=== PATIENT | male | born 1940 | race Caucasian/White ===

== ENCOUNTER 2023-08-04 16:35 | Inpatient (IN) | payer OTHER, SELFPAY ==
[2023-08-04] VITALS (7 sets, daily range): BP systolic 107–126; BP diastolic 63–73; BMI 21.4
--- NOTE | 2023-08-04 13:37 | ED.GENMED ---
History of Present Illness
<Ganesh Raymond Jr., PA-C - Last Filed: 08/04/23 15:39>
General
Chief Complaint: Breathing Problem
Source: patient and family
Exam Limitations: none
Time Seen by Provider: 08/04/23 12:51
Nursing documentation reviewed up to this point in time: agreed with
Travel History
Have you had any contact with someone who has COVID-19?: No
Do you have any symptoms of coronavirus? Fever > 100 degrees, chills, cough, shortness of breath, sore throat, loss of taste or smell, muscle aches, or headache?: No
History of Present Illness
History of Present Illness:
83-year-old male past medical history of CLL, diabetes, hypertension hyperlipidemia presenting to the emergency department with concerns of shortness of breath since last night. Recently admitted to the hospital discharged 5 days ago. He was here
for influenza with secondary bacterial pneumonia took cefuroxime until yesterday. Noticed worsening shortness of breath starting last night. Also has some chest tightness. Denies any leg swelling recent trauma no history of blood clots no
estrogen product usage. Denies any fevers. Has had ongoing cough.
Past History
<Ganesh Raymond Jr., PA-C - Last Filed: 08/04/23 15:39>
Past History
ED Past Medical History: Cancer (Leukemia CLL), HTN, Hypercholesterolemia, NIDDM and Other (Kidney stones)
ED Past Surgical History: Other (Hernia repair)
Social History
Tobacco: Non-smoker
Alcohol: None
Personal:
Living: with family
Review of Systems
<DAPHNEY Ruelas Jr. Last Filed: 08/04/23 15:39>
Review of Systems
Allergies reviewed?: Yes
All Other Systems: ROS reviewed and negative except as documented in HPI and ROS
Phy Exam
<Ganesh Raymond Jr., PA-C - Last Filed: 08/04/23 15:39>
Physical Exam
Physical Exam:
GENERAL: Alert , in no apparent distress
EYE: pupils equal and reactive
NECK: Supple, no significant adenopathy.
ENT: o/p clr, mmm.
CARDIAC: Regular rate and rhythm .
LUNGS: Clear breath sounds bilaterally, no acute respiratory distress, no wheezes/rales/rhonchi
ABDOMEN: Soft, without focal tenderness, no r/g, no cvat
NEUROLOGICAL: Alert and oriented, no focal neuro deficits
SKIN: Warm and dry, skin intact.
MUSCULOSKELETAL: No edema, well perfused.
PSYCH: Normal and appropriate interaction.
Scores
<Ganesh Raymond Jr., PA-C - Last Filed: 08/04/23 15:39>
Heart Failure Risk
Heart Failure Risk Score: Not Applicable
Course
<Ganesh Raymond Jr., PA-C - Last Filed: 08/04/23 15:39>
Orders/Labs/Results
Orders:
Orders
08/04/23 13:14
Electrocardiogram (*1) Stat
Reason for Study: Other
Other Reason for Exam: pneumonia
CT Chest Pe Study Urgent
Comment:
Reason For Exam: sob, recent hospitalization, tachypnea,
Cardiac Monitoring- Treatment ONCE
EKG- Treatment ONCE
08/04/23 13:43
Complete Blood Count/With Diff Urgent
Comprehensive Metabolic Panel Urgent
NT-proBNP Urgent
Troponin I Urgent
08/04/23 14:26
EKG [Electrocardiogram (*1)] Urgent
Reason for Study: Chest Pain
EKG- Treatment ONCE
08/04/23 14:44
Aspirin 325 mg PO NOW STA
08/04/23 Dinner
Cholesterol Lowering
At Your Request: Full Participation
Cholesterol Lowering: Sodium, 2 Gram
08/04/23 15:28
Heparin 3,700 units IV NOW STA
Nursing to Place Non Medication Order As Directed
Physician Order: PTT 6 hours after initial start of Heparin infusion
Above order entered?: Yes
08/04/23 15:30
Heparin 09667 Units/250 ml 25,000 units in 250 ml IV PER PROTOCOL
Weight to be used for heparin protocol in kilograms (kg):: 61.9
Protocol:: Cardiac Tx/Acute Coronary
PTT Goal Range to be used:: PTT 73 to 111 seconds
Order type:: Initial
INITIAL Infusion Dose (UNITS/KG/hr) & then follow protocol:: 12 units/kg/hr
Infusion Dose in UNITS/hr & then follow protocol (UNITS/hr):: 750
INFUSION RATE in mL/hr & then follow protocol (mL/hr):: 7.5
PTT less than or equal to 64 seconds:: Increase rate by 200 units/hr (+ 2 mL/hr)
PTT 64.1 to 72.9 seconds:: Increase rate by 100 units/hr (+ 1 mL/hr)
PTT 73 to 111 seconds:: Target Range. No change in rate.
PTT 111.1 to 130.9 seconds:: Decrease rate by 100 units/hr (- 1 mL/hr)
PTT 131 to 199.9 seconds:: HOLD for 1 hr. Then decrease rate by 200 units/hr (- 2 mL/hr)
PTT greater than or equal to 200 seconds:: HOLD for 2 hrs & Notify Provider. Then decrease by 200 units/hr (-
2 mL/hr)
Lab follow-up:: Each change, PTT q6h until 2 consecutive are therapeutic. Then PTT
daily.
08/04/23 16:06
PTT Urgent
Comment: Obtain baseline before beginning heparin infusion if not already collected
08/04/23 16:19
Furosemide [Lasix] 40 mg IV NOW STA
08/04/23 16:25
Admit/Transfer Patient As Directed
Co-Sign Provider:
Level of Care: Inpatient admission
Assign to:: IVU
Physician / Group: joe
Diagnosis: nstemi
Reason for Hospitalization: nstemi
Expected length of stay greater than two midnights?: Yes
ELOS- Estimated Length of Stay in days: 2
I certify the patient meets the requirements for IP care: Yes
08/04/23 16:26
Code Status As Directed
Resuscitation Status: Do not resuscitate
Reached after discussion with pt or family/Healthcare POA: Yes
DNR Bracelet Application ONCE
08/04/23 19:10
Dextrose 50%-Water [Dextrose 50% Syringe] 12.5 grams IV [id number] PRN
Glucagon [GlucaGen] 1 mg IM PRN PRN
Guaifenesin Solution [Robitussin] 200 mg PO HSPRN PRN
Insulin Aspart Corrective Low [Novolog Flexpen-Low Resistance] See Protocol SC AC
08/04/23 19:10
Heparin Protocol- PTT Orders As Directed
PTT per Heparin protocol: -Obtain CBC and baseline PTT - if not already collected.
-Obtain PTT 6 hours from start of infusion. Then, every 6 hours until 2 consecutive
PTT's are therapeutic. Then, PTT Daily.
-With each rate change, obtain PTT every 6 hours until 2 consecutive PTT's are
therapeutic. Then, PTT Daily.
Activity As Directed
Activity Level: As Tolerated
Bedside Glucose Monitoring As Directed
Frequency: AC&HS
Comment: Change to q6h if pt on TPN, tube feeding or not eating
I/O [Intake/ Output] As Directed
Frequency: q12h
Notify MD As Directed
Notify physician if: PTT is greater than or equal to 200.
Pneumatic Compression Sleeves As Directed
Type: Knee high
Vital Signs As Directed
Frequency: Per unit guidelines
Weight As Directed
Frequency: Daily
DX Deep Vein Thrombosis Video Routine
08/04/23 19:17
Benzonatate [Tessalon Perles] 200 mg PO TIDPRN PRN
08/04/23 20:00
Atorvastatin [Lipitor] 20 mg PO QPM
08/04/23 21:11
Troponin I Q6H
08/05/23 02:42
Complete Blood Count/With Diff IN AM
Comprehensive Metabolic Panel IN AM
Troponin I Q6H
08/05/23 Breakfast
NPO
Allow oral meds: Yes
Allow clear liquids: Sips of Clears
08/05/23 07:10
Troponin I Q6H
08/05/23 08:00
Ascorbic Acid [Vitamin C] 1,000 mg PO DAILY
Aspirin Low Dose EC [Aspir Low (Enteric Coated)] 81 mg PO DAILY
Cholecalciferol (Vitamin D3) [VITAMIN D3 (cholecalciferol)] 25 mcg PO DAILY
08/06/23 06:00
Complete Blood Count/No Diff Q2D
Comment: notify provider: Platelet count < 130,000 or decrease by 50% from baseline
08/08/23 06:00
Complete Blood Count/No Diff Q2D
Comment: notify provider: Platelet count < 130,000 or decrease by 50% from baseline
08/10/23 06:00
Complete Blood Count/No Diff Q2D
Comment: notify provider: Platelet count < 130,000 or decrease by 50% from baseline
08/12/23 06:00
Complete Blood Count/No Diff Q2D
Comment: notify provider: Platelet count < 130,000 or decrease by 50% from baseline
08/14/23 06:00
Complete Blood Count/No Diff Q2D
Comment: notify provider: Platelet count < 130,000 or decrease by 50% from baseline
08/16/23 06:00
Complete Blood Count/No Diff Q2D
Comment: notify provider: Platelet count < 130,000 or decrease by 50% from baseline
08/18/23 06:00
Complete Blood Count/No Diff Q2D
Comment: notify provider: Platelet count < 130,000 or decrease by 50% from baseline
08/20/23 06:00
Complete Blood Count/No Diff Q2D
Comment: notify provider: Platelet count < 130,000 or decrease by 50% from baseline
Abnormal Lab Results
08/04/23
13:43
WBC 50.3 H* 10^3/uL
(4.8-10.8)
RBC 2.68 L 10^6/uL
(4.70-6.10)
Hgb 8.7 L g/dL
(13.0-18.0)
Hct 25.0 L %
(39.0-52.0)
MCH 32.5 H pg
(27.0-31.0)
RDW 15.1 H %
(11.5-14.5)
MPV 10.9 H fL
(7.4-10.4)
Abs Immat Gran (auto) 0.2 H 10^3/uL
(0-0.05)
Absolute Lymphs (auto) 43.3 H 10^3/uL
(1.2-3.4)
Neutrophils % 12.4 L %
(42.2-75.2)
Lymphocytes % 86.0 H %
(20.5-51.1)
Monocytes % 1.0 L %
(1.7-9.3)
Sodium 130 L mmol/L
(135-145)
Carbon Dioxide 16 L mmol/L
(22-30)
BUN 27 H mg/dl
(9-20)
Glucose 203 H mg/dl
(70-99)
Troponin I 2.150 H* ng/ml
Total Protein 5.5 L g/dl
(6.3-8.2)
Albumin 3.4 L g/dl
(3.5-5.0)
08/04/23 13:43
08/04/23 13:43
Vital Signs
Initial and Last Documented VS:
Initial Vital Signs
Temp Pulse Resp BP Pulse Ox
97.6 F 94 18 125/63 99
08/04/23 12:43 08/04/23 12:43 08/04/23 12:43 08/04/23 12:43 08/04/23 12:43
Last Documented Vital Signs
Temp Pulse Resp BP Pulse Ox
98.2 F 73 20 108/60 94
08/05/23 08:11 08/05/23 09:00 08/05/23 08:11 08/05/23 08:13 08/05/23 09:22
<Donnie Warner MD - Last Filed: 08/05/23 10:08>
Orders/Labs/Results
Orders:
Orders
08/04/23 13:14
Electrocardiogram (*1) Stat
Reason for Study: Other
Other Reason for Exam: pneumonia
CT Chest Pe Study Urgent
Comment:
Reason For Exam: sob, recent hospitalization, tachypnea,
Cardiac Monitoring- Treatment ONCE
EKG- Treatment ONCE
08/04/23 13:43
Complete Blood Count/With Diff Urgent
Comprehensive Metabolic Panel Urgent
NT-proBNP Urgent
Troponin I Urgent
08/04/23 14:26
EKG [Electrocardiogram (*1)] Urgent
Reason for Study: Chest Pain
EKG- Treatment ONCE
08/04/23 14:44
Aspirin 325 mg PO NOW STA
08/04/23 Dinner
Cholesterol Lowering
At Your Request: Full Participation
Cholesterol Lowering: Sodium, 2 Gram
08/04/23 15:28
Heparin 3,700 units IV NOW STA
Nursing to Place Non Medication Order As Directed
Physician Order: PTT 6 hours after initial start of Heparin infusion
Above order entered?: Yes
08/04/23 15:30
Heparin 42175 Units/250 ml 25,000 units in 250 ml IV PER PROTOCOL
Weight to be used for heparin protocol in kilograms (kg):: 61.9
Protocol:: Cardiac Tx/Acute Coronary
PTT Goal Range to be used:: PTT 73 to 111 seconds
Order type:: Initial
INITIAL Infusion Dose (UNITS/KG/hr) & then follow protocol:: 12 units/kg/hr
Infusion Dose in UNITS/hr & then follow protocol (UNITS/hr):: 750
INFUSION RATE in mL/hr & then follow protocol (mL/hr):: 7.5
PTT less than or equal to 64 seconds:: Increase rate by 200 units/hr (+ 2 mL/hr)
PTT 64.1 to 72.9 seconds:: Increase rate by 100 units/hr (+ 1 mL/hr)
PTT 73 to 111 seconds:: Target Range. No change in rate.
PTT 111.1 to 130.9 seconds:: Decrease rate by 100 units/hr (- 1 mL/hr)
PTT 131 to 199.9 seconds:: HOLD for 1 hr. Then decrease rate by 200 units/hr (- 2 mL/hr)
PTT greater than or equal to 200 seconds:: HOLD for 2 hrs & Notify Provider. Then decrease by 200 units/hr (-
2 mL/hr)
Lab follow-up:: Each change, PTT q6h until 2 consecutive are therapeutic. Then PTT
daily.
08/04/23 16:06
PTT Urgent
Comment: Obtain baseline before beginning heparin infusion if not already collected
08/04/23 16:19
Furosemide [Lasix] 40 mg IV NOW STA
08/04/23 16:25
Admit/Transfer Patient As Directed
Co-Sign Provider:
Level of Care: Inpatient admission
Assign to:: IVU
Physician / Group: joe
Diagnosis: nstemi
Reason for Hospitalization: nstemi
Expected length of stay greater than two midnights?: Yes
ELOS- Estimated Length of Stay in days: 2
I certify the patient meets the requirements for IP care: Yes
08/04/23 16:26
Code Status As Directed
Resuscitation Status: Do not resuscitate
Reached after discussion with pt or family/Healthcare POA: Yes
DNR Bracelet Application ONCE
08/04/23 19:10
Dextrose 50%-Water [Dextrose 50% Syringe] 12.5 grams IV [id number] PRN
Glucagon [GlucaGen] 1 mg IM PRN PRN
Guaifenesin Solution [Robitussin] 200 mg PO HSPRN PRN
Insulin Aspart Corrective Low [Novolog Flexpen-Low Resistance] See Protocol SC AC
08/04/23 19:10
Heparin Protocol- PTT Orders As Directed
PTT per Heparin protocol: -Obtain CBC and baseline PTT - if not already collected.
-Obtain PTT 6 hours from start of infusion. Then, every 6 hours until 2 consecutive
PTT's are therapeutic. Then, PTT Daily.
-With each rate change, obtain PTT every 6 hours until 2 consecutive PTT's are
therapeutic. Then, PTT Daily.
Activity As Directed
Activity Level: As Tolerated
Bedside Glucose Monitoring As Directed
Frequency: AC&HS
Comment: Change to q6h if pt on TPN, tube feeding or not eating
I/O [Intake/ Output] As Directed
Frequency: q12h
Notify MD As Directed
Notify physician if: PTT is greater than or equal to 200.
Pneumatic Compression Sleeves As Directed
Type: Knee high
Vital Signs As Directed
Frequency: Per unit guidelines
Weight As Directed
Frequency: Daily
DX Deep Vein Thrombosis Video Routine
08/04/23 19:17
Benzonatate [Tessalon Perles] 200 mg PO TIDPRN PRN
08/04/23 20:00
Atorvastatin [Lipitor] 20 mg PO QPM
08/04/23 21:11
Troponin I Q6H
08/05/23 02:42
Complete Blood Count/With Diff IN AM
Comprehensive Metabolic Panel IN AM
Troponin I Q6H
08/05/23 Breakfast
NPO
Allow oral meds: Yes
Allow clear liquids: Sips of Clears
08/05/23 07:10
Troponin I Q6H
08/05/23 08:00
Ascorbic Acid [Vitamin C] 1,000 mg PO DAILY
Aspirin Low Dose EC [Aspir Low (Enteric Coated)] 81 mg PO DAILY
Cholecalciferol (Vitamin D3) [VITAMIN D3 (cholecalciferol)] 25 mcg PO DAILY
08/06/23 06:00
Complete Blood Count/No Diff Q2D
Comment: notify provider: Platelet count < 130,000 or decrease by 50% from baseline
08/08/23 06:00
Complete Blood Count/No Diff Q2D
Comment: notify provider: Platelet count < 130,000 or decrease by 50% from baseline
08/10/23 06:00
Complete Blood Count/No Diff Q2D
Comment: notify provider: Platelet count < 130,000 or decrease by 50% from baseline
08/12/23 06:00
Complete Blood Count/No Diff Q2D
Comment: notify provider: Platelet count < 130,000 or decrease by 50% from baseline
08/14/23 06:00
Complete Blood Count/No Diff Q2D
Comment: notify provider: Platelet count < 130,000 or decrease by 50% from baseline
08/16/23 06:00
Complete Blood Count/No Diff Q2D
Comment: notify provider: Platelet count < 130,000 or decrease by 50% from baseline
08/18/23 06:00
Complete Blood Count/No Diff Q2D
Comment: notify provider: Platelet count < 130,000 or decrease by 50% from baseline
08/20/23 06:00
Complete Blood Count/No Diff Q2D
Comment: notify provider: Platelet count < 130,000 or decrease by 50% from baseline
Abnormal Lab Results
08/04/23
13:43
WBC 50.3 H* 10^3/uL
(4.8-10.8)
RBC 2.68 L 10^6/uL
(4.70-6.10)
Hgb 8.7 L g/dL
(13.0-18.0)
Hct 25.0 L %
(39.0-52.0)
MCH 32.5 H pg
(27.0-31.0)
RDW 15.1 H %
(11.5-14.5)
MPV 10.9 H fL
(7.4-10.4)
Abs Immat Gran (auto) 0.2 H 10^3/uL
(0-0.05)
Absolute Lymphs (auto) 43.3 H 10^3/uL
(1.2-3.4)
Neutrophils % 12.4 L %
(42.2-75.2)
Lymphocytes % 86.0 H %
(20.5-51.1)
Monocytes % 1.0 L %
(1.7-9.3)
Sodium 130 L mmol/L
(135-145)
Carbon Dioxide 16 L mmol/L
(22-30)
BUN 27 H mg/dl
(9-20)
Glucose 203 H mg/dl
(70-99)
Troponin I 2.150 H* ng/ml
Total Protein 5.5 L g/dl
(6.3-8.2)
Albumin 3.4 L g/dl
(3.5-5.0)
08/04/23 13:43
08/04/23 13:43
Vital Signs
Initial and Last Documented VS:
Initial Vital Signs
Temp Pulse Resp BP Pulse Ox
97.6 F 94 18 125/63 99
08/04/23 12:43 08/04/23 12:43 08/04/23 12:43 08/04/23 12:43 08/04/23 12:43
Last Documented Vital Signs
Temp Pulse Resp BP Pulse Ox
98.2 F 73 20 108/60 94
08/05/23 08:11 08/05/23 09:00 08/05/23 08:11 08/05/23 08:13 08/05/23 09:22
<Ganesh Raymond Jr., PA-C - Last Filed: 08/04/23 15:39>
MDM/Problems Addressed
MDM/Problems Addressed:
83-year-old male presenting to the emergency department today with concerns of shortness of breath chest tightness since last night. Upon arrival heart rate in the high 90s and occasionally in the low 100s blood pressure normal pulse ox 99%
respiratory rate in the 20s. Afebrile lungs are clear heart sounds normal patient does appear to be somewhat tachypneic and appears short of breath. Concerning recent hospitalization there was some concern for PE. He was considered moderate risk
thus CT scan was ordered for further assessment.
Patient troponin returning at 2.150. Potentially consistent with PE or NSTEMI BNP elevated to 17,600. Case was discussed with cardiology pending CT PE. Otherwise patient did have significant elevated white count however has had significant
elevated levels in the past secondary to CLL. Patient was given dose of aspirin. CT PE without evidence of PE.
Patient with likely NSTEMI patient started on heparin will be admitted for further evaluation. Chest pain-free for ER stay.
<Ganesh Raymond Jr., PA-C - Last Filed: 08/04/23 15:39>
*Critical Care Note
Total Time (30-74mins, 75-104mins- exclusive of procedures): Not Applicable
ED Attending Note
<Ganesh Raymond Jr., PA-C - Last Filed: 08/04/23 15:39>
-
Portions of this chart may have been created with voice recognition software.� Occasional wrong word or��sound alike� substitutions may have occurred due to the inherent limitations of voice recognition software.
<Donnie Warner MD - Last Filed: 08/05/23 10:08>
ED Attending Note
I performed the substantive portion of visit, reviewed & personally made and approve the management plan that is documented in note by myself or AMY.: Yes
ED Attending Note:
History, exam, and blood work concerning for potential PE versus non-STEMI. In light of patient's ongoing treatment for leukemia as well as recent hospitalization, there is high risk for potential development for embolism. As such, stat CT PE
study will be ordered. Cardiology, Dr. Guadarrama, notified, for evaluation after PE study is completed.
Discharge Plan
Departure
Patient Disposition: Admit
Date of Disposition: 08/04/23
Time of Disposition: 15:38
Admit to: Telemetry
Admit to doctor: Florina
Presentation/result/management discussed w/ accepting MD/DO: Hospitalist
Patient with high blood pressure during this ER visit?: No
Condition: Good
Covid-19: Not Applicable
Discharge Problem:
Non-ST elevation FL (NSTEMI)
Interventions
Interventions:
*General Assessment Last Done: 08/04/23 19:55
*Neglect/Abuse Screening Last Done: 08/04/23 19:55
ED- Fall Risk Assessment Last Done: 08/04/23 14:26
*ED COVID-19 Vaccine History Last Done: 08/04/23 18:26
*Nursing Disposition Last Done: 08/04/23 19:55
ED- Cardiac Assessment Last Done: 08/04/23 14:26
ED- Pulmonary Assessment Last Done: 08/04/23 14:26
Discharge Date and Time
Discharge Date/Time: 08/04/23 19:10
[2023-08-04 13:56] LABS: % Basophils 0.1 % (0-2); % Eosinophils 0.1 % (0-6); % Immature Granulocytes 0.4 % (0-0.5); % Neutrophils 12.4 % (42.2-75.2); Absolute Immature Granulocytes 0.2 10^3/uL (0-0.05); Absolute Lymphocytes 43.3 10^3/uL (1.2-3.4); Absolute Monocytes 0.5 10^3/uL (0.1-0.6); Absolute Neutrophils 6.3 10^3/uL (1.4-6.5); Hemoglobin 8.7 g/dL (13.0-18.0); Mean Corp Hgb Conc. 34.8 g/dL (33.0-37.0); Mean Corpuscular Hgb 32.5 pg (27.0-31.0); Mean Corpuscular Volume 93.3 fL (80.0-94.0); Mean Platelet Volume 10.9 fL (7.4-10.4); Nucleated Red Blood Cells % 0.1 % (-); Platelet Count 249 10^3/uL (130-400); Red Blood Cell Count 2.68 10^6/uL (4.70-6.10); Red Cell Dist. Width 15.1 % (11.5-14.5)
[2023-08-04 14:05] LABS: White Blood Cell Count 50.3 10^3/uL (4.8-10.8)
[2023-08-04 14:11] LABS: ALT (SGPT) 44 U/L (0-50); AST (SGOT) 43 U/L (17-59); Albumin 3.4 g/dl (3.5-5.0); Alkaline Phosphatase 73 U/L (38-126); Blood Urea Nitrogen 27 mg/dl (9-20); Calcium 9.2 mg/dl (8.4-10.2); Carbon Dioxide 16 mmol/L (22-30); Chloride 102 mmol/L (98-107); Estimated Creatinine Clearance 56 ml/min; Glucose 203 mg/dl (70-99); Potassium 4.8 mmol/L (3.5-5.1); Sodium 130 mmol/L (135-145); Total Bilirubin 0.8 mg/dl (0.2-1.3); Total Protein 5.5 g/dl (6.3-8.2); eGFR > 60.00
[2023-08-04 14:45] LABS: NT-proBNP 17600 pg/ml
[2023-08-04] MEDS: ASPIRIN 325 MG PO (14:55)
[2023-08-04 16:22] LABS: APTT 26.7 Sec (23.4-35.0)
--- NOTE | 2023-08-04 16:29 | HPS.HSE ---
Family Physician
-
Family Physician: Stan Gomez
Chief Complaint
-
shortness of breath
History of Present Illness
83-year-old male past medical history of CLL, diabetes, hypertension, hyperlipidemia, kidney stones, presenting with shortness of breath since last night as well as chest tightness. Shortness of breath is worse with lying down flat or exertion and
he had to sleep in recliner. He Has cough which is persistent from recent influenza infection. He denies any leg swelling, recent trauma, history of blood clots. Denies any fever. Denies any weight gain but has been losing weight in the past
year due to CLL. He denies any dizziness or syncope.
He denies any history of cardiac problems or lung problems.
Patient was recently admitted for influenza type B treated with Tamiflu as well as TRENA which responded to IV fluids.
Medical History
Past Medical History
Past Medical History: Reports Other (CLL, diabetes, hypertension, hyperlipidemia, kidney stones)
Past Surgical History: Reports None
Social History
Tobacco: Non-smoker
Alcohol: None
Drug: None
Family History
Family History: Not pertinent
Allergies / Home Medications
Allergies reflects when Allergies were last updated in [facility].
Home Medications with original date entered in [facility]
Allergy/Medication List:
Allergies
Allergy/AdvReac Type Severity Reaction Status Date / Time
No Known Allergies Allergy Unverified 07/23/22 14:31
Home Medications
metformin 500 mg tablet,extended release 24 hr 500 mg PO BID Diabetes 10/14/20
simvastatin 40 mg tablet 40 mg PO QPM High Cholesterol 10/14/20
ascorbic acid (vitamin C) 1,000 mg tablet (Vitamin C) 1,000 mg PO DAILY Supplement 07/27/23
cholecalciferol (vitamin D3) 25 mcg (1,000 unit) tablet (Vitamin D3) 25 mcg PO DAILY Supplement 07/27/23
cod liver oil 3 cap PO DAILY Supplement 07/27/23
benzonatate 200 mg capsule 200 mg PO TID PRN cough 08/04/23
guaifenesin 100 mg/5 mL oral liquid 200 mg PO HSPRN PRN cough 08/04/23
Review of Systems
-
History Source: Patient
A 12 point ROS was completed and negative except as noted: Yes
Constitutional: Reports No Symptoms
EENT: Reports No Symptoms
Respiratory: Reports See HPI
Cardiac: Reports See HPI
Abdomen/GI: Reports No Symptoms
: Reports No Symptoms
Musculoskeletal: Reports No Symptoms
Skin: Reports No Symptoms
Neurological: Reports No Symptoms
Endocrine: Reports No Symptoms
Hematologic/Lymphatic: Reports No Symptoms
Psych: Reports No Symptoms
Physical Exam
Vital Signs
Vital Signs
Temp Pulse Resp BP Pulse Ox
97.6 F 95 24 112/63 99
08/04/23 12:43 08/04/23 14:30 08/04/23 14:30 08/04/23 13:18 08/04/23 12:43
Physical Exam
General: Well Developed, Well Nourished and No Apparent Distress
HEENT: NormoCephalic, Moist mucous membranes and Atraumatic
Respiratory: Clear
Cardiac: S1/S2 and Regular Rhythm; No Murmur or Rub
GI: Soft, Non Tender, Non Distended and Normal Bowel Sounds; No Organomegaly
Rectal: Deferred by Provider
Musculoskeletal: No Clubbing, No Cyanosis and No Edema
Skin: No Rash
Neuro: Nonfocal/grossly intact
Laboratory Results
-
08/04/23 13:43
08/04/23 13:43
Laboratory Results
APTT 26.7 Sec (23.4-35.0) 08/04/23 16:06
Total Bilirubin 0.8 mg/dl (0.2-1.3) 08/04/23 13:43
AST 43 U/L (17-59) 08/04/23 13:43
ALT 44 U/L (0-50) 08/04/23 13:43
Alkaline Phosphatase 73 U/L (38-126) 08/04/23 13:43
Troponin I 2.150 ng/ml H* 08/04/23 13:43
Data Reviewed
-
Lab Data: Labs Reviewed by me
Old Records: Reviewed
Impression/Plan
-
IMPRESSION:
PLAN:
# NSTEMI
-No chest pain currently
-EKG shows normal sinus rhythm, incomplete right bundle branch block, left anterior fascicular block, nonspecific ST-T wave changes
-Troponin of 2.1
-CT chest shows moderate bilateral pleural effusions and accompanying bilateral lower lobe opacification/consolidation likely atelectasis
-Trend troponins
-Aspirin started
-Heparin drip
-Check echo
-N.p.o. postmidnight
-Cardiology consulted
# Acute on chronic HFpEF exacerbation
-At least moderate bilateral pleural effusion on CT scan
-Cardiac BNP of 17
-Check I's and O/daily weights
-40 IV Lasix given
-IR consulted for thoracentesis
Chronic anemia
-Hemoglobin stable
Recent sepsis secondary to influenza type B
Essential hypertension
Hyperlipidemia
-Continue statin
Type 2 diabetes
-Hold metformin
-Insulin sliding scale
CLL/hypogammaglobulinemia
-receives outpatient IGG
First-degree AV block/bifascicular block
DNR/DNI
DVT prophylaxis�heparin drip
Cardiac diet, n.p.o. past midnight
--- NOTE | 2023-08-04 16:35 | CON.CAR ---
Addendum entered and electronically signed by Johnathan Guadarrama MD 08/04/23 17:06:
I saw and examined the patient.
The Golf Course Assistant's note was reviewed and I agree with the note.
Comment:
GEN: No distress, awake, Ox3
HEENT: supple, anicteric, mmm
LUNGS: scatt rhonchi
CV: Reg, S1/S2, 1/6 syst LSB, S3+
ABD: soft, BS+, NT/ND
EXT: No edema
NEURO: Gross non-focal
SKIN: No rash
Plan:
83-year-old male with past medical history of recent influenza and pneumonia discharged several days ago given IV fluids during the hospitalization presents with marked dyspnea, orthopnea, and shortness of breath. He was also having some occasional
chest discomfort. He presented back to the emergency was found to have a troponin of 2.15. CT scan revealed no pulm embolism but did reveal bilateral pleural effusions and proBNP is 17,000. ECG with sinus rhythm with nonspecific T wave
abnormalities. He also has a history of CLL getting treated with IVIG.
Check echocardiogram and trend troponins.
Start Lasix 40 mg IV twice daily. CHF education.
He likely will need an ischemic evaluation as I suspect he does have some level of coronary artery disease. Start aspirin, metoprolol, and start atorvastatin 40mg daily. Check Lipids
Consider DONNA if Bp tolerates.
We could consider cardiac cath this admission or as outpatient depending on his hospital course.
Original Note:
Consultation
Consultation Request
Date/Time Consultation Requested: 08/04/23
Date/Time Consultation Performed: 08/04/23
Requesting Provider: Dr. [facility]
Performing Provider: Dr. Guadarrama
Reason for Consultation: Acute HF
Medical History
-
History of Present Illness:
Patient came to [facility] with SOB and cardiology consulted. Patient was just admitted to 07/27/23 until 07/30/23 with influenza and secondary bacterial PNA. Patient was hypotensive and given 2.75 L IVFs that admission and PRN doses of midodrine.
Patient was discharged to home and says that he started with SOB at bedtime last night. He laid down in bed and after an hour he awoke gasping for breath consistent with PND and orthopnea. Patient slept in a chair the rest of the night and then [facility]. He is now on oxygen and feeling less SOB. CT chest was negative for PE, but he had moderate sized B/L pleural effusions. pro-BNP 50715. There is no h/o CHF and he does not take a diuretic. Initial Troponin was 2.15, but no chest pain
and no ischemic changes on ECG.
PMH:
CLL
Hyperlipidemia
DM 2
HTN
Past Medical History
Past Medical History: Other (in HPI)
Past Surgical History: Orthopedic
Social History
Tobacco: Non-Smoker
Alcohol: None
Drug: None
Living: With Family
Family History
Family History: Diabetes
Allergies / Home Medications
Allergy/AdvReac Type Severity Reaction Status Date / Time
No Known Allergies Allergy Unverified 07/23/22 14:31
Medication Instructions Recorded Confirmed Type
metformin 500 mg tablet,extended 500 mg PO BID Diabetes 10/14/20 08/04/23 History
release 24 hr
simvastatin 40 mg tablet 40 mg PO QPM High Cholesterol 10/14/20 08/04/23 History
ascorbic acid (vitamin C) 1,000 mg 1,000 mg PO DAILY Supplement 07/27/23 08/04/23 History
tablet (Vitamin C)
cholecalciferol (vitamin D3) 25 25 mcg PO DAILY Supplement 07/27/23 08/04/23 History
mcg (1,000 unit) tablet (Vitamin
D3)
cod liver oil 3 cap PO DAILY Supplement 07/27/23 08/04/23 History
benzonatate 200 mg capsule 200 mg PO TID PRN cough 08/04/23 08/04/23 History
guaifenesin 100 mg/5 mL oral liquid 200 mg PO HSPRN PRN cough 08/04/23 08/04/23 History
Review of Systems
-
History Source: Patient and Family (daughter bedside helping with HPI)
All other systems: Negative unless noted
Physical Exam
Vital Signs
Temp Pulse Resp BP Pulse Ox
97.6 F 95 24 112/63 99
08/04/23 12:43 08/04/23 14:30 08/04/23 14:30 08/04/23 13:18 08/04/23 12:43
GEN: NAD, AAOx3
HEENT: EOMI, MMM
LUNGS: Decreased BS at bases B/L without wheeze or rales
CV: Reg, S1/S2, 1/6 syst LSB
ABD: soft, BS+, NT, ND
EXT: No clubbing, cyanosis, lesions or edema B/L
NEURO: Gross non-focal
SKIN: Warm, dry and pink. No rash
Lab Results
08/04/23 13:43
08/04/23 13:43
Troponin I 2.150 ng/ml H* 08/04/23 13:43
Kji-A-Lxuxgonjvnb Pept 02424 pg/ml 08/04/23 13:43
Impression / Plan
-
PCP: Dr. Gomez
Cardiology: Dr. Cevallos, last seen 2010
Impression:
Acute HF unknown EF
Moderate sized pleural effusions
Elevated Troponin
Recent admission for influenza and secondary bacterial PNA 07/27/23 until 07/30/23
CLL
Hyperlipidemia
DM 2
HTN
Echo 08/04/23: Study pending
Plan:
-Patient came to [facility] with SOB and cardiology consulted. Patient was just admitted to 07/27/23 until 07/30/23 with influenza and secondary bacterial PNA. Patient was hypotensive and given 2.75 L IVFs that admission and PRN doses of midodrine.
Patient was discharged to home and says that he started with SOB at bedtime last night. He laid down in bed and after an hour he awoke gasping for breath consistent with PND and orthopnea. Patient slept in a chair the rest of the night and then came
to [facility] today. He is now on oxygen and feeling less SOB. CT chest was negative for PE, but he had moderate sized B/L pleural effusions. pro-BNP 13189. There is no h/o CHF and he does not take a diuretic. Initial Troponin was 2.15, but no chest pain
and no ischemic changes on ECG.
-Talked with patient and daughter at bedside at length about acute HF. Will give Lasix 40 mg IV x1 now and then daily. Dry weight last admission was as low as 125 lbs, he weighed 128 lbs on day of d/c 07/30/23 and today is up to 136 lbs.
-Check echo.
-Initial Troponin was 2.15, but no chest pain and no ischemic changes on ECG reviewed by me. Could be a nonischemic myocardial injury Troponin elevation due to acute HF or possibly NSTEMI. Will trend Troponin and check echo.
-Start aspirin 81 mg daily
-Check CVE. Patient was taking simvastatin 40 mg daily prior to admission and will change to atorvastatin 40 mg daily in the hospital
[2023-08-04] MEDS: HEPARIN 3700 UNITS IV (16:55)
[2023-08-04] MEDS: LASIX 40 MG IV (16:59)
[2023-08-04] MEDS: HEPARIN 25000 UNITS/250 ML IV (17:04)
[2023-08-04 19:35] LABS: Glucose - Point of Care 158 mg/dl (70-99)
[2023-08-04] MEDS: NOVOLOG FLEXPEN-LOW RESISTANCE 1 UNITS SC (19:41)
[2023-08-04] MEDS: LIPITOR 20 MG PO (19:41)
[2023-08-04 21:34] LABS: APTT 45.4 Sec (23.4-35.0)
[2023-08-04 22:46] LABS: Glucose - Point of Care 181 mg/dl (70-99)
--- NOTE | 2023-08-04 23:24 | PTCARENOTE ---
Received pt from ED. AOX4. Tele- SR w/ [facility]BC. VSS. Oriented pt to unit. Assessment noted as documented. Heparin gtt infusing at 750 units/hr. No c/o pain/discomfort/SOB. POC reviewed w/ pt. Aware of NPO status after midnight. DNR bracelet intact. Pt
currently resting in bed; call byrnes w/in reach.
[2023-08-05 02:31] VITALS: BP 107/62
[2023-08-05 02:50] VITALS: BMI 19.7
[2023-08-05 02:53] LABS: % Basophils 0.1 % (0-2); % Eosinophils 0.1 % (0-6); % Immature Granulocytes 0.3 % (0-0.5); % Lymphocytes 91.2 % (20.5-51.1); % Monocytes 0.7 % (1.7-9.3); % Neutrophils 7.6 % (42.2-75.2); Absolute Basophils 0.1 10^3/uL (0-0.2); Absolute Eosinophils 0.1 10^3/uL (0-0.7); Absolute Immature Granulocytes 0.2 10^3/uL (0-0.05); Absolute Lymphocytes 61.4 10^3/uL (1.2-3.4); Absolute Monocytes 0.4 10^3/uL (0.1-0.6); Absolute Neutrophils 5.2 10^3/uL (1.4-6.5); Hematocrit 24.6 % (39.0-52.0); Hemoglobin 8.3 g/dL (13.0-18.0); Mean Corp Hgb Conc. 33.7 g/dL (33.0-37.0); Mean Corpuscular Hgb 32.3 pg (27.0-31.0); Mean Corpuscular Volume 95.7 fL (80.0-94.0); Mean Platelet Volume 10.5 fL (7.4-10.4); Nucleated Red Blood Cells % 0 % (-); Platelet Count 262 10^3/uL (130-400); Red Blood Cell Count 2.57 10^6/uL (4.70-6.10); Red Cell Dist. Width 15.1 % (11.5-14.5)
[2023-08-05 02:55] LABS: White Blood Cell Count 67.4 10^3/uL (4.8-10.8)
[2023-08-05 03:16] LABS: ALT (SGPT) 40 U/L (0-50); AST (SGOT) 38 U/L (17-59); Albumin 3.1 g/dl (3.5-5.0); Alkaline Phosphatase 75 U/L (38-126); Blood Urea Nitrogen 25 mg/dl (9-20); Calcium 9.1 mg/dl (8.4-10.2); Carbon Dioxide 20 mmol/L (22-30); Chloride 102 mmol/L (98-107); Estimated Creatinine Clearance 47 ml/min; Glucose 147 mg/dl (70-99); HDL Cholesterol 38 mg/dl; LDL Cholesterol, Calculated 30 mg/dl; Potassium 3.9 mmol/L (3.5-5.1); Sodium 134 mmol/L (135-145); Total Bilirubin 0.8 mg/dl (0.2-1.3); Total Cholesterol 80 mg/dl (50-199); Total Protein 5.1 g/dl (6.3-8.2); Triglyceride 61 mg/dl (10-149); Very Low Density Lipoprotein 12 mg/dl (0-30); eGFR > 60.00
--- NOTE | 2023-08-05 03:17 | PTCARENOTE ---
WBC 67.4. Enedelia DIALLO notified and no further orders.
[2023-08-05 03:41] LABS: APTT 43.8 Sec (23.4-35.0)
[2023-08-05 08:13] VITALS: BP 108/60
[2023-08-05 08:16] LABS: Glucose - Point of Care 171 mg/dl (70-99)
[2023-08-05] MEDS: ASPIR LOW (ENTERIC COATED) 81 MG PO (09:10)
[2023-08-05] MEDS: VITAMIN D3 (cholecalciferol) 25 MCG PO (09:10)
[2023-08-05] MEDS: VITAMIN C 1000 MG PO (09:10)
[2023-08-05] MEDS: LIPITOR 40 MG PO (09:12)
[2023-08-05] MEDS: TOPROL XL 25 MG PO (09:12)
[2023-08-05] MEDS: NOVOLOG FLEXPEN-LOW RESISTANCE 1 UNITS SC (09:17)
[2023-08-05] MEDS: LASIX 40 MG IV ×2 (09:18→15:44)
--- NOTE | 2023-08-05 10:00 | CM ---
Reviewed chart. Mr. Lopez was transferred to IVU. Met with Mr. Lopez to review discharge plans. He states prior to admission he resides with is spouse in a one tory home with four steps to enter. He states prior to admission he was independent with
ambulation and adls. He states he has a rolling walker, Shower chair, Shower rails and raised toilet seat at home that his spouse used after her spinal surgery. He has [facility] after his last hospitalization. He states he has a
prescription plan and uses [facility]. Medical work-up in progress. The discharge plan is to return home with his spouse with resumption of [facility] if he is agreeable when medically stable.
[2023-08-05 10:54] LABS: APTT 29.8 Sec (23.4-35.0)
[2023-08-05 12:08] VITALS: BP 104/58
--- NOTE | 2023-08-05 12:12 | W.PN.CARDCBS ---
Addendum entered and electronically signed by Lucas Saunders MD 08/05/23 15:24:
I saw and examined the patient.
The Hot Car Charger's note was reviewed and I agree with the note.
Comment: Briefly, 83-year-old man presenting in decompensated heart failure found to have newly reduced ejection fraction of 30 to 35% and moderate to severe mitral regurgitation
Troponin was elevated and peaked 4.1 concerning for NSTEMI
Discussed invasive coronary angiography with the patient and family members, given his medical comorbidities including CLL they would prefer conservative management
Plan for aspirin, high intensity statin, beta-hardik and heparin drip x 48 hours
In regards to his decompensated HFrEF, plan for further IV diuresis to optimize his volume status
Cont BB
Will ask CM to jolly Entresto and SGLT2
Original Note:
Today's Communication / Plan
-
CXR in AM to re-eval B/L pleural effusions
Ongoing diuresis
Start Farxiga and ask CM to check cost
Start losartan and check cost of Entresto
Cont Toprol XL
Medical management of NSTEMI, consider adding Plavix, but baseline Hgb is 8.
Impression / Plan
-
PCP: Dr. Gomez
Cardiology: Dr. Cevallos, last seen 2010
Impression:
Acute HFrEF
Newly diagnosed CM EF 30-35% by echo 08/04/23
NSTEMI
Moderate sized pleural effusions
Recent admission for influenza and secondary bacterial PNA 07/27/23 until 07/30/23
CLL
Hyperlipidemia
DM 2
HTN
Moderate to severe MR by echo 08/04/23
Echo 08/04/23: EF 30-35%, mid to distal septum and inferior cedillo are akinetic which could be consistent with RCA territory infarct, mild LVH, stage II diastolic dysfunction, mod to sev MR, mild to mod aortic regurgitation, mod TR
Plan:
-Weight is down 2 lbs overnight with Lasix 40 mg IV BID. Dry weight last admission was as low as 125 lbs. Patient was not taking a diuretic prior to admission.
-Initial Troponin was 2.15 and then peaked at 4.12. No chest pain and no ischemic changes on ECG, but echo with reduced EF and possible RCA territory infarct age undetermined. Talked with patient and daughter in law about options of cath vs medical
management vs doing nothing. Reviewed cath procedure, the need for DAPT, concerns about CLL and anemia and risk of stroke, heart attack and with cath. Reviewed medical therapy. Made a plan to pursue medical therapy for now and recheck an echo
in 3 months.
-GDMT includes Toprol XL 25 mg daily started 08/04/23. Will start losartan 25 mg daily on 08/05/23 and ask CM to check on cost of Entresto. Will start Farxiga 10 mg daily and ask CM for help in checking jolly.
-Will manage as NSTEMI. Heparin gtt running since 08/04/23, will stop 08/06/23. Cont aspirin. Consider adding Plavix, but baseline Hgb is about 8.
-LDL 30. Outpatient dose of simvastatin 40 mg daily changed to atorvastatin 40 mg daily in the hospital
-Recheck CXR in AM to re-evaluate B/L pleural effusions
HPI: Patient came to [facility] with SOB and cardiology consulted. Patient was just admitted to 07/27/23 until 07/30/23 with influenza and secondary bacterial PNA. Patient was hypotensive and given 2.75 L IVFs that admission and PRN doses of midodrine.
Patient was discharged to home and says that he started with SOB at bedtime last night. He laid down in bed and after an hour he awoke gasping for breath consistent with PND and orthopnea. Patient slept in a chair the rest of the night and then came
to [facility] today. He is now on oxygen and feeling less SOB. CT chest was negative for PE, but he had moderate sized B/L pleural effusions. pro-BNP 64192. There is no h/o CHF and he does not take a diuretic. Initial Troponin was 2.15, but no chest pain
and no ischemic changes on ECG.
Progress Note - Administrative Resources Associate
Subjective
Date of Service: August 05, 2023
Less SOB
Objective
Labs:
08/05/23 02:42
08/05/23 02:42
Labs
Hgb 8.3 g/dL (13.0-18.0) L 08/05/23 02:42
Hct 24.6 % (39.0-52.0) L 08/05/23 02:42
Plt Count 262 10^3/uL (130-400) 08/05/23 02:42
APTT 29.8 Sec (23.4-35.0) 08/05/23 10:30
Sodium 134 mmol/L (135-145) L 08/05/23 02:42
Potassium 3.9 mmol/L (3.5-5.1) 08/05/23 02:42
BUN 25 mg/dl (9-20) H 08/05/23 02:42
Creatinine 1.0 mg/dL (0.7-1.3) 08/05/23 02:42
Glucose 147 mg/dl (70-99) H 08/05/23 02:42
Troponins
08/04/23 08/04/23 08/05/23
13:43 21:11 02:42
Troponin I 2.150 H* 3.550 H* D 4.120 H*
08/05/23
10:30
Troponin I 3.030 H* D
Vital Signs and I&O:
Vital Signs
Temp Pulse Resp BP Pulse Ox
98.2 F 73 20 108/60 94
08/05/23 08:11 08/05/23 09:00 08/05/23 08:11 08/05/23 08:13 08/05/23 09:22
Vital Signs
Temp Pulse Resp BP Pulse Ox
98.2 F 73 20 108/60 94
08/05/23 08:11 08/05/23 09:00 08/05/23 08:11 08/05/23 08:13 08/05/23 09:22
Intake & Output
08/03/23 08/04/23 08/05/23 08/06/23
06:59 06:59 06:59 06:59
Output Total 3100 / 3100 1450 / 1450
Balance -3100 / -3100 -1450 / -1450
Physical Exam
Physical Exam
GEN: NAD, AAOx3
HEENT: EOMI, MMM
LUNGS: Decreased BS at bases B/L without wheeze or rales
CV: Reg, S1/S2, 1/6 syst LSB
ABD: soft, BS+, NT, ND
EXT: No clubbing, cyanosis, lesions or edema B/L
NEURO: Gross non-focal
SKIN: Warm, dry and pink. No rash
[2023-08-05 12:22] LABS: Glucose - Point of Care 289 mg/dl (70-99)
[2023-08-05] MEDS: NOVOLOG FLEXPEN-LOW RESISTANCE 3 UNITS SC (13:05)
--- NOTE | 2023-08-05 13:48 | W.PN.HOSP.TC ---
Today's Communication/Plan
-
cont iv diuresis
cont hep ggt - anticipate [facility] this admission
ASA, Statin, BB
Assessment / Plan
Assessment / Plan
Physical Exam
General: Well Developed, Well Nourished and No Apparent Distress
HEENT: NormoCephalic, Moist mucous membranes and Atraumatic
Respiratory: Clear
Cardiac: S1/S2 and Regular Rhythm; No Murmur or Rub
GI: Soft, Non Tender, Non Distended and Normal Bowel Sounds; No Organomegaly
Rectal: Deferred by Provider
Musculoskeletal: No Clubbing, No Cyanosis and No Edema
Skin: No Rash
Neuro: Nonfocal/grossly intact
PLAN:
# NSTEMI
-No chest pain currently
-Echo with EF of 30 to 35% although has mid to distal septum and inferior wall akinesis
�Heparin drip
� Anticipate cardiac cath this admission
�Continue aspirin, statin, metoprolol
# Acute HFrEF
#Acute on chronic HFpEF exacerbation
EF 30-35%
-At least moderate bilateral pleural effusion on CT scan
-40 IV Lasix BID
-Start aspirin, metoprolol, and start atorvastatin 40mg daily
#Valvular abnormalities
#Moderate to severe mitral regurgitation
#Mild to moderate aortic regurg
#Moderate tricuspid regurg
� Monitor with diuresis
Chronic anemia
-Hemoglobin stable
Recent sepsis secondary to influenza type B
Essential hypertension
Hyperlipidemia
-Continue statin
-Start aspirin, metoprolol, and start atorvastatin 40mg daily
Type 2 diabetes
-Hold metformin
-Insulin sliding scale
CLL/hypogammaglobulinemia
-receives outpatient IGG
First-degree AV block/bifascicular block
DNR/DNI
DVT prophylaxis�heparin drip
Cardiac diet, n.p.o. past midnight
Total time spent on today's encounter was 55 minutes which included time spent in counseling the patient/family regarding diagnosis and treatment plan as listed above, goals of care, and symptom management. Case was discussed with nursing staff,
specialists, and care coordinators/case management. All labs and imaging personally reviewed by me. Remainder the time spent in detailed review of previous records, lab data, imaging, and other medical provider documentation.
Anticipated Discharge: > 48 hours
Subjective/Interval History
-
Date of Service: August 05, 2023
symptoms markedly improved since diuresis
Objective Data
-
Labs:
Laboratory Results
08/05/23 08/05/23 08/05/23
02:42 10:30 17:15
WBC 67.4 H*
Hgb 8.3 L
Hct 24.6 L
Plt Count 262
APTT 43.8 H 29.8 Pending
Sodium 134 L
Potassium 3.9
Chloride 102
Carbon Dioxide 20 L
BUN 25 H
Creatinine 1.0
Glucose 147 H
Calcium 9.1
Total Bilirubin 0.8
AST 38
ALT 40
Alkaline Phosphatase 75
Vital Signs:
Vital Signs
Temp Pulse Resp BP Pulse Ox
98.5 F 73 20 108/60 97
08/05/23 12:06 08/05/23 09:00 08/05/23 12:06 08/05/23 08:13 08/05/23 12:06
I&O
08/04/23 08/05/23 08/06/23
06:59 06:59 06:59
Output Total 3100 / 3100 1450 / 1450
Balance -3100 / -3100 -1450 / -1450
Review of Systems
-
History Source: Patient
All other systems: Not reviewed unless documented
Data Reviewed
-
Diagnostic Radiology: Image personally visualized and interpreted and Report Reviewed by me
CT Scan: Image personally visualized and interpreted and Report Reviewed by me
Medical Tests (Nuc Med, Echo etc): Report Reviewed by me
Labs: Labs Reviewed by me
[2023-08-05] MEDS: HEPARIN 25000 UNITS/250 ML IV (14:21)
[2023-08-05 14:29] VITALS: BMI 19.7
[2023-08-05 15:38] VITALS: BP 99/55
--- NOTE | 2023-08-05 15:41 | CM ---
Telepjhone call to [employer] to check on co-pays for Farxiga and Entresto. Farxiga the brand name is not on formulary. Generic is on formulary and his co-pay would be $100.00 a month. Entresto 24/26 mg bid is not on his formulary plan.
[2023-08-05] MEDS: COZAAR PO (15:43)
[2023-08-05] MEDS: FARXIGA 10 MG PO (15:44)
[2023-08-05 17:35] LABS: Glucose - Point of Care 123 mg/dl (70-99)
[2023-08-05] MEDS: NOVOLOG FLEXPEN-LOW RESISTANCE SC (18:26)
[2023-08-05 18:28] LABS: APTT 83.9 Sec (23.4-35.0)
[2023-08-05 18:58] VITALS: BP 110/64
--- NOTE | 2023-08-05 19:10 | PTCARENOTE ---
Pt denies any discomfort, up independently in his room. Pt diuresing well. Echo done. Telemetry shows sinus rhythm. Cozaar not given, SBP 99.
[2023-08-05 21:44] LABS: Glucose - Point of Care 201 mg/dl (70-99)
[2023-08-05 22:11] VITALS: BP 102/63
--- NOTE | 2023-08-05 22:58 | PTCARENOTE ---
Received pt at handoff. AOX4. Assessment noted as documented. VSS. Heparin gtt infusing at 1350 units/hr. No c/o pain/sob/discomfort. Pt educated on fluid restriction and daily weights. Verbalizes understanding. Currently resting in bed; call byrnes
w/in reach.
[2023-08-06 01:44] VITALS: BP 104/55
[2023-08-06 01:53] LABS: Hematocrit 23.6 % (39.0-52.0); Hemoglobin 8.2 g/dL (13.0-18.0); Mean Corp Hgb Conc. 34.7 g/dL (33.0-37.0); Mean Corpuscular Hgb 32.4 pg (27.0-31.0); Mean Corpuscular Volume 93.3 fL (80.0-94.0); Mean Platelet Volume 10.5 fL (7.4-10.4); Platelet Count 242 10^3/uL (130-400); Red Blood Cell Count 2.53 10^6/uL (4.70-6.10); Red Cell Dist. Width 15.2 % (11.5-14.5)
[2023-08-06 02:04] LABS: APTT 117.3 Sec (23.4-35.0)
[2023-08-06 02:08] LABS: White Blood Cell Count 64.3 10^3/uL (4.8-10.8)
[2023-08-06 02:27] LABS: ALT (SGPT) 38 U/L (0-50); AST (SGOT) 39 U/L (17-59); Albumin 3.2 g/dl (3.5-5.0); Alkaline Phosphatase 73 U/L (38-126); Blood Urea Nitrogen 31 mg/dl (9-20); Calcium 9.2 mg/dl (8.4-10.2); Carbon Dioxide 22 mmol/L (22-30); Chloride 98 mmol/L (98-107); Estimated Creatinine Clearance 43 ml/min; Glucose 143 mg/dl (70-99); Magnesium 2.2 mg/dl (1.6-2.3); Potassium 4.1 mmol/L (3.5-5.1); Sodium 131 mmol/L (135-145); Total Bilirubin 0.7 mg/dl (0.2-1.3); Total Protein 5.3 g/dl (6.3-8.2); eGFR > 60.00
[2023-08-06 05:35] VITALS: BMI 19.1
[2023-08-06 07:46] VITALS: BP 111/64
[2023-08-06 07:49] LABS: Glucose - Point of Care 181 mg/dl (70-99)
[2023-08-06] MEDS: NOVOLOG FLEXPEN-LOW RESISTANCE 1 UNITS SC (07:55)
[2023-08-06] MEDS: VITAMIN C 1000 MG PO (07:56)
[2023-08-06] MEDS: ASPIR LOW (ENTERIC COATED) 81 MG PO (07:56)
[2023-08-06] MEDS: VITAMIN D3 (cholecalciferol) 25 MCG PO (07:56)
[2023-08-06] MEDS: FARXIGA 10 MG PO (07:56)
[2023-08-06] MEDS: TOPROL XL 25 MG PO (07:57)
--- NOTE | 2023-08-06 08:37 | PN.CDI ---
CDI
- -
CDI:
Physician Documentation Request
Admit Date: 08/04/23 16:35
Dear Doctor Usha,
Please review the following and provide your response in the progress notes.
Clinical Indicators:
- 08/05 PN 'Acute HFrEF...Acute on chronic HFpEF exacerbation'
- 08/05 Cardiology 'Acute HFrEF...There is no h/o CHF and he does not take a diuretic'
Please provide further specificity regarding the most likely type and acuity of CHF you are evaluating, treating or monitoring.
Acute HFrEF
Acute on chronic HFrEF'
Other
Use of terms such as suspected, likely, concern for, or probable (associated with a specific diagnosis that is being evaluated, monitored, or treated as if it exists) are acceptable and can be coded in the inpatient setting, when documented at the
time of discharge.
Thank you,
Sidra Hope RN
CDI Specialist
Please use your independent medical judgment in providing your response.
--- NOTE | 2023-08-06 09:19 | CM ---
Addendum entered by Ama Rachel 08/06/23 13:30:
Reviewed chart. Met with Mr. Lopez to review discharge plans. Reviewed co-pay for Farxiga and Entresto of $47.00 each. He is agreeable to the co-pay. Also reviewed [facility] with him. He states his [id number] feels he could use a VNA so he
is know agreeable to VNA services. [facility] to [facility]. [facility]. Medial work-up in progress. The discharge plan is to return home spouse and
resumption of [facility] when medically stable.
Original Note:
Reviewed chart. Telephone call to his insurance to check on co-pys for Farxiga and Entresto. Farxiga brand is $47.00 a month and Entresto is $47.00. The generic Farxiga is $100.00 a month. Will check with him regarding co-pays. Can use the one
month free coupon for Farxiga and Entresto. Placed the free coupons in his red discharge folder.
[2023-08-06 09:30] LABS: APTT 124.4 Sec (23.4-35.0)
[2023-08-06] MEDS: LASIX IV (10:27)
[2023-08-06 10:28] VITALS: BP 115/62
[2023-08-06] MEDS: COZAAR 25 MG PO (10:28)
--- NOTE | 2023-08-06 10:37 | W.PN.CARDCBS ---
Today's Communication / Plan
-
Optimize goal-directed medical therapy for non-STEMI as well as new ischemic cardiomyopathy and heart failure
CHF education consult placed with instructions pending discharge
Stop IV heparin drip. Transition IV to oral Lasix
VNA being set up after discharge
Outpatient cardiac follow-up to be arranged
Discharge home possibly later today or tomorrow
Impression / Plan
-
PCP: Dr. Gomez
Cardiology: Dr. Cevallos, last seen 2010
Impression:
Acute HFrEF
Newly diagnosed CM EF 30-35% by echo 08/04/23
NSTEMI
Moderate sized pleural effusions
Recent admission for influenza and secondary bacterial PNA 07/27/23 until 07/30/23
CLL
Hyperlipidemia
DM 2
HTN
Moderate to severe MR by echo 08/04/23
Echo 08/04/23: EF 30-35%, mid to distal septum and inferior cedillo are akinetic which could be consistent with RCA territory infarct, mild LVH, stage II diastolic dysfunction, mod to sev MR, mild to mod aortic regurgitation, mod TR
Plan:
83-year-old male with past medical history of recent influenza and pneumonia discharged several days ago given IV fluids during the hospitalization presents with marked dyspnea, orthopnea, and shortness of breath.� He was also having some occasional
chest discomfort.� He presented back to the emergency was found to have a troponin of 2.15.� CT scan revealed no pulm embolism but did reveal bilateral pleural effusions and proBNP is 17,000.� ECG with sinus rhythm with nonspecific T wave
abnormalities.� He also has a history of CLL getting treated with IVIG with Dr. Young.
-NSTEMI with peak troponin 4.120 and repeat 2D echocardiogram with newly reduced LV systolic function consistent with ischemic cardiomyopathy and wall motion abnormalities suggesting RCA territory infarct.
-Dr. Galindo discussed invasive coronary angiography with the patient and family members, given his medical comorbidities including CLL they would prefer conservative management. Reviewed this plan with patient today.
-No further chest pain or pressure and improved shortness of breath now on room air.
-Completed over 48 hours on IV heparin; DC heparin drip today
-Continue high intensity statin for goal LDL less than 70 mg/dL, ideally closer to 50-60 mg/dL. Patient's outpatient simvastatin 40 mg changed to atorvastatin 40 mg daily. Lipid profile this admission 08/05/2023: LDL 30. Triglycerides 61, HDL 38,
total cholesterol 80
-Continue goal-directed medical therapy including Toprol-XL 25 mg daily started 08/04/2023. Losartan 25 mg 1 p.o. daily started 08/05/2023.
-Farxiga 10 mg daily started 08/05/2023
-Continue aspirin 81 mg daily. I have reached out to his oncologist, Dr. Young about 1 month of Plavix and I am awaiting feedback [hemoglobin baseline around 8 g/dL]
-ACS warning signs reviewed.
-New ischemic cardiomyopathy with acute systolic heart failure in the setting of non-STEMI; initial proBNP 17,600
-2D echocardiogram also noting moderate to severe MR, moderate TR and mild to moderate AI.
-Would plan to repeat 2D echocardiogram to reassess mitral regurgitation in approximately 3 months
-Volume status is improved with IV diuresis
-At least 6 pounds negative with weight 2/ 121 pounds.
-Transition to oral Lasix today. Lasix 40 mg once daily. Patient was not taking a diuretic prior to admission.
-Continue goal-directed medical therapy with beta-hardik, ARB, Farxiga
-Since patient is likely being discharged home later today will plan to transition him to Entresto at Hospital follow-up appointment
-Repeat basic metabolic profile and CBC.
-Case management assessment of cost for Entresto was $47 a month. Brand Farxiga also $47 a month.
-CHF education regarding symptom monitoring and diet provided to patient
-Recent sepsis secondary to influenza type B pneumonia with CTA this admission noting moderate pleural effusions
-Breathing has improved currently on room air
-Repeat outpatient chest imaging in 1 month recommended
-CLL/hypogammaglobulinemia/anemia
-Followed as an outpatient with Dr. Young and have recommended close follow-up after this hospitalization
-receives outpatient IGG
Type 2 diabetes mellitus-hemoglobin A1c 6.8% on July 28, 2023
-Close outpatient monitoring with new addition of Farxiga this admission
-Defer to primary about restarting patient's outpatient metformin
-Chronic hyponatremia�monitor
HPI: Patient came to [facility] with SOB and cardiology consulted. Patient was just admitted to 07/27/23 until 07/30/23 with influenza and secondary bacterial PNA. Patient was hypotensive and given 2.75 L IVFs that admission and PRN doses of midodrine.
Patient was discharged to home and says that he started with SOB at bedtime last night. He laid down in bed and after an hour he awoke gasping for breath consistent with PND and orthopnea. Patient slept in a chair the rest of the night and then came
to [facility] today. He is now on oxygen and feeling less SOB. CT chest was negative for PE, but he had moderate sized B/L pleural effusions. pro-BNP 82177. There is no h/o CHF and he does not take a diuretic. Initial Troponin was 2.15, but no chest pain
and no ischemic changes on ECG.
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
Subjective
Date of Service: August 06, 2023
Seen and examined. Patient out of bed to chair on room air and states he feels great. Anxious for discharge.
Objective
Labs:
08/06/23 01:43
08/06/23 01:43
Labs
Hgb 8.2 g/dL (13.0-18.0) L 08/06/23 01:43
Hct 23.6 % (39.0-52.0) L 08/06/23 01:43
Plt Count 242 10^3/uL (130-400) 08/06/23 01:43
APTT Cancelled 08/06/23 15:45
Sodium 131 mmol/L (135-145) L 08/06/23 01:43
Potassium 4.1 mmol/L (3.5-5.1) 08/06/23 01:43
BUN 31 mg/dl (9-20) H 08/06/23 01:43
Creatinine 1.1 mg/dL (0.7-1.3) 08/06/23 01:43
Glucose 143 mg/dl (70-99) H 08/06/23 01:43
Troponins
08/04/23 08/04/23 08/05/23
13:43 21:11 02:42
Troponin I 2.150 H* 3.550 H* D 4.120 H*
08/05/23
10:30
Troponin I 3.030 H* D
Vital Signs and I&O:
Vital Signs
Temp Pulse Resp BP Pulse Ox
98.5 F 82 20 115/62 94
08/06/23 07:44 08/06/23 07:46 08/06/23 07:44 08/06/23 10:28 08/06/23 08:12
Vital Signs
Temp Pulse Resp BP Pulse Ox
98.5 F 82 20 115/62 94
08/06/23 07:44 08/06/23 07:46 08/06/23 07:44 08/06/23 10:28 08/06/23 08:12
Intake & Output
08/04/23 08/05/23 08/06/23 08/07/23
06:59 06:59 06:59 06:59
Intake Total 1100 / 1100
Output Total 3100 / 3100 4300 / 4300 200 / 200
Balance -3100 / -3100 -3200 / -3200 -200 / -200
Physical Exam
Physical Exam
GEN: NAD, AAOx3
HEENT: EOMI, MMM
LUNGS: Decreased BS at bases B/L without wheeze or rales
CV: Reg, S1/S2, 2/6 SM
ABD: soft, BS+, NT, ND
EXT: No edema
NEURO: Gross non-focal
[2023-08-06 11:56] VITALS: BP 116/71
[2023-08-06 12:16] LABS: Glucose - Point of Care 132 mg/dl (70-99)
--- NOTE | 2023-08-06 12:56 | W.PN.HOSP.TC ---
Addendum entered and electronically signed by Sebastien Kerr MD 08/08/23 15:12:
[id number]
-edit - dced on losartan not entresto
Addendum entered and electronically signed by Sebastien Kerr MD 08/06/23 15:57:
Acute HFrEF*
Original Note:
Today's Communication/Plan
-
switch to 40 mg daily p.o. Lasix starting marcus
Start aspirin, metoprolol, and start atorvastatin 40mg daily
Entresto, Farxiga
BMP with cardiology in 1 week
Resume metformin - f/u with pcp on continuation with farxiga
F/u Cards as scheduled; F/u with PCP within 1 week
Assessment / Plan
Assessment / Plan
Physical Exam
General: Well Developed, Well Nourished and No Apparent Distress
HEENT: NormoCephalic, Moist mucous membranes and Atraumatic
Respiratory: Clear
Cardiac: S1/S2 and Regular Rhythm; No Murmur or Rub
GI: Soft, Non Tender, Non Distended and Normal Bowel Sounds; No Organomegaly
Rectal: Deferred by Provider
Musculoskeletal: No Clubbing, No Cyanosis and No Edema
Skin: No Rash
Neuro: Nonfocal/grossly intact
PLAN:
# NSTEMI
-No chest pain currently
-Echo with EF of 30 to 35% although has mid to distal septum and inferior wall akinesis
�Heparin drip�completed course
� After goals of care discussion, family opting for conservative management, holding on cath
�Continue aspirin, statin, metoprolol
# Acute HFrEF
#Acute on chronic HFpEF exacerbation
EF 30-35%
-At least moderate bilateral pleural effusion on CT scan
-40 IV Lasix BID -switch to 40 mg daily p.o. Lasix
-Start aspirin, metoprolol, and start atorvastatin 40mg daily
� Entresto, Farxiga
�BMP with cardiology in 1 week
#Valvular abnormalities
#Moderate to severe mitral regurgitation
#Mild to moderate aortic regurg
#Moderate tricuspid regurg
� Monitor with diuresis
�Follow cardiology outpatient
Chronic anemia
-Hemoglobin stable
Essential hypertension
Hyperlipidemia
-Continue statin
-Start aspirin, metoprolol, and start atorvastatin 40mg daily
Type 2 diabetes
-Can resume metformin, defer to primary care regarding continuation with Farxiga
-Insulin sliding scale
CLL/hypogammaglobulinemia
-receives outpatient IGG
� Follow-up oncology outpatient
#History of influenza type B
� On room air
� Follow-up outpatient
First-degree AV block/bifascicular block
DNR/DNI
More than 30 minutes spent in discharge including
Final examination of the patient
Summarizing hospital stay
Instructions for continuing care to all relevant caregivers
Preparation of discharge records, prescriptions, and referral forms
Total time spent (35 in minutes):
Anticipated Discharge: Today
Subjective/Interval History
-
Date of Service: August 06, 2023
No acute events
Objective Data
-
Labs:
Laboratory Results
08/06/23 08/06/23 08/06/23
01:43 09:04 15:45
WBC 64.3 H*
Hgb 8.2 L
Hct 23.6 L
Plt Count 242
APTT 117.3 H 124.4 H Cancelled
Sodium 131 L
Potassium 4.1
Chloride 98
Carbon Dioxide 22
BUN 31 H
Creatinine 1.1
Glucose 143 H
Calcium 9.2
Total Bilirubin 0.7
AST 39
ALT 38
Alkaline Phosphatase 73
Vital Signs:
Vital Signs
Temp Pulse Resp BP Pulse Ox
97.8 F 77 20 116/71 97
08/06/23 11:58 08/06/23 11:56 08/06/23 11:58 08/06/23 11:56 08/06/23 11:58
I&O
08/05/23 08/06/23 08/07/23
06:59 06:59 06:59
Intake Total 1100 / 1100
Output Total 3100 / 3100 4300 / 4300 200 / 200
Balance -3100 / -3100 -3200 / -3200 -200 / -200
Review of Systems
-
History Source: Patient
All other systems: Not reviewed unless documented
Data Reviewed
-
Diagnostic Radiology: Image personally visualized and interpreted and Report Reviewed by me
CT Scan: Image personally visualized and interpreted and Report Reviewed by me
Medical Tests (Nuc Med, Echo etc): Report Reviewed by me
Labs: Labs Reviewed by me
[2023-08-06] MEDS: NOVOLOG FLEXPEN-LOW RESISTANCE SC (12:58)
--- NOTE | 2023-08-06 13:02 | W.DS.TRANS ---
Addendum entered and electronically signed by Sebastien Kerr MD 08/06/23 15:58:
Will not go on Entresto
Will go on losartan 25 mg p.o. daily
Original Note:
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
-
Discharge Instructions:
Sleep Apnea Risk Intermediate
Discharge Diagnosis/Procedures
# NSTEMI
# Acute HFrEF
Diet 2 Gram Sodium,Restrict fluids to 48 oz,Low
Cholesterol,Low Fat
Activity As tolerated
Blood Work CBC, BMP in 1 week
Other Services Cardiac Rehab,VN
Specialty Instructions Weigh Daily
Instructions:
Stand-Alone Forms:
Changes to Home Medications: Yes
Discharge Medications:
DC Medications w/original date entered in [facility]
metformin 500 mg tablet,extended release 24 hr 500 mg PO BID Diabetes 10/14/20
ascorbic acid (vitamin C) 1,000 mg tablet (Vitamin C) 1,000 mg PO DAILY Supplement 07/27/23
cholecalciferol (vitamin D3) 25 mcg (1,000 unit) tablet (Vitamin D3) 25 mcg PO DAILY Supplement 07/27/23
cod liver oil 3 cap PO DAILY Supplement 07/27/23
benzonatate 200 mg capsule 200 mg PO TID PRN cough 08/04/23
guaifenesin 100 mg/5 mL oral liquid 200 mg PO HSPRN PRN cough 08/04/23
dapagliflozin propanediol 10 mg tablet (Farxiga) 10 mg PO DAILY Heart Failure #30 tabs 08/05/23
sacubitril 24 mg-valsartan 26 mg tablet (Entresto) 1 tab PO BID Heart Failure #60 tabs 08/05/23
aspirin 81 mg tablet,delayed release 81 mg PO DAILY 30 days #30 tabs 08/06/23
atorvastatin 40 mg tablet 40 mg PO QPM 30 days #30 tabs 08/06/23
furosemide 40 mg tablet 40 mg PO DAILY 30 days #30 tabs 08/06/23
losartan 25 mg tablet 25 mg PO DAILY 30 days #30 tabs 08/06/23
metoprolol succinate 25 mg tablet,extended release 24 hr 25 mg PO DAILY 30 days #30 tabs 08/06/23
Home Medication Changes
dapagliflozin propanediol 10 mg tablet (Farxiga) 10 mg PO DAILY Heart Failure #30 tabs 08/05/23
sacubitril 24 mg-valsartan 26 mg tablet (Entresto) 1 tab PO BID Heart Failure #60 tabs 08/05/23
aspirin 81 mg tablet,delayed release 81 mg PO DAILY 30 days #30 tabs 08/06/23
atorvastatin 40 mg tablet 40 mg PO QPM 30 days #30 tabs 08/06/23
furosemide 40 mg tablet 40 mg PO DAILY 30 days #30 tabs 08/06/23
losartan 25 mg tablet 25 mg PO DAILY 30 days #30 tabs 08/06/23
metoprolol succinate 25 mg tablet,extended release 24 hr 25 mg PO DAILY 30 days #30 tabs 08/06/23
Pending Results: No
[2023-08-06 13:15] LABS: NT-proBNP 13000 pg/ml
[2023-08-06 14:48] VITALS: BP 107/56
--- NOTE | 2023-08-06 17:12 | PTCARENOTE ---
Pt up walking around unit without problem. Pt seen by Paige Giron and Evgeny. Telemetry and IV devices removed. Discharge instructions reviewed with pt regarding CHF guidelines, activity, medications and their possible side effects, reporting
cares and concerns and follow up appt's. Very good understanding verbalized. Pt escorted out via wheelchair and pt discharged to home.
== END 2023-08-06 17:00 | disposition home health service (06) | DRG 280 ==
LOC: IVU 16:35
PROVIDERS: Physician Assistant; Physician Assistant Medical; ADMITTING PHYSICIAN Hospitalist; ATTENDING PHYSICIAN Internal Medicine; CONSULT PHYSICIAN Internal Medicine Cardiovascular Disease; EMERGENCY PHYSICIAN Emergency Medicine; FAMILY PHYSICIAN Internal Medicine
DX: I21.4 Non-ST elevation (NSTEMI) myocardial infarction (principal); I50.21 Acute systolic (congestive) heart failure; C91.10 Chronic lymphocytic leukemia of B-cell type not having achieved remission; I45.2 Bifascicular block; D80.1 Nonfamilial hypogammaglobulinemia; E11.9 Type 2 diabetes mellitus without complications; E78.00 Pure hypercholesterolemia, unspecified; Z87.442 Personal history of urinary calculi; I11.0 Hypertensive heart disease with heart failure; D64.9 Anemia, unspecified; Z66 Do not resuscitate; I44.0 Atrioventricular block, first degree
CPT/HCPCS: 36415; 71275; 80048; 80053; 80061; 82962; 83735; 83880; 84484; 85025; 85027; 85730; 93005; 93306; 96365; 96366; 99285; Q9967

== ENCOUNTER → 2023-08-11 09:05 | Outpatient (REF) | payer OTHER, SELFPAY ==
[2023-08-11 09:28] LABS: % Eosinophils 0.1 % (0-6); % Immature Granulocytes 0.2 % (0-0.5); % Lymphocytes 89.6 % (20.5-51.1); % Monocytes 0.9 % (1.7-9.3); % Neutrophils 9.2 % (42.2-75.2); Absolute Eosinophils 0.1 10^3/uL (0-0.7); Absolute Immature Granulocytes 0.1 10^3/uL (0-0.05); Absolute Lymphocytes 44.9 10^3/uL (1.2-3.4); Absolute Monocytes 0.4 10^3/uL (0.1-0.6); Absolute Neutrophils 4.6 10^3/uL (1.4-6.5); Hematocrit 27.1 % (39.0-52.0); Hemoglobin 9.2 g/dL (13.0-18.0); Mean Corp Hgb Conc. 33.9 g/dL (33.0-37.0); Mean Corpuscular Hgb 32.3 pg (27.0-31.0); Mean Corpuscular Volume 95.1 fL (80.0-94.0); Mean Platelet Volume 10.8 fL (7.4-10.4); Nucleated Red Blood Cells % 0 % (-); Platelet Count 222 10^3/uL (130-400); Red Blood Cell Count 2.85 10^6/uL (4.70-6.10); Red Cell Dist. Width 15.9 % (11.5-14.5); White Blood Cell Count 50.2 10^3/uL (4.8-10.8)
[2023-08-11 10:00] LABS: Blood Urea Nitrogen 32 mg/dl (9-20); Calcium 9.8 mg/dl (8.4-10.2); Carbon Dioxide 22 mmol/L (22-30); Chloride 108 mmol/L (98-107); Glucose 187 mg/dl (70-99); LDH 212 U/L (120-246); Potassium 3.9 mmol/L (3.5-5.1); Sodium 140 mmol/L (135-145); eGFR > 60.00
[2023-08-12 00:09] LABS: IgG 446 mg/dl (700-1600)
== END ==
LOC: REG 09:05
PROVIDERS: ATTENDING PHYSICIAN Internal Medicine Hematology & Oncology; FAMILY PHYSICIAN Internal Medicine; REFERRING PHYSICIAN Physician Assistant
DX: D72.820 Lymphocytosis (symptomatic) (principal); C91.10 Chronic lymphocytic leukemia of B-cell type not having achieved remission; D80.1 Nonfamilial hypogammaglobulinemia; I50.30 Unspecified diastolic (congestive) heart failure; E11.9 Type 2 diabetes mellitus without complications
CPT/HCPCS: 36415; 80048; 82784; 83615; 85025

== ENCOUNTER 2023-08-31 06:31 | Day surgery (SDC) | payer OTHER, SELFPAY ==
[2023-08-31] VITALS (7 sets, daily range): BP systolic 111–120; BP diastolic 56–76; BMI 19.4
[2023-08-31 07:29] LABS: Glucose - Point of Care 146 mg/dl (70-99)
[2023-08-31] MEDS: LOW STRENGTH ASPIRIN 81 MG PO (07:33)
[2023-08-31] MEDS: NSS 169 ML IV (07:34)
--- NOTE | 2023-08-31 11:02 | ITS.CL.CATH ---
Addendum entered and electronically signed by Russell Eid MD 08/31/23 15:53:
Attending addendum: Discussed with Dr. Young. Mortality associated with CLL is reasonably low with survival in years to decades.
Original Note:
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
Cardiac Catheterization
Procedure Report:
RIGHT AND LEFT HEART STUDY
Date of Procedure: August 31, 2023
Referring: Dr. Lucas Saunders
PROCEDURES:
1. Right heart catheterization
2. Left heart catheterization with coronary angiography
INDICATION: This is an 83-year-old gentleman with newly diagnosed LV dysfunction with an estimated ejection fraction of 30-35%. The mid to distal septum and inferior cedillo are akinetic. There is moderate to severe mitral regurgitation and aortic
valve sclerosis with mild to moderate aortic insufficiency as well as moderate tricuspid regurgitation and moderate pulmonary hypertension with estimated pulmonary artery systolic pressures of 50-55 mmHg. He follows with Dr. Serrano on for CLL
with chronic elevations in his WBC between 50K and 65K.
He was recently hospitalized at [facility] with influenza B and TRENA between 07/27/23-07/30/23. He was readmitted on 08/04/23 with chest tightness, shortness of breath, PND/orthopnea, and elevated ProBNP to 17,000 c/w decompensated heart
failure. His troponin was mildly elevated peaking at 4.12 ng/ml. He was started on appropriate guideline directed medical therapy for new LV dysfunction and the patient and family members felt conservative therapy would be most appropriate given
his CLL.
He was seen in followup by Dr. Saunders and the decision was made to proceed with coronary angiography with further management decisions to be made after the angiogram was completed.
ACCESS: Ultrasound guidance was utilized to gain access in the right radial artery and in a right brachial vein. A 6 Sudanese sheath was inserted into the right radial artery and a 5 Sudanese sheath was placed in the right brachial vein
HEMODYNAMICS : mmHg
RA (m) : 11
RV (s/d,m) : 39/6, 13
PA (s/d, m) : 38/18, 28
PCWP (m) : 25
AO (s/d, m) : 112/55, 78
LV (s/d) : 115/7
LVEDP : 30
Estimated [place] Cardiac Output: 4.5 L / min and Cardiac Index: 2.7 L/ min / m-2
Systemic Vascular Resistance: 14.9 Wood units = 1191 dynes*sec*cm-5
Pulmonary Vascular Resistance: 0.7 Wood units = 53 dynes*sec*cm-5
CORONARY FINDINGS :
Dominance: Right
LEFT MAIN: Calcified plaque on the superior aspect of the left main. There is no pressure dampening with engagement of 6 Sudanese diagnostic catheter.
LEFT ANTERIOR DESCENDING: The LAD is very heavily calcified over its course. There is an eccentric and heavily calcified 65% stenosis in the mid LAD before the origin of the only sizable diagonal branch. The LAD beyond the diagonal branch is very
heavily calcified with eccentric plaque and is occluded/subtotally occluded with very faint antegrade flow to the distal LAD
CIRCUMFLEX: The circumflex is a medium caliber nondominant vessel giving rise to a small OM1 that has a 60% ostial stenosis. The circumflex terminates in a moderate caliber OM 3 that has a long 80% proximal stenosis
RIGHT CORONARY ARTERY: The right coronary artery is a dominant vessel with a 60-70% stenosis in its midportion near the origin of the only sizable RV marginal branch. There are diffuse noncritical luminal irregularities through the remainder of the
right coronary artery. The PDA is a small to medium caliber vessel that is patent.
VENTRICULOGRAPHY: Not done due to baseline renal insufficiency
RADIATION SUMMARY: Fluoro Time (min): 4.9, Dose (mGy): 254, DAP (Gy.cm2) : 20
CONCLUSIONS
1. Severe multivessel coronary artery disease with a heavily calcified LAD over the course of the vessel and diffuse atherosclerosis in the proximal to mid vessel spanning the origin of the only sizable diagonal branch. There is a high-grade
stenosis proximally in a sizable OM 3 and in the mid right coronary artery.
2. Mildly elevated left ventricular filling pressures
RECOMMENDATIONS
1. Will increase metoprolol to 25 mg p.o. twice daily for further titration of guideline directed medical therapy of LV dysfunction
2. Will add Imdur 30 mg daily
3. Angiograms will be reviewed with Dr. Saunders. Surgical revascularization would be most appropriate if patient is felt to be a reasonable surgical candidate. Percutaneous treatment options would include OM 3 and the mid RCA.
4. Will discuss with Dr. Young re: CLL and hematologic issues.
Copy to: Dr. Lucas Saunders
== END 2023-08-31 12:19 | disposition home or self-care (01) ==
LOC: CATH 06:31
PROVIDERS: ATTENDING PHYSICIAN Internal Medicine Interventional Cardiology; FAMILY PHYSICIAN Internal Medicine
DX: I25.10 Atherosclerotic heart disease of native coronary artery without angina pectoris (principal); I08.3 Combined rheumatic disorders of mitral, aortic and tricuspid valves; I25.2 Old myocardial infarction; I45.2 Bifascicular block; I11.0 Hypertensive heart disease with heart failure; I50.20 Unspecified systolic (congestive) heart failure; E78.2 Mixed hyperlipidemia; E11.9 Type 2 diabetes mellitus without complications; C91.10 Chronic lymphocytic leukemia of B-cell type not having achieved remission; Z79.84 Long term (current) use of oral hypoglycemic drugs; Z79.82 Long term (current) use of aspirin
CPT/HCPCS: 82962; 93460; C1769; C1894; Q9967

== ENCOUNTER → 2023-09-02 07:57 | Outpatient (REF) | payer OTHER, SELFPAY ==
[2023-09-02 09:04] LABS: Blood Urea Nitrogen 25 mg/dl (9-20); Calcium 9.5 mg/dl (8.4-10.2); Carbon Dioxide 26 mmol/L (22-30); Chloride 110 mmol/L (98-107); Glucose 183 mg/dl (70-99); Potassium 5.4 mmol/L (3.5-5.1); Sodium 140 mmol/L (135-145); eGFR > 60.00
== END ==
LOC: REG 07:57
PROVIDERS: ATTENDING PHYSICIAN Internal Medicine Cardiovascular Disease; FAMILY PHYSICIAN Internal Medicine
DX: I50.20 Unspecified systolic (congestive) heart failure (principal)
CPT/HCPCS: 36415; 80048

== ENCOUNTER → 2023-09-16 08:28 | Outpatient (REF) | payer OTHER, SELFPAY ==
[2023-09-16 09:54] LABS: % Basophils 0.1 % (0-2); % Eosinophils 0.1 % (0-6); % Immature Granulocytes 0.2 % (0-0.5); % Lymphocytes 90.4 % (20.5-51.1); % Neutrophils 8.2 % (42.2-75.2); Absolute Immature Granulocytes 0.1 10^3/uL (0-0.05); Absolute Monocytes 0.5 10^3/uL (0.1-0.6); Absolute Neutrophils 3.7 10^3/uL (1.4-6.5); Hematocrit 31.5 % (39.0-52.0); Hemoglobin 10.1 g/dL (13.0-18.0); Mean Corp Hgb Conc. 32.1 g/dL (33.0-37.0); Mean Corpuscular Hgb 32.4 pg (27.0-31.0); Mean Platelet Volume 11.5 fL (7.4-10.4); Nucleated Red Blood Cells % 0 % (-); Platelet Count 123 10^3/uL (130-400); Red Blood Cell Count 3.12 10^6/uL (4.70-6.10); Red Cell Dist. Width 16.4 % (11.5-14.5); White Blood Cell Count 45.4 10^3/uL (4.8-10.8)
[2023-09-16 10:23] LABS: Blood Urea Nitrogen 27 mg/dl (9-20); Calcium 9.3 mg/dl (8.4-10.2); Carbon Dioxide 17 mmol/L (22-30); Chloride 111 mmol/L (98-107); Glucose 207 mg/dl (70-99); LDH 274 U/L (120-246); Potassium 4.3 mmol/L (3.5-5.1); Sodium 137 mmol/L (135-145); eGFR > 60.00
[2023-09-16 11:01] LABS: IgG 688 mg/dl (700-1600)
== END ==
LOC: REG 08:28
PROVIDERS: ATTENDING PHYSICIAN Internal Medicine Cardiovascular Disease; FAMILY PHYSICIAN Internal Medicine Hematology & Oncology
DX: D72.820 Lymphocytosis (symptomatic) (principal); C91.10 Chronic lymphocytic leukemia of B-cell type not having achieved remission; D80.1 Nonfamilial hypogammaglobulinemia; I10 Essential (primary) hypertension; I50.21 Acute systolic (congestive) heart failure
CPT/HCPCS: 36415; 80048; 82784; 83615; 85025

== ENCOUNTER → 2023-10-14 08:28 | Outpatient (REF) | payer OTHER, SELFPAY ==
[2023-10-14 09:54] LABS: % Basophils 0.1 % (0-2); % Eosinophils 0.2 % (0-6); % Immature Granulocytes 0.2 % (0-0.5); % Lymphocytes 89.1 % (20.5-51.1); % Monocytes 0.9 % (1.7-9.3); % Neutrophils 9.5 % (42.2-75.2); Absolute Eosinophils 0.1 10^3/uL (0-0.7); Absolute Immature Granulocytes 0.1 10^3/uL (0-0.05); Absolute Lymphocytes 42.7 10^3/uL (1.2-3.4); Absolute Monocytes 0.5 10^3/uL (0.1-0.6); Absolute Neutrophils 4.6 10^3/uL (1.4-6.5); Hematocrit 31.6 % (39.0-52.0); Hemoglobin 10.2 g/dL (13.0-18.0); Mean Corp Hgb Conc. 32.3 g/dL (33.0-37.0); Mean Corpuscular Hgb 31.8 pg (27.0-31.0); Mean Corpuscular Volume 98.4 fL (80.0-94.0); Mean Platelet Volume 11.6 fL (7.4-10.4); Nucleated Red Blood Cells % 0 % (-); Platelet Count 148 10^3/uL (130-400); Red Blood Cell Count 3.21 10^6/uL (4.70-6.10); Red Cell Dist. Width 15.3 % (11.5-14.5); White Blood Cell Count 47.9 10^3/uL (4.8-10.8)
[2023-10-14 10:37] LABS: LDH 194 U/L (120-246)
[2023-10-14 10:46] LABS: IgG 627 mg/dl (700-1600)
== END ==
LOC: REG 08:28
PROVIDERS: ATTENDING PHYSICIAN Internal Medicine Hematology & Oncology; FAMILY PHYSICIAN Internal Medicine
DX: D72.820 Lymphocytosis (symptomatic) (principal); C91.10 Chronic lymphocytic leukemia of B-cell type not having achieved remission; D80.1 Nonfamilial hypogammaglobulinemia; R09.89 Other specified symptoms and signs involving the circulatory and respiratory systems
CPT/HCPCS: 36415; 71046; 82784; 83615; 85025

== ENCOUNTER → 2023-11-10 09:53 | Outpatient (REF) | payer OTHER, SELFPAY ==
[2023-11-10 10:45] LABS: % Basophils 0.2 % (0-2); % Eosinophils 0.1 % (0-6); % Immature Granulocytes 0.2 % (0-0.5); % Lymphocytes 87.9 % (20.5-51.1); % Neutrophils 10.6 % (42.2-75.2); Absolute Basophils 0.1 10^3/uL (0-0.2); Absolute Eosinophils 0.1 10^3/uL (0-0.7); Absolute Immature Granulocytes 0.1 10^3/uL (0-0.05); Absolute Lymphocytes 38.7 10^3/uL (1.2-3.4); Absolute Monocytes 0.5 10^3/uL (0.1-0.6); Absolute Neutrophils 4.6 10^3/uL (1.4-6.5); Hematocrit 32.4 % (39.0-52.0); Hemoglobin 10.7 g/dL (13.0-18.0); Mean Corpuscular Hgb 31.4 pg (27.0-31.0); Mean Platelet Volume 11.3 fL (7.4-10.4); Nucleated Red Blood Cells % 0 % (-); Platelet Count 138 10^3/uL (130-400); Red Blood Cell Count 3.41 10^6/uL (4.70-6.10); Red Cell Dist. Width 15.8 % (11.5-14.5); White Blood Cell Count 44.1 10^3/uL (4.8-10.8)
[2023-11-10 11:21] LABS: LDH 207 U/L (120-246)
--- NOTE | 2023-11-10 11:39 | CARDSERVLU ---
Echocardiogram with Lumason completed after protocol screening completed. Allergies verified.
Patent IV site: _Left inner forearm 22 G PC____
IV site flushed with 0.9% NaCl pre and post administration.
Diluted bolus method utilized to enhance visualization of ventricular cedillo.
Total volume given: _3___ mL
Patient tolerated all procedures well without complications.
Heplock D/C ed at 1130, site clear, no redness, no edema. Pressure held, no bleeding, 2x2 applied and taped. Pt offers nom complaints.
[2023-11-11 05:47] LABS: IgG 593 mg/dl (700-1600)
== END ==
LOC: RCS 09:53
PROVIDERS: ATTENDING PHYSICIAN Internal Medicine Cardiovascular Disease; FAMILY PHYSICIAN Internal Medicine; REFERRING PHYSICIAN Internal Medicine Hematology & Oncology
DX: I50.20 Unspecified systolic (congestive) heart failure (principal); D72.820 Lymphocytosis (symptomatic); C91.10 Chronic lymphocytic leukemia of B-cell type not having achieved remission; D80.1 Nonfamilial hypogammaglobulinemia
CPT/HCPCS: 36415; 82784; 83615; 85025; 93306; Q9950

== ENCOUNTER 2023-11-25 09:35 | Inpatient (IN) | payer OTHER, SELFPAY ==
[2023-11-24] VITALS (8 sets, daily range): BP systolic 95–134; BP diastolic 49–71
[2023-11-24 14:08] LABS: % Basophils 0.1 % (0-2); % Immature Granulocytes 0.3 % (0-0.5); % Lymphocytes 83.6 % (20.5-51.1); % Monocytes 1.1 % (1.7-9.3); % Neutrophils 14.9 % (42.2-75.2); ALT (SGPT) 31 U/L (0-50); AST (SGOT) 40 U/L (17-59); Absolute Basophils 0.1 10^3/uL (0-0.2); Absolute Immature Granulocytes 0.1 10^3/uL (0-0.05); Absolute Lymphocytes 36.5 10^3/uL (1.2-3.4); Absolute Monocytes 0.5 10^3/uL (0.1-0.6); Absolute Neutrophils 6.5 10^3/uL (1.4-6.5); Albumin 4.4 g/dl (3.5-5.0); Alkaline Phosphatase 111 U/L (38-126); Blood Urea Nitrogen 30 mg/dl (9-20); Calcium 9.7 mg/dl (8.4-10.2); Carbon Dioxide 22 mmol/L (22-30); Chloride 107 mmol/L (98-107); Glucose 271 mg/dl (70-99); Hematocrit 34.2 % (39.0-52.0); Mean Corp Hgb Conc. 32.2 g/dL (33.0-37.0); Mean Corpuscular Hgb 31.2 pg (27.0-31.0); Mean Corpuscular Volume 96.9 fL (80.0-94.0); Mean Platelet Volume 11.6 fL (7.4-10.4); Nucleated Red Blood Cells % 0 % (-); Platelet Count 111 10^3/uL (130-400); Potassium 4.8 mmol/L (3.5-5.1); Red Blood Cell Count 3.53 10^6/uL (4.70-6.10); Red Cell Dist. Width 15.6 % (11.5-14.5); Sodium 139 mmol/L (135-145); Total Bilirubin 0.6 mg/dl (0.2-1.3); eGFR 55.19
[2023-11-24 14:30] LABS: White Blood Cell Count 43.7 10^3/uL (4.8-10.8)
[2023-11-24 14:40] LABS: Urine Albumin Negative (Neg - Trace); Urine Bilirubin Negative (Negative); Urine Character Clear (Clear); Urine Color Yellow; Urine Glucose 3+ (Negative); Urine Ketone Negative (Negative); Urine Leukocyte Negative (Negative); Urine Nitrite Negative (Negative); Urine Occult Blood Trace (Negative); Urine Specific Gravity 1.015 (<1.030); Urine Urobilinogen Negative (Neg - 1+)
[2023-11-24 15:25] LABS: Urine Mucus Few
[2023-11-24 15:26] LABS: Urine Red Blood Cell 0-2 /HPF (0-2); Urine White Cell 0-2 /HPF (0-5)
--- NOTE | 2023-11-24 15:29 | ED.GENMED ---
History of Present Illness
General
Chief Complaint: Flank Pain
Source: patient
Exam Limitations: none
Time Seen by Provider: 11/24/23 15:00
Travel History
Have you had any contact with someone who has COVID-19?: No
Do you have any symptoms of coronavirus? Fever > 100 degrees, chills, cough, shortness of breath, sore throat, loss of taste or smell, muscle aches, or headache?: No
History of Present Illness
History of Present Illness:
83-year-old male sudden onset of right back and flank pain. History of kidney stones. States feels the same. Some nausea and vomiting. No fever or chills. Has had some mild cough but no shortness of breath.
Past History
Past History
ED Past Medical History: Cancer (Leukemia CLL), HTN, Hypercholesterolemia, NIDDM and Other (Kidney stones)
ED Past Surgical History: Other (Hernia repair)
Social History
Tobacco: Non-smoker
Alcohol: None
Personal:
Living: with family
Review of Systems
Review of Systems
All Other Systems: Not applicable
Constitutional: Denies fever
Cardiac: Reports no symptoms
ABD/GI: Reports no symptoms
Phy Exam
Physical Exam
Physical Exam:
GENERAL: Alert and oriented in no apparent distress
EYE: Orbits normal.
NECK: Supple CARDIAC: Regular rate and rhythm without any obvious murmurs.
LUNGS: No respiratory distress but rhonchi and rales bilaterally
ABDOMEN: Soft, without focal tenderness or distention. No true CVA tenderness. However patient winces in pain with the active sitting up
NEUROLOGICAL: Alert and oriented , grossly non-focal
SKIN: Warm and dry, no rash or lesion, no discoloration, skin intact.
MUSCULOSKELETAL: No edema,no deformity.Good color
PSYCH: Normal and appropriate interaction.
Course
Orders/Labs/Results
Orders:
Orders
11/24/23 13:23
CT Abd/pelvis Wo Iv Cont Urgent
Comment:
Reason For Exam: right flank pain
11/24/23 13:37
Complete Blood Count/With Diff Urgent
Comprehensive Metabolic Panel Urgent
NT-proBNP Urgent
Comment: ADD ON
Urinalysis Reflex To Culture Urgent
Date Specimen was Collected: 11/24/23
Time Specimen was Collected: 13:19
Urine Microscopic Reflex Cult Urgent
11/24/23 15:17
Add On- LAB Urgent
Tests Added?: pro bnp
IV Insert/Care/Rem.- Treatment PRN
HYDROmorphone [Dilaudid] 0.25 mg IV NOW STA
Ketorolac [Toradol] 15 mg IV NOW STA
Ondansetron Injectable [Zofran] 4 mg IV NOW STA
11/24/23 15:18
Electrocardiogram (*1) Stat
Reason for Study: Other
Other Reason for Exam: r/o kidney stone
EKG- Treatment ONCE
CXR2 [CR Chest - 2 Views ] Urgent
Comment:
Reason For Exam: Short of breath rhonchi
11/24/23 17:13
Admit/Transfer Patient As Directed
Co-Sign Provider:
Level of Care: Observation services
Assign to:: Medical/Surgical
Physician / Group: joe
Diagnosis: Right uteropelvic junction calculus
11/24/23 17:14
Code Status As Directed
Resuscitation Status: Full Code
Abnormal Lab Results
11/24/23
13:37
WBC 43.7 H* 10^3/uL
(4.8-10.8)
RBC 3.53 L 10^6/uL
(4.70-6.10)
Hgb 11.0 L g/dL
(13.0-18.0)
Hct 34.2 L %
(39.0-52.0)
MCV 96.9 H fL
(80.0-94.0)
MCH 31.2 H pg
(27.0-31.0)
MCHC 32.2 L g/dL
(33.0-37.0)
RDW 15.6 H %
(11.5-14.5)
Plt Count 111 L 10^3/uL
(130-400)
MPV 11.6 H fL
(7.4-10.4)
Abs Immat Gran (auto) 0.1 H 10^3/uL
(0-0.05)
Absolute Lymphs (auto) 36.5 H 10^3/uL
(1.2-3.4)
Neutrophils % 14.9 L %
(42.2-75.2)
Lymphocytes % 83.6 H %
(20.5-51.1)
Monocytes % 1.1 L %
(1.7-9.3)
BUN 30 H mg/dl
(9-20)
Glucose 271 H mg/dl
(70-99)
Ur Occult Blood Reflex Trace A
(Negative)
Urine Glucose 3+ A
(Negative)
11/24/23 13:37
11/24/23 13:37
Vital Signs
Initial and Last Documented VS:
Initial Vital Signs
Temp Pulse Resp Pulse Ox
97.9 F 54 17 96
11/24/23 13:20 11/24/23 13:20 11/24/23 13:20 11/24/23 13:20
Last Documented Vital Signs
Temp Pulse Resp Pulse Ox
97.9 F 54 17 96
11/24/23 13:20 11/24/23 13:20 11/24/23 13:20 11/24/23 13:20
MDM/Problems Addressed
Differential Diagnosis Includes:
Patient presents with sudden onset of nontraumatic right mid back pain. Consistent with patient's kidney stone history. It feels like a kidney stone in the patient. Only atypical part is there appears to be a very positional component. Workup in
progress. In addition patient has some rhonchi's and rales at the base of the lungs. Chest x-ray proBNP and EKG ordered.
*Radiology
Radiology exam reviewed: preliminary read by ED provider (Negative chest x-ray), radiology read reviewed (Negative chest x-ray) and other (Obstructing 6 to 7 mm stone proximal right ureter. Inflammatory changes in both lung bases)
*Pulse Oximetry
Patient hypoxic: no
*EKG
Interpreted by ED Provider?: Yes
Comparison EKG: changes noted
Heart Rate: 60
Rate: normal
Rhythm: sinus
[place]: left axis deviation
Interval: normal interval
QRS Pattern: right bundle branch block
Ischemia: non-specific ST changes
*Critical Care Note
Total Time (30-74mins, 75-104mins- exclusive of procedures): Not Applicable
Data Reviewed
Review of Other/Old Records Reveals: Labs, Records and Testing
Update Note
Update Note:
Patient with 67 mm stone proximal right ureter with obstructing stone. Abnormal lung sounds with inflammatory changes in the bases. Ongoing pain management. No infectious issues.
ED Attending Note
-
Portions of this chart may have been created with voice recognition software.� Occasional wrong word or��sound alike� substitutions may have occurred due to the inherent limitations of voice recognition software.
Discharge Plan
Departure
Patient Disposition: Admit
Date of Disposition: 11/24/23
Time of Disposition: 16:25
Presentation/result/management discussed w/ accepting MD/DO: Urology
Discharge Problem:
7 mm obstructing stone proximal right ur, Inflammatory changes both lung bases, CLL, History of CHF
Prescriptions:
No Action
ascorbic acid (vitamin C) [Vitamin C] 1,000 mg Tablet
1,000 mg PO DAILY
cod liver oil Capsule
3 cap PO DAILY
cholecalciferol (vitamin D3) [Vitamin D3] 25 mcg (1,000 unit) Tablet
25 mcg PO DAILY
dapagliflozin propanediol [Farxiga] 10 mg tablet
10 mg PO DAILY Qty: 30 6RF
furosemide 40 mg tablet
20 mg PO DAILY
clopidogrel [Plavix] 75 mg Tablet
75 mg PO DAILY
metformin 500 mg Tablet Extended Release 24 Hr
500 mg PO QPM
atorvastatin 40 mg tablet
40 mg PO QPM
aspirin 81 mg tablet,delayed release (DR/EC)
81 mg PO DAILY
losartan 25 mg tablet
25 mg PO DAILY
metoprolol succinate 25 mg tablet extended release 24 hr
25 mg PO BID
Referrals:
Stan Gomez DO [Family Provider] -
Interventions
Interventions:
*Risk Screen - Suicide Last Done: 11/24/23 13:21
*General Assessment Last Done: 11/24/23 13:21
*Neglect/Abuse Screening Last Done: 11/24/23 13:21
*ED COVID-19 Vaccine History Last Done: 11/24/23 13:21
HY-Rujcnu-Tgwtipmtjy Assessment Last Done: 11/24/23 16:16
ED-Male Genitourinary Assessment Last Done: 11/24/23 16:16
Discharge Date and Time
Print Language: SRI LANKAN
[2023-11-24 16:02] LABS: NT-proBNP 5230 pg/ml
[2023-11-24] MEDS: ZOFRAN 4 MG IV (16:09)
[2023-11-24] MEDS: DILAUDID 0.25 MG IV (16:09)
[2023-11-24] MEDS: TORADOL 15 MG IV (16:09)
--- NOTE | 2023-11-24 17:19 | HPS.HSE ---
Addendum entered and electronically signed by Bhavik Cruz MD 11/24/23 19:05:
Changed diet NPO past midnight.
Original Note:
Family Physician
-
Family Physician: Stan Gomez
Chief Complaint
-
right flank pain
History of Present Illness
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
which started today. He had several episodes of vomiting throughout the day. He denies any fevers or chills. He denies any urinary symptoms or blood in the urine.'
He has had kidney stones before and has undergone lithotripsy previously.
Patient is not on any chemotherapy for CLL. He receives IVIG periodically for hypogammaglobinemia which she last received last week.
He has some slight cough which he attributes to postnasal drip. He denies any shortness of breath or chest pain.
Medical History
Past Medical History
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
Past Surgical History: Reports None
Social History
Tobacco: Non-smoker
Alcohol: None
Drug: None
Family History
Family History: Not pertinent
Allergies / Home Medications
Allergies reflects when Allergies were last updated in [employer].
Home Medications with original date entered in [employer]
Allergy/Medication List:
Allergies
Allergy/AdvReac Type Severity Reaction Status Date / Time
No Known Allergies Allergy Verified 11/24/23 13:20
Home Medications
ascorbic acid (vitamin C) 1,000 mg tablet (Vitamin C) 1,000 mg PO DAILY Supplement 07/27/23
cholecalciferol (vitamin D3) 25 mcg (1,000 unit) tablet (Vitamin D3) 25 mcg PO DAILY Supplement 07/27/23
cod liver oil 3 cap PO DAILY Supplement 07/27/23
dapagliflozin propanediol 10 mg tablet (Farxiga) 10 mg PO DAILY Heart Failure #30 tabs 08/05/23
aspirin 81 mg tablet,delayed release 81 mg PO DAILY Blood Clot Prevention/Tx 11/24/23
atorvastatin 40 mg tablet 40 mg PO QPM High Cholesterol 11/24/23
clopidogrel 75 mg tablet (Plavix) 75 mg PO DAILY Blood Clot Prevention/Tx 11/24/23
furosemide 40 mg tablet 20 mg PO DAILY Fluid Retention/Swelling 11/24/23
losartan 25 mg tablet 25 mg PO DAILY Heart Failure 11/24/23
metformin 500 mg tablet,extended release 24 hr 500 mg PO QPM Diabetes 11/24/23
metoprolol succinate 25 mg tablet,extended release 24 hr 25 mg PO BID Heart Failure 11/24/23
Review of Systems
-
History Source: Patient
A 12 point ROS was completed and negative except as noted: Yes
Constitutional: Reports No Symptoms
EENT: Reports No Symptoms
Respiratory: Reports No Symptoms
Cardiac: Reports No Symptoms
Abdomen/GI: Reports See HPI
: Reports No Symptoms
Musculoskeletal: Reports No Symptoms
Skin: Reports No Symptoms
Neurological: Reports No Symptoms
Endocrine: Reports No Symptoms
Hematologic/Lymphatic: Reports No Symptoms
Psych: Reports No Symptoms
Physical Exam
Vital Signs
Vital Signs
Temp Pulse Resp Pulse Ox
97.9 F 54 17 96
11/24/23 13:20 11/24/23 13:20 11/24/23 13:20 11/24/23 13:20
Physical Exam
General: Well Developed, Well Nourished and No Apparent Distress
HEENT: NormoCephalic, Moist mucous membranes and Atraumatic
Respiratory: Clear
Cardiac: S1/S2 and Regular Rhythm; No Murmur or Rub
GI: Soft, Non Tender, Non Distended and Normal Bowel Sounds; No Organomegaly
Rectal: Deferred by Provider
Musculoskeletal: No Clubbing, No Cyanosis and No Edema
Skin: No Rash
Neuro: Nonfocal/grossly intact
Laboratory Results
-
11/24/23 13:37
11/24/23 13:37
Laboratory Results
Total Bilirubin 0.6 mg/dl (0.2-1.3) 11/24/23 13:37
AST 40 U/L (17-59) 11/24/23 13:37
ALT 31 U/L (0-50) 11/24/23 13:37
Alkaline Phosphatase 111 U/L (38-126) 11/24/23 13:37
Data Reviewed
-
Lab Data: Labs Reviewed by me
Old Records: Reviewed
Impression/Plan
-
IMPRESSION:
PLAN:
# Right uteropelvic junction calculus with mild renal collecting system dilation
# History of nephrolithiasis
-N.p.o.
-IV fluids
-Dilaudid, Zofran
-Urology consult and plan for stent tomorrow afternoon unless stone passes spontaneously
# Likely interstitial lung disease likely secondary to CLL
-not on chemotherapy
-CT abdomen pelvis shows prominent reticulonodular interstitial markings noted throughout the lung bases bilaterally increased compared to prior
-No significant pulmonary symptoms, dyspnea or hypoxia
-Pulmonary consulted
Multivessel coronary artery disease, recent NSTEMI
-Continue aspirin
-Hold Plavix
-Continue statin
Chronic HFpEF
-Hold Lasix
History of first-degree block
CLL/hypogammaglobinemia
Chronic anemia
-Hemoglobin stable
Essential hypertension
-Continue losartan
-Continue metoprolol
Type 2 diabetes
-Hold dapagliflozin
-Hold metformin
-Insulin sliding scale
Hyperlipidemia
DNR/DNI
DVT prophylaxis-heparin
N.p.o.
--- NOTE | 2023-11-24 20:26 | W.PN.URO.CBU ---
Today's Communication / Plan
-
npo possible op room tomorrow call shahana if fevr chlds temp over 1015
Assessment / Plan
-
prox stone in pt with multplie cl=omorbidiites wilrener npo tonight t reasses in am possible stent in am or even discharge id f stable
Diagnosis
-
Date of Service: November 24, 2023
-
Patient Diagnosis:rt 8mm prox urteral stone
Post Op Day:
Subjective
-
feels btt no fevr chills
Objective
-
Vital Signs
Temp Pulse Resp BP Pulse Ox
97.9 F 62 20 134/55 97
11/24/23 13:20 11/24/23 20:00 11/24/23 20:00 11/24/23 20:00 11/24/23 19:45
Laboratory Results
11/24/23 13:37
11/24/23 13:37
Review of Systems
-
: Flank Pain
Physical Exam
-
General - well developed, well nourished, no acute distress
Chest - clear bilaterally
Abdomen - soft, non-tender, positive bowel sounds, no CVAT, no incisional pain or distention
Genitalia - normal
Rectal - normal
Skin - warm & dry with no rash
Neuro - AOx3, no motor deficits
Extremities - no clubbing, no cyanosis, no edema
Incision - clean, dry
Dressing - clean, dry, intact
Care Review
Data Reviewed
Discussed with: Hospitalist and Family
CT Scan: Image Pers Reviewed
--- NOTE | 2023-11-24 20:30 | W.PN.URO.CBU ---
Today's Communication / Plan
-
reval for stone surgery am 11/24
Assessment / Plan
-
prox stone in pt with multplie cl=omorbidiites wilrener npo tonight t reasses in am possible stent in am or even discharge id f stable
Diagnosis
-
Date of Service: November 24, 2023
-
Patient Diagnosis:
Post Op Day:
Patient Diagnosis:rt 8mm prox urteral stone
Post Op Day:
Subjective
-
rt colic
Objective
-
Vital Signs
Temp Pulse Resp BP Pulse Ox
97.9 F 62 20 134/55 97
11/24/23 13:20 11/24/23 20:00 11/24/23 20:00 11/24/23 20:00 11/24/23 19:45
Laboratory Results
11/24/23 13:37
11/24/23 13:37
Review of Systems
-
: Flank Pain
Physical Exam
-
General - well developed, well nourished, no acute distress
Chest - clear bilaterally
Abdomen - soft, non-tender, positive bowel sounds, no CVAT, no incisional pain or distention
Genitalia - normal
Rectal - normal
Skin - warm & dry with no rash
Neuro - AOx3, no motor deficits
Extremities - no clubbing, no cyanosis, no edema
Incision - clean, dry
Dressing - clean, dry, intact
Counseling
-
possible op room
Care Review
Data Reviewed
Discussed with: Nursing and Family
CT Scan: Image Pers Reviewed
[2023-11-24 21:27] LABS: Glucose - Point of Care 240 mg/dl (70-99)
[2023-11-24] MEDS: NSS 1000 IV (22:38)
[2023-11-24] MEDS: HEPARIN 5000 UNITS SC (22:43)
[2023-11-24] MEDS: TOPROL XL 25 MG PO (22:44)
[2023-11-24] MEDS: LIPITOR 40 MG PO (22:44)
--- NOTE | 2023-11-24 23:20 | PTCARENOTE ---
Pt received from ED via stretcher. Ambulated to bed without incident. AAOx3, pleasant, denies pain. Admission and assessment completed. Oriented to environment and plan of care discussed. Voided via urinal, strained - no particles observed.
Call ybrnes within reach. Plan of care ongoing.
[2023-11-25] VITALS (11 sets, daily range): BP systolic 90–132; BP diastolic 43–60; BMI 18.7
[2023-11-25 05:32] LABS: % Basophils 0.2 % (0-2); % Eosinophils 0.1 % (0-6); % Immature Granulocytes 0.2 % (0-0.5); % Lymphocytes 88.5 % (20.5-51.1); % Monocytes 2.6 % (1.7-9.3); % Neutrophils 8.4 % (42.2-75.2); Absolute Basophils 0.1 10^3/uL (0-0.2); Absolute Eosinophils 0.1 10^3/uL (0-0.7); Absolute Immature Granulocytes 0.1 10^3/uL (0-0.05); Absolute Lymphocytes 48.1 10^3/uL (1.2-3.4); Absolute Monocytes 1.4 10^3/uL (0.1-0.6); Absolute Neutrophils 4.5 10^3/uL (1.4-6.5); Hemoglobin 8.8 g/dL (13.0-18.0); Mean Corp Hgb Conc. 32.6 g/dL (33.0-37.0); Mean Corpuscular Hgb 31.5 pg (27.0-31.0); Mean Corpuscular Volume 96.8 fL (80.0-94.0); Nucleated Red Blood Cells % 0 % (-); Red Blood Cell Count 2.79 10^6/uL (4.70-6.10); Red Cell Dist. Width 15.7 % (11.5-14.5)
[2023-11-25 05:41] LABS: White Blood Cell Count 54.3 10^3/uL (4.8-10.8)
[2023-11-25 06:00] LABS: ALT (SGPT) 23 U/L (0-50); AST (SGOT) 33 U/L (17-59); Alkaline Phosphatase 75 U/L (38-126); Blood Urea Nitrogen 34 mg/dl (9-20); Calcium 8.6 mg/dl (8.4-10.2); Carbon Dioxide 21 mmol/L (22-30); Chloride 109 mmol/L (98-107); Estimated Creatinine Clearance 34 ml/min; Glucose 120 mg/dl (70-99); Potassium 3.6 mmol/L (3.5-5.1); Sodium 137 mmol/L (135-145); Total Bilirubin 0.6 mg/dl (0.2-1.3); Total Protein 5.2 g/dl (6.3-8.2); eGFR 55.19
[2023-11-25 07:18] LABS: Mean Platelet Volume 11.9 fL (7.4-10.4); Platelet Count 90 10^3/uL (130-400)
[2023-11-25 08:43] LABS: Glucose - Point of Care 140 mg/dl (70-99)
--- NOTE | 2023-11-25 09:03 | W.PN.HOSP.TC ---
Today's Communication/Plan
-
start empiric Cefepime once blood cultures obtained
OR with Urology later; hold thinners
cap IVF
Assessment / Plan
Assessment / Plan
Assessment:
Right uteropelvic junction calculus with mild renal collecting system dilation
History of nephrolithiasis
- obtain urine cultures (including OR urine culture), blood culture
- start empiric Cefepime with rising WBC - may not be able to mount true fever response to potential infection in setting of recent IVIG and CLL. My concern is for possibly developing sepsis with admitting tachypnea. HR low in setting of BB.
- continue pain control, anti-emetics
- cap IVF with hx of low EF 35%
- Urology following for operative intervention today
ILD type findings on CT
- seems asymptomatic
- consider dedicated CT chest
- Pulmonary consulted
Multivessel coronary artery disease
recent NSTEMI
- recent LHC in late Aug: Severe multivessel coronary artery disease with a heavily calcified LAD over the course of the vessel and diffuse atherosclerosis in the proximal to mid vessel spanning the origin of the only sizable diagonal branch. There
is a high-grade stenosis proximally in a sizable OM 3 and in the mid right coronary artery.
- being medically managed
- continue ASA/Statin/BB
- Plavix on hold
Chronic HFpEF
- hold Lasix
- monitor I/Os, weights
- Echo 11/09: Mild concentric LVH. EF 35%, moderate reduced LV function with regional WMA, enlarged RV, severe MR, mild TR, Estimated pulmonary artery pressure of 40-45 mmHg.
History of first-degree block
CLL/hypogammaglobinemia
- s/p IVIG last week
- follows with Dr. Young
Chronic anemia
Acute on chronic thrombocytopenia
- hemoglobin stable; no bleeding seen
Essential hypertension
- continue losartan
- continue metoprolol
Type 2 diabetes
- hold dapagliflozin
- hold metformin
- Insulin sliding scale
- A1c: pending
Hyperlipidemia
- statin
Code: DNR/DNI
DVT prophylaxis: SC heparin
Anticipated Discharge: > 48 hours
Subjective/Interval History
-
Date of Service: November 25, 2023
Flank pain improving slightly, now just an ache
no documented fevers but he finished IVIG 1 week ago
Objective Data
-
Labs:
Laboratory Results
11/25/23
05:05
WBC 54.3 H*
Hgb 8.8 L
Hct 27.0 L
Plt Count 90 L
Sodium 137
Potassium 3.6
Chloride 109 H
Carbon Dioxide 21 L
BUN 34 H
Creatinine 1.3
Glucose 120 H
Calcium 8.6
Total Bilirubin 0.6
AST 33
ALT 23
Alkaline Phosphatase 75
Vital Signs:
Vital Signs
Temp Pulse Resp BP Pulse Ox
97.8 F 52 20 117/58 94
11/25/23 08:48 11/25/23 08:48 11/24/23 23:59 11/25/23 08:48 11/25/23 08:48
I&O
11/24/23 11/25/23 11/26/23
06:59 06:59 06:59
Output Total 550 / 550
Balance -550 / -550
Physical Exam
-
General: No Apparent Distress
HEENT: Normocephalic and Atraumatic
Respiratory: Negative Wheezes
Cardiac: Regular Rhythm and S1/S2
GI: Soft
Genito-urinary: No Costovertebral Tender
Musculoskeletal: No Edema
Neuro: AO x 3
Psych: Calm
Data Reviewed
-
Total Time Spent with Patient (in minutes): 49
Labs: Labs Reviewed by me
--- NOTE | 2023-11-25 09:24 | W.PN.URO.CBU ---
Today's Communication / Plan
-
NPO TO OP ROOM IF VOIDS PLEAAE SEND URIN FOR UR CX
Assessment / Plan
-
prox stone in pt with multplie cl=omorbidiites including CLL PTHAD NO FEVER CHILLD BUT WBC WENT UP 44K TO 55K In light of this flt and pt agreed thathe may not mount a febril response and not show signs of sepsis Wiyh this in mnd will stent
and considr removl of stone if stBL
Diagnosis
-
Date of Service: November 25, 2023
-
Patient Diagnosis:
Post Op Day:
Patient Diagnosis:
Post Op Day:
Patient Diagnosis:
Post Op Day:
Patient Diagnosis:rt 8mm prox urteral stone
Post Op Day:
Subjective
-
feels well mon painno fever chills
Objective
-
Vital Signs
Temp Pulse Resp BP Pulse Ox
97.8 F 52 20 117/58 94
11/25/23 08:48 11/25/23 08:48 11/24/23 23:59 11/25/23 08:48 11/25/23 08:48
Intake and Output
11/24/23 11/25/23 11/26/23
06:59 06:59 06:59
Output Total 550 / 550
Balance -550 / -550
Output:
Urine, Voided 550 / 550
Laboratory Results
11/25/23 05:05
11/25/23 05:05
Review of Systems
-
: No Symptoms
Physical Exam
-
General - well developed, well nourished, no acute distress
Chest - clear bilaterally
Abdomen - soft, non-tender, positive bowel sounds, no CVAT, no incisional pain or distention
Genitalia - normal
Rectal - normal
Skin - warm & dry with no rash
Neuro - AOx3, no motor deficits
Extremities - no clubbing, no cyanosis, no edema
Incision - clean, dry
Dressing - clean, dry, intact
Care Review
Data Reviewed
Discussed with: Hospitalist and Nursing
CT Scan: Image Pers Reviewed
[2023-11-25] MEDS: ASPIR LOW (ENTERIC COATED) PO (09:25)
[2023-11-25] MEDS: COZAAR 25 MG PO (09:25)
[2023-11-25] MEDS: HEPARIN SC (09:25)
[2023-11-25] MEDS: TOPROL XL 25 MG PO ×2 (09:25→21:14)
[2023-11-25] MEDS: VITAMIN C 1000 MG PO (09:25)
[2023-11-25] MEDS: VITAMIN D3 (cholecalciferol) 25 MCG PO (09:25)
[2023-11-25] MEDS: NSS 1000 IV (09:26)
[2023-11-25 09:34] LABS: Glycohemoglobin (HgbA1c) 6.9 % (4.0-5.6)
--- NOTE | 2023-11-25 10:58 | CM ---
Reviewed the chart notes and spoke with the patient and his [id number] at the bedside. The patient anticipates going to the OR later today. The patient resides with his spouse in a one story home with four steps to enter. The patient reports
no needing any DME, but has in the home a rolling walker, shower chair, shower rails, raised toilet, and a bsc. The patient has not had VN nor been to a SNF in the past. The patient confirmed his pharmacy of choice is the [facility].
CM continues to be available to patient/family and is monitoring medical plan for needs at discharge.
Plan: Discharge to home when medically stable. No needs anticipated.
[2023-11-25] MEDS: STERILE WATER FOR INJECTION 10 ML IV ×2 (11:05→16:59)
[2023-11-25] MEDS: MAXIPIME 1000 MG IV ×2 (11:06→17:00)
--- NOTE | 2023-11-25 11:40 | CON.PUL ---
Consultation
Consultation Request
Date/Time Consultation Requested: 11/24/20232205
Date/Time Consultation Performed: 11/25/2023 - 957
Requesting Provider: Dr. Cruz
Performing Provider: Dr. Castanon
Reason for Consultation: Interstitial lung changes
Medical History
-
Chief Complaint: Right-sided flank pain
History of Present Illness:
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 It was associated with vomiting and
without fevers or chills. Patient is not currently on chemotherapy for CLL and receives IVIG for hypogammaglobinemia. Last treatment received last week. He does endorse postnasal drip with a chronic cough typically in the morning. Denies
shortness of breath. CT abdomen/pelvis showed a 7 mm calculus at the right ureteropelvic junction with mild right renal collecting system dilatation. There also was prominent reticulonodular interstitial markings in the lung bases bilaterally. Of
note he did have a prior CT abdomen/pelvis from 10/2020 which showed mild reticular opacities at that time. Patient was prepared for right-sided ureteroscopy with laser lithotripsy and stent placement which she obtained today (11/25/2023). Due to
his CT Abd/Pelvis scan findings on his lung bases, pulmonary now consulted for additional recommendations.
When I saw the patient he was in no acute distress, daughter at bedside. Patient endorses a chronic cough mainly in the morning. She denies shortness of breath. He is currently on 1 L/min nasal cannula � he does not use home oxygen. He denies
any rashes, difficulty swallowing, denies chest pain, denies any joint swelling or redness or stiffness. He does have enlarged joints in his DIP + PIP regions, but he denies any redness or swelling in those areas. He denies ever having been told
he has a history of interstitial lung disease. Denies fevers or chills.
PMHx: DM type II, hyperlipidemia, hypertension, CAD, history of right rotator cuff tear, history of CLL, mitral regurgitation, low immunoglobulin level on IVIG, history of renal stones, bifascicular block, history of influenza B (07/2022), history of
sinusitis, chronic rhinitis
PShx: Hernia repair, right-sided kidney stone with lithotripsy and stent placement (October 2020)
Past Medical History
Past Medical History: Other (Above as per HPI)
Past Surgical History: Other (Above as per HPI)
Social History
Tobacco: Non-smoker
Alcohol: None
Drug: None
Family History
Family History: Diabetes (Mother)
Allergies / Home Medications
Allergies
Allergy/AdvReac Type Severity Reaction Status Date / Time
No Known Allergies Allergy Verified 11/24/23 13:20
Home Medications
�Medication �Instructions �Recorded �Confirmed �Last Taken �Type
ascorbic acid (vitamin C) 1,000 mg 1,000 mg PO DAILY Supplement 07/27/23 11/24/23 11/24/23 History
tablet (Vitamin C)
cholecalciferol (vitamin D3) 25 25 mcg PO DAILY Supplement 07/27/23 11/24/23 11/24/23 History
mcg (1,000 unit) tablet (Vitamin
D3)
cod liver oil 3 cap PO DAILY Supplement 07/27/23 11/24/23 11/24/23 History
dapagliflozin propanediol 10 mg 10 mg PO DAILY Heart Failure #30 08/05/23 11/24/23 11/24/23 Rx
tablet (Farxiga) tabs
aspirin 81 mg tablet,delayed 81 mg PO DAILY Blood Clot 11/24/23 11/24/23 11/24/23 History
release Prevention/Tx
atorvastatin 40 mg tablet 40 mg PO QPM High Cholesterol 11/24/23 11/24/23 11/24/23 History
clopidogrel 75 mg tablet (Plavix) 75 mg PO DAILY Blood Clot 11/24/23 11/24/23 11/24/23 History
Prevention/Tx
furosemide 40 mg tablet 20 mg PO DAILY Fluid 11/24/23 11/24/23 11/24/23 History
Retention/Swelling
losartan 25 mg tablet 25 mg PO DAILY Heart Failure 11/24/23 11/24/23 11/24/23 History
metformin 500 mg tablet,extended 500 mg PO QPM Diabetes 11/24/23 11/24/23 Unknown History
release 24 hr
metoprolol succinate 25 mg 25 mg PO BID Heart Failure 11/24/23 11/24/23 11/24/23 History
tablet,extended release 24 hr
Review of Systems
-
History Source: Patient
All other systems: Negative unless noted (12 point ROS performed and is negative unless mentioned above.)
Vitals / Labs / Diagnostic Testing
Vital Signs
Temp Pulse Resp BP Pulse Ox
98.0 F 65 18 125/57 94
11/25/23 17:00 11/25/23 17:00 11/25/23 17:00 11/25/23 17:00 11/25/23 17:00
Lab Data
11/25/23 05:05
11/25/23 05:05
Diagnostic Testing:
Physical Exam
-
HEENT: Normocephalic and Anicteric
Cardiovascular: S1/S2 and Peripheral Edema (Negative)
Respiratory: Wheeze (Negative), Rales (Inspiratory rales heard in the bases to midlung calderon bilaterally), Rhonchi (Negative) and Non-Labored Respirations
GI: Soft, Non Distended, Non Tender and Normal Bowel Sounds
Neurology: AO x 3
Skin: Warm, Dry and Other (No clubbing seen; PIP + DIP enlargement seen on bilateral hands without erythema or edema)
General: Comfortable and Chills (Negative)
Assessment
-
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 It was associated with
vomiting and without fevers or chills. Patient is not currently on chemotherapy for CLL and receives IVIG for hypogammaglobinemia. Last treatment received last week. He does endorse postnasal drip with a chronic cough typically in the morning.
Denies shortness of breath. CT abdomen/pelvis showed a 7 mm calculus at the right ureteropelvic junction with mild right renal collecting system dilatation. There also was prominent reticulonodular interstitial markings in the lung bases
bilaterally. Of note he did have a prior CT abdomen/pelvis from 10/2020 which showed mild reticular opacities at that time. Patient was prepared for right-sided ureteroscopy with laser lithotripsy and stent placement which she obtained today
(11/25/2023). Due to his CT Abd/Pelvis scan findings on his lung bases, pulmonary now consulted for additional recommendations.
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
(07/2022), history of sinusitis, chronic rhinitis
Impression:
#Abnormal CT Abd/pelvis with reticulo-nodular opacities seen on lung bases - unclear what this is, but it is not typical for ILD (not UIP pattern, no GGO or mosaic attenuation, and these nodules do not spare the subpleural region; also no obvious
ILD seen on his CXR). It appears to be a pneumonia with more of a tree-in-bud appearance with mild bibasilar atelectasis (plus he is immunocompromised with low Ig levels)
#Chronic cough - likely due to upper airway cough syndrome from chronic rhinitis
#Chronic rhinitis with post-nasal drip and rhinorrhea
#7 mm calculus at the right UPJ with obstructive uropathy
#Leukocytosis - due to CLL
#Chronic anemia (Hb ranges between 8.5-10.5)
#Thrombocytopenia (chronic with waxing and waning plt counts)
#DM type II (A1C: 6.9)
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
Plan:
- Check dedicated CT Chest to evaluate entire lung parenchyma
- Check procal for trending purposes
- Check sputum Cx as well as legionella/Strep PNA urine antigens
- Follow up blood Cx
- He is already on Abx with cefepime - would consider treating for pneumonia with 7-10 day course, which he likely will be receiving anyway for his renal stone
- Maintain SpO2 >90-94% with supplemental O2 as needed
- Incentive spirometer encouraged
- Replete electrolytes with K>4, Mg>2
- Maintain euglycemia with goal BG >100 and <180
- prn nebulized bronchodilators
- DVT ppx
Pulmonary service will continue to briefly follow along. I will arrange for outpatient follow-up with me in the office for full PFTs.
Total time spent today was 55 minutes for this encounter. Time includes reviewing laboratory test/imaging results, reviewing pertinent medical records, obtaining and reviewing medical history, performing an appropriate exam, ordering medications,
tests and procedures. Time also includes documentation of this encounter, coordinating patient care and communicating with other healthcare professionals. Total time does not include separately billed tests performed on this date of service.
Data:
CT Abd/Pelvis without contrast 11-24-2023:
Approximate 0.6-0.7 cm calculus at the right ureteropelvic junction with mild right renal collecting system dilatation. Right extrarenal pelvis again noted.
Nonobstructing right renal calculus.
Small simple appearing left renal cyst and subcentimeter slightly high attenuation left renal lesion either representing a complex/hyperdense cyst or solid mass, cannot be further characterized on this study without intravenous contrast, unchanged.
Small hiatal hernia.
Enlarged prostate.
Prominent reticulonodular interstitial markings noted throughout the included lung bases bilaterally, significantly progressed in comparison to prior study, difficult to compare to prior CTA Chest 08/04/2023 in light of moderate bilateral pleural
effusions.. Is there a history of interstitial lung disease?
[2023-11-25 11:47] LABS: Glucose - Point of Care 130 mg/dl (70-99)
[2023-11-25 14:06] LABS: Glucose - Point of Care 114 mg/dl (70-99)
--- NOTE | 2023-11-25 15:05 | W.IMMPOSTOP ---
Surgical Immed Post Op Note
-
Primary Surgeon: Peffer
Assisting Surgeon: none
Pre-op Diagnosis: R ureteral stone, R renal stone
Post-op Diagnosis: same
Procedure Performed: R ureteroscopy, laser lithotripsy, stent placement
Anesthesia Type: gen
Specimen / Cultures: none
Estimated Blood Loss: 2cc
Complications: none
Operative Findings:
No infected appearing urine
access sheath unable to advance so stone was fragmented into dust
smaller renal stone was not visible - likely intraparenchymal
stent in place with short string
[2023-11-25 15:15] LABS: Glucose - Point of Care 135 mg/dl (70-99)
--- NOTE | 2023-11-25 16:00 | PTCARENOTE ---
Pt returned to [facility] from PACU s/p right ureteroscopy/cystoscopy and stent placement. Pt on 2L NC satting 96%. Pt states no pain at this time. Bed locked and in lowest position, call byrnes within reach.
[2023-11-25 16:50] LABS: Glucose - Point of Care 165 mg/dl (70-99)
[2023-11-25] MEDS: NOVOLOG FLEXPEN-LOW RESISTANCE 1 UNITS SC (16:58)
[2023-11-25] MEDS: LIPITOR 40 MG PO (16:59)
[2023-11-25] MEDS: ZOFRAN 4 MG IV (17:45)
[2023-11-25] MEDS: DILAUDID 0.5 MG IV (17:46)
[2023-11-25] MEDS: HEPARIN 5000 UNITS SC (21:14)
[2023-11-25 23:20] LABS: Glucose - Point of Care 263 mg/dl (70-99)
[2023-11-26] VITALS (7 sets, daily range): BP systolic 109–152; BP diastolic 52–60; PULSE 61–62; O2SAT 99; BMI 18.9
[2023-11-26] MEDS: MAXIPIME 1000 MG IV ×3 (02:59→17:10)
[2023-11-26] MEDS: STERILE WATER FOR INJECTION 10 ML IV ×3 (02:59→17:10)
[2023-11-26 05:20] LABS: % Basophils 0.1 % (0-2); % Immature Granulocytes 0.4 % (0-0.5); % Lymphocytes 81.5 % (20.5-51.1); % Monocytes 1.3 % (1.7-9.3); % Neutrophils 16.7 % (42.2-75.2); Absolute Basophils 0.1 10^3/uL (0-0.2); Absolute Immature Granulocytes 0.2 10^3/uL (0-0.05); Absolute Lymphocytes 34.5 10^3/uL (1.2-3.4); Absolute Monocytes 0.5 10^3/uL (0.1-0.6); Absolute Neutrophils 7.1 10^3/uL (1.4-6.5); Hematocrit 27.7 % (39.0-52.0); Mean Corp Hgb Conc. 32.5 g/dL (33.0-37.0); Mean Corpuscular Hgb 31.5 pg (27.0-31.0); Mean Corpuscular Volume 96.9 fL (80.0-94.0); Mean Platelet Volume 11.9 fL (7.4-10.4); Nucleated Red Blood Cells % 0 % (-); Platelet Count 80 10^3/uL (130-400); Red Blood Cell Count 2.86 10^6/uL (4.70-6.10); Red Cell Dist. Width 15.3 % (11.5-14.5)
[2023-11-26 05:47] LABS: White Blood Cell Count 42.3 10^3/uL (4.8-10.8)
[2023-11-26 06:08] LABS: Procalcitonin 0.09 ng/ml (0.0-0.25)
[2023-11-26 06:30] LABS: Blood Urea Nitrogen 43 mg/dl (9-20); Calcium 8.9 mg/dl (8.4-10.2); Carbon Dioxide 21 mmol/L (22-30); Chloride 105 mmol/L (98-107); Estimated Creatinine Clearance 35 ml/min; Glucose 166 mg/dl (70-99); Potassium 5.3 mmol/L (3.5-5.1); Sodium 133 mmol/L (135-145); eGFR 55.19
[2023-11-26 07:49] LABS: Glucose - Point of Care 163 mg/dl (70-99)
[2023-11-26] MEDS: VITAMIN C 1000 MG PO (08:06)
[2023-11-26] MEDS: ASPIR LOW (ENTERIC COATED) 81 MG PO (08:06)
[2023-11-26] MEDS: TOPROL XL 25 MG PO ×2 (08:06→20:13)
[2023-11-26] MEDS: HEPARIN 5000 UNITS SC ×2 (08:06→20:13)
[2023-11-26] MEDS: VITAMIN D3 (cholecalciferol) 25 MCG PO (08:06)
[2023-11-26] MEDS: NOVOLOG FLEXPEN-LOW RESISTANCE 1 UNITS SC (08:07)
[2023-11-26] MEDS: COZAAR PO (08:13)
[2023-11-26] MEDS: LOKELMA 10 GRAM PO (08:19)
[2023-11-26] MEDS: VIBRAMYCIN 100 MG PO ×2 (09:28→20:13)
[2023-11-26] MEDS: TYLENOL 650 MG PO (09:30)
[2023-11-26 11:23] LABS: Glucose - Point of Care 231 mg/dl (70-99)
[2023-11-26] MEDS: NOVOLOG FLEXPEN-LOW RESISTANCE 2 UNITS SC ×2 (11:39→17:10)
--- NOTE | 2023-11-26 13:03 | W.PN.PUL3 ---
Today's Communication / Plan
-
Discussed CT chest findings, would be reasonable to complete course of Doxy PO and eval as OP for next steps
Further urologic management per team
Consider diuresis for ECHO/proBNP findings
Outpatient pulmonary FU recommended/discussed with patient
Assessment
-
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 It was associated with vomiting and
without fevers or chills. Patient is not currently on chemotherapy for CLL and receives IVIG for hypogammaglobinemia. Last treatment received last week. He does endorse postnasal drip with a chronic cough typically in the morning. Denies
shortness of breath. CT abdomen/pelvis showed a 7 mm calculus at the right ureteropelvic junction with mild right renal collecting system dilatation. There also was prominent reticulonodular interstitial markings in the lung bases bilaterally. Of
note he did have a prior CT abdomen/pelvis from 10/2020 which showed mild reticular opacities at that time. Patient was prepared for right-sided ureteroscopy with laser lithotripsy and stent placement which she obtained today (11/25/2023). Due to
his CT Abd/Pelvis scan findings on his lung bases, pulmonary now consulted for additional recommendations.
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
(07/2022), history of sinusitis, chronic rhinitis
Impression:
#Abnormal CT Abd/pelvis with reticulo-nodular opacities seen on lung bases - unclear what this is, but it is not typical for ILD (not UIP pattern, no GGO or mosaic attenuation, and these nodules do not spare the subpleural region; also no obvious
ILD seen on his CXR). It appears to be a pneumonia with more of a tree-in-bud appearance with mild bibasilar atelectasis (plus he is immunocompromised with low Ig levels)
#Chronic cough - likely due to upper airway cough syndrome from chronic rhinitis
#Chronic rhinitis with post-nasal drip and rhinorrhea
#7 mm calculus at the right UPJ with obstructive uropathy s/p Cystoscopy/Right ureteroscopy/Laser lithotripsy/Right ureteral stent placement 11/25/23
#Leukocytosis - due to CLL
#Chronic anemia (Hb ranges between 8.5-10.5)
#Thrombocytopenia (chronic with waxing and waning plt counts)
#DM type II (A1C: 6.9)
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
Severe MR
Plan:
Chronic nonproductive cough, still unable to produce sputum culture
Stable otherwise on RA
- Incentive spirometer encouraged
- Check dedicated CT Chest to evaluate entire lung parenchyma--demonstrating bilateral basilar bronchiectasis and TIB appearance
We reviewed the indications of these findings and potential NTM
Would be reasonable to continue abx for full course and if no better, arrange outpatient bronch for sputum assessment
procal negative
He is already on Abx with cefepime - would consider treating for pneumonia with 7-10 day course, which he likely will be receiving anyway for his renal stone
Underwent cysto with litho/stent
Further management for renal stones per urology
ECHO reviewed with severe MR
proBNP >5000
Consider diuresis as tolerated
- Replete electrolytes with K>4, Mg>2
- Maintain euglycemia with goal BG >100 and <180
- prn nebulized bronchodilators
- DVT ppx
Outpatient follow-up with Dr Castanon for full PFTs, discussed today
Discharge planning per team if stable from urologic issues
Data:
CT Chest 11/26/23- IMPRESSION:
1. Very small bilateral pleural effusions with adjacent atelectasis, decreased as compared with prior.
2. Bilateral lower lung mild cylindrical bronchiectatic changes with extensive micronodular opacities showing tree-in-bud distribution consistent with bronchiolitis. Chronic infectious bronchiolitis is the most likely differential consideration.
3. Coronary and aortic atherosclerosis.
CT Abd/Pelvis without contrast 11-24-2023: Approximate 0.6-0.7 cm calculus at the right ureteropelvic junction with mild right renal collecting system dilatation. Right extrarenal pelvis again noted. Nonobstructing right renal calculus. Small simple
appearing left renal cyst and subcentimeter slightly high attenuation left renal lesion either representing a complex/hyperdense cyst or solid mass, cannot be further characterized on this study without intravenous contrast, unchanged. Small hiatal
hernia.
Enlarged prostate. Prominent reticulonodular interstitial markings noted throughout the included lung bases bilaterally, significantly progressed in comparison to prior study, difficult to compare to prior CTA Chest 08/04/2023 in light of moderate
bilateral pleural effusions.
ECHO 11/10/23- Normal left ventricular chamber size. Mild concentric left ventricular hypertrophy. Moderate reduced left ventricular systolic function with regional wall motion abnormalities. Enlarged right ventricular size. Severe mitral
regurgitation.
Mild tricuspid regurgitation. Estimated pulmonary artery pressure of 40-45 mmHg. Mild pulmonic regurgitation. Normal pericardium without effusion. The IVC is of normal size and demonstrates normal respiratory variation. Compared to prior echo EF%
remains reduced and mitral regurgitation is now severe.
Total time spent today was 50 minutes for this encounter. Time includes reviewing laboratory test/imaging results, reviewing pertinent medical records, obtaining and reviewing medical history, performing an appropriate exam, ordering medications,
tests and procedures. Time also includes documentation of this encounter, coordinating patient care and communicating with other healthcare professionals. Total time does not include separately billed tests performed on this date of service.
Subjective Data
-
Date of Service:
Date of Service: November 26, 2023
Chief Complaint: Pulmonary Follow Up
Subjective:
no acute events ON, remains stable on RA
coughing but nonproductive
no new complaints
Objective Data
Data Reviewed
Vital Signs / I&O / Oxygen:
Vital Signs
Temp Pulse Resp BP Pulse Ox
98.1 F 53 20 120/54 98
11/26/23 11:09 11/26/23 11:09 11/26/23 11:09 11/26/23 11:09 11/26/23 11:09
Intake and Output
11/25/23 11/26/23 11/27/23
06:59 06:59 06:59
Intake Total 500 / 500
Output Total 550 / 550 500 / 500 400 / 400
Balance -550 / -550 0 / 0 -400 / -400
SaO2 98
Nasal Cannula flow liters per 1
minute
Physical Exam
General: Comfortable and Other (NAD)
HEENT: Normocephalic, Anicteric and Moist Mucous Membranes
Cardiovascular: S1-S2 and Regular Rhythm
Respiratory: Crackles and Non-Labored Respirations
GI: Soft, Non Distended and Non Tender
Neurology: Awake, Alert, Oriented, AO x 3 and No Motor Deficits
Skin: Warm, Dry and Good Color
Labs/Micro/Reports
Lab Data
11/26/23 05:06
11/26/23 05:06
Microbiology
11/24/23 13:37 Urine Urine Culture - Final
11/25/23 09:35 Blood/Venous Blood Culture - Preliminary
No Growth in 24 hours- Final report to follow
11/25/23 09:04 Blood/Venous Blood Culture - Preliminary
No Growth in 24 hours- Final report to follow
11/25/23 09:56 Urine Legionella Urinary Antigen - Final
Negative for Legionella pneumophila Serogroup 1 antigen.
A negative result does not rule out the possiblity of
Legionella infection due to other serogroups or species of
Legionella. Clinical correlation is recommended.
11/25/23 09:56 Urine Streptococcus pneumoniae Antigen (M - Final
Negative for Streptococcus pneumoniae antigen.
A negative result does not exclude infection with
Streptococcus pneumoniae. Clinical correlation is
recommended.
--- NOTE | 2023-11-26 13:37 | W.PN.HOSP.TC ---
Addendum entered and electronically signed by Ponce Wolf MD 11/26/23 13:43:
Hyperkalemia
- hold ARB and give Lokelma
Original Note:
Today's Communication/Plan
-
continue Cefepime/Doxy
DC planning with likely DC in 24 hours
Assessment / Plan
Assessment / Plan
Assessment:
Right uteropelvic junction calculus with mild renal collecting system dilation
History of nephrolithiasis
- s/p R ureteroscopy, laser lithotripsy, stent placement 11/26
- continue Cefepime, follow cultures
- continue pain control, anti-emetics
- follow Urology recs
ILD type findings on CT
- CT chest: Bilateral lower lung mild cylindrical bronchiectatic changes with extensive micronodular opacities showing tree-in-bud distribution consistent with bronchiolitis. Chronic infectious bronchiolitis is the most likely differential
consideration.
- continue Cefepime + Doxy to cover for CAP
- follow Pulm recs
Multivessel coronary artery disease
recent NSTEMI
- recent LHC in late Aug: Severe multivessel coronary artery disease with a heavily calcified LAD over the course of the vessel and diffuse atherosclerosis in the proximal to mid vessel spanning the origin of the only sizable diagonal branch. There
is a high-grade stenosis proximally in a sizable OM 3 and in the mid right coronary artery.
- being medically managed
- continue ASA/Statin/BB
- Plavix on hold
Chronic HFpEF
- hold Lasix
- monitor I/Os, weights
- Echo 11/09: Mild concentric LVH. EF 35%, moderate reduced LV function with regional WMA, enlarged RV, severe MR, mild TR, Estimated pulmonary artery pressure of 40-45 mmHg.
History of first-degree block
CLL/hypogammaglobinemia
- s/p IVIG last week
- follows with Dr. Young
Chronic anemia
Acute on chronic thrombocytopenia
- hemoglobin stable; no bleeding seen
Essential hypertension
- continue losartan
- continue metoprolol
Type 2 diabetes
- hold dapagliflozin
- hold metformin
- Insulin sliding scale
- A1c: 6.9%
Hyperlipidemia
- statin
Code: DNR/DNI
DVT prophylaxis: SC heparin
Anticipated Discharge: Within 24 hours
Subjective/Interval History
-
Date of Service: November 26, 2023
no new complaints
some residual urinary pain short lasting and mild
Objective Data
-
Labs:
Laboratory Results
11/26/23
05:06
WBC 42.3 H*
Hgb 9.0 L
Hct 27.7 L
Plt Count 80 L
Sodium 133 L
Potassium 5.3 H D
Chloride 105
Carbon Dioxide 21 L
BUN 43 H
Creatinine 1.3
Glucose 166 H
Calcium 8.9
Vital Signs:
Vital Signs
Temp Pulse Resp BP Pulse Ox
98.1 F 53 20 120/54 98
11/26/23 11:09 11/26/23 11:09 11/26/23 11:09 11/26/23 11:09 11/26/23 11:09
I&O
11/25/23 11/26/23 11/27/23
06:59 06:59 06:59
Intake Total 500 / 500
Output Total 550 / 550 500 / 500 400 / 400
Balance -550 / -550 0 / 0 -400 / -400
Physical Exam
-
General: No Apparent Distress
HEENT: Normocephalic and Atraumatic
Respiratory: Negative Wheezes
Cardiac: Regular Rhythm and S1/S2
GI: Soft
Genito-urinary: No Costovertebral Tender
Neuro: AO x 3
Psych: Calm
Data Reviewed
-
Total Time Spent with Patient (in minutes): 41
Labs: Labs Reviewed by me
[2023-11-26] MEDS: Pyridium 200 MG PO (13:55)
--- NOTE | 2023-11-26 14:57 | PN.CDI ---
CDI
- -
CDI:
Physician Documentation Request
Admit Date: 11/25/23 09:35
Dear Doctor Maryann,
Please review the following and provide your response in the progress notes.
Clinical Indicators:
Pt admitted with calculous of kidney/ureter s/p ureteral stent
Pt is immunocompromised with CLL
BMI 18
Documented per nutrition consult 11/24,' Consult weight loss.. BMI 18.4 underwt/ht....CBW (11/23) 117lb 6oz BMI 18.4 underwt/ht.Wt hx- (08/06) 121lb, (07/27) 130lb. Significant 11% wt loss over 5 months.... Pt meets criteria for severe protein calorie
malnutrition of chronic illness with >10% wt loss x 6months...'
Based on the information, which of the following most accurately represents the patient's nutritional status?
Severe protein Calorie Malnutrition
Moderate protein calorie malnutrition
Other (please specify)
[place] Criteria (ACP Hospitalist 2017)
2 or more criteria must be present for either
non severe or severe malnutrition
Note that the criteria differs related to the
presence of an acute or chronic illness
Acute Illness Chronic Illness
Energy Intake Non Severe: <75% for >7 days Non Severe: <75% for >1 month
Severe: <50% for >5 days Severe: <75% for >1 month
Weight Loss Non Severe: 1-2% over 1 week Non Severe: 5% over 1 month
5% over 1 month 7.5% over 3 months
7.5% over 3 months 10% over 6 months
1 year N/A 20% over 1 year
Severe: >2% over 1 week Severe: >5% over 1 month
>5% over 1 month >7.5% over 3 months
>7.5% over 3 months >10% over 6 months
1 year N/A >20% over 1 year
Body Fat Non Severe: Mild Decrease Non Severe: Mild Loss
Severe: Moderate Decrease Severe: Severe Loss
Muscle Mass Non Severe: Mild Decrease Non Severe: Mild Loss
Severe: Moderate Decrease Severe: Severe Loss
Fluid Accumulation Non Severe: Mild Accumulation Non Severe: Mild Accumulation
Severe: Moderate to severe Severe: Moderate to severe
accumulation accumulation
Reduced Clam Shucker Strength Non Severe: N/A Non Severe: N/A
Severe: Measurably reduced Severe: Measurably reduced
Use of terms such as suspected, likely, concern for, or probable (associated with a specific diagnosis that is being evaluated, monitored, or treated as if it exists) are acceptable and can be coded in the inpatient setting, when documented at the
time of discharge.
Thank you,
Savannah Pierre RN
CDI Specialist
Mobile Text
Please use your independent medical judgment in providing your response.
--- NOTE | 2023-11-26 16:09 | CM ---
Reviewed the chart notes and spoke with the patient at the bedside. IMM signed and placed on the chart. CM continues to be available to patient/family and is monitoring medical plan for needs at discharge.
Plan: Discharge to home when medically stable. No anticipated needs.
[2023-11-26 16:34] LABS: Glucose - Point of Care 215 mg/dl (70-99)
[2023-11-26] MEDS: LIPITOR 40 MG PO (17:09)
[2023-11-26 21:07] LABS: Glucose - Point of Care 178 mg/dl (70-99)
[2023-11-27] MEDS: MAXIPIME 1000 MG IV ×2 (02:51→08:24)
[2023-11-27] MEDS: STERILE WATER FOR INJECTION 10 ML IV ×2 (02:51→08:25)
[2023-11-27 03:06] VITALS: BMI 18.7
[2023-11-27 05:22] LABS: % Basophils 0.1 % (0-2); % Eosinophils 0.1 % (0-6); % Immature Granulocytes 0.2 % (0-0.5); % Lymphocytes 92.2 % (20.5-51.1); % Monocytes 0.7 % (1.7-9.3); % Neutrophils 6.7 % (42.2-75.2); Absolute Basophils 0.1 10^3/uL (0-0.2); Absolute Eosinophils 0.1 10^3/uL (0-0.7); Absolute Immature Granulocytes 0.1 10^3/uL (0-0.05); Absolute Lymphocytes 55.4 10^3/uL (1.2-3.4); Absolute Monocytes 0.4 10^3/uL (0.1-0.6); Hemoglobin 8.8 g/dL (13.0-18.0); Mean Corp Hgb Conc. 32.6 g/dL (33.0-37.0); Mean Corpuscular Hgb 31.4 pg (27.0-31.0); Mean Corpuscular Volume 96.4 fL (80.0-94.0); Mean Platelet Volume 11.6 fL (7.4-10.4); Nucleated Red Blood Cells % 0 % (-); Red Cell Dist. Width 15.6 % (11.5-14.5)
[2023-11-27 05:37] LABS: Platelet Count 95 10^3/uL (130-400); White Blood Cell Count 60.1 10^3/uL (4.8-10.8)
[2023-11-27 05:45] LABS: Blood Urea Nitrogen 35 mg/dl (9-20); Carbon Dioxide 19 mmol/L (22-30); Chloride 108 mmol/L (98-107); Estimated Creatinine Clearance 44 ml/min; Glucose 138 mg/dl (70-99); Potassium 4.3 mmol/L (3.5-5.1); Sodium 135 mmol/L (135-145); eGFR > 60.00
[2023-11-27 07:35] VITALS: BP 120/59
[2023-11-27 08:07] LABS: Glucose - Point of Care 151 mg/dl (70-99)
--- NOTE | 2023-11-27 08:12 | W.PN.HOSP.TC ---
Today's Communication/Plan
-
dc to home
Assessment / Plan
Assessment / Plan
Assessment:
Right uteropelvic junction calculus with mild renal collecting system dilation
History of nephrolithiasis
- s/p R ureteroscopy, laser lithotripsy, stent placement 11/26
- for stent removal in 2-3 weeks
- continue pain control, anti-emetics
- continue 10 day of Abx
ILD type findings on CT
- CT chest: Bilateral lower lung mild cylindrical bronchiectatic changes with extensive micronodular opacities showing tree-in-bud distribution consistent with bronchiolitis. Chronic infectious bronchiolitis is the most likely differential
consideration.
- continue Cefepime + Doxy to cover for CAP; at dc cefdinir/doxy x 8 further days to complete 10 days
- follow Pulm recs
Multivessel coronary artery disease
recent NSTEMI
- recent LHC in late Aug: Severe multivessel coronary artery disease with a heavily calcified LAD over the course of the vessel and diffuse atherosclerosis in the proximal to mid vessel spanning the origin of the only sizable diagonal branch. There
is a high-grade stenosis proximally in a sizable OM 3 and in the mid right coronary artery.
- being medically managed
- continue ASA/Statin/BB
- Plavix on hold
Chronic HFpEF
- hold Lasix
- monitor I/Os, weights
- Echo 11/09: Mild concentric LVH. EF 35%, moderate reduced LV function with regional WMA, enlarged RV, severe MR, mild TR, Estimated pulmonary artery pressure of 40-45 mmHg.
History of first-degree block
CLL/hypogammaglobinemia
- s/p IVIG last week
- follows with Dr. Young
Chronic anemia
Acute on chronic thrombocytopenia
- hemoglobin stable; no bleeding seen
Essential hypertension
- continue losartan
- continue metoprolol
Type 2 diabetes
- hold dapagliflozin
- hold metformin
- Insulin sliding scale
- A1c: 6.9%
Hyperlipidemia
- statin
severe protein calorie malnutrition of chronic illness
Code: DNR/DNI
DVT prophylaxis: SC heparin
More than 30 minutes spent in discharge including
Final examination of the patient
Summarizing hospital stay
Instructions for continuing care to all relevant caregivers
Preparation of discharge records, prescriptions, and referral forms
Total time spent (in minutes):41
Anticipated Discharge: Today
Subjective/Interval History
-
Date of Service: November 27, 2023
no complaints
Objective Data
-
Labs:
Laboratory Results
11/27/23
04:57
WBC 60.1 H*
Hgb 8.8 L
Hct 27.0 L
Plt Count 95 L
Sodium 135
Potassium 4.3
Chloride 108 H
Carbon Dioxide 19 L
BUN 35 H
Creatinine 1.0
Glucose 138 H
Calcium 9.0
Vital Signs:
Vital Signs
Temp Pulse Resp BP Pulse Ox
97.7 F 58 18 120/59 94
11/27/23 07:35 11/27/23 07:35 11/27/23 07:35 11/27/23 07:35 11/27/23 07:35
I&O
11/26/23 11/27/23 11/28/23
06:59 06:59 06:59
Intake Total 500 / 500 1440 / 1440
Output Total 500 / 500 2915 / 2915
Balance 0 / 0 -1475 / -1475
Physical Exam
-
General: No Apparent Distress
HEENT: Normocephalic and Atraumatic
Respiratory: Negative Wheezes
Cardiac: Regular Rhythm and S1/S2
GI: Soft
Genito-urinary: No Costovertebral Tender
Neuro: AO x 3
Hematologic / Lymphatic: No Lymphadenopathy
Psych: Calm
Data Reviewed
-
Total Time Spent with Patient (in minutes): 41
Labs: Labs Reviewed by me
[2023-11-27] MEDS: VITAMIN C 1000 MG PO (08:15)
[2023-11-27] MEDS: ASPIR LOW (ENTERIC COATED) 81 MG PO (08:15)
[2023-11-27] MEDS: VIBRAMYCIN 100 MG PO (08:15)
[2023-11-27] MEDS: HEPARIN 5000 UNITS SC (08:15)
[2023-11-27] MEDS: PLAVIX 75 MG PO (08:15)
[2023-11-27] MEDS: TOPROL XL 25 MG PO (08:16)
[2023-11-27] MEDS: NOVOLOG FLEXPEN-LOW RESISTANCE 1 UNITS SC ×2 (08:17→12:10)
[2023-11-27] MEDS: VITAMIN D3 (cholecalciferol) 25 MCG PO (08:18)
--- NOTE | 2023-11-27 09:29 | W.PN.PUL3 ---
Today's Communication / Plan
-
Discussed CT chest findings, would be reasonable to complete course of Abx and eval as OP for next steps
Further urologic management per team
Consider diuresis for ECHO/proBNP findings
Outpatient pulmonary FU recommended/discussed with patient
Pt being dc'd home today. I will see him in the office. We will now sign off. Please call back with any questions.
Assessment
-
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 It was associated with vomiting and
without fevers or chills. Patient is not currently on chemotherapy for CLL and receives IVIG for hypogammaglobinemia. Last treatment received last week. He does endorse postnasal drip with a chronic cough typically in the morning. Denies
shortness of breath. CT abdomen/pelvis showed a 7 mm calculus at the right ureteropelvic junction with mild right renal collecting system dilatation. There also was prominent reticulonodular interstitial markings in the lung bases bilaterally. Of
note he did have a prior CT abdomen/pelvis from 10/2020 which showed mild reticular opacities at that time. Patient was prepared for right-sided ureteroscopy with laser lithotripsy and stent placement which she obtained today (11/25/2023). Due to
his CT Abd/Pelvis scan findings on his lung bases, pulmonary now consulted for additional recommendations.
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
(07/2022), history of sinusitis, chronic rhinitis
Impression:
#Abnormal CT Abd/pelvis with reticulo-nodular opacities seen on lung bases - unclear what this is, but it is not typical for ILD (not UIP pattern, no GGO or mosaic attenuation, and these nodules do not spare the subpleural region; also no obvious
ILD seen on his CXR). It appears to be a pneumonia with more of a tree-in-bud appearance with mild bibasilar atelectasis (plus he is immunocompromised with low Ig levels)
#Chronic cough - likely due to upper airway cough syndrome from chronic rhinitis
#Chronic rhinitis with post-nasal drip and rhinorrhea
#7 mm calculus at the right UPJ with obstructive uropathy s/p Cystoscopy/Right ureteroscopy/Laser lithotripsy/Right ureteral stent placement 11/25/23
#Leukocytosis - due to CLL
#Chronic anemia (Hb ranges between 8.5-10.5)
#Thrombocytopenia (chronic with waxing and waning plt counts)
#DM type II (A1C: 6.9)
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
Severe MR
Plan:
Chronic nonproductive cough, still unable to produce sputum culture
Stable otherwise on RA
- Incentive spirometer encouraged
- Check dedicated CT Chest to evaluate entire lung parenchyma--demonstrating bilateral basilar bronchiectasis
We reviewed the implications of these findings and potential NTM
Would be reasonable to continue abx for full course and if no better, arrange outpatient bronch for sputum assessment
procal negative
He is already on Abx with cefepime - would consider treating for pneumonia with 7-10 day course, which he likely will be receiving anyway for his renal stone
Underwent cysto with litho/stent
Further management for renal stones per urology
ECHO reviewed with severe MR
proBNP >5000
Consider diuresis as tolerated
- Replete electrolytes with K>4, Mg>2
- Maintain euglycemia with goal BG >100 and <180
- prn nebulized bronchodilators
- DVT ppx
Outpatient follow-up with Dr Castanon for full PFTs, discussed today
Discharge planning per team if stable from urologic issues
Pt being dc'd home today. I will see him in the office. We will now sign off. Please call back with any questions.
Data:
CT Chest 11/26/23- IMPRESSION:
1. Very small bilateral pleural effusions with adjacent atelectasis, decreased as compared with prior.
2. Bilateral lower lung mild cylindrical bronchiectatic changes with extensive micronodular opacities showing tree-in-bud distribution consistent with bronchiolitis. Chronic infectious bronchiolitis is the most likely differential consideration.
3. Coronary and aortic atherosclerosis.
CT Abd/Pelvis without contrast 11-24-2023: Approximate 0.6-0.7 cm calculus at the right ureteropelvic junction with mild right renal collecting system dilatation. Right extrarenal pelvis again noted. Nonobstructing right renal calculus. Small simple
appearing left renal cyst and subcentimeter slightly high attenuation left renal lesion either representing a complex/hyperdense cyst or solid mass, cannot be further characterized on this study without intravenous contrast, unchanged. Small hiatal
hernia.
Enlarged prostate. Prominent reticulonodular interstitial markings noted throughout the included lung bases bilaterally, significantly progressed in comparison to prior study, difficult to compare to prior CTA Chest 08/04/2023 in light of moderate
bilateral pleural effusions.
ECHO 11/10/23- Normal left ventricular chamber size. Mild concentric left ventricular hypertrophy. Moderate reduced left ventricular systolic function with regional wall motion abnormalities. Enlarged right ventricular size. Severe mitral
regurgitation.
Mild tricuspid regurgitation. Estimated pulmonary artery pressure of 40-45 mmHg. Mild pulmonic regurgitation. Normal pericardium without effusion. The IVC is of normal size and demonstrates normal respiratory variation. Compared to prior echo EF%
remains reduced and mitral regurgitation is now severe.
Total time spent today was 35 minutes for this encounter. Time includes reviewing laboratory test/imaging results, reviewing pertinent medical records, obtaining and reviewing medical history, performing an appropriate exam, ordering medications,
tests and procedures. Time also includes documentation of this encounter, coordinating patient care and communicating with other healthcare professionals. Total time does not include separately billed tests performed on this date of service.
Subjective Data
-
Date of Service:
Date of Service: November 27, 2023
Chief Complaint: Pulmonary Follow Up
Subjective:
Going home today. He feels well. No SOB or CP. No f/c.
Review of Systems
General: Other (neg unless mentioned above)
Objective Data
Data Reviewed
Vital Signs / I&O / Oxygen:
Vital Signs
Temp Pulse Resp BP Pulse Ox
97.7 F 58 18 120/59 94
11/27/23 07:35 11/27/23 08:16 11/27/23 07:35 11/27/23 08:16 11/27/23 07:35
Intake and Output
11/26/23 11/27/23 11/28/23
06:59 06:59 06:59
Intake Total 500 / 500 1440 / 1440
Output Total 500 / 500 2915 / 2915
Balance 0 / 0 -1475 / -1475
SaO2 94
Nasal Cannula flow liters per 1
minute
Physical Exam
General: Comfortable and Other (NAD)
HEENT: Normocephalic, Anicteric and Moist Mucous Membranes
Cardiovascular: S1-S2 and Peripheral Edema (n)
Respiratory: Wheeze (n), Crackles (base to middle lung calderon), Rhonchi (n) and Non-Labored Respirations
GI: Soft, Non Distended and Non Tender
Neurology: Awake, Alert, Oriented, AO x 3 and No Motor Deficits
Skin: Warm, Dry and Good Color
Labs/Micro/Reports
Lab Data
11/27/23 04:57
11/27/23 04:57
Microbiology
11/25/23 09:56 Urine Urine Culture - Final
No Significant Growth
11/24/23 13:37 Urine Urine Culture - Final
11/25/23 09:35 Blood/Venous Blood Culture - Preliminary
No Growth in 24 hours- Final report to follow
11/25/23 09:04 Blood/Venous Blood Culture - Preliminary
No Growth in 24 hours- Final report to follow
11/25/23 09:56 Urine Legionella Urinary Antigen - Final
Negative for Legionella pneumophila Serogroup 1 antigen.
A negative result does not rule out the possiblity of
Legionella infection due to other serogroups or species of
Legionella. Clinical correlation is recommended.
11/25/23 09:56 Urine Streptococcus pneumoniae Antigen (M - Final
Negative for Streptococcus pneumoniae antigen.
A negative result does not exclude infection with
Streptococcus pneumoniae. Clinical correlation is
recommended.
--- NOTE | 2023-11-27 09:50 | W.PN.UPDATE ---
Addendum entered and electronically signed by Pavel Bhatti MD 11/27/23 10:03:
Prior note entered incorrectly
Patient is 2 days s/p ureteroscopic laser lithotripsy with stone extraction
Cultures are all unrevealing
Leukocytosis is likely driven by known CLL
---
Dysuria easing
Persistent gross hematuria as expected
Cleared for discharge from standpoint
Patient instructed to phone the office to schedule his cystoscopy with stent removal
Original Note:
Update Note
Progress Note Update
Stable 1 day s/p TURP for tissue diagnosis/biopsy
Michel out
Modest dysuria
Hematuria as expected
---
Home today
--- NOTE | 2023-11-27 09:52 | W.DS.TRANS ---
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
-
Discharge Instructions:
Sleep Apnea Risk Intermediate
Instructions:
Stand-Alone Forms:
Changes to Home Medications: No
Discharge Medications:
DC Medications w/original date entered in [employer]
ascorbic acid (vitamin C) 1,000 mg tablet (Vitamin C) 1,000 mg PO DAILY Supplement 07/27/23
cholecalciferol (vitamin D3) 25 mcg (1,000 unit) tablet (Vitamin D3) 25 mcg PO DAILY Supplement 07/27/23
cod liver oil 3 cap PO DAILY Supplement 07/27/23
dapagliflozin propanediol 10 mg tablet (Farxiga) 10 mg PO DAILY Heart Failure #30 tabs 08/05/23
aspirin 81 mg tablet,delayed release 81 mg PO DAILY Blood Clot Prevention/Tx 11/24/23
atorvastatin 40 mg tablet 40 mg PO QPM High Cholesterol 11/24/23
clopidogrel 75 mg tablet (Plavix) 75 mg PO DAILY Blood Clot Prevention/Tx 11/24/23
furosemide 40 mg tablet 20 mg PO DAILY Fluid Retention/Swelling 11/24/23
losartan 25 mg tablet 25 mg PO DAILY Heart Failure 11/24/23
metformin 500 mg tablet,extended release 24 hr 500 mg PO QPM Diabetes 11/24/23
metoprolol succinate 25 mg tablet,extended release 24 hr 25 mg PO BID Heart Failure 11/24/23
Home Medication Changes
Pending Results: No
[2023-11-27 11:54] LABS: Glucose - Point of Care 178 mg/dl (70-99)
--- NOTE | 2023-11-27 13:16 | W.DS.TRANS ---
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
-
Discharge Instructions:
Sleep Apnea Risk Intermediate
Discharge Diagnosis/Procedures Right uteropelvic junction calculus s/p R
ureteroscopy, laser lithotripsy, stent placement
11/26. Pneumonia.
Diet Diabetic, Carb Controlled
Activity As tolerated
Bathing Restrictions None
Instructions:
Stand-Alone Forms:
Changes to Home Medications: No
Discharge Medications:
DC Medications w/original date entered in [employer]
ascorbic acid (vitamin C) 1,000 mg tablet (Vitamin C) 1,000 mg PO DAILY Supplement 07/27/23
cholecalciferol (vitamin D3) 25 mcg (1,000 unit) tablet (Vitamin D3) 25 mcg PO DAILY Supplement 07/27/23
cod liver oil 3 cap PO DAILY Supplement 07/27/23
dapagliflozin propanediol 10 mg tablet (Farxiga) 10 mg PO DAILY Heart Failure #30 tabs 08/05/23
aspirin 81 mg tablet,delayed release 81 mg PO DAILY Blood Clot Prevention/Tx 11/24/23
atorvastatin 40 mg tablet 40 mg PO QPM High Cholesterol 11/24/23
clopidogrel 75 mg tablet (Plavix) 75 mg PO DAILY Blood Clot Prevention/Tx 11/24/23
furosemide 40 mg tablet 20 mg PO DAILY Fluid Retention/Swelling 11/24/23
losartan 25 mg tablet 25 mg PO DAILY Heart Failure 11/24/23
metformin 500 mg tablet,extended release 24 hr 500 mg PO QPM Diabetes 11/24/23
metoprolol succinate 25 mg tablet,extended release 24 hr 25 mg PO BID Heart Failure 11/24/23
cefdinir 300 mg capsule 300 mg PO BID #16 caps 11/27/23
doxycycline hyclate 100 mg capsule 100 mg PO Q12 #16 caps 11/27/23
phenazopyridine 200 mg tablet 200 mg PO TIDPRN PRN urinary pain #20 tabs 11/27/23
Home Medication Changes
Pending Results: No
Total time spent discharging patient (in min): 41
[2023-11-27 14:07] VITALS: BP 143/65
--- NOTE | 2023-11-27 14:19 | CM ---
met with patient.for stent removal in 2 - 3 weeks.patient singed imm letter.stable for discharge home with no needs.
== END 2023-11-27 14:34 | disposition home or self-care (01) | DRG 659 ==
LOC: 2 SOUTH 09:35
PROVIDERS: Emergency Medicine; Urology; ADMITTING PHYSICIAN Hospitalist; ATTENDING PHYSICIAN Internal Medicine; CONSULT PHYSICIAN Specialist; EMERGENCY PHYSICIAN Emergency Medicine; FAMILY PHYSICIAN Internal Medicine; OTHER PHYSICIAN Internal Medicine Critical Care Medicine
PROC: 0TC68ZZ Extirpation of Matter from Right Ureter, Via Natural or Artificial Opening Endoscopic (ICD-10-PCS; 2023-11-25)
PROC: 0TC08ZZ Extirpation of Matter from Right Kidney, Via Natural or Artificial Opening Endoscopic (ICD-10-PCS; 2023-11-25)
PROC: 0T768DZ Dilation of Right Ureter with Intraluminal Device, Via Natural or Artificial Opening Endoscopic (ICD-10-PCS; 2023-11-25)
DX: N20.2 Calculus of kidney with calculus of ureter (principal); E43 Unspecified severe protein-calorie malnutrition; J18.9 Pneumonia, unspecified organism; C91.10 Chronic lymphocytic leukemia of B-cell type not having achieved remission; I50.32 Chronic diastolic (congestive) heart failure; Z68.1 Body mass index [BMI] 19.9 or less, adult; J31.0 Chronic rhinitis; N13.9 Obstructive and reflux uropathy, unspecified; E87.5 Hyperkalemia; I11.0 Hypertensive heart disease with heart failure; E11.9 Type 2 diabetes mellitus without complications; E78.00 Pure hypercholesterolemia, unspecified; Z66 Do not resuscitate; D69.6 Thrombocytopenia, unspecified; D64.9 Anemia, unspecified
CPT/HCPCS: 71046; 71250; 74018; 74176; 76000; 80048; 80053; 81003; 81015; 82962; 83036; 83880; 84145; 85025; 87040; 87086; 87449; 87899; 93005; 96374; 96375; 97162; 97165; 99285; A4300; C1894; C2617

== ENCOUNTER → 2024-02-02 08:38 | Outpatient (REF) | payer OTHER, SELFPAY ==
[2024-02-02 09:31] LABS: Hematocrit 31.9 % (39.0-52.0); Hemoglobin 10.6 g/dL (13.0-18.0); Mean Corp Hgb Conc. 33.2 g/dL (33.0-37.0); Mean Corpuscular Hgb 31.9 pg (27.0-31.0); Mean Corpuscular Volume 96.1 fL (80.0-94.0); Mean Platelet Volume 11.4 fL (7.4-10.4); Platelet Count 125 10^3/uL (130-400); Red Blood Cell Count 3.32 10^6/uL (4.70-6.10); Red Cell Dist. Width 15.9 % (11.5-14.5); White Blood Cell Count 37.5 10^3/uL (4.8-10.8)
[2024-02-02 10:20] LABS: % Basophils 0.2 % (0-2); % Eosinophils 0.3 % (0-6); % Immature Granulocytes 0.2 % (0-0.5); % Lymphocytes 89.7 % (20.5-51.1); % Neutrophils 8.6 % (42.2-75.2); Absolute Basophils 0.1 10^3/uL (0-0.2); Absolute Eosinophils 0.1 10^3/uL (0-0.7); Absolute Immature Granulocytes 0.1 10^3/uL (0-0.05); Absolute Lymphocytes 33.6 10^3/uL (1.2-3.4); Absolute Monocytes 0.4 10^3/uL (0.1-0.6); Absolute Neutrophils 3.2 10^3/uL (1.4-6.5); Nucleated Red Blood Cells % 0 % (-)
[2024-02-02 10:32] LABS: ALT (SGPT) 27 U/L (0-50); AST (SGOT) 38 U/L (17-59); Albumin 4.2 g/dl (3.5-5.0); Alkaline Phosphatase 89 U/L (38-126); Blood Urea Nitrogen 30 mg/dl (9-20); Calcium 9.9 mg/dl (8.4-10.2); Carbon Dioxide 22 mmol/L (22-30); Chloride 105 mmol/L (98-107); Glucose 212 mg/dl (70-99); Potassium 4.6 mmol/L (3.5-5.1); Sodium 136 mmol/L (135-145); Total Bilirubin 0.6 mg/dl (0.2-1.3); Total Protein 6.2 g/dl (6.3-8.2); eGFR > 60.00
[2024-02-02 23:42] LABS: IgA 65 mg/dl (70-400); IgG 600 mg/dl (700-1600)
[2024-02-02 23:52] LABS: IgM < 25 mg/dl (40-230)
== END ==
LOC: REG 08:38
PROVIDERS: ATTENDING PHYSICIAN Internal Medicine Hematology & Oncology; FAMILY PHYSICIAN Internal Medicine
DX: D72.820 Lymphocytosis (symptomatic) (principal); C91.10 Chronic lymphocytic leukemia of B-cell type not having achieved remission; D80.1 Nonfamilial hypogammaglobulinemia
CPT/HCPCS: 36415; 80053; 82784; 85025

== ENCOUNTER → 2024-02-14 09:37 | Outpatient (REF) | payer OTHER, SELFPAY | LOC: HWRAD 09:37 | PROVIDERS: ATTENDING PHYSICIAN Nurse Practitioner Adult Health; FAMILY PHYSICIAN Internal Medicine | DX: R93.89 Abnormal findings on diagnostic imaging of other specified body structures (principal) | CPT/HCPCS: 71250 ==

== ENCOUNTER → 2024-03-08 09:00 | Outpatient (REF) | payer OTHER, SELFPAY ==
[2024-03-08 12:22] LABS: Iron 89 ug/dl (49-181)
[2024-03-08 12:32] LABS: Percent Saturation 24 % (20-50); Total Iron Binding Capacity 368 ug/dl (261-462)
[2024-03-08 13:45] LABS: Ferritin 25.6 ng/ml (17.9-464.0)
[2024-03-08 16:31] LABS: Folate 14.4 ng/ml (2.76-20); Vitamin B12 > 1000 pg/ml (239-931)
[2024-03-09 02:50] LABS: IgA 73 mg/dl (70-400); IgG 604 mg/dl (700-1600)
[2024-03-10 21:17] LABS: IgM 24 mg/dL (35-263)
== END ==
LOC: REG 09:00
PROVIDERS: ATTENDING PHYSICIAN Nurse Practitioner Adult Health; FAMILY PHYSICIAN Internal Medicine
DX: D72.820 Lymphocytosis (symptomatic) (principal); C91.10 Chronic lymphocytic leukemia of B-cell type not having achieved remission; D80.1 Nonfamilial hypogammaglobulinemia
CPT/HCPCS: 36415; 82607; 82728; 82746; 82784; 83540; 83550

== ENCOUNTER → 2024-03-13 15:10 | Outpatient (REF) | payer OTHER, SELFPAY ==
[2024-03-13 12:40] LABS: Hematocrit 33.5 % (39.0-52.0); Hemoglobin 11.3 g/dL (13.0-18.0); Mean Corp Hgb Conc. 33.7 g/dL (33.0-37.0); Mean Corpuscular Hgb 32.6 pg (27.0-31.0); Mean Corpuscular Volume 96.5 fL (80.0-94.0); Mean Platelet Volume 11.3 fL (7.4-10.4); Platelet Count 123 10^3/uL (130-400); Red Blood Cell Count 3.47 10^6/uL (4.70-6.10); Red Cell Dist. Width 14.9 % (11.5-14.5); White Blood Cell Count 34.4 10^3/uL (4.8-10.8)
[2024-03-13 15:20] LABS: % Basophils 0.2 % (0-2); % Eosinophils 0.4 % (0-6); % Immature Granulocytes 0.5 % (0-0.5); % Lymphocytes 83.8 % (20.5-51.1); % Monocytes 1.7 % (1.7-9.3); % Neutrophils 13.4 % (42.2-75.2); Absolute Basophils 0.1 10^3/uL (0-0.2); Absolute Eosinophils 0.1 10^3/uL (0-0.7); Absolute Immature Granulocytes 0.2 10^3/uL (0-0.05); Absolute Lymphocytes 28.8 10^3/uL (1.2-3.4); Absolute Monocytes 0.6 10^3/uL (0.1-0.6); Absolute Neutrophils 4.6 10^3/uL (1.4-6.5); Nucleated Red Blood Cells % 0 % (-)
== END ==
LOC: OIDL 15:10
PROVIDERS: ATTENDING PHYSICIAN Nurse Practitioner Adult Health
DX: D72.820 Lymphocytosis (symptomatic) (principal)
CPT/HCPCS: 85025

== ENCOUNTER → 2024-03-14 12:53 | Outpatient (REF) | payer OTHER, SELFPAY | LOC: RAD 12:53 | PROVIDERS: ATTENDING PHYSICIAN Surgery; FAMILY PHYSICIAN Internal Medicine | DX: N20.2 Calculus of kidney with calculus of ureter (principal) | CPT/HCPCS: 76770 ==

== ENCOUNTER → 2024-05-17 10:58 | Outpatient (REF) | payer OTHER, SELFPAY | LOC: REG 10:58 | PROVIDERS: ATTENDING PHYSICIAN Internal Medicine Critical Care Medicine; FAMILY PHYSICIAN Internal Medicine | DX: J44.9 Chronic obstructive pulmonary disease, unspecified (principal); J47.9 Bronchiectasis, uncomplicated | CPT/HCPCS: 87070; 87077; 87186; 87205 ==

== ENCOUNTER → 2024-05-26 10:56 | Outpatient (REF) | payer OTHER, SELFPAY | LOC: HWRAD 10:56 | PROVIDERS: ATTENDING PHYSICIAN Internal Medicine Critical Care Medicine; FAMILY PHYSICIAN Internal Medicine | DX: J44.9 Chronic obstructive pulmonary disease, unspecified (principal); J47.9 Bronchiectasis, uncomplicated | CPT/HCPCS: 71250 ==

== ENCOUNTER 2024-06-01 14:18 | Inpatient (IN) | payer OTHER, SELFPAY ==
[2024-06-01] VITALS (8 sets, daily range): BP systolic 98–120; BP diastolic 50–63; BMI 18.4; BMI 19.0
--- NOTE | 2024-06-01 12:30 | ED.GENMED ---
History of Present Illness
General
Chief Complaint: Breathing Problem
Source: patient and family
Exam Limitations: none
Time Seen by Provider: 06/01/24 11:54
History of Present Illness
History of Present Illness:
84-year-old male complaining of increased shortness of breath the last few days. Also increased weakness. Patient has a history of bronchiectasis and chronic bronchitis. He apparently has a bacterial infection in his sputum. No current treatment
for this. Was very weak last night and went to the floor. Ambulance was called at that time however he refused medical care then.
Past History
Past History
ED Past Medical History: Cancer (Leukemia CLL), CHF, HTN, Hypercholesterolemia, NIDDM, Other (Kidney stones) and Other (Bronchiectasis)
ED Past Surgical History: Other (Hernia repair)
Social History
Tobacco: Non-smoker
Alcohol: None
Personal:
Living: with family
Review of Systems
Review of Systems
All Other Systems: Not applicable
Constitutional: Reports fatigue; Denies fever or chills
Respiratory: Reports cough and trouble breathing
Cardiac: Reports no symptoms
ABD/GI: Reports no symptoms
Phy Exam
Physical Exam
Physical Exam:
GENERAL: Alert and oriented. Generally very weak appearing. Needed assistance with sitting up to listen to his lungs.
EYE: Orbits normal.
NECK: Supple, no significant adenopathy.
ENT: Pharynx without erythema
CARDIAC: Regular rate and rhythm without any obvious murmurs.
LUNGS: Mild tachypnea. Coarse rhonchi and dry rales bilaterally in the bases. No wheezing
ABDOMEN: Soft, without focal tenderness or distention
NEUROLOGICAL: Alert and oriented , grossly non-focal
SKIN: Warm and dry, no rash or lesion, no discoloration, skin intact.
MUSCULOSKELETAL: No edema,no deformity.Good color
PSYCH: Normal and appropriate interaction.
Scores
Heart Failure Risk
Heart Failure Risk Score: Not Applicable
Course
Orders/Labs/Results
Orders:
Orders
06/01/24 12:15
Electrocardiogram (*1) Stat
Reason for Study: Other
Other Reason for Exam: chest pain
Cardiac Monitoring- Treatment ONCE
EKG- Treatment ONCE
IV Insert/Care/Rem.- Treatment PRN
CR Chest - 2 Views Urgent
Comment:
Reason For Exam: cough sob
Pulse Ox/cont/shift [RESP] Stat
Quantity: 1
06/01/24 12:24
Basic Metabolic Panel Urgent
COVID-19 Antigen Urgent
Source: Nasal Swab
Complete Blood Count/With Diff Urgent
NT-proBNP Urgent
Influenza A+B Rapid Molecular Urgent
JOSE ENRIQUE Source: Nasal Swab
Specimen Description:
06/01/24 13:14
Cefepime HCl [Maxipime] 2,000 mg IV NOW STA
06/01/24 13:15
Blood Culture Q30M
JOSE ENRIQUE Source: Blood/Venous
Specimen Description:
06/01/24 13:45
Blood Culture Q30M
JOSE ENRIQUE Source: Blood/Venous
Specimen Description:
Abnormal Lab Results
06/01/24
12:24
Sodium 134 L mmol/L
(135-145)
Carbon Dioxide 20 L mmol/L
(22-30)
BUN 30 H mg/dl
(9-20)
Glucose 276 H mg/dl
(70-99)
06/01/24 12:24
Vital Signs
Initial and Last Documented VS:
Initial Vital Signs
Temp Pulse Resp BP Pulse Ox
97.8 F 64 16 120/63 95
06/01/24 11:33 06/01/24 11:33 06/01/24 11:33 06/01/24 11:33 06/01/24 11:33
Last Documented Vital Signs
Temp Pulse Resp BP Pulse Ox
97.8 F 100 32 109/57 95
06/01/24 11:33 06/01/24 12:30 06/01/24 12:30 06/01/24 12:30 06/01/24 12:38
MDM/Problems Addressed
Differential Diagnosis Includes:
Patient with severe weakness and increased shortness of breath. Was actually on the floor last evening. Clearly warrants admission based on his appearance. Workup in progress. Patient grew Serratia out of his sputum a few weeks ago. CT scan
done 1 week ago showed diffuse inflammatory bronchitis appearance.
*Radiology
Radiology exam reviewed: preliminary read by ED provider (Questionable right middle lobe infiltrate) and radiology read reviewed (Right middle lobe infiltrate)
*Pulse Oximetry
Patient hypoxic: no
*EKG
Interpreted by ED Provider?: Yes
Interpretation: abnormal
Comparison EKG: changes noted
Heart Rate: 104
Rate: tachycardiac
Rhythm: sinus and PAC's
[place]: left axis deviation
QRS Pattern: right bundle branch block
Ischemia: non-specific ST changes
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
Rate: tachycardiac
Interpretation: abnormal
Heart Rate: 102
Rhythm: sinus
*Critical Care Note
Total Time (30-74mins, 75-104mins- exclusive of procedures): Not Applicable
Data Reviewed
Review of Other/Old Records Reveals: Labs, Records, Radiology Studies and Testing
Update Note
Update Note:
Patient with increasing shortness of breath general weakness. Was on the floor last evening. Patchy infiltrate by x-ray. Underlying lung disease. Admission for further care
ED Attending Note
-
Portions of this chart may have been created with voice recognition software.� Occasional wrong word or��sound alike� substitutions may have occurred due to the inherent limitations of voice recognition software.
Discharge Plan
Departure
Patient Disposition: Admit
Date of Disposition: 06/01/24
Time of Disposition: 13:16
Presentation/result/management discussed w/ accepting /DO: Hospitalist
Discharge Problem:
Dyspnea/weakness, Right middle lobe infiltrate, Underlying bronchiectasis
Prescriptions:
No Action
ascorbic acid (vitamin C) [Vitamin C] 1,000 mg Tablet
1,000 mg PO DAILY
cod liver oil Capsule
3 cap PO DAILY
cholecalciferol (vitamin D3) [Vitamin D3] 25 mcg (1,000 unit) Tablet
25 mcg PO DAILY
dapagliflozin propanediol [Farxiga] 10 mg tablet
10 mg PO DAILY Qty: 30 6RF
furosemide 40 mg tablet
20 mg PO DAILY
clopidogrel [Plavix] 75 mg Tablet
75 mg PO DAILY
metformin 500 mg Tablet Extended Release 24 Hr
500 mg PO QPM
atorvastatin 40 mg tablet
40 mg PO QPM
aspirin 81 mg tablet,delayed release (DR/EC)
81 mg PO DAILY
losartan 25 mg tablet
25 mg PO DAILY
metoprolol succinate 25 mg tablet extended release 24 hr
25 mg PO BID
doxycycline hyclate 100 mg Capsule
100 mg PO Q12 Qty: 16 0RF
phenazopyridine 200 mg Tablet
200 mg PO TIDPRN PRN (Reason: urinary pain) Qty: 20 0RF
cefdinir 300 mg capsule
300 mg PO BID Qty: 16 0RF
Referrals:
Stan Gomez DO [Family Provider] -
Interventions
Interventions:
*Risk Screen - Suicide Last Done: 06/01/24 11:33
*General Assessment Last Done: 06/01/24 12:38
*Neglect/Abuse Screening Last Done: 06/01/24 11:33
ED- Fall Risk Assessment Last Done: 06/01/24 12:38
ED- Cardiac Assessment Last Done: 06/01/24 12:38
ED- Pulmonary Assessment Last Done: 06/01/24 12:38
Discharge Date and Time
Print Language: MALAY
[2024-06-01 12:56] LABS: Blood Urea Nitrogen 30 mg/dl (9-20); Calcium 9.5 mg/dl (8.4-10.2); Carbon Dioxide 20 mmol/L (22-30); Chloride 101 mmol/L (98-107); Estimated Creatinine Clearance 39 ml/min; Glucose 276 mg/dl (70-99); Potassium 4.8 mmol/L (3.5-5.1); Sodium 134 mmol/L (135-145); eGFR > 60.00
[2024-06-01 13:04] LABS: NT-proBNP 9130 pg/ml
[2024-06-01 13:16] LABS: COVID-19 Antigen Negative (Negative)
[2024-06-01 13:22] LABS: Hematocrit 30.4 % (39.0-52.0); Hemoglobin 10.1 g/dL (13.0-18.0); Mean Corp Hgb Conc. 33.2 g/dL (33.0-37.0); Mean Corpuscular Hgb 30.8 pg (27.0-31.0); Mean Corpuscular Volume 92.7 fL (80.0-94.0); Mean Platelet Volume 11.8 fL (7.4-10.4); Platelet Count 140 10^3/uL (130-400); Red Blood Cell Count 3.28 10^6/uL (4.70-6.10); Red Cell Dist. Width 16.6 % (11.5-14.5); White Blood Cell Count 27.9 10^3/uL (4.8-10.8)
[2024-06-01] MEDS: MAXIPIME 2000 MG IV (13:25)
--- NOTE | 2024-06-01 13:42 | HPS.HSE ---
Addendum entered and electronically signed by Bhavik Cruz MD 06/01/24 17:49:
Temazepam decreased from 30 mg to 20 mg because it was recently increased from 15 to 30 mg which made him confused.
Original Note:
Family Physician
-
Family Physician: Stan Gomez
Chief Complaint
-
shortness of breath
History of Present Illness
84-year-old male past medical history of bronchiectasis, multivessel CAD, HFpEF, nephrolithiasis, CLL, hypogammaglobulinemia status post IVIG last week, anemia, hypertension, type 2 diabetes, first-degree AV block, hyperlipidemia, kidney stones,
presenting with shortness of breath for the past few days associate with productive cough. Also has increased weakness. He was very weak last night. No lower extremity swelling. He has lost weight recently. Denies fevers but has chills.
He has been having the symptoms for the past few weeks and treated with 2 courses of doxycycline and 2 courses of prednisone. He had sputum culture last week which did show bacteria that was resistant to doxycycline however decision was made to not
treat this bacteria.
There was some concern for aspiration although no coughing with meals.
He does not smoke or drink alcohol.
Medical History
Past Medical History
Past Medical History: Reports Other (bronchiectasis/ILD, multivessel CAD, HFpEF, nephrolithiasis, CLL, hypogammaglobulinemia status post IVIG last week, anemia, hypertension, type 2 diabetes, first-degree AV block, hyperlipidemia, kidney stones)
Past Surgical History: Reports None
Social History
Tobacco: Non-smoker
Alcohol: None
Drug: None
Family History
Family History: Not pertinent
Allergies / Home Medications
Allergies reflects when Allergies were last updated in [facility].
Home Medications with original date entered in [facility]
Allergy/Medication List:
Allergies
Allergy/AdvReac Type Severity Reaction Status Date / Time
No Known Allergies Allergy Verified 06/01/24 11:35
Home Medications
ascorbic acid (vitamin C) 1,000 mg tablet (Vitamin C) 1,000 mg PO DAILY Supplement 07/27/23
cholecalciferol (vitamin D3) 25 mcg (1,000 unit) tablet (Vitamin D3) 25 mcg PO DAILY Supplement 07/27/23
cod liver oil 3 cap PO DAILY Supplement 07/27/23
dapagliflozin propanediol 10 mg tablet (Farxiga) 10 mg PO DAILY Heart Failure #30 tabs 08/05/23
aspirin 81 mg tablet,delayed release 81 mg PO DAILY Blood Clot Prevention/Tx 11/24/23
atorvastatin 40 mg tablet 40 mg PO QPM High Cholesterol 11/24/23
clopidogrel 75 mg tablet (Plavix) 75 mg PO DAILY Blood Clot Prevention/Tx 11/24/23
furosemide 40 mg tablet 20 mg PO DAILY Fluid Retention/Swelling 11/24/23
losartan 25 mg tablet 25 mg PO DAILY Heart Failure 11/24/23
metformin 500 mg tablet,extended release 24 hr 500 mg PO QPM Diabetes 11/24/23
metoprolol succinate 25 mg tablet,extended release 24 hr 25 mg PO BID Heart Failure 11/24/23
cefdinir 300 mg capsule 300 mg PO BID #16 caps 11/27/23
doxycycline hyclate 100 mg capsule 100 mg PO Q12 #16 caps 11/27/23
phenazopyridine 200 mg tablet 200 mg PO TIDPRN PRN urinary pain #20 tabs 11/27/23
Review of Systems
-
History Source: Patient
A 12 point ROS was completed and negative except as noted: Yes
Constitutional: Reports No Symptoms
EENT: Reports No Symptoms
Respiratory: Reports See HPI
Cardiac: Reports See HPI
Abdomen/GI: Reports No Symptoms
: Reports No Symptoms
Musculoskeletal: Reports No Symptoms
Skin: Reports No Symptoms
Neurological: Reports No Symptoms
Endocrine: Reports No Symptoms
Hematologic/Lymphatic: Reports No Symptoms
Psych: Reports No Symptoms
Physical Exam
Vital Signs
Vital Signs
Temp Pulse Resp BP Pulse Ox
97.8 F 102 24 109/57 93
06/01/24 11:33 06/01/24 12:45 06/01/24 12:45 06/01/24 12:30 06/01/24 12:45
Physical Exam
General: Well Developed, Well Nourished and No Apparent Distress
HEENT: NormoCephalic, Moist mucous membranes and Atraumatic
Respiratory: Rales
Cardiac: S1/S2 and Regular Rhythm; No Murmur or Rub
GI: Soft, Non Tender, Non Distended and Normal Bowel Sounds; No Organomegaly
Rectal: Deferred by Provider
Musculoskeletal: No Clubbing, No Cyanosis and No Edema
Skin: No Rash
Neuro: Nonfocal/grossly intact
Laboratory Results
-
06/01/24 12:24
06/01/24 12:24
Data Reviewed
-
Lab Data: Labs Reviewed by me
Old Records: Reviewed
Impression/Plan
-
IMPRESSION:
PLAN:
# Sepsis (leukocytosis, tachycardia ) secondary to persistent right middle lobe pneumonia
# History of bronchiectasis/ILD
-Bilateral crackles worse in right lower lung, without wheezing
-Chest x-ray shows patchy right middle lobe opacity suspicion for pneumonia
-CT chest from 05/26 showed diffuse waxing/waning infectious/inflammatory process/bronchiolitis
-COVID-negative, influenza negative
-Cardiac BNP of 9000, not overtly in heart failure
-Check sputum culture
-Check strep antigen, Legionella antigen, MRSA
-Blood cultures pending
-Vancomycin/Zosyn
-Hold off on further steroids
-Keep diuretics the same
-Pulmonary consulted for consideration of bronchoscopy
Multivessel CAD
-Continue aspirin, Plavix, statin
-Continue metoprolol
First-degree AV block
Chronic HFpEF
-Continue dapagliflozin
CLL
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
Chronic anemia
-Stable
Essential hypertension
-Continue losartan
Type 2 diabetes
-Hold metformin
-Continue dapagliflozin
-Insulin sliding scale
Hyperlipidemia
History of kidney stones
DNR/DNI
DVT prophylaxis�heparin
Regular diet
[2024-06-01 14:20] LABS: % Basophils 0.2 % (0-2); % Eosinophils 0.1 % (0-6); % Immature Granulocytes 0.3 % (0-0.5); % Lymphocytes 70.6 % (20.5-51.1); % Monocytes 0.4 % (1.7-9.3); % Neutrophils 28.4 % (42.2-75.2); Absolute Basophils 0.1 10^3/uL (0-0.2); Absolute Immature Granulocytes 0.1 10^3/uL (0-0.05); Absolute Lymphocytes 19.7 10^3/uL (1.2-3.4); Absolute Monocytes 0.1 10^3/uL (0.1-0.6); Absolute Neutrophils 7.9 10^3/uL (1.4-6.5); Nucleated Red Blood Cells % 0 % (-)
--- NOTE | 2024-06-01 14:49 | PHA.VAN.IN ---
Assessment
- Assessment
Renal Function: Appears similar to baseline
Concomitant Antimicrobials: piperacillin/tazobactam
Plan
- Plan
Initial / Loading Dose: 1500mg - administration pending
Maintenance Regimen: dosing by level
Monitoring: random 06/02 0600
MRSA Screen: Ordered per protocol
Pharmacokinetics Vancomycin I
- -
Patient Age: 84
Patient Sex: Male
Vancomycin Day #: 1
Indication: Pulmonary/Respiratory
Requesting Provider: Dr. Cruz
Pertinent Antimicrobial Allergies:
NKDA
Height / Weight:
Height 5 ft 7 in
Actual Weight 53.2 kg
IBW in k
Pertinent Past Medical History: BMI ~18, CLL, DM 2
- Vital Signs / Lab Results
Temp Pulse Resp BP Pulse Ox
97.8 F 107 17 109/56 93
06/01/24 11:33 06/01/24 14:00 06/01/24 14:00 06/01/24 13:30 06/01/24 14:00
Lab Results - Hematology
06/01/24
12:24
WBC 27.9 H
Lab Results - Chemistry
06/01/24
12:24
BUN 30 H
Creatinine 1.1
Estimated Creat Clear 39
Microbiology Results
06/01/24 12:24 Influenza Types A & B (NIDA) - Final
Nasal Swab Negative for Influenza A & B, NAAT
Negative results must be combined with clinical observations
and patient history.
Nucleic Acid Amplification test (NAAT)performed on the
[employer] platform.
[2024-06-01] MEDS: VANCOCIN 530 MG IV (15:11)
[2024-06-01 15:25] LABS: Glucose - Point of Care 307 mg/dl (70-99)
--- NOTE | 2024-06-01 16:00 | PTCARENOTE ---
Pt admitted to 408-1. AAOx3. Daughter in law at bedside. Pulsox 91% on RA, pt appears SOB. 2L O2 placed on patient and pulsox 98%. Tele showing NSR PAC's. Pt oriented to room and has call byrnes within reach.
[2024-06-01] MEDS: NOVOLOG FLEXPEN-LOW RESISTANCE 4 UNITS SC (16:17)
[2024-06-01] MEDS: LIPITOR 40 MG PO (17:30)
[2024-06-01] MEDS: COLACE 100 MG PO (17:30)
[2024-06-01] MEDS: ZOSYN 50 IV ×2 (17:30→23:01)
[2024-06-01] MEDS: TOPROL XL 25 MG PO (20:15)
[2024-06-01] MEDS: HEPARIN 5000 UNITS SC (20:15)
[2024-06-01 21:39] LABS: Glucose - Point of Care 255 mg/dl (70-99)
[2024-06-01] MEDS: RESTORIL 15 MG PO (23:01)
[2024-06-02] VITALS (7 sets, daily range): BP systolic 88–107; BP diastolic 48–62; PULSE 95; O2SAT 97; BMI 18.3
[2024-06-02] MEDS: ZOSYN 50 IV ×4 (05:19→23:02)
--- NOTE | 2024-06-02 07:08 | W.PN.HOSP.TC ---
Today's Communication/Plan
-
cont abx
oxygen supplementation as necessary sat 92%
glycemic control
follow cultures
cough medications
Assessment / Plan
Assessment / Plan
Physical Exam
General: no acute distress, appears comfortable, cachectic appearance
HEENT: NormoCephalic, Moist mucous membranes and Atraumatic
Respiratory: Some faint crackles noted on auscultation otherwise relatively clear
Cardiac: S1/S2 and Regular Rhythm; No Murmur or Rub
GI: Soft, Non Tender, Non Distended and Normal Bowel Sounds; No Organomegaly
Musculoskeletal: No Clubbing, No Cyanosis and No Edema
Skin: No Rash
Neuro: Awake alert conversant coherent
Psych: Calm
84M past medical history of bronchiectasis, multivessel CAD, HFpEF, nephrolithiasis, CLL, hypogammaglobulinemia receives IVIG every few months, anemia, hypertension, type 2 diabetes, first-degree AV block, hyperlipidemia, kidney stones, presenting
with shortness of breath for the past few days associate with productive cough. Also has increased weakness. No lower extremity swelling. He has lost weight recently. Denies fevers but has chills. Has been having symptoms for the past few weeks
and treated with 2 courses of doxycycline and 2 courses of prednisone. He had recent sputum culture pos for serratia resistant to doxycycline.
# Possible Sepsis (leukocytosis, tachycardia) secondary to persistent right middle lobe pneumonia
-though less likely sepsis as white count is actually improved from pt's baseline elevation d/t CLL
# History of bronchiectasis/ILD
-Chest x-ray shows patchy right middle lobe opacity suspicion for pneumonia
-CT chest from 05/26 showed diffuse waxing/waning infectious/inflammatory process/bronchiolitis
-COVID-negative, influenza negative
-Cardiac BNP of 9000, doesn't appear to be in acute HF, Cardio eval requested.
-follow repeat sputum culture
-strep antigen, Legionella antigen, MRSA neg
-Blood cultures pending
-empiric vanc discontinued, cont Zosyn, Doxycycline added
-cont home prednisone 10 mg daily for now
-Keep diuretics the same
-Pulmonary consult appreciated
-ID eval requested
-ECHO appreciated no significant change from prior
Multivessel CAD
-Continue aspirin, Plavix, statin
-Continue metoprolol
First-degree AV block
Chronic HFpEF
-Continue dapagliflozin Lasix Losartan Metoprolol with holding parameters
CLL
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
Chronic anemia
-Stable
Essential hypertension
-Continue losartan
Type 2 diabetes
-Uncontrolled Hyperglycemia possibly due to combination reg diet, steroids, and infection
-Hold metformin
-Continue dapagliflozin
-Insulin sliding scale
-carb controlled diet
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
-A1c 8.6
Hyperlipidemia
History of kidney stones
PT/OT eval
DNR/DNI
DVT prophylaxis�heparin
Regular diet
Discussed with pt and pt's son
I spent a total of 50 minutes with the patient or on the floor. More than 50% of this time involved counseling and coordination of care.
Anticipated Discharge: 24 - 48 hours
Subjective/Interval History
-
Date of Service: June 02, 2024
Seen and examined at bedside in no acute distress resting comfortably in bed. Son present during evaluation. Stable respiratory status on 2L nasal cannula. Overall reports improvement in symptoms since admission, though patient is not on oxygen
at home.
Objective Data
-
Labs:
Laboratory Results
06/02/24
06:00
WBC Pending
Hgb Pending
Hct Pending
Plt Count Pending
Sodium Pending
Potassium Pending
Chloride Pending
Carbon Dioxide Pending
BUN Pending
Creatinine Pending
Glucose Pending
Calcium Pending
Total Bilirubin Pending
AST Pending
ALT Pending
Alkaline Phosphatase Pending
Vital Signs:
Vital Signs
Temp Pulse Resp BP Pulse Ox
97.2 F 68 22 99/51 93
06/02/24 04:17 06/02/24 04:17 06/02/24 04:17 06/02/24 04:17 06/02/24 04:17
I&O
06/01/24 06/02/24 06/03/24
06:59 06:59 06:59
Intake Total 480 / 480
Output Total 1600 / 1600
Balance -1120 / -1120
[2024-06-02 07:11] LABS: Glucose - Point of Care 173 mg/dl (70-99)
[2024-06-02] MEDS: NOVOLOG FLEXPEN-MODERATE RESISTANCE SC ×2 (07:30→11:45)
[2024-06-02] MEDS: FARXIGA 10 MG PO (09:15)
[2024-06-02] MEDS: DELTASONE 10 MG PO (09:15)
[2024-06-02] MEDS: VITAMIN C 1000 MG PO (09:15)
[2024-06-02] MEDS: ASPIR LOW (ENTERIC COATED) 81 MG PO (09:15)
[2024-06-02] MEDS: LASIX 20 MG PO (09:15)
[2024-06-02] MEDS: PLAVIX 75 MG PO (09:15)
[2024-06-02] MEDS: VITAMIN D3 (cholecalciferol) 25 MCG PO (09:16)
[2024-06-02] MEDS: HEPARIN 5000 UNITS SC ×2 (09:16→21:13)
[2024-06-02] MEDS: NOVOLOG FLEXPEN-LOW RESISTANCE 1 UNITS SC (09:24)
[2024-06-02 11:09] LABS: Hematocrit 32.4 % (39.0-52.0); Hemoglobin 10.8 g/dL (13.0-18.0); Mean Corp Hgb Conc. 33.3 g/dL (33.0-37.0); Mean Corpuscular Hgb 30.9 pg (27.0-31.0); Mean Corpuscular Volume 92.6 fL (80.0-94.0); Platelet Count 121 10^3/uL (130-400); Red Cell Dist. Width 16.9 % (11.5-14.5); White Blood Cell Count 39.7 10^3/uL (4.8-10.8)
[2024-06-02] MEDS: TOPROL XL 25 MG PO (11:09)
[2024-06-02 11:22] LABS: ALT (SGPT) 90 U/L (0-50); AST (SGOT) 139 U/L (17-59); Alkaline Phosphatase 92 U/L (38-126); Blood Urea Nitrogen 32 mg/dl (9-20); Calcium 9.4 mg/dl (8.4-10.2); Carbon Dioxide 21 mmol/L (22-30); Chloride 100 mmol/L (98-107); Estimated Creatinine Clearance 43 ml/min; Glucose 236 mg/dl (70-99); Potassium 4.3 mmol/L (3.5-5.1); Sodium 133 mmol/L (135-145); Total Protein 5.5 g/dl (6.3-8.2); Vancomycin Random 9.3 ug/ml; eGFR > 60.00
[2024-06-02 11:30] LABS: Glucose - Point of Care 293 mg/dl (70-99)
[2024-06-02] MEDS: NOVOLOG FLEXPEN-LOW RESISTANCE 3 UNITS SC (11:45)
--- NOTE | 2024-06-02 12:19 | CON.PUL ---
Consultation
Consultation Request
Date/Time Consultation Requested: 06/02/2024
Date/Time Consultation Performed: 06/02/2024
Requesting Provider: Dr. Cruz
Performing Provider: Dr. Fabio Rojas
Reason for Consultation: Pneumonia/bronchiectasis
Medical History
-
Chief Complaint: Right-sided flank pain
History of Present Illness:
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
Patient follows up with Dr. Sun last time seen in the office 05/30/2024. At that time he had completed a course of doxycycline.
Most recent culture available 05/17/2024 showed Serratia marcescens.
It is noted that he has been ordered to get a video barium swallow to rule out chronic aspiration. He presented this time to the emergency room
Complaining of shortness of breath and productive cough with associated fatigue and weakness.
He has recently completed 2 courses of doxycycline and 2 courses of prednisone for symptoms.
Denies any fevers or chills
CT chest demonstrated patchy bilateral groundglass opacities.
PMHx: DM type II, hyperlipidemia, hypertension, CAD, history of right rotator cuff tear, history of CLL, mitral regurgitation, low immunoglobulin level on IVIG, history of renal stones, bifascicular block, history of influenza B (07/2022), history of
sinusitis, chronic rhinitis
PShx: Hernia repair, right-sided kidney stone with lithotripsy and stent placement (October 2020)
Past Medical History
Past Medical History: Other (Above as per HPI)
Past Surgical History: Other (Above as per HPI)
Social History
Tobacco: Non-smoker
Alcohol: None
Drug: None
Family History
Family History: Diabetes (Mother)
Allergies / Home Medications
Allergies
Allergy/AdvReac Type Severity Reaction Status Date / Time
No Known Allergies Allergy Verified 06/01/24 11:35
Home Medications
�Medication �Instructions �Recorded �Confirmed �Last Taken �Type
ascorbic acid (vitamin C) 1,000 mg 1,000 mg PO DAILY Supplement 07/27/23 06/01/24 06/01/24 History
tablet (Vitamin C)
cholecalciferol (vitamin D3) 25 25 mcg PO DAILY Supplement 07/27/23 06/01/24 06/01/24 History
mcg (1,000 unit) tablet (Vitamin
D3)
dapagliflozin propanediol 10 mg 10 mg PO DAILY Heart Failure #30 08/05/23 06/01/24 06/01/24 Rx
tablet (Farxiga) tabs
aspirin 81 mg tablet,delayed 81 mg PO DAILY Blood Clot 11/24/23 06/01/24 06/01/24 History
release Prevention/Tx
atorvastatin 40 mg tablet 40 mg PO QPM High Cholesterol 11/24/23 06/01/24 05/31/24 History
clopidogrel 75 mg tablet (Plavix) 75 mg PO DAILY Blood Clot 11/24/23 06/01/24 06/01/24 History
Prevention/Tx
furosemide 40 mg tablet 20 mg PO DAILY Fluid 11/24/23 06/01/24 06/01/24 History
Retention/Swelling
losartan 25 mg tablet 25 mg PO DAILY Heart Failure 11/24/23 06/01/24 06/01/24 History
metformin 500 mg tablet,extended 500 mg PO QPM Diabetes 11/24/23 06/01/24 05/31/24 History
release 24 hr
metoprolol succinate 25 mg 25 mg PO BID Heart Failure 11/24/23 06/01/24 06/01/24 History
tablet,extended release 24 hr
cod liver oil 1 cap PO DAILY Supplement 06/01/24 06/01/24 06/01/24 History
docusate sodium 100 mg capsule 100 mg PO QPM Constipation 06/01/24 06/01/24 05/31/24 History
(Colace)
prednisone 10 mg tablet 10 mg PO DAILY Anti-Inflammatory 11/06/01/24 06/01/24 History
temazepam 30 mg capsule 30 mg PO HS Sleep 06/01/24 06/01/24 05/31/24 History
Review of Systems
-
History Source: Patient
All other systems: Negative unless noted
Vitals / Labs / Diagnostic Testing
Vital Signs
Temp Pulse Resp BP Pulse Ox
99.3 F 96 20 110/90 94
06/02/24 11:08 06/02/24 11:09 06/02/24 11:08 06/02/24 11:09 06/02/24 11:08
Lab Data
06/02/24 10:37
06/02/24 10:37
Microbiology
06/01/24 15:53 Nose Nasal Screen MRSA (PCR) - Final
MRSA not detected - performed by PCR methodology.
06/01/24 17:28 Sputum Gram Stain - Preliminary
06/01/24 15:53 Urine Legionella Urinary Antigen - Final
Negative for Legionella pneumophila Serogroup 1 antigen.
A negative result does not rule out the possiblity of
Legionella infection due to other serogroups or species of
Legionella. Clinical correlation is recommended.
06/01/24 15:53 Urine Streptococcus pneumoniae Antigen (M - Final
Negative for Streptococcus pneumoniae antigen.
A negative result does not exclude infection with
Streptococcus pneumoniae. Clinical correlation is
recommended.
06/01/24 12:24 Nasal Swab Influenza Types A & B (NIDA) - Final
Negative for Influenza A & B, NAAT
Negative results must be combined with clinical observations
and patient history.
Nucleic Acid Amplification test (NAAT)performed on the
[employer] platform.
Diagnostic Testing:
Physical Exam
-
HEENT: Normocephalic
Cardiovascular: S1/S2
Respiratory: Rales and Non-Labored Respirations
GI: Soft and Non Distended
Neurology: Awake, Alert, AO x 3 and No Motor Deficits
General: Comfortable
Assessment
-
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 Abnormal chest x-ray suggestive of
pneumonia. We were consulted on 06/02/2024 for evaluation.
Impression:
# Abnormal CT chest: Bronchiolitis/bilateral groundglass opacity/chronic bronchiectasis.
Differential diagnosis includes: Infectious bacterial/viral, atypical pulmonary edema given increased proBNP, opportunistic infection.
#Shortness of breath
#Leukocytosis - due to CLL
#Transaminitis
Conditions present prior admission
#7 mm calculus at the right UPJ with obstructive uropathy s/p Cystoscopy/Right ureteroscopy/Laser lithotripsy/Right ureteral stent placement 11/25/23
#Chronic anemia (Hb ranges between 8.5-10.5)
#Thrombocytopenia (chronic with waxing and waning plt counts)
#DM type II (A1C: 6.9)
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
#Severe MR
# History of multivessel coronary artery disease
# History of first-degree AV block
History of severe chronic bronchiectasis: Follows with Dr. Sun
On low-dose prednisone/nebulizers/secretion clearance interventions
Assessment and plan:
Clinical picture consistent with bronchiectasis exacerbation.
Other considerations given increased proBNP include heart failure given patient's history of severe MR and RV dysfunction on latest echo 11/2023.
In the outpatient setting patient was being worked up for recurrent microaspiration-a video barium swallow was ordered but was pending.
There were also discussions about possible bronchoscopy to rule out VERONIQUE/opportunistic infections.
-
Aggressive secretion clearance interventions:
Lung exam without bronchospasm-has bibasilar crackles.
Continue oxygen supplementation to maintain pulse ox above 90%. Currently on low rate supplemental oxygen.
Report chronic discolored sputum-yellow. No hemoptysis.
Will add Acapella device
DuoNebs 3 times a day
Mucinex
If unable to clear secretions may need to add vest therapy.
Patient remains on 10 mg of prednisone chronically for anti-inflammatory properties-no need for higher doses of systemic corticosteroids.
-
Low-grade fever noted 99 �F. Chronic leukocytosis. Follow-up.
Last sputum culture available 05/17/2024: Serratia marcescens S. Patient only received doxycycline with improvement. Possibly is partially treated.
Agree with Zosyn/vancomycin for now.
Sputum culture
Will obtain AFB times to rule out VERONIQUE.
Ultimately, if all cultures negative bronchoscopy for BAL, cultures will be necessary, discussed with daughter who was at the bedside, likely if necessary will happen next week.
-
After infection clears and VERONIQUE is rule out consider low-dose macrolide therapy for anti-inflammatory properties.
-
Speech evaluation: In the outpatient plan was to obtain a video barium swallow to rule out chronic recurrent aspiration.
-
Patient chronically on IVIG infusions
Follows up with hematology due to CLL
-
Differential diagnosis also includes volume overload, has severe MR.
Patient has been losing weight due to decreased p.o. intake, chronic coughing And muscle mass loss
proBNP is rising
Groundglass opacity may be explained by this.
Patient also has mild transaminitis
Currently on oral Lasix
Consider cardiology evaluation while in the hospital
Given increased proBNP To 9130, repeat echocardiogram.
-
Weight loss/deconditioning: Physical therapy/Occupational Therapy consultation.
-
DVT prophylaxis-heparin subcu.

Imaging reviewed:
Chest x-ray: 06/01/2024There is patchy right middle lobe opacity.. The cardiomediastinal silhouettes are within the limits of normal. Calcific atherosclerotic changes of the thoracic aortic arch are noted. There is no pneumothorax, pleural effusion
or mediastinal shift.
-
CT chest 05/26/2024:Diffuse scattered areas of tree-in-bud nodules and groundglass densities, significantly progressed in the bilateral upper lobes and right middle lobe and slightly improved in the bilateral lower lobes.
No pleural effusions, pericardial effusions or pathologically enlarged noncalcified lymph nodes in the thorax. No pneumothorax.
No thoracic aortic aneurysm. Severe coronary artery calcifications.
Visualized portion of the upper abdomen is unremarkable.
Echocardiogram 11/10/2023: Reviewed
CONCLUSIONS
Normal left ventricular chamber size.
Mild concentric left ventricular hypertrophy.
Moderate reduced left ventricular systolic function with regional wall motion
abnormalites.
Enlarged right ventricular size.
Severe mitral regurgitation.
Mild tricuspid regurgitation.
Estimated pulmonary artery pressure of 40-45 mmHg.
Mild pulmonic regurgitation.
Normal pericardium without effusion.
The IVC is of normal size and demonstrates normal respiratory variation.
Compared to prior echo EF% remains reduced and mitral regurgitation is now
severe
[2024-06-02] MEDS: MUCINEX 600 MG PO (12:49)
[2024-06-02 13:08] LABS: Glycohemoglobin (HgbA1c) 8.6 % (4.0-5.6)
[2024-06-02 13:42] LABS: % Basophils 0.1 % (0-2); % Eosinophils 0.3 % (0-6); % Immature Granulocytes 0.3 % (0-0.5); % Lymphocytes 79.5 % (20.5-51.1); % Monocytes 0.3 % (1.7-9.3); % Neutrophils 19.5 % (42.2-75.2); Absolute Eosinophils 0.1 10^3/uL (0-0.7); Absolute Immature Granulocytes 0.1 10^3/uL (0-0.05); Absolute Lymphocytes 31.6 10^3/uL (1.2-3.4); Absolute Monocytes 0.1 10^3/uL (0.1-0.6); Absolute Neutrophils 7.7 10^3/uL (1.4-6.5); Nucleated Red Blood Cells % 0 % (-)
[2024-06-02] MEDS: DUONEB 3 ML INH ×2 (13:45→19:58)
--- NOTE | 2024-06-02 15:08 | PTOTSP ---
Speech Language Pathology
Pt seen for clinical bedside swallow evaluation. Per pulm, pt was ordered VSE as outpatient (has not yet been scheduled). P.O. trials of puree, regular solids, and thin liquids provided. Adequate mastication, bolus formation, and A-P transit
noted with no oral residue. Cough following consecutive sips of thin liquids. No cough with single sips.
Recommend:
(1) Regular solids/thin liquids
(2) Aspiration precautions: single sips only, slow rate, sit upright, don't eat when SOB
(3) Meds as tolerated
(4) VSE Tuesday 06/05
(5) RIGHT OF WAY MAN to continue to follow
--- NOTE | 2024-06-02 15:17 | PN.DE.MGMTRT ---
Insulin Management
- -
06/02/2024: Diabetes management Consult
84 year old male with PMH: Bronchiectasis, MVCAD, HFpEF, nephrolithiasis, CLL, hypogammaglobulinemia status post IVIG last week, anemia, HTN, T2DM, 1st degree AV block, HLD, kidney stones, presenting with shortness of breath for the past few days
associate with productive cough likely due to PNA.
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 A1C 8.6%, Cr 1.0, eGFR >60
Current diabetes regimen includes: Lantus 10 units @HS that has been started by Dr. Braun and low corrective insulin with meals
06/01 glucose range 173 to 307, HS blood sugar was 255, FBG 236 this AM. Will cont Lantus 10 units as ordered by the hospitalist.
Will start Januvia 100mg daily. Resume his op regimen at increased dose of Metformin 1000mg BID and Farxiga 10mg daily.
Avoid aggressive insulin dosing to avoid hypoglycemia in this patient of advanced age.
Diabetes History
- -
Type of Diabetes: 2 requiring insulin
Pre-Admission Diabetes Regimen
06/02/24
10:37
Creatinine 1.0
Lab Results
Hemoglobin A1c 8.6 % (4.0-5.6) H 06/02/24 10:37
Insulin Pump Settings
IP Diabetes Regimen
06/01/24 06/01/24 06/02/24
15:24 21:38 07:10
Glucose
POC Glucose 307 H 255 H 173 H
06/02/24 06/02/24
10:37 11:29
Glucose 236 H
POC Glucose 293 H
Meal type: Lunch
Meal type: Breakfast
Meal type: Dinner
Amount consumed: 100%
Amount consumed: 100%
Amount consumed: 100%
Patient Education
[2024-06-02] MEDS: JANUVIA 100 MG PO (16:13)
[2024-06-02] MEDS: VIBRAMYCIN 100 MG PO (16:13)
--- NOTE | 2024-06-02 16:29 | CON.CAR ---
Addendum entered and electronically signed by Russell Cevallos MD 06/02/24 19:21:
84-year-old man with severe three-vessel disease and LV dysfunction with MR, being managed conservatively, has history of CLL and gradually more short of breath over months, recently has had 2 courses of prednisone and doxycycline for respiratory
infection without improvement. Related to insomnia, was prescribed Restoril and on Wednesday night he was found by family members on the floor next to his bed, did not look like a traumatic fall, EMS was called, he refused transport, went to bed,
and the following morning consented to go to the emergency department. He was admitted and now on ceftriaxone and doxycycline. Chest x-ray suggests pneumonia. proBNP is 9130 and cardiology is asked to review. Patient feels that he voids well with
20 mg of oral furosemide.
PMH: Bronchiectasis, three-vessel CAD with ischemic cardiomyopathy, HFrEF with EF 35-40%, history of severe MR, now mild to moderate by echo 24, CLL, receives IVIG, hyperlipidemia, diabetes, hypertension
Outpatient meds: Aspirin 81 mg a day, atorvastatin 40 mg a day, clopidogrel 75 mg a day, dapagliflozin 10 mg a day, Colace, furosemide 20 mg daily, losartan 25 mg daily, metformin, metoprolol succinate 25 twice daily, prednisone 10 mg
Current meds: Subcu heparin, Zosyn, aspirin 81 mg a day, atorvastatin 40 mg a day, vitamin D, clopidogrel 75 mg daily, dapagliflozin 10 mg a day, Colace, furosemide 20 mg daily, losartan 25 mg a day, metoprolol ER 25 mg twice a day, prednisone 10 mg
daily, Restoril, Mucinex, DuoNebs, Lantus 10 units daily, metformin 1000 mg twice daily, Januvia, doxycycline,
88/50, pulse 100, respiratory 20, afebrile, sats 96%, intake and output -0.4 weight is 53.0 kg, was 54.9 kg and 54.2 kg in November, slender, appears frail, head neck exam unremarkable, he has rhonchi bilaterally, neck veins not markedly elevated, still
with loud MR murmur, some extrasystoles, abdomen scaphoid not much edema
White count 39.7, hemoglobin 10.8, platelets 121, lymphocytosis, sodium 133, BUN/creatinine 32 and 1, potassium 4.3, proBNP is 9130, was 5230 in November as high as 17,600
Chest x-ray subtle interstitial infiltrate, minimal blunting of costophrenic angles
EKG sinus rhythm with PACs, prior inferior SC with left axis deviation and right branch block, anterolateral SC
Echocardiogram EF 35-40%, apex, inferoseptum, inferior and inferolateral hypokinesis, basal septal hypertrophy, mild to moderate MR, mild aortic stenosis, peak/mean gradients 1911, aortic valve area 1.4 cm, PASP 35-40. MR was severe in November 2023
Assessment:
Bronchiolitis/pneumonia/History of severe chronic bronchiectasis
MV CAD of LAD, OM, RCA 09/2023
Ischemic cardiomyopathy, EF 35-40% by echo 11/2023
Chronic HFrEF, possibly with mild acute exacerbation
Mod to severe MR
CLL
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
Chronic leukocytosis
Anemia/thrombocytopenia
Hyperlipidemia
DM 2
HTN
Plan:
He presents with presumed pneumonia in the setting of known bronchiectasis, now on prednisone, ceftriaxone and doxycycline.
proBNP is elevated but not at an all-time high. His echocardiogram is stable. By echo his MR is reported to be improved, but I am skeptical of this based on his physical exam - his murmur is still loud.
He may be mildly volume loaded but not dramatically so. There is no edema, neck veins are not dramatically elevated, and his pulmonary exam is difficult given his trends of pulmonary chest x-ray he may be minimally congested on top of infiltrate,
with minimal blunting of the costophrenic angles.
We discussed whether or not to switch to IV Lasix to intensify diuresis. This might be reasonable to consider but will reassess in the morning before prescribing given that he is relatively hypotensive.
Continue medical management for severe three-vessel disease, MR and LV dysfunction. He is on dapagliflozin, losartan, and long-acting metoprolol. Entresto, spironolactone may be difficult to prescribe given hypotension.
Original Note:
Consultation
Consultation Request
Date/Time Consultation Performed: 06/02/24
Requesting Provider: Dr. Braun
Performing Provider: Nona Wells PA-C for Dr. RAMÍREZ Cevallos
Reason for Consultation: ? CHF
Medical History
-
Chief Complaint: SOB
History of Present Illness:
Patient is an 84-year-old male with past medical history of CLL, followed by Dr. Young who receives IVIG every 3 to 4 months, chronic leukocytosis, ischemic cardiomyopathy by echo 07/2023 with multivessel CAD of LAD, OM, RCA as of 09/2023, chronic
heart failure with reduced EF, moderate to severe MR, mild to moderate AI and moderate pulmonary hypertension who presented to [facility] due to shortness of breath. He reports with any exertion he gets very winded. He reports productive
cough. He denies lower extremity edema or abdominal bloating. He denies weight gain, reporting continued weight loss (~7-9 pounds per year since his CLL diagnosis). He reports compliance with p.o. Lasix 20 mg daily with excellent response in
terms of urinary output. He denies recent chest discomfort. He reports his blood pressure typically runs on the low side. He is being treated for bronchiolitis. Given his cardiac history as noted above, cardiology consulted due to concern for
component of acute CHF contributing to shortness of breath. proBNP 9100, up slightly from last level in November 2023, however not highest it has ever been; was higher 07/2023 in setting of acute CHF. Chest x-ray this admission read as right middle lobe
pneumonia without evidence of effusions. He was to get a barium swallow as OP to rule out chronic aspiration. He recently completed 2 courses of doxycycline and prednisone as OP.
PMH:
History of severe chronic bronchiectasis
MV CAD of LAD, OM, RCA 09/2023
Ischemic cardiomyopathy, EF 35-40%
Chronic HFrEF
Severe MR
CLL
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
Chronic leukocytosis
Anemia/thrombocytopenia
Hyperlipidemia
DM 2
HTN
Past Medical History
Past Medical History: Other (in HPI)
Past Surgical History: Orthopedic
Social History
Tobacco: Non-Smoker
Alcohol: None
Drug: None
Employment: Retired
Family History
Family History: Diabetes
Allergies / Home Medications
Allergy/AdvReac Type Severity Reaction Status Date / Time
No Known Allergies Allergy Verified 06/01/24 11:35
�Medication �Instructions �Recorded �Confirmed �Type
ascorbic acid (vitamin C) 1,000 mg 1,000 mg PO DAILY Supplement 07/27/23 06/01/24 History
tablet (Vitamin C)
cholecalciferol (vitamin D3) 25 25 mcg PO DAILY Supplement 07/27/23 06/01/24 History
mcg (1,000 unit) tablet (Vitamin
D3)
dapagliflozin propanediol 10 mg 10 mg PO DAILY Heart Failure #30 08/05/23 06/01/24 Rx
tablet (Farxiga) tabs
aspirin 81 mg tablet,delayed 81 mg PO DAILY Blood Clot 11/24/23 06/01/24 History
release Prevention/Tx
atorvastatin 40 mg tablet 40 mg PO QPM High Cholesterol 11/24/23 06/01/24 History
clopidogrel 75 mg tablet (Plavix) 75 mg PO DAILY Blood Clot 11/24/23 06/01/24 History
Prevention/Tx
furosemide 40 mg tablet 20 mg PO DAILY Fluid 11/24/23 06/01/24 History
Retention/Swelling
losartan 25 mg tablet 25 mg PO DAILY Heart Failure 11/24/23 06/01/24 History
metformin 500 mg tablet,extended 500 mg PO QPM Diabetes 11/24/23 06/01/24 History
release 24 hr
metoprolol succinate 25 mg 25 mg PO BID Heart Failure 11/24/23 06/01/24 History
tablet,extended release 24 hr
cod liver oil 1 cap PO DAILY Supplement 06/01/24 06/01/24 History
docusate sodium 100 mg capsule 100 mg PO QPM Constipation 06/01/24 06/01/24 History
(Colace)
prednisone 10 mg tablet 10 mg PO DAILY Anti-Inflammatory 06/01/24 06/01/24 History
temazepam 30 mg capsule 30 mg PO HS Sleep 06/01/24 06/01/24 History
Review of Systems
-
History Source: Patient
All other systems: Negative unless noted
Physical Exam
Vital Signs
Temp Pulse Resp BP Pulse Ox
97.8 F 100 20 88/52 96
06/02/24 15:02 06/02/24 15:02 06/02/24 15:02 06/02/24 15:02 06/02/24 15:02
Lab Results
06/02/24 10:37
06/02/24 10:37
Ogo-E-Qksksmkwtkw Pept 9130 pg/ml 06/01/24 12:24
Physical Exam
General: No Apparent Distress, Comfortable and Other (on supp O2)
HEENT: Normocephalic, Anicteric and Moist Mucous Membranes
Respiratory: Crackles (B/L bases) and Non Labored Respirations
Cardiac: S1/S2, Regular Rhythm and Murmur
GI: Soft, Non Tender, Non Distended and Normal Bowel Sounds
Musculoskeletal: No Clubbing, No Cyanosis and No Edema
Skin: Warm and Dry
Neuro: AO x 3
Impression / Plan
-
Primary Sql Report Analyst: Dr. Saunders
Assessment:
Presentation with SOB
Bronchiolitis
Abnormal LFTs
History of severe chronic bronchiectasis
MV CAD of LAD, OM, RCA 09/2023
Ischemic cardiomyopathy, EF 35-40% by echo 11/2023
Chronic HFrEF
Mod to severe MR
CLL
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
Chronic leukocytosis
Anemia/thrombocytopenia
Hyperlipidemia
DM 2
HTN
ECHO 11/10/23: EF 35 to 40%, stage II diastolic dysfunction, moderately reduced LV systolic function with regional wall motion abnormalities including akinetic apex, apical septum, apical lateral wall, enlarged RV size, severe MR, mild TR, PAP 40 to
45 mmHg, mild [place]
Plan:
-Patient presented to [facility] for evaluation of shortness of breath and cough. CXR read as RML PNA, no evidence of pleural effusions by my review. He is being treated for acute bronchiolitis exacerbation and has history of severe
chronic bronchiectasis followed by pulmonary.
-He reports some improvement in his breathing from admission
-Remains on supplemental oxygen, wean as able. IS ordered
-Cardiology consulted due to concern for component of acute CHF contributing to his symptoms with proBNP of 9100. Was 5000 in November 2023, however was as high as 17,600 in July of this year in the setting of acute heart failure exacerbation
-He has no evidence of volume overload on examination and reports good response to 20 mg p.o. Lasix daily at home. He reports continued weight loss.
-Does not appear to be in acute heart failure exacerbation. Would favor continuing 20 mg p.o. Lasix daily. Blood pressure is also marginal which patient reports is baseline and limits additional diuresis
-Would attempt to continue Toprol. Will place hold parameters on outpatient Cozaar
-Repeat echo, last from 11/2023 with results as above
-He was being considered for MitraClip candidacy as an outpatient.
-Denies chest pain. EKG from admission sinus tachycardia with PACs and incomplete right bundle berlin block.
-LFTs elevated, hold statin and follow
-Consider dietary consult. Total protein and albumin are low. Hemoglobin A1c 8.6%
-Discussed with nursing
Data Reviewed
-
EKG: Tracing Personally Visualized and interpreted
Radiology: Report Reviewed by me
Medical Tests (Nuc Med, Echo etc): Report Reviewed by me
Labs: Labs Reviewed by me
Old Records: Reviewed
[2024-06-02] MEDS: NOVOLOG FLEXPEN-LOW RESISTANCE SC (16:30)
[2024-06-02 16:40] LABS: Glucose - Point of Care 447 mg/dl (70-99)
[2024-06-02 17:16] LABS: Glucose 403 mg/dl (70-99)
[2024-06-02] MEDS: NOVOLOG FLEXPEN-MODERATE RESISTANCE 11 UNITS SC (18:09)
[2024-06-02] MEDS: GLUCOPHAGE 1000 MG PO (18:09)
[2024-06-02] MEDS: COLACE 100 MG PO (18:11)
--- NOTE | 2024-06-02 19:03 | GLUCOSE ---
Accu check at 2310 - 759. Stat GlucoeSITUATION:
BACKGROUND:
ASSESSMENT:
RECOMMENDATION:
--- NOTE | 2024-06-02 19:08 | GLUCOSE ---
1640 Accu Check 447. Stat Glucose sent. Venous glucose result- 403. Pt medicated with 11 units of insulin as per sliding scale. Dr. Braun made aware. Cont to assess patient status.
[2024-06-02 21:04] LABS: Glucose - Point of Care 312 mg/dl (70-99)
[2024-06-02] MEDS: MUCINEX 1200 MG PO (21:13)
[2024-06-02] MEDS: TOPROL XL PO (21:13)
[2024-06-02] MEDS: LANTUS 0.1 UNITS SC (21:13)
[2024-06-02] MEDS: RESTORIL 15 MG PO (21:14)
[2024-06-03] VITALS (7 sets, daily range): BP systolic 94–113; BP diastolic 52–60; PULSE 97–121; O2SAT 97; BMI 18.3
[2024-06-03] MEDS: ZOSYN 50 IV ×2 (05:12→12:23)
[2024-06-03 07:21] LABS: Hemoglobin 8.9 g/dL (13.0-18.0); Mean Corp Hgb Conc. 30.7 g/dL (33.0-37.0); Mean Corpuscular Hgb 30.1 pg (27.0-31.0); Mean Platelet Volume 11.7 fL (7.4-10.4); Platelet Count 134 10^3/uL (130-400); Red Blood Cell Count 2.96 10^6/uL (4.70-6.10); Red Cell Dist. Width 16.8 % (11.5-14.5); White Blood Cell Count 26.2 10^3/uL (4.8-10.8)
[2024-06-03 07:27] LABS: Glucose - Point of Care 123 mg/dl (70-99)
[2024-06-03 07:28] LABS: ALT (SGPT) 74 U/L (0-50); AST (SGOT) 65 U/L (17-59); Albumin 2.6 g/dl (3.5-5.0); Alkaline Phosphatase 76 U/L (38-126); Blood Urea Nitrogen 35 mg/dl (9-20); Calcium 8.9 mg/dl (8.4-10.2); Carbon Dioxide 25 mmol/L (22-30); Chloride 100 mmol/L (98-107); Estimated Creatinine Clearance 33 ml/min; Glucose 132 mg/dl (70-99); Magnesium 2.1 mg/dl (1.6-2.3); Potassium 3.9 mmol/L (3.5-5.1); Sodium 134 mmol/L (135-145); Total Bilirubin 0.7 mg/dl (0.2-1.3); Total Protein 4.8 g/dl (6.3-8.2); eGFR 54.85
[2024-06-03] MEDS: DUONEB 3 ML INH ×3 (07:33→15:39)
[2024-06-03] MEDS: TOPROL XL PO ×2 (08:42→21:32)
[2024-06-03] MEDS: LASIX PO (08:42)
[2024-06-03] MEDS: NOVOLOG FLEXPEN-MODERATE RESISTANCE SC (08:42)
[2024-06-03] MEDS: NOVOLOG FLEXPEN 3 UNITS SC ×3 (08:55→17:41)
[2024-06-03] MEDS: FARXIGA 10 MG PO (08:56)
[2024-06-03] MEDS: DELTASONE 10 MG PO (08:56)
[2024-06-03] MEDS: MUCINEX 1200 MG PO ×2 (08:56→21:31)
[2024-06-03] MEDS: HEPARIN 5000 UNITS SC ×2 (08:56→21:31)
[2024-06-03] MEDS: ASPIR LOW (ENTERIC COATED) 81 MG PO (08:56)
[2024-06-03] MEDS: PLAVIX 75 MG PO (08:57)
[2024-06-03] MEDS: VIBRAMYCIN 100 MG PO (08:57)
[2024-06-03] MEDS: VITAMIN D3 (cholecalciferol) 25 MCG PO (08:57)
[2024-06-03] MEDS: JANUVIA 100 MG PO (08:57)
[2024-06-03] MEDS: VITAMIN C 1000 MG PO (08:57)
--- NOTE | 2024-06-03 09:03 | W.PN.HOSP.TC ---
Today's Communication/Plan
-
abx as per ID
diuretics as per Cardio
glycemic control
PT/OT
wean O2 as tolerated
Assessment / Plan
Assessment / Plan
Physical Exam
General: no acute distress, appears comfortable, cachectic appearance
HEENT: NormoCephalic, Moist mucous membranes and Atraumatic
Respiratory: Some faint crackles noted on auscultation otherwise relatively clear
Cardiac: S1/S2 and Regular Rhythm; No Murmur or Rub
GI: Soft, Non Tender, Non Distended and Normal Bowel Sounds; No Organomegaly
Musculoskeletal: No Clubbing, No Cyanosis and No Edema
Skin: No Rash
Neuro: Awake alert conversant coherent
Psych: Calm
84M past medical history of bronchiectasis, multivessel CAD, HFpEF, nephrolithiasis, CLL, hypogammaglobulinemia receives IVIG every few months, anemia, hypertension, type 2 diabetes, first-degree AV block, hyperlipidemia, kidney stones, presenting
with shortness of breath for the past few days associate with productive cough. Also has increased weakness. No lower extremity swelling. He has lost weight recently. Denies fevers but has chills. Has been having symptoms for the past few weeks
and treated with 2 courses of doxycycline and 2 courses of prednisone. He had recent sputum culture pos for serratia resistant to doxycycline.
# Possible Sepsis (leukocytosis, tachycardia) secondary to persistent right middle lobe pneumonia
-though less likely sepsis as white count is actually improved from pt's baseline elevation d/t CLL
# History of bronchiectasis/ILD
-Chest x-ray shows patchy right middle lobe opacity suspicion for pneumonia
-CT chest from 05/26 showed diffuse waxing/waning infectious/inflammatory process/bronchiolitis
-COVID-negative, influenza negative
-Cardiac BNP of 9000, doesn't appear to be in acute HF, Cardio eval requested.
-follow repeat sputum culture
-strep antigen, Legionella antigen, MRSA neg
-Blood cultures NGTD
-cont home prednisone 10 mg daily for now
-Diuretics as per Cardio
-Pulmonary consult appreciated
-ID eval appreciated
-cont abx as per ID
-ECHO appreciated no significant change from prior
Multivessel CAD
-Continue aspirin, Plavix, statin
-Continue metoprolol
First-degree AV block
Chronic HFpEF
-Continue dapagliflozin Lasix Losartan Metoprolol with holding parameters
CLL
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
Chronic anemia
-Stable
Essential hypertension
-Continue losartan
Type 2 diabetes
-Uncontrolled Hyperglycemia possibly due to combination reg diet, steroids, and infection
-Hold metformin
-Continue dapagliflozin
-Insulin sliding scale
-carb controlled diet
-DM INSPECTOR SHELLS consult appreciated
-A1c 8.6
Hyperlipidemia
History of kidney stones
PT/OT eval
DNR/DNI
DVT prophylaxis�heparin
Regular diet
Discussed with pt and pt's son
I spent a total of 50 minutes with the patient or on the floor. More than 50% of this time involved counseling and coordination of care.
Anticipated Discharge: > 48 hours
Subjective/Interval History
-
Date of Service: June 03, 2024
no acute distress, appears comfortable at this time.
Objective Data
-
Labs:
Laboratory Results
06/03/24
06:38
WBC 26.2 H
Hgb 8.9 L
Hct 29.0 L
Plt Count 134
Sodium 134 L
Potassium 3.9
Chloride 100
Carbon Dioxide 25
BUN 35 H
Creatinine 1.3
Glucose 132 H
Calcium 8.9
Total Bilirubin 0.7
AST 65 H
ALT 74 H
Alkaline Phosphatase 76
Vital Signs:
Vital Signs
Temp Pulse Resp BP Pulse Ox
97.5 F 50 16 95/55 96
06/03/24 07:08 06/03/24 07:36 06/03/24 07:36 06/03/24 07:08 06/03/24 07:36
I&O
06/02/24 06/03/24 06/04/24
06:59 06:59 06:59
Intake Total 480 / 480 1810 / 1810
Output Total 1600 / 1600 1800 / 1800
Balance -1120 / -1120
[2024-06-03] MEDS: GLUCOPHAGE 1000 MG PO ×2 (09:58→17:42)
--- NOTE | 2024-06-03 11:59 | W.PN.CARDCBS ---
Today's Communication / Plan
-
Transition Lasix from oral to IV
Optimize goal-directed medical therapy for known CAD/ICM
Impression / Plan
-
Primary Salt Cutter: Dr. Saunders
Assessment:
-Acute Hypoxic respiratory failure due to bronchiectasis exacerbation
-Concern for component of HFrEF, proBNP 9100
-Abnormal cardiac troponin secondary to Nonischemic myocardial injury
-History of severe bronchiolitis/bronchiectasis, recurrent pneumonia
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
-CLL
-Severe multivessel CAD Status post cardiac catheterization in September 2023 with severely calcified LAD subtotally occluded, 80% OM, 70% RCAPrior discussions regarding medical management versus PCI versus CABG with plan for conservative treatment. CT
surgery felt patient was too high risk for CABG/MVR
-Hx NSTEMI in the setting of influenza infection July 2023
-Ischemic cardiomyopathy, EF 35-40% by echo 11/2023
-Moderate to severe mitral regurgitation
-Anemia/thrombocytopenia
-Hyperlipidemia
-DM 2
-HTN
ECHO 11/10/23: EF 35 to 40%, stage II diastolic dysfunction, moderately reduced LV systolic function with regional wall motion abnormalities including akinetic apex, apical septum, apical lateral wall, enlarged RV size, severe MR, mild TR, PAP 40 to
45 mmHg, mild [place]
Plan:
Acute on chronic worsening shortness of breath/cough with abnormal CT of the chest secondary to acute exacerbation of known severe bronchiectasis likely complicated by mild volume overloaded/heart failure decompensation
-proBNP worse than prior admissions now 9100
-Will continue Lasix But briefly transition to IV Lasix for the next couple of days to improve volume status
-Pulmonary consulted
-IV antibiotics
-O2 supplementation
Chronic HFrEF with mild decompensation; ischemic cardiomyopathy
-Briefly transition to IV Lasix but will likely resume Lasix 20 mg daily at time of discharge
-Continue efforts towards goal-directed medical therapy: Aspirin 81 mg daily, Plavix 75 mg daily, Farxiga 10 mg daily, losartan 25 mg daily, metoprolol succinate 25 mg twice daily and atorvastatin 40 mg daily. Per patient's outpatient notes has not
tolerated Aldactone due to hyperkalemia. Blood pressure will likely limit use of Entresto but can consider as an outpatient. Could also consider addition of Verquvo as outpatient
-He was being considered for MitraClip candidacy as an outpatient.
Mildly elevated cardiac troponin without chest pain and known severe three-vessel CAD
-Represents nonischemic myocardial injury in the setting of hypoxemia/pneumonia
-Repeat lipid profile
Sinus tachycardia/PACs
-Continue beta-hardik if okay with pulmonary.
-Monitor telemetry
CLL with Chronic anemia with intermittent thrombocytopenia�monitor
Progress Note - Salt Cutter
Subjective
Date of Service: June 03, 2024
Patient seen and examined overall feeling better with stable/improved shortness of breath. Denies chest pain or pressure.
Objective
Labs:
06/03/24 06:38
06/03/24 06:38
Labs
Hgb 8.9 g/dL (13.0-18.0) L 06/03/24 06:38
Hct 29.0 % (39.0-52.0) L 06/03/24 06:38
Plt Count 134 10^3/uL (130-400) 06/03/24 06:38
Sodium 134 mmol/L (135-145) L 06/03/24 06:38
Potassium 3.9 mmol/L (3.5-5.1) 06/03/24 06:38
BUN 35 mg/dl (9-20) H 06/03/24 06:38
Creatinine 1.3 mg/dL (0.7-1.3) 06/03/24 06:38
Glucose 132 mg/dl (70-99) H 06/03/24 06:38
Troponins
06/03/24
06:38
Troponin I 1.320 H*
Vital Signs and I&O:
Vital Signs
Temp Pulse Resp BP Pulse Ox
98.5 F 91 20 104/57 98
06/03/24 11:29 06/03/24 11:29 06/03/24 11:29 06/03/24 11:29 06/03/24 11:29
Vital Signs
Temp Pulse Resp BP Pulse Ox
98.5 F 91 20 104/57 98
06/03/24 11:29 06/03/24 11:29 06/03/24 11:29 06/03/24 11:29 06/03/24 11:29
Intake & Output
06/01/24 06/02/24 06/03/24 06/04/24
06:59 06:59 06:59 06:59
Intake Total 480 / 480 1810 / 1810
Output Total 1600 / 1600 1800 / 1800
Balance -1120 / -1120
Physical Exam
Physical Exam
GEN: NAD, AAOx3
HEENT: EOMI, MMM
LUNGS: Decreased BS at bases B/L without wheeze or rales
CV: Reg, S1/S2, 2/6 SM
ABD: soft, BS+, NT, ND
EXT: No edema
[2024-06-03] MEDS: LASIX 20 MG PO (12:12)
[2024-06-03 12:22] LABS: Glucose - Point of Care 174 mg/dl (70-99)
[2024-06-03] MEDS: NOVOLOG FLEXPEN-MODERATE RESISTANCE 1 UNITS SC (12:22)
--- NOTE | 2024-06-03 12:51 | W.PN.PUL3 ---
Today's Communication / Plan
-
Slightly better since admission, remains on IV abx and mucus clearance therapies
proBNP >9000, would consider changing to IV diuresis as volume component likely still contributing
SOB is multifactorial
Encouraged OOB, PT as able
Eventual home O2 eval
Assessment
-
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 Abnormal chest x-ray suggestive of
pneumonia. We were consulted on 06/02/2024 for evaluation.
Impression:
# Abnormal CT chest: Bronchiolitis/bilateral groundglass opacity/chronic bronchiectasis.
Differential diagnosis includes: Infectious bacterial/viral, atypical pulmonary edema given increased proBNP, opportunistic infection.
#Shortness of breath
#Leukocytosis - due to CLL
#Transaminitis
Volume overload, component, proBNP >9000
Conditions present prior admission
#7 mm calculus at the right UPJ with obstructive uropathy s/p Cystoscopy/Right ureteroscopy/Laser lithotripsy/Right ureteral stent placement 11/25/23
#Chronic anemia (Hb ranges between 8.5-10.5)
#Thrombocytopenia (chronic with waxing and waning plt counts)
#DM type II (A1C: 6.9)
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
#Severe MR
# History of multivessel coronary artery disease
# History of first-degree AV block
History of severe chronic bronchiectasis: Follows with Dr. Sun
On low-dose prednisone/nebulizers/secretion clearance interventions
Assessment and plan:
Clinical picture consistent with bronchiectasis exacerbation.
Other considerations given increased proBNP include heart failure given patient's history of severe MR and RV dysfunction on latest echo 11/2023.
In the outpatient setting patient was being worked up for recurrent microaspiration-a video barium swallow was ordered but was pending.
There were also discussions about possible bronchoscopy to rule out VERONIQUE/opportunistic infections.
-
Aggressive secretion clearance interventions:
Lung exam without bronchospasm-has bibasilar crackles.
Continue oxygen supplementation to maintain pulse ox above 90%. Currently on low rate supplemental oxygen.
Report chronic discolored sputum-yellow. No hemoptysis.
Continue Acapella device
DuoNebs 3 times a day
Mucinex
If unable to clear secretions may need to add vest therapy.
Patient remains on 10 mg of prednisone chronically for anti-inflammatory properties-no need for higher doses of systemic corticosteroids.
-
Low-grade fever noted 99 �F. Chronic leukocytosis. Follow-up.
Last sputum culture available 05/17/2024: Serratia marcescens S. Patient only received doxycycline with improvement. Possibly is partially treated.
Agree with Zosyn/vancomycin for now.
Sputum culture
Will obtain AFB times to rule out VERONIQUE.
Ultimately, if all cultures negative bronchoscopy for BAL, cultures will be necessary, discussed with daughter who was at the bedside, likely if necessary will happen next week.
After infection clears and VERONIQUE is rule out consider low-dose macrolide therapy for anti-inflammatory properties.
Speech evaluation: In the outpatient plan was to obtain a video barium swallow to rule out chronic recurrent aspiration.
Patient chronically on IVIG infusions
Follows up with hematology due to CLL
Differential diagnosis also includes volume overload, has severe MR.
Patient has been losing weight due to decreased p.o. intake, chronic coughing And muscle mass loss
proBNP is rising
Groundglass opacity may be explained by this.
Patient also has mild transaminitis
Currently on oral Lasix--consider IV lasix while inpatient
Consider cardiology evaluation while in the hospital
Given increased proBNP To 9130, repeat echocardiogram.
-
Weight loss/deconditioning: Physical therapy/Occupational Therapy consultation.
-
DVT prophylaxis-heparin subcu.
Imaging reviewed:
Chest x-ray: 06/01/2024There is patchy right middle lobe opacity.. The cardiomediastinal silhouettes are within the limits of normal. Calcific atherosclerotic changes of the thoracic aortic arch are noted. There is no pneumothorax, pleural effusion
or mediastinal shift.
-
CT chest 05/26/2024:Diffuse scattered areas of tree-in-bud nodules and groundglass densities, significantly progressed in the bilateral upper lobes and right middle lobe and slightly improved in the bilateral lower lobes.
No pleural effusions, pericardial effusions or pathologically enlarged noncalcified lymph nodes in the thorax. No pneumothorax.
No thoracic aortic aneurysm. Severe coronary artery calcifications.
Visualized portion of the upper abdomen is unremarkable.
Echocardiogram 11/10/2023: Reviewed CONCLUSIONS- Normal left ventricular chamber size. Mild concentric left ventricular hypertrophy. Moderate reduced left ventricular systolic function with regional wall motion abnormalities. Enlarged right
ventricular size. Severe mitral regurgitation. Mild tricuspid regurgitation. Estimated pulmonary artery pressure of 40-45 mmHg. Mild pulmonic regurgitation. Normal pericardium without effusion. The IVC is of normal size and demonstrates normal
respiratory variation. Compared to prior echo EF% remains reduced and mitral regurgitation is now severe.
Total time spent on this encounter __51__ minutes which includes review of history, physical exam, medications, laboratory data, personal review of imaging, extensive review of outpatient records, discussion with care team and respiratory therapy.
Subjective Data
-
Date of Service:
Date of Service: June 03, 2024
Chief Complaint: Pulmonary Follow Up
Subjective:
Feels better since admission, but still has VARGAS
Cough ongoing, but better
Objective Data
Data Reviewed
Vital Signs / I&O / Oxygen:
Vital Signs
Temp Pulse Resp BP Pulse Ox
98.5 F 65 16 104/57 98
06/03/24 11:29 06/03/24 12:10 06/03/24 12:10 06/03/24 11:29 06/03/24 11:29
Intake and Output
06/02/24 06/03/24 06/04/24
06:59 06:59 06:59
Intake Total 480 / 480 1810 / 1810
Output Total 1600 / 1600 1800 / 1800
Balance -1120 / -1120
SaO2 98
Nasal Cannula flow liters per 3
minute
Physical Exam
General: Comfortable and Other (NAD)
HEENT: Normocephalic, Anicteric and Moist Mucous Membranes
Cardiovascular: S1-S2
Respiratory: Wheeze (L), Crackles and Non-Labored Respirations
GI: Soft, Non Distended and Non Tender
Neurology: Awake, Alert, Oriented and No Motor Deficits
Skin: Warm, Dry and Good Color
Labs/Micro/Reports
Lab Data
06/03/24 06:38
06/03/24 06:38
Microbiology
06/01/24 17:28 Sputum Respiratory Culture - Preliminary
Usual Respiratory Sheri
06/01/24 17:28 Sputum Gram Stain - Preliminary
06/01/24 13:40 Blood/Venous Blood Culture - Preliminary
No Growth in 24 hours- Final report to follow
06/01/24 13:27 Blood/Venous Blood Culture - Preliminary
No Growth in 24 hours- Final report to follow
06/01/24 15:53 Nose Nasal Screen MRSA (PCR) - Final
MRSA not detected - performed by PCR methodology.
06/01/24 15:53 Urine Legionella Urinary Antigen - Final
Negative for Legionella pneumophila Serogroup 1 antigen.
A negative result does not rule out the possiblity of
Legionella infection due to other serogroups or species of
Legionella. Clinical correlation is recommended.
06/01/24 15:53 Urine Streptococcus pneumoniae Antigen (M - Final
Negative for Streptococcus pneumoniae antigen.
A negative result does not exclude infection with
Streptococcus pneumoniae. Clinical correlation is
recommended.
06/01/24 12:24 Nasal Swab Influenza Types A & B (NIDA) - Final
Negative for Influenza A & B, NAAT
Negative results must be combined with clinical observations
and patient history.
Nucleic Acid Amplification test (NAAT)performed on the
[employer] platform.
--- NOTE | 2024-06-03 14:41 | CON.ID ---
Consultation
-
Date/Time Consultation Requested: 06/02/24 15:04
Date/Time Consultation Performed: 06/03/24 14:41
Requesting Provider: Dr Braun
Performing Provider: Dr Núñez
Reason for Consultation: pneumonia immunocompromised
Chief Complaint / Past History
Chief Complaint
shortness of breath
History of Present Illness
Mr Lopez is an 84 year old male with history of bronchiectasis, hypogammaglobulinemia on IVIG (last dose 1 week ago), CLL, CAD, CHF who presented here 06/01 for shortness of breath for several days, cough, weakness. + chills no fevers. No lower
extremity swelling and he has lost weight recently. Reports two previous courses of doxycycline and prednisone. Of note reportedly recently with a respiratory isolate resistant to doxycycline and it was decided not to treat this isolate. Culture
was not available in [facility] my review. Reports no coughing with meals. There has previously been concern for aspiration.
Since arrival here patient has been afebrile, bp initially stable (mildly hypotensive overnight) and currently stable, on arrivlal wbc 27, peaked at 39 and now 26, hgb 8.9, plt 134, L shift is noted, cr initially 1.1 and today 1.3 (baseline 1.0),
a1c 8.6, t bili 0.7, ast 65, alt 74, bnp 9000, covid ag negative, 06/01 CXR: Patchy right middle lobe opacity suspicious for pneumonia, 05/26 CT chest w/o contrast: bronchiolitis, resp culture usual resp sherri 06/01, legionella/s pneumo/flu ags
negative, blood cultures x2 no growth at 48 hrs, 05/17 sputum cutlure serratia resistant to doxycycline and augmentin. ID is consulted for assistance with management.
Past History
Additional Past Medical History:
DM type II, hyperlipidemia, hypertension, CAD, history of right rotator cuff tear, history of CLL, mitral regurgitation, low immunoglobulin level on IVIG, history of renal stones, bifascicular block, history of influenza B (07/2022), history of
sinusitis, chronic rhinitis
Additional Past Surgical History:
Hernia repair, right-sided kidney stone with lithotripsy and stent placement (October 2020)
Allergy History:
No Known Allergies Allergy (Verified 06/01/24 11:35)
Medications Reviewed: Yes
Social History
Tobacco: Non-Smoker
Alcohol: None
Drug: None
Family History
Family History: Not Pertinent
Review of Systems
Review of Systems
General: Negative Fever or Chills
All systems: All other systems were reviewed and were negative
Vital Signs
Temp Pulse Resp BP Pulse Ox
98.5 F 65 16 104/57 98
06/03/24 11:29 06/03/24 12:10 06/03/24 12:10 06/03/24 11:29 06/03/24 11:29
Physical Exam
Physical Exam
Constitutional: No Acute Distress and Cachetic
Cardiovascular: Regular Rate and S1/S2; Negative Murmur or Rub
Pulmonary: Symmetric, Coarse and Non Labored; Negative Wheezes, Rales or Rhonchi
Gastrointestinal: Soft, Non Tender, Non Distended and Normal Bowel Sounds
Skin: Warm and Dry; Negative Rash or Jaundice
Lab / Diagnostic Study Results
06/03/24 06:38
06/03/24 06:38
Abs Immat Gran (auto) 0.1 10^3/uL (0-0.05) H 06/02/24 10:37
Absolute Neuts (auto) 7.7 10^3/uL (1.4-6.5) H 06/02/24 10:37
Absolute Lymphs (auto) 31.6 10^3/uL (1.2-3.4) H 06/02/24 10:37
Absolute Monos (auto) 0.1 10^3/uL (0.1-0.6) 06/02/24 10:37
Absolute Basos (auto) 0.0 10^3/uL (0-0.2) 06/02/24 10:37
Immature Gran % 0.3 % (0-0.5) 06/02/24 10:37
Neutrophils % 19.5 % (42.2-75.2) L 06/02/24 10:37
Lymphocytes % 79.5 % (20.5-51.1) H 06/02/24 10:37
Monocytes % 0.3 % (1.7-9.3) L 06/02/24 10:37
Eosinophils % 0.3 % (0-6) 06/02/24 10:37
Basophils % 0.1 % (0-2) 06/02/24 10:37
Microbiology Results
Micro:
06/01/24 13:40 Blood Culture - Preliminary
Blood/Venous No Growth in 48 hours- Final report to follow
06/01/24 13:27 Blood Culture - Preliminary
Blood/Venous No Growth in 48 hours- Final report to follow
06/01/24 17:28 Respiratory Culture - Preliminary
Sputum Usual Respiratory Sherri
Gram Stain - Preliminary
06/01/24 15:53 Nasal Screen MRSA (PCR) - Final
Nose MRSA not detected - performed by PCR methodology.
06/01/24 15:53 Legionella Urinary Antigen - Final
Urine Negative for Legionella pneumophila Serogroup 1 antigen.
A negative result does not rule out the possiblity of
Legionella infection due to other serogroups or species of
Legionella. Clinical correlation is recommended.
Streptococcus pneumoniae Antigen (M - Final
Negative for Streptococcus pneumoniae antigen.
A negative result does not exclude infection with
Streptococcus pneumoniae. Clinical correlation is
recommended.
06/01/24 12:24 Influenza Types A & B (NIDA) - Final
Nasal Swab Negative for Influenza A & B, NAAT
Negative results must be combined with clinical observations
and patient history.
Nucleic Acid Amplification test (NAAT)performed on the
[employer] platform.
Assessment / Plan
Possible Pneumonia
Shortness of breath
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
CLL - unknown baseline WBC count
Leukocytosis - CLL and on steroids
Bronchiectasis
DM2
CKD
Cachexia
- sputum culture 06/01: ususal resp sherri; 05/17 Serratia - resistant to tetracycline and augmentin
- blood cultures x2 in progress
- legionella/s pneumo/flu/covid ags negative
- CT chest - bronchiolitis
- agree with checking sputum for NTM - AFB x3, no need for isolation, do not suspect MTB
- bronchoscopy may be pursued pending course
- agree that symptoms are multifactorial
- viral, pulmonary edema, NTM, opportunistic infection all possibilities
- start ciprofloxacin to complete 5 days of rx (less effect on qtc and s pneumo not seen in culture); stop vancomycin/zosyn
- currently on prednisone 10 mg
follow clinically
--- NOTE | 2024-06-03 15:04 | CM ---
CM met with Atul who lives alone in a 1SH, 4STE; laundry is in the basement. [employer] he has been independent ambulation and ADLs. Pt reports owning a RW, commode,and shower chair at home.
PT and OT have evaluated for needs and recommend homecare services at discharge.
CM to follow up tomorrow after he considers home care services and discusses with his daughter.
[2024-06-03 16:55] LABS: Glucose - Point of Care 325 mg/dl (70-99)
[2024-06-03] MEDS: NOVOLOG FLEXPEN-MODERATE RESISTANCE 7 UNITS SC (17:41)
[2024-06-03] MEDS: COLACE 100 MG PO (17:42)
[2024-06-03 21:05] LABS: Glucose - Point of Care 226 mg/dl (70-99)
[2024-06-03] MEDS: CIPRO 500 MG PO (21:31)
[2024-06-03] MEDS: RESTORIL 15 MG PO (21:32)
[2024-06-03] MEDS: LANTUS 0.1 UNITS SC (21:32)
[2024-06-04 03:18] VITALS: BP 99/55
[2024-06-04 06:00] VITALS: BMI 17.8
[2024-06-04 06:55] LABS: Hematocrit 27.1 % (39.0-52.0); Hemoglobin 8.9 g/dL (13.0-18.0); Mean Corp Hgb Conc. 32.8 g/dL (33.0-37.0); Mean Corpuscular Hgb 31.1 pg (27.0-31.0); Mean Corpuscular Volume 94.8 fL (80.0-94.0); Mean Platelet Volume 12.3 fL (7.4-10.4); Platelet Count 134 10^3/uL (130-400); Red Blood Cell Count 2.86 10^6/uL (4.70-6.10); Red Cell Dist. Width 16.7 % (11.5-14.5); White Blood Cell Count 23.4 10^3/uL (4.8-10.8)
[2024-06-04 07:09] LABS: Blood Urea Nitrogen 31 mg/dl (9-20); Calcium 8.9 mg/dl (8.4-10.2); Carbon Dioxide 24 mmol/L (22-30); Chloride 100 mmol/L (98-107); Estimated Creatinine Clearance 41 ml/min; Glucose 71 mg/dl (70-99); HDL Cholesterol 30 mg/dl; LDL Cholesterol, Calculated 40 mg/dl; Phosphorus 3.2 mg/dl (2.5-4.5); Potassium 3.6 mmol/L (3.5-5.1); Sodium 134 mmol/L (135-145); Total Cholesterol 80 mg/dl (50-199); Triglyceride 50 mg/dl (10-149); Very Low Density Lipoprotein 10 mg/dl (0-30); eGFR > 60.00
[2024-06-04 07:23] LABS: Glucose - Point of Care 82 mg/dl (70-99)
--- NOTE | 2024-06-04 07:44 | W.PN.HOSP.TC ---
Today's Communication/Plan
-
cont abx as per ID
diuresis as per Cardio
VSE Wednesday
wean O2 supplementation as tolerated
Glycemic control
Assessment / Plan
Assessment / Plan
Physical Exam
General: no acute distress, appears comfortable, cachectic appearance
HEENT: NormoCephalic, Moist mucous membranes and Atraumatic
Respiratory: Some faint crackles noted on auscultation otherwise relatively clear
Cardiac: S1/S2 and Regular Rhythm; No Murmur or Rub
GI: Soft, Non Tender, Non Distended and Normal Bowel Sounds; No Organomegaly
Musculoskeletal: No Clubbing, No Cyanosis and No Edema
Skin: No Rash
Neuro: Awake alert conversant coherent
Psych: Calm
84M past medical history of bronchiectasis, multivessel CAD, HFpEF, nephrolithiasis, CLL, hypogammaglobulinemia receives IVIG every few months, anemia, hypertension, type 2 diabetes, first-degree AV block, hyperlipidemia, kidney stones, presenting
with shortness of breath for the past few days associate with productive cough. Also has increased weakness. No lower extremity swelling. He has lost weight recently. Denies fevers but has chills. Has been having symptoms for the past few weeks
and treated with 2 courses of doxycycline and 2 courses of prednisone. He had recent sputum culture pos for serratia resistant to doxycycline.
# Possible Sepsis (leukocytosis, tachycardia) secondary to persistent right middle lobe pneumonia
-though less likely sepsis as white count is actually improved from pt's baseline elevation d/t CLL
# History of bronchiectasis/ILD
-Chest x-ray shows patchy right middle lobe opacity suspicion for pneumonia
-CT chest from 05/26 showed diffuse waxing/waning infectious/inflammatory process/bronchiolitis
-COVID-negative, influenza negative
-Neg sputum culture
-strep antigen, Legionella antigen, MRSA neg
-Blood cultures NGTD
-cont home prednisone 10 mg daily for now
-Diuretics as per Cardio
-Pulmonary consult appreciated
-ID eval appreciated empiric vanc zosyn switched to Cipro for 5 days
-cont abx as per ID
-ECHO appreciated no significant change from prior
-VSE Mon evaluation for possible aspiration contributing to symptoms
Multivessel CAD
-Continue aspirin, Plavix, statin
-Continue metoprolol
First-degree AV block
Chronic HFpEF
-Continue dapagliflozin Lasix Losartan Metoprolol with holding parameters
-Cardiac BNP of 9000, doesn't appear to be in acute HF
-Cardio eval Appreciated Lasix switched to IV for now, cont
CLL
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
Chronic anemia
-Stable
Essential hypertension
-Continue losartan
Type 2 diabetes
-Uncontrolled Hyperglycemia possibly due to combination reg diet, steroids, and infection
-Hold metformin
-Continue dapagliflozin
-Insulin sliding scale
-carb controlled diet
-DM [facility] consult appreciated
-A1c 8.6
Hyperlipidemia
History of kidney stones
PT/OT eval appreciated HH
DNR/DNI
DVT prophylaxis�heparin
Regular diet
Discussed with pt and pt's daughter Adri
I spent a total of 50 minutes with the patient or on the floor. More than 50% of this time involved counseling and coordination of care.
Anticipated Discharge: 24 - 48 hours
Subjective/Interval History
-
Date of Service: June 04, 2024
No acute distress resting comfortably in bed on 3L NC. Overall reports feeling well. Denies new acute issues at this time.
Objective Data
-
Labs:
Laboratory Results
06/04/24
04:46
WBC 23.4 H
Hgb 8.9 L
Hct 27.1 L
Plt Count 134
Sodium 134 L
Potassium 3.6
Chloride 100
Carbon Dioxide 24
BUN 31 H
Creatinine 1.0
Glucose 71
Calcium 8.9
Vital Signs:
Vital Signs
Temp Pulse Resp BP Pulse Ox
98.7 F 83 20 99/55 99
06/04/24 03:18 06/04/24 03:18 06/04/24 03:18 06/04/24 03:18 06/04/24 03:18
I&O
06/03/24 06/04/24 06/05/24
06:59 06:59 06:59
Intake Total 1810 / 1810 660 / 660
Output Total 1800 / 1800 300 / 300
Balance 360 / 360
[2024-06-04 07:48] VITALS: BP 120/66
[2024-06-04] MEDS: DUONEB 3 ML INH ×3 (08:19→15:52)
[2024-06-04] MEDS: NOVOLOG FLEXPEN-MODERATE RESISTANCE SC ×2 (09:50→12:41)
[2024-06-04] MEDS: NOVOLOG FLEXPEN 3 UNITS SC ×3 (09:51→17:07)
[2024-06-04] MEDS: CIPRO 500 MG PO ×2 (09:57→20:08)
[2024-06-04] MEDS: ASPIR LOW (ENTERIC COATED) 81 MG PO (09:57)
[2024-06-04] MEDS: LASIX 20 MG IV (09:58)
[2024-06-04] MEDS: DELTASONE 10 MG PO (09:58)
[2024-06-04] MEDS: JANUVIA 100 MG PO (09:58)
[2024-06-04] MEDS: FARXIGA 10 MG PO (09:58)
[2024-06-04] MEDS: HEPARIN 5000 UNITS SC ×2 (09:58→20:09)
[2024-06-04] MEDS: MUCINEX 1200 MG PO ×2 (09:58→20:08)
[2024-06-04] MEDS: GLUCOPHAGE 1000 MG PO ×2 (09:58→17:06)
[2024-06-04] MEDS: VITAMIN D3 (cholecalciferol) 25 MCG PO (09:59)
[2024-06-04] MEDS: VITAMIN C 1000 MG PO (09:59)
[2024-06-04] MEDS: PLAVIX 75 MG PO (09:59)
[2024-06-04] MEDS: TOPROL XL 25 MG PO ×2 (09:59→20:09)
[2024-06-04 11:29] VITALS: BP 139/71
[2024-06-04 11:52] LABS: Glucose - Point of Care 143 mg/dl (70-99)
--- NOTE | 2024-06-04 12:22 | W.PN.PUL3 ---
Today's Communication / Plan
-
Receiving IV lasix with increased UO
Continue abx for now, sputum repeat already negative, no indication for more invasive testing
PT/OT, OOB, rehab would be beneficial
Continue care
Assessment
-
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 Abnormal chest x-ray suggestive of
pneumonia. We were consulted on 06/02/2024 for evaluation.
Impression:
# Abnormal CT chest: Bronchiolitis/bilateral groundglass opacity/chronic bronchiectasis.
Differential diagnosis includes: Infectious bacterial/viral, atypical pulmonary edema given increased proBNP, opportunistic infection.
#Shortness of breath
#Leukocytosis - due to CLL
#Transaminitis
Volume overload, component, proBNP >9000
Conditions present prior admission
#7 mm calculus at the right UPJ with obstructive uropathy s/p Cystoscopy/Right ureteroscopy/Laser lithotripsy/Right ureteral stent placement 11/25/23
#Chronic anemia (Hb ranges between 8.5-10.5)
#Thrombocytopenia (chronic with waxing and waning plt counts)
#DM type II (A1C: 6.9)
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
#Severe MR
# History of multivessel coronary artery disease
# History of first-degree AV block
History of severe chronic bronchiectasis: Follows with Dr. Sun
On low-dose prednisone/nebulizers/secretion clearance interventions
Assessment and plan:
Clinical picture consistent with bronchiectasis exacerbation.
Other considerations given increased proBNP include heart failure given patient's history of severe MR and RV dysfunction on latest echo 11/2023.
In the outpatient setting patient was being worked up for recurrent microaspiration-a video barium swallow was ordered but was pending.
There were also discussions about possible bronchoscopy to rule out VERONIQUE/opportunistic infections.
-
Aggressive secretion clearance interventions:
Lung exam without bronchospasm-has bibasilar crackles.
Continue oxygen supplementation to maintain pulse ox above 90%. Currently on low rate supplemental oxygen.
Report chronic discolored sputum-yellow. No hemoptysis.
Continue Acapella device
DuoNebs 3 times a day
Mucinex
If unable to clear secretions may need to add vest therapy.
Patient remains on 10 mg of prednisone chronically for anti-inflammatory properties-no need for higher doses of systemic corticosteroids.
-
Low-grade fever noted 99 �F. Chronic leukocytosis. Follow-up.
Last sputum culture available 05/17/2024: Serratia marcescens S. Patient only received doxycycline with improvement. Possibly is partially treated.
Agree with Zosyn/vancomycin for now.
Sputum culture 05/17 + serratia
Repeat sputum culture 05/22 negative
Speech evaluation: In the outpatient plan was to obtain a video barium swallow to rule out chronic recurrent aspiration.
Patient chronically on IVIG infusions
Follows up with hematology due to CLL
Differential diagnosis also includes volume overload, has severe MR.
Patient has been losing weight due to decreased p.o. intake, chronic coughing And muscle mass loss
proBNP is rising
Groundglass opacity may be explained by this.
Patient also has mild transaminitis
Currently on oral Lasix--consider IV lasix while inpatient
Consider cardiology evaluation while in the hospital
Given increased proBNP To 9130, repeat echocardiogram.
-
Weight loss/deconditioning: Physical therapy/Occupational Therapy consultation.
-
DVT prophylaxis-heparin subcu.
Imaging reviewed:
Chest x-ray: 06/01/2024There is patchy right middle lobe opacity.. The cardiomediastinal silhouettes are within the limits of normal. Calcific atherosclerotic changes of the thoracic aortic arch are noted. There is no pneumothorax, pleural effusion
or mediastinal shift.
-
CT chest 05/26/2024:Diffuse scattered areas of tree-in-bud nodules and groundglass densities, significantly progressed in the bilateral upper lobes and right middle lobe and slightly improved in the bilateral lower lobes.
No pleural effusions, pericardial effusions or pathologically enlarged noncalcified lymph nodes in the thorax. No pneumothorax.
No thoracic aortic aneurysm. Severe coronary artery calcifications.
Visualized portion of the upper abdomen is unremarkable.
Echocardiogram 11/10/2023: Reviewed CONCLUSIONS- Normal left ventricular chamber size. Mild concentric left ventricular hypertrophy. Moderate reduced left ventricular systolic function with regional wall motion abnormalities. Enlarged right
ventricular size. Severe mitral regurgitation. Mild tricuspid regurgitation. Estimated pulmonary artery pressure of 40-45 mmHg. Mild pulmonic regurgitation. Normal pericardium without effusion. The IVC is of normal size and demonstrates normal
respiratory variation. Compared to prior echo EF% remains reduced and mitral regurgitation is now severe.
Total time spent on this encounter __51__ minutes which includes review of history, physical exam, medications, laboratory data, personal review of imaging, extensive review of outpatient records, discussion with care team and respiratory therapy.
Subjective Data
-
Date of Service:
Date of Service: June 04, 2024
Chief Complaint: Pulmonary Follow Up
Subjective:
No new events ON, feels SOB still present
Objective Data
Data Reviewed
Vital Signs / I&O / Oxygen:
Vital Signs
Temp Pulse Resp BP Pulse Ox
98.1 F 90 22 139/71 93
06/04/24 11:29 06/04/24 11:45 06/04/24 11:45 06/04/24 11:29 06/04/24 11:29
Intake and Output
06/03/24 06/04/24 06/05/24
06:59 06:59 06:59
Intake Total 1810 / 1810 660 / 660
Output Total 1800 / 1800 300 / 300
Balance 10 10 360 / 360
SaO2 93
Nasal Cannula flow liters per 3
minute
Physical Exam
General: Comfortable and Other (NAD)
HEENT: Normocephalic, Anicteric and Moist Mucous Membranes
Cardiovascular: S1-S2
Respiratory: Clear and Non-Labored Respirations
GI: Soft, Non Distended and Non Tender
Neurology: Awake, Alert, Oriented and No Motor Deficits
Skin: Warm, Dry and Good Color
Labs/Micro/Reports
Lab Data
06/04/24 04:46
06/04/24 04:46
Microbiology
06/01/24 17:28 Sputum Respiratory Culture - Final
Usual Respiratory Sheri
06/01/24 17:28 Sputum Gram Stain - Final
06/01/24 13:40 Blood/Venous Blood Culture - Preliminary
No Growth in 48 hours- Final report to follow
06/01/24 13:27 Blood/Venous Blood Culture - Preliminary
No Growth in 48 hours- Final report to follow
06/01/24 15:53 Nose Nasal Screen MRSA (PCR) - Final
MRSA not detected - performed by PCR methodology.
06/01/24 15:53 Urine Legionella Urinary Antigen - Final
Negative for Legionella pneumophila Serogroup 1 antigen.
A negative result does not rule out the possiblity of
Legionella infection due to other serogroups or species of
Legionella. Clinical correlation is recommended.
06/01/24 15:53 Urine Streptococcus pneumoniae Antigen (M - Final
Negative for Streptococcus pneumoniae antigen.
A negative result does not exclude infection with
Streptococcus pneumoniae. Clinical correlation is
recommended.
06/01/24 12:24 Nasal Swab Influenza Types A & B (NIDA) - Final
Negative for Influenza A & B, NAAT
Negative results must be combined with clinical observations
and patient history.
Nucleic Acid Amplification test (NAAT)performed on the
[employer] platform.
[2024-06-04 14:49] VITALS: BP 121/66
--- NOTE | 2024-06-04 16:30 | CM ---
CM continues to follow for O2 needs; plan for home O2 eval prior to discharge.
[2024-06-04 16:58] LABS: Glucose - Point of Care 176 mg/dl (70-99)
--- NOTE | 2024-06-04 17:02 | W.PN.CARDCBS ---
Today's Communication / Plan
-
IV diuresis
Impression / Plan
-
Primary Sheep Sorter: Dr. Saunders
Assessment:
-Acute Hypoxic respiratory failure due to bronchiectasis exacerbation
-Concern for component of HFrEF, proBNP 9100
-Abnormal cardiac troponin secondary to Nonischemic myocardial injury
-History of severe bronchiolitis/bronchiectasis, recurrent pneumonia
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
-CLL
-Severe multivessel CAD Status post cardiac catheterization in September 2023 with severely calcified LAD subtotally occluded, 80% OM, 70% RCAPrior discussions regarding medical management versus PCI versus CABG with plan for conservative treatment. CT
surgery felt patient was too high risk for CABG/MVR
-Hx NSTEMI in the setting of influenza infection July 2023
-Ischemic cardiomyopathy, EF 35-40% by echo 11/2023
-Moderate to severe mitral regurgitation
-Anemia/thrombocytopenia
-Hyperlipidemia
-DM 2
-HTN
ECHO 11/10/23: EF 35 to 40%, stage II diastolic dysfunction, moderately reduced LV systolic function with regional wall motion abnormalities including akinetic apex, apical septum, apical lateral wall, enlarged RV size, severe MR, mild TR, PAP 40 to
45 mmHg, mild TN
Plan:
Acute on chronic worsening shortness of breath/cough with abnormal CT of the chest secondary to acute exacerbation of known severe bronchiectasis likely complicated by mild volume overloaded/heart failure decompensation
-proBNP worse than prior admissions now 9130
-Transitioned to IV Lasix for the next couple of days to improve volume status [Takes Lasix 20 mg daily at home]
-Pulmonary And ID consulted
-COVID, flu, Legionella assays negative
-IV antibiotics
-O2 supplementation
Chronic HFrEF with mild decompensation; ischemic cardiomyopathy
-Briefly transition to IV Lasix but will likely resume Lasix 20 mg daily at time of discharge
-Continue efforts towards goal-directed medical therapy: Aspirin 81 mg daily, Plavix 75 mg daily, Farxiga 10 mg daily, losartan 25 mg daily, metoprolol succinate 25 mg twice daily and atorvastatin 40 mg daily. Per patient's outpatient notes has not
tolerated Aldactone due to hyperkalemia. Blood pressure will likely limit use of Entresto but can consider as an outpatient. Could also consider addition of Verquvo as outpatient
-He was being considered for MitraClip candidacy as an outpatient.
Mildly elevated cardiac troponin without chest pain and known severe three-vessel CAD
-Represents nonischemic myocardial injury in the setting of hypoxemia/pneumonia
-Repeat lipid [id number]/1/2024 excellent. LDL 40, triglycerides 50. Total cholesterol 80.
Sinus tachycardia/PACs
-Continue beta-hardik if okay with pulmonary.
-Monitor telemetry
CLL with Chronic anemia with intermittent thrombocytopenia�monitor
Progress Note - Sheep Sorter
Subjective
Date of Service: June 04, 2024
Patient seen and examined with no new events overnight. Still short of breath with minimal activity. Denies chest pain or pressure.
Objective
Labs:
06/04/24 04:46
06/04/24 04:46
Labs
Hgb 8.9 g/dL (13.0-18.0) L 06/04/24 04:46
Hct 27.1 % (39.0-52.0) L 06/04/24 04:46
Plt Count 134 10^3/uL (130-400) 06/04/24 04:46
Sodium 134 mmol/L (135-145) L 06/04/24 04:46
Potassium 3.6 mmol/L (3.5-5.1) 06/04/24 04:46
BUN 31 mg/dl (9-20) H 06/04/24 04:46
Creatinine 1.0 mg/dL (0.7-1.3) 06/04/24 04:46
Glucose 71 mg/dl (70-99) 06/04/24 04:46
Troponins
06/03/24 06/03/24
06:38 12:14
Troponin I 1.320 H* 0.910 H* D
Vital Signs and I&O:
Vital Signs
Temp Pulse Resp BP Pulse Ox
98.5 F 90 16 121 98
06/04/24 14:49 06/04/24 15:53 06/04/24 15:53 06/04/24 14:49 06/04/24 14:49
Vital Signs
Temp Pulse Resp BP Pulse Ox
98.5 F 90 16 98
06/04/24 14:49 06/04/24 15:53 06/04/24 15:53 06/04/24 14:49 06/04/24 14:49
Intake & Output
06/02/24 06/03/24 06/04/24 06/05/24
06:59 06:59 06:59 06:59
Intake Total 480 / 480 1810 / 1810 660 / 660
Output Total 1600 / 1600 1800 / 1800 300 / 300
Balance -1120 / -1120 10 360 / 360
Physical Exam
Physical Exam
GEN: NAD, AAOx3
HEENT: EOMI, MMM
LUNGS: Decreased BS at bases B/L without wheeze or rales
CV: Reg, S1/S2, 2/6 SM
ABD: soft, BS+, NT, ND
EXT: No edema
[2024-06-04] MEDS: COLACE PO (17:03)
[2024-06-04] MEDS: NOVOLOG FLEXPEN-MODERATE RESISTANCE 1 UNITS SC (17:06)
[2024-06-04 19:35] VITALS: BP 110/58
[2024-06-04 21:28] LABS: Glucose - Point of Care 190 mg/dl (70-99)
[2024-06-04] MEDS: LANTUS 0.1 UNITS SC (22:04)
[2024-06-04] MEDS: RESTORIL 15 MG PO (22:04)
[2024-06-04 23:17] VITALS: BP 97/59
[2024-06-05 01:18] LABS: Blood Urea Nitrogen 31 mg/dl (9-20); Calcium 9.2 mg/dl (8.4-10.2); Carbon Dioxide 26 mmol/L (22-30); Chloride 99 mmol/L (98-107); Estimated Creatinine Clearance 41 ml/min; Glucose 85 mg/dl (70-99); Magnesium 1.9 mg/dl (1.6-2.3); Potassium 3.9 mmol/L (3.5-5.1); Sodium 132 mmol/L (135-145); eGFR > 60.00
[2024-06-05 03:18] VITALS: BP 95/46
--- NOTE | 2024-06-05 05:36 | PTCARENOTE ---
Pt aaox3 able to make his needs known,on bed alarm for safety.Pt had 20 beats of VTach at night, pt asymptomatic. Denies of any chest pain or any discomfort.ONLINE COMMUNICATIONS SPECIALIST constitutional law professor made aware of it. Stat Labs were sent on pt BMP,Mg.BENEFITS ANALYST was made aware of pt lab
results.No new orders at this time.Plan of care continued.
[2024-06-05 06:00] VITALS: BMI 17.5
[2024-06-05 07:25] VITALS: BP 101/55
[2024-06-05] MEDS: DUONEB 3 ML INH ×3 (07:26→19:49)
[2024-06-05 07:36] LABS: Glucose - Point of Care 68 mg/dl (70-99)
[2024-06-05 07:52] LABS: Glucose - Point of Care 64 mg/dl (70-99)
[2024-06-05] MEDS: NOVOLOG FLEXPEN SC (07:59)
--- NOTE | 2024-06-05 08:10 | PN.DE.MGMTRT ---
Insulin Management
- -
06/05/2024: Diabetes management F/U:
84 year old male with PMH: Bronchiectasis, MVCAD, HFpEF, nephrolithiasis, CLL, hypogammaglobulinemia status post IVIG last week, anemia, HTN, T2DM, 1st degree AV block, HLD, kidney stones, presenting with shortness of breath for the past few days
associate with productive cough likely due to PNA.
Was taking Metformin 500mg Q PM and Farxiga 10mg daily GLASS WASHER. A1C 8.6%, Cr 1.0, eGFR >60
Pt was off the floor for video swallow exam at time of my visit, unable to interview.
Noted for an episode of Hypoglycemia of 64 this AM that improved after treatment.
06/04 premeal glucose range 82 to 176, Current diabetes regimen includes: Lantus 10 units @HS, Metformin 1000mg BID, Farxiga 10mg daily and low corrective insulin with meals.
Will STOP Lantus 10 units all together. Cont Januvia 100mg daily, Metformin 1000mg BID and Farxiga 10mg daily.
Will avoid aggressive insulin dosing to reduce risk of hypoglycemia in this patient of advanced age.
Plan of care discussed with Pt's Nurse
Diabetes History
- -
Type of Diabetes: 2
Pre-Admission Diabetes Regimen
06/05/24
00:57
Creatinine 1.0
Lab Results
Hemoglobin A1c 8.6 % (4.0-5.6) H 06/02/24 10:37
Insulin Pump Settings
IP Diabetes Regimen
06/04/24 06/04/24 06/04/24
11:50 16:56 21:27
Glucose
POC Glucose 143 H 176 H 190 H
06/05/24 06/05/24 06/05/24
00:57 07:25 07:49
Glucose 85
POC Glucose 68 L 64 L
Patient Education
[2024-06-05 08:27] LABS: Glucose - Point of Care 119 mg/dl (70-99)
[2024-06-05] MEDS: NOVOLOG FLEXPEN-MODERATE RESISTANCE SC ×2 (08:32→12:56)
[2024-06-05] MEDS: LASIX 20 MG IV (08:35)
[2024-06-05] MEDS: HEPARIN 5000 UNITS SC ×2 (08:38→20:54)
[2024-06-05] MEDS: PLAVIX 75 MG PO (08:39)
[2024-06-05] MEDS: VITAMIN D3 (cholecalciferol) 25 MCG PO (08:39)
[2024-06-05] MEDS: TOPROL XL 25 MG PO ×2 (08:39→20:54)
[2024-06-05] MEDS: CIPRO 500 MG PO ×2 (08:39→20:49)
[2024-06-05] MEDS: DELTASONE 10 MG PO (08:40)
[2024-06-05] MEDS: MUCINEX 1200 MG PO ×2 (08:40→20:49)
[2024-06-05] MEDS: ASPIR LOW (ENTERIC COATED) 81 MG PO (08:41)
[2024-06-05] MEDS: VITAMIN C 1000 MG PO (08:41)
[2024-06-05] MEDS: FARXIGA 10 MG PO (08:47)
[2024-06-05] MEDS: JANUVIA 100 MG PO (08:51)
[2024-06-05] MEDS: GLUCOPHAGE 1000 MG PO ×2 (08:51→18:01)
--- NOTE | 2024-06-05 08:51 | PTCARENOTE ---
BS this am 64, and 68 after juice. Up to 119 after second cup of juice. BOOSTER OPERATOR Lanny Hernandez notified. Ordered to give farxiga, metformin and januvia this am as ordered. HS lantus stopped.
--- NOTE | 2024-06-05 08:51 | W.PN.HOSP.TC ---
Today's Communication/Plan
-
IV Lasix, B-hardik, oral abx. VSE today
Assessment / Plan
Assessment / Plan
Physical Exam
General: no acute distress, appears comfortable, cachectic appearance
HEENT: NormoCephalic, Moist mucous membranes and Atraumatic
Respiratory: Some faint crackles noted on auscultation otherwise relatively clear
Cardiac: S1/S2 and Regular Rhythm; No Murmur or Rub
GI: Soft, Non Tender, Non Distended and Normal Bowel Sounds; No Organomegaly
Musculoskeletal: No Clubbing, No Cyanosis and No Edema
Skin: No Rash
Neuro: Awake alert conversant coherent
Psych: Calm
A/P:
84M past medical history of bronchiectasis, multivessel CAD, HFpEF, nephrolithiasis, CLL, hypogammaglobulinemia receives IVIG every few months, anemia, hypertension, type 2 diabetes, first-degree AV block, hyperlipidemia, kidney stones, presenting
with shortness of breath for the past few days associate with productive cough. Also has increased weakness. No lower extremity swelling. He has lost weight recently. Denies fevers but has chills. Has been having symptoms for the past few weeks
and treated with 2 courses of doxycycline and 2 courses of prednisone. He had recent sputum culture pos for serratia resistant to doxycycline.
# Possible Sepsis (leukocytosis, tachycardia) secondary to persistent right middle lobe pneumonia
-though less likely sepsis as white count is actually improved from pt's baseline elevation d/t CLL
# History of bronchiectasis/ILD
-Sputum culture serratia marcescens on 05/17
-Chest x-ray shows patchy right middle lobe opacity suspicion for pneumonia
-CT chest from 05/26 showed diffuse waxing/waning infectious/inflammatory process/bronchiolitis
-COVID-negative, influenza negative
-Neg sputum culture
-strep antigen, Legionella antigen, MRSA neg
-Blood cultures NGTD
-cont home prednisone 10 mg daily for now
-Diuretics as per Cardio
-Pulmonary consult appreciated
-ID eval appreciated empiric vanc zosyn switched to Cipro for 5 days
-cont abx as per ID
-ECHO appreciated no significant change from prior
-VSE Mon evaluation for possible aspiration contributing to symptoms
Multivessel CAD
-Continue aspirin, Plavix, statin
-Continue metoprolol
NSVT
Cont B-blockers
First-degree AV block
Chronic HFpEF
-Continue dapagliflozin Lasix Losartan Metoprolol with holding parameters
-Cardiac BNP of 9000, doesn't appear to be in acute HF
-Cardio eval Appreciated Lasix switched to IV for now, cont
CLL
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
Chronic anemia
-Stable
Essential hypertension
-Continue losartan
Type 2 diabetes
-Uncontrolled Hyperglycemia possibly due to combination reg diet, steroids, and infection
-Hold metformin
-Continue dapagliflozin
-Insulin sliding scale
-carb controlled diet
-DM ENTERTAINMENT & MEDIA CORRESPONDENT consult appreciated
-A1c 8.6
Hyperlipidemia
History of kidney stones
PT/OT eval appreciated HH
DNR/DNI
DVT prophylaxis�heparin
Anticipated Discharge: 24 - 48 hours
Subjective/Interval History
-
Date of Service: June 05, 2024
Patient feels better overall. Still coughs, afebrile, no cp, some NSVT.
Objective Data
-
Labs:
Laboratory Results
06/05/24 06/05/24
00:57 06:00
WBC Pending
Hgb Pending
Hct Pending
Plt Count Pending
Sodium 132 L Pending
Potassium 3.9 Pending
Chloride 99 Pending
Carbon Dioxide 26 Pending
BUN 31 H Pending
Creatinine 1.0 Pending
Glucose 85 Pending
Calcium 9.2 Pending
Vital Signs:
Vital Signs
Temp Pulse Resp BP Pulse Ox
98.1 F 87 16 95/46 96
06/05/24 03:18 06/05/24 07:28 06/05/24 07:28 06/05/24 03:18 06/05/24 07:28
I&O
06/04/24 06/05/24 06/06/24
06:59 06:59 06:59
Intake Total 660 / 660 1020 / 1020
Output Total 300 / 300 700 / 700
Balance 360 / 360 320 / 320
--- NOTE | 2024-06-05 09:35 | PTOTSP ---
Speech Language Pathology
VIDEOFLUOROSCOPIC SWALLOWING EXAMINATION (VSE) completed. Oropharyngeal WFL. Transient supraglottic penetration (PAS 2) with thin liquids via cup. No persistent penetration or any aspiration noted.
Recommend:
(1) Regular solids/thin liquids
(2) General aspiration precautions
(3) Meds as tolerated
(4) MANAGER SOCIAL SERVICES to sign off. Please reconsult as indicated
--- NOTE | 2024-06-05 09:59 | W.PN.PUL.V3 ---
Today's Communication / Plan
-
Antibiotics.
Mucus clearing devices.
Prednisone, no change
Video swallow noted
Updated [id number]
Considering bronchoscopy 8 AM on Wednesday if availability-otherwise June 12
Assessment
-
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 Abnormal chest x-ray suggestive of
pneumonia. We were consulted on 06/02/2024 for evaluation.
Impression:
# Abnormal CT chest: Bronchiolitis/bilateral groundglass opacity/chronic bronchiectasis.
Differential diagnosis includes: Infectious bacterial/viral, atypical pulmonary edema given increased proBNP, opportunistic infection.
#Shortness of breath
#Leukocytosis - due to CLL
#Transaminitis
Volume overload, component, proBNP >9000
Conditions present prior admission:
#7 mm calculus at the right UPJ with obstructive uropathy s/p Cystoscopy/Right ureteroscopy/Laser lithotripsy/Right ureteral stent placement 11/25/23
#Chronic anemia (Hb ranges between 8.5-10.5)
#Thrombocytopenia (chronic with waxing and waning plt counts)
#DM type II (A1C: 6.9)
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
#Severe MR
# History of multivessel coronary artery disease
# History of first-degree AV block
History of severe chronic bronchiectasis: Follows with Dr. Sun
On low-dose prednisone/nebulizers/secretion clearance interventions
Plan
Respiratory status still somewhat tenuous.
Supplemental oxygen as needed.
Mucus clearing devices.
Mucolytic.
Nebulizers.
Vest therapy if needed.
Prednisone 10 mg daily.
Aspiration precautions.
Video swallow 06/05/24-no fluoroscopic evidence for airway aspiration.
Check cultures.
Sputum cultures-usual respiratory sherri.
Legionella and streptococcal pneumonia antigens negative.
Influenza negative.
Sputum culture 05/17/24-Serratia
Empiric antibiotic-finite course of ciprofloxacin
Infectious disease following-correspondence reviewed
There were also discussions about possible bronchoscopy in the outpatient setting to rule out VERONIQUE/opportunistic infections...
Considering bronchoscopy. Wednesday [address] Sun if availability, otherwise outpatient bronchoscopy June 12
Patient chronically on IVIG infusions
Follows up with hematology due to CLL
Diuresis as tolerated.
Monitor intake/output, weight, renal function and lower extremity edema.
DVT prophylaxis-On subcutaneous heparin.
Nutrition
Early mobilization..
Updated [id number] including potential for bronchoscopy while in inpatient
Outpatient pulmonary [id number] saw Liz Chandler 05/30/24 and has appointment to see Dr. 07/04/24
Imaging reviewed:
Chest x-ray: 06/01/2024There is patchy right middle lobe opacity.. The cardiomediastinal silhouettes are within the limits of normal. Calcific atherosclerotic changes of the thoracic aortic arch are noted. There is no pneumothorax, pleural effusion
or mediastinal shift.
-
CT chest 05/26/2024:Diffuse scattered areas of tree-in-bud nodules and groundglass densities, significantly progressed in the bilateral upper lobes and right middle lobe and slightly improved in the bilateral lower lobes.
No pleural effusions, pericardial effusions or pathologically enlarged noncalcified lymph nodes in the thorax. No pneumothorax.
No thoracic aortic aneurysm. Severe coronary artery calcifications.
Visualized portion of the upper abdomen is unremarkable.
Echocardiogram 11/10/2023: Reviewed CONCLUSIONS- Normal left ventricular chamber size. Mild concentric left ventricular hypertrophy. Moderate reduced left ventricular systolic function with regional wall motion abnormalities. Enlarged right
ventricular size. Severe mitral regurgitation. Mild tricuspid regurgitation. Estimated pulmonary artery pressure of 40-45 mmHg. Mild pulmonic regurgitation. Normal pericardium without effusion. The IVC is of normal size and demonstrates normal
respiratory variation. Compared to prior echo EF% remains reduced and mitral regurgitation is now severe.
Subjective Data
-
Date of Service:
Date of Service: June 05, 2024
Chief Complaint: Pulmonary Follow Up and Dyspnea Follow Up
Subjective:
Feels like has chills, no increased respiratory distress, chronic cough
Review of Systems
General: Other ( per HPI)
Objective Data
Data Reviewed
Vital Signs / I&O:
Vital Signs
Temp Pulse Resp BP Pulse Ox
98.7 F 87 16 101/55 96
06/05/24 07:25 06/05/24 07:28 06/05/24 07:28 06/05/24 08:35 06/05/24 07:28
Intake and Output
06/04/24 06/05/24 06/06/24
06:59 06:59 06:59
Intake Total 660 / 660 1020 / 1020
Output Total 300 / 300 700 / 700
Balance 360 / 360 320 / 320
SaO2: 96
Nasal Cannula flow liters per minute: 3
Physical Exam
General: Comfortable and Other (NAD)
HEENT: Normocephalic, Anicteric and Moist Mucous Membranes
Cardiovascular: S1-S2
Respiratory: Crackles, Rhonchi and Non-Labored Respirations
GI: Soft, Non Distended and Non Tender
Neurology: Awake, Alert, Oriented and No Motor Deficits
Skin: Warm, Dry, Good Color, Cyanosis (n) and Jaundice (n)
Labs/Micro/Reports
Microbiology
06/01/24 13:40 Blood/Venous Blood Culture - Preliminary
No Growth in 72 hours- Final report to follow
06/01/24 13:27 Blood/Venous Blood Culture - Preliminary
No Growth in 72 hours- Final report to follow
06/01/24 17:28 Sputum Respiratory Culture - Final
Usual Respiratory Sherri
06/01/24 17:28 Sputum Gram Stain - Final
06/01/24 15:53 Nose Nasal Screen MRSA (PCR) - Final
MRSA not detected - performed by PCR methodology.
06/01/24 15:53 Urine Legionella Urinary Antigen - Final
Negative for Legionella pneumophila Serogroup 1 antigen.
A negative result does not rule out the possiblity of
Legionella infection due to other serogroups or species of
Legionella. Clinical correlation is recommended.
06/01/24 15:53 Urine Streptococcus pneumoniae Antigen (M - Final
Negative for Streptococcus pneumoniae antigen.
A negative result does not exclude infection with
Streptococcus pneumoniae. Clinical correlation is
recommended.
[2024-06-05 10:01] LABS: Hematocrit 31.8 % (39.0-52.0); Hemoglobin 10.4 g/dL (13.0-18.0); Mean Corp Hgb Conc. 32.7 g/dL (33.0-37.0); Mean Corpuscular Hgb 30.7 pg (27.0-31.0); Mean Corpuscular Volume 93.8 fL (80.0-94.0); Mean Platelet Volume 12.4 fL (7.4-10.4); Platelet Count 152 10^3/uL (130-400); Red Blood Cell Count 3.39 10^6/uL (4.70-6.10); Red Cell Dist. Width 16.9 % (11.5-14.5); White Blood Cell Count 28.9 10^3/uL (4.8-10.8)
--- NOTE | 2024-06-05 10:13 | W.PN.ID1 ---
Date of Service
Date of Service: June 05, 2024
Today's Communication
- follow fever curve through today - questionable chills
- c/w ciprofloxacin to complete 5 days of rx (less effect on qtc and s pneumo not seen in culture) 06/03-06/08
- currently on prednisone 10 mg
Assessment / Plan
Possible Pneumonia
Bronchiectasis
Shortness of breath
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
CLL - unknown baseline WBC count
Leukocytosis - CLL and on low dose steroids
DM2
CKD
Cachexia
- would follow fever curve through today
- sputum culture 06/01: usual resp sherri; 05/17 Serratia - resistant to tetracycline and Augmentin
- blood cultures x2 in progress
- agree with checking sputum for NTM - AFB x3, no need for isolation, do not suspect MTB
- agree that symptoms are multifactorial
- viral, pulmonary edema, NTM, opportunistic infection all possibilities
- c/w ciprofloxacin to complete 5 days of rx (less effect on qtc and s pneumo not seen in culture) 06/03-06/08
- currently on prednisone 10 mg
follow up with pulmonary; if found to have NTM infection, please notify my office to schedule follow up
Chief Complaint
-: Pneumonia and Other (Immunosuppression)
Subjective / Review of Systems
afebrile
bp stable
remains on 3L NC
hypoglycemia this am
20 beats of VT overnight
states he's feeling cold today - questionable tremor vs rigors; doubt rigors. RN reports she hasnt witnessed any.
Vital Signs / Physical Exam
Vital Signs
Vital Signs
Temp Pulse Resp BP Pulse Ox
98.7 F 87 16 101/55 96
06/05/24 07:25 06/05/24 07:28 06/05/24 07:28 06/05/24 08:35 06/05/24 09:59
Physical Exam
Constitutional: No Acute Distress and Chronically Ill
Cardiovascular: Regular Rate and S1/S2; Negative Murmur or Rub
Pulmonary: Clear and Symmetric; Negative Wheezes or Rales
Gastrointestinal: Soft, Non Tender, Non Distended and Normal Bowel Sounds
Skin: Warm and Dry; Negative Rash or Jaundice
Neurological: Awake and Other (mild tremor)
Objective Data
Lab Data
Lab Results
06/05/24 08:56
Estimated Creat Clear 41 ml/min 06/05/24 00:57
Total Bilirubin 0.7 mg/dl (0.2-1.3) 06/03/24 06:38
AST 65 U/L (17-59) H 06/03/24 06:38
ALT 74 U/L (0-50) H 06/03/24 06:38
Alkaline Phosphatase 76 U/L (38-126) 06/03/24 06:38
Most recent labs reviewed.
Micro Results:
06/01/24 13:40 Blood Culture - Preliminary
Blood/Venous No Growth in 72 hours- Final report to follow
06/01/24 13:27 Blood Culture - Preliminary
Blood/Venous No Growth in 72 hours- Final report to follow
06/01/24 17:28 Respiratory Culture - Final
Sputum Usual Respiratory Sherri
Gram Stain - Final
06/01/24 15:53 Nasal Screen MRSA (PCR) - Final
Nose MRSA not detected - performed by PCR methodology.
06/01/24 15:53 Legionella Urinary Antigen - Final
Urine Negative for Legionella pneumophila Serogroup 1 antigen.
A negative result does not rule out the possiblity of
Legionella infection due to other serogroups or species of
Legionella. Clinical correlation is recommended.
Streptococcus pneumoniae Antigen (M - Final
Negative for Streptococcus pneumoniae antigen.
A negative result does not exclude infection with
Streptococcus pneumoniae. Clinical correlation is
recommended.
06/01/24 12:24 Influenza Types A & B (NIDA) - Final
Nasal Swab Negative for Influenza A & B, NAAT
Negative results must be combined with clinical observations
and patient history.
Nucleic Acid Amplification test (NAAT)performed on the
[employer] platform.
--- NOTE | 2024-06-05 10:30 | W.PN.CARDCBS ---
Today's Communication / Plan
-
Likely transition to oral lasix next 24 hrs
Wt is down from admit. Initial pBNP ws 9130
He takes lasix 20 mg daily at home
Swallowing eval Dec 2 to eval for aspiration.
Short NSVT last PM Dec 1, cont beta hardik and monitor lytes
Cont pulm toilet
Pulm/ID following.
-COVID, flu, Legionella assays negative
-IV antibiotics
For known CM, cont GDMT: Aspirin 81 mg daily, Plavix 75 mg daily, Farxiga 10 mg daily, losartan 25 mg daily, metoprolol succinate 25 mg twice daily and atorvastatin 40 mg daily. Per patient's outpatient notes has not tolerated Aldactone due to
hyperkalemia. Blood pressure will likely limit use of Entresto but can consider as an outpatient.
-He was being considered for MitraClip candidacy as an outpatient.
-LDL at goal at 40.
Cont med therapy of nonMI trop
Impression / Plan
-
.
Primary Supervisor Advertising Dispatch Clerks: Dr. Saunders
Impression:
-Acute Hypoxic respiratory failure due to bronchiectasis exacerbation
-Concern for component of HFrEF, proBNP 9100
-Abnormal cardiac troponin secondary to Nonischemic myocardial injury
-History of severe bronchiolitis/bronchiectasis, recurrent pneumonia
-NSVT PM Dec 1
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
-CLL
-Severe multivessel CAD Status post cardiac catheterization in September 2023 with severely calcified LAD subtotally occluded, 80% OM, 70% RCAPrior discussions regarding medical management versus PCI versus CABG with plan for conservative treatment. CT
surgery felt patient was too high risk for CABG/MVR
-Hx NSTEMI in the setting of influenza infection July 2023
-Ischemic cardiomyopathy, EF 35-40% by echo 11/2023
-Moderate to severe mitral regurgitation
-Anemia/thrombocytopenia
-Hyperlipidemia
-DM 2
-HTN
ECHO 11/10/23: EF 35 to 40%, stage II diastolic dysfunction, moderately reduced LV systolic function with regional wall motion abnormalities including akinetic apex, apical septum, apical lateral wall, enlarged RV size, severe MR, mild TR, PAP 40 to
45 mmHg, mild [place]
Plan:
Acute on chronic worsening shortness of breath/cough with abnormal CT of the chest secondary to acute exacerbation of known severe bronchiectasis likely complicated by mild volume overloaded/heart failure decompensation
Likely transition to oral lasix next 24 hrs
Wt is down from admit. Initial pBNP ws 9130
He takes lasix 20 mg daily at home
Swallowing eval Dec 2 to eval for aspiration.
Short NSVT last PM Jun 04, cont beta hardik and monitor lytes
Cont pulm toilet
Pulm/ID following.
-COVID, flu, Legionella assays negative
-IV antibiotics
For known CM, cont GDMT: Aspirin 81 mg daily, Plavix 75 mg daily, Farxiga 10 mg daily, losartan 25 mg daily, metoprolol succinate 25 mg twice daily and atorvastatin 40 mg daily. Per patient's outpatient notes has not tolerated Aldactone due to
hyperkalemia. Blood pressure will likely limit use of Entresto but can consider as an outpatient.
-He was being considered for MitraClip candidacy as an outpatient.
-LDL at goal at 40.
Cont med therapy of nonMI trop
Progress Note - Supervisor Advertising Dispatch Clerks
Subjective
Date of Service: June 05, 2024
Pt seen and examined. No chest pain. Still with some shortness of breath.
Objective
Labs:
06/05/24 08:56
Labs
Hgb 10.4 g/dL (13.0-18.0) L 06/05/24 08:56
Hct 31.8 % (39.0-52.0) L 06/05/24 08:56
Plt Count 152 10^3/uL (130-400) 06/05/24 08:56
Sodium 132 mmol/L (135-145) L 12/02/24 00:57
Potassium 3.9 mmol/L (3.5-5.1) 06/05/24 00:57
BUN 31 mg/dl (9-20) H 06/05/24 00:57
Creatinine 1.0 mg/dL (0.7-1.3) 06/05/24 00:57
Glucose 85 mg/dl (70-99) 06/05/24 00:57
Troponins
06/03/24 06/03/24
06:38 12:14
Troponin I 1.320 H* 0.910 H* D
Vital Signs and I&O:
Vital Signs
Temp Pulse Resp BP Pulse Ox
98.7 F 87 16 101/55 96
06/05/24 07:25 06/05/24 07:28 06/05/24 07:28 06/05/24 08:35 06/05/24 09:59
Vital Signs
Temp Pulse Resp BP Pulse Ox
98.7 F 87 16 101/55 96
06/05/24 07:25 06/05/24 07:28 06/05/24 07:28 06/05/24 08:35 06/05/24 09:59
Intake & Output
06/03/24 06/04/24 06/05/24 06/06/24
06:59 06:59 06:59 06:59
Intake Total 1810 / 1810 660 / 660 1020 / 1020
Output Total 1800 / 1800 300 / 300 700 / 700
Balance 360 / 360 320 / 320
Physical Exam
Physical Exam
General: No acute distress, AAOX3
Neck: Negative JVD
Heart: Regular, Negative S3 positive S1/S2, Negative S4, No murmur
Lungs: b/l rhonchi
Abd: Positive BS, NT/ND, neg rebound/rigidity/guarding
Ext: Negative cyanosis/clubbing/edema
Neuro: nonfocal
[2024-06-05 10:42] LABS: Glucose - Point of Care 99 mg/dl (70-99)
[2024-06-05 11:28] VITALS: BP 106/51
[2024-06-05 11:34] LABS: Blood Urea Nitrogen 28 mg/dl (9-20); Calcium 9.5 mg/dl (8.4-10.2); Carbon Dioxide 19 mmol/L (22-30); Chloride 99 mmol/L (98-107); Estimated Creatinine Clearance 41 ml/min; Glucose 167 mg/dl (70-99); Magnesium 2.1 mg/dl (1.6-2.3); Phosphorus 3.1 mg/dl (2.5-4.5); Potassium 4.5 mmol/L (3.5-5.1); Sodium 132 mmol/L (135-145); eGFR > 60.00
--- NOTE | 2024-06-05 11:47 | PTCARENOTE ---
Patient with two noted episodes of V-vib on tele. Patient was asymptomatic. Dr. Martínez with cardiology notified. Plan of care ongoing.
[2024-06-05 12:43] LABS: Glucose - Point of Care 102 mg/dl (70-99)
[2024-06-05] MEDS: NOVOLOG FLEXPEN 3 UNITS SC ×2 (12:58→18:02)
--- NOTE | 2024-06-05 15:15 | W.PN.UPDATE ---
Update Note
Progress Note Update
Trying to set up bronchoscopy 7:30 am , Wednesday-would need to be NPO after midnight Wednesday.
This is tentatively scheduled-
I will let the team know if plans change
[2024-06-05 15:30] VITALS: BP 108/54
[2024-06-05 16:47] LABS: Glucose - Point of Care 248 mg/dl (70-99)
[2024-06-05] MEDS: COLACE 100 MG PO (18:02)
[2024-06-05] MEDS: NOVOLOG FLEXPEN-MODERATE RESISTANCE 3 UNITS SC (18:02)
[2024-06-05 19:55] VITALS: BP 101/51
[2024-06-05 21:17] LABS: Glucose - Point of Care 265 mg/dl (70-99)
[2024-06-05] MEDS: RESTORIL 15 MG PO (22:06)
[2024-06-05 23:10] VITALS: BP 113/57
[2024-06-06 03:32] VITALS: BP 105/57
[2024-06-06 06:00] VITALS: BMI 17.3
[2024-06-06 07:21] LABS: Hemoglobin 9.7 g/dL (13.0-18.0); Mean Corp Hgb Conc. 32.3 g/dL (33.0-37.0); Mean Corpuscular Hgb 30.7 pg (27.0-31.0); Mean Corpuscular Volume 94.9 fL (80.0-94.0); Mean Platelet Volume 11.6 fL (7.4-10.4); Platelet Count 162 10^3/uL (130-400); Red Blood Cell Count 3.16 10^6/uL (4.70-6.10); Red Cell Dist. Width 16.6 % (11.5-14.5); White Blood Cell Count 27.1 10^3/uL (4.8-10.8)
[2024-06-06 07:24] LABS: Glucose - Point of Care 144 mg/dl (70-99)
[2024-06-06 07:30] VITALS: BP 109/56
[2024-06-06] MEDS: DUONEB 3 ML INH ×3 (07:33→19:26)
--- NOTE | 2024-06-06 07:48 | W.PN.HOSP.TC ---
Today's Communication/Plan
-
Plan for bronchoscopy in a.m. Oral antibiotic and bronchodilators.
Assessment / Plan
Assessment / Plan
Physical Exam
General: no acute distress, appears comfortable, cachectic appearance
HEENT: NormoCephalic, Moist mucous membranes and Atraumatic
Respiratory: Some faint crackles noted on auscultation otherwise relatively clear
Cardiac: S1/S2 and Regular Rhythm; No Murmur or Rub
GI: Soft, Non Tender, Non Distended and Normal Bowel Sounds; No Organomegaly
Musculoskeletal: No Clubbing, No Cyanosis and No Edema
Skin: No Rash
Neuro: Awake alert conversant coherent
Psych: Calm
A/P:
Sepsis/Probable pneumonia/Bronchiectasis with flare:
On oral Cipro by ID through 06/08
Plan for bronchoscopy by pulmonary tomorrow on 06/07 to rule out opportunistic infections (if not then outpatient on 06/12)
Remains on prednisone 10 mg p.o. daily
Blood cultures no growth
Sputum culture no growth (prior sputum culture on 05/17 Serratia marcescens)
Influenza, COVID-19, Legionella, and strep antigen negative
VSE review results from 06/05 and no problems
DuoNebs 3 times daily
Tried reach daughter
Acute hypoxic respiratory failure due to above and heart failure:
Supplemental oxygen
Monitor respiratory status closely
Acute on chronic systolic congestive heart failure:
IV Lasix switched to oral today, Lasix 20 mg p.o. daily
Continue GDMT: Beta-blockers, ARB, and SGLT-i
Known EF 35 to 40% from last echo back in November this year
Cardiology consult appreciated
Moderate to severe mitral regurgitation:
Consideration of MitraClip as outpatient
Elevated troponin:
Elevated troponin due to nonischemic myocardial injury
CAD:
Continue medical management
Has been considered high risk for interventions or surgery
Continue anti-ischemic regimen, DAPT, beta-blockers, statins
Chest pain-free
NSVT:
Beta-blockers
Cardiac monitoring
CLL with immunoglobulin deficiency:
Continue outpatient IVIG
Hypertension:
Continue losartan and metoprolol and furosemide
Monitor blood pressure adjust medications accordingly
Hyperlipidemia:
Continue home statins, atorvastatin 40 mg nightly
Diabetes mellitus type 2:
Continue insulin sliding scale
NovoLog 3 units before meal
Continue Farxiga 10 mg p.o. daily
Continue metformin at 1000 mg twice a day
Hemoglobin A1c at 8.6 on 06/02
Anxiety:
Continue temazepam 15 mg p.o. nightly
DVT prophylaxis:
Heparin SQ
CODE STATUS:
DNR
Anticipated Discharge: 24 - 48 hours
Subjective/Interval History
-
Date of Service: June 06, 2024
Patient with some dry cough, no worsening shortness of breath. No chest pain. Afebrile
Objective Data
-
Labs:
Laboratory Results
06/06/24
06:58
WBC 27.1 H
Hgb 9.7 L
Hct 30.0 L
Plt Count 162
Sodium Pending
Potassium Pending
Chloride Pending
Carbon Dioxide Pending
BUN Pending
Creatinine Pending
Glucose Pending
Calcium Pending
Vital Signs:
Vital Signs
Temp Pulse Resp BP Pulse Ox
97.9 F 80 18 105/57 97
06/06/24 03:32 06/06/24 03:32 06/06/24 03:32 06/06/24 03:32 06/06/24 03:32
I&O
06/05/24 06/06/24 06/07/24
06:59 06:59 06:59
Intake Total 1020 / 1020 600 / 600
Output Total 700 / 700 900 / 900
Balance 320 / 320 -300 / -300
[2024-06-06 08:19] LABS: Blood Urea Nitrogen 27 mg/dl (9-20); Calcium 9.9 mg/dl (8.4-10.2); Carbon Dioxide 26 mmol/L (22-30); Chloride 99 mmol/L (98-107); Estimated Creatinine Clearance 34 ml/min; Glucose 137 mg/dl (70-99); Magnesium 2.1 mg/dl (1.6-2.3); Phosphorus 3.7 mg/dl (2.5-4.5); Sodium 134 mmol/L (135-145); eGFR > 60.00
[2024-06-06] MEDS: NOVOLOG FLEXPEN 3 UNITS SC ×3 (08:42→17:56)
[2024-06-06] MEDS: GLUCOPHAGE 1000 MG PO ×2 (08:42→17:22)
[2024-06-06] MEDS: NOVOLOG FLEXPEN-MODERATE RESISTANCE SC (08:42)
[2024-06-06] MEDS: TOPROL XL 25 MG PO ×2 (08:43→20:58)
[2024-06-06] MEDS: MUCINEX 1200 MG PO ×2 (08:43→20:48)
[2024-06-06] MEDS: VITAMIN C 1000 MG PO (08:43)
[2024-06-06] MEDS: PLAVIX 75 MG PO (08:43)
[2024-06-06] MEDS: DELTASONE 10 MG PO (08:43)
[2024-06-06] MEDS: CIPRO 500 MG PO ×2 (08:44→20:48)
[2024-06-06] MEDS: JANUVIA 100 MG PO (08:44)
[2024-06-06] MEDS: ASPIR LOW (ENTERIC COATED) 81 MG PO (08:44)
[2024-06-06] MEDS: LASIX 20 MG IV (08:44)
[2024-06-06] MEDS: HEPARIN 5000 UNITS SC ×2 (08:44→20:48)
[2024-06-06] MEDS: VITAMIN D3 (cholecalciferol) 25 MCG PO (08:44)
--- NOTE | 2024-06-06 09:52 | PN.DE.MGMTRT ---
Insulin Management
- -
06/06/2024: Diabetes management F/U:
84 year old male with PMH: Bronchiectasis, MVCAD, HFpEF, nephrolithiasis, CLL, hypogammaglobulinemia status post IVIG last week, anemia, HTN, T2DM, 1st degree AV block, HLD, kidney stones, presenting with shortness of breath for the past few days
associate with productive cough likely due to PNA.
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 A1C 8.6%, Cr 1.0, eGFR >60
Pt awake, alert, sitting up in bed, offers no complaints, able to discuss diabetes mgt.
06/05 Lantus was stopped. FBG 137(V) and 144 POC.
06/05 Premeal glucose range 99 to 248. Will make no changes to current diabetes regimen: Januvia 100mg daily, Metformin 1000mg BID, Farxiga 10mg daily and low corrective insulin with meals.
Will avoid aggressive insulin dosing to reduce risk of hypoglycemia in this patient of advanced age.
Plan of care discussed with Pt and Nurse
Diabetes History
- -
Type of Diabetes: 2
Pre-Admission Diabetes Regimen
06/05/24 06/06/24
08:57 06:58
Creatinine 1.0 1.2
Lab Results
Hemoglobin A1c 8.6 % (4.0-5.6) H 06/02/24 10:37
Insulin Pump Settings
IP Diabetes Regimen
06/05/24 06/05/24 06/05/24
08:57 10:40 12:41
Glucose 167 H
POC Glucose 99 102 H
06/05/24 06/05/24 06/06/24
16:44 21:16 06:58
Glucose 137 H
POC Glucose 248 H 265 H
06/06/24
07:19
Glucose
POC Glucose 144 H
Meal type: Lunch
Amount consumed: 100%
Patient Education
--- NOTE | 2024-06-06 10:15 | W.PN.PUL.V3 ---
Today's Communication / Plan
-
Antibiotics per infectious disease
Add vest therapy
Bronchoscopy 06/07/24
Updated [id number] Adri
Assessment
-
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 Abnormal chest x-ray suggestive of
pneumonia. We were consulted on 06/02/2024 for evaluation.
Impression:
# Abnormal CT chest: Bronchiolitis/bilateral groundglass opacity/chronic bronchiectasis.
Differential diagnosis includes: Infectious bacterial/viral, atypical pulmonary edema given increased proBNP, opportunistic infection.
#Shortness of breath
#Leukocytosis - due to CLL
#Transaminitis
Volume overload, component, proBNP >9000
Conditions present prior admission:
#7 mm calculus at the right UPJ with obstructive uropathy s/p Cystoscopy/Right ureteroscopy/Laser lithotripsy/Right ureteral stent placement 11/25/23
#Chronic anemia (Hb ranges between 8.5-10.5)
#Thrombocytopenia (chronic with waxing and waning plt counts)
#DM type II (A1C: 6.9)
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
#Severe MR
# History of multivessel coronary artery disease
# History of first-degree AV block
History of severe chronic bronchiectasis: Follows with Dr. Sun
On low-dose prednisone/nebulizers/secretion clearance interventions
Plan
Respiratory status improving
Supplemental oxygen as needed.
Assess discharge supplemental oxygen needs
Mucus clearing devices.
Mucolytic.
Nebulizers.
Vest therapy-will try while in the hospital-if significantly beneficial will arrange in the outpatient setting
Prednisone 10 mg daily.
Aspiration precautions.
Video swallow 06/05/24-no fluoroscopic evidence for airway aspiration.
Check cultures.
Sputum cultures-usual respiratory sherri.
Legionella and streptococcal pneumonia antigens negative.
Influenza negative.
Sputum culture 05/17/24-Serratia
Empiric antibiotic-finite course of ciprofloxacin
Infectious disease following-correspondence reviewed
In the outpatient setting there were ongoing discussions about possible bronchoscopy in the outpatient setting to rule out VERONIQUE/opportunistic infections...
Bronchoscopy scheduled for Wednesday morning [address] Sun
Patient chronically on IVIG infusions
Follows up with hematology due to CLL
Continue diuresis s as tolerated.
Monitor intake/output, weight, renal function and lower extremity edema.
DVT prophylaxis-On subcutaneous heparin.
Nutrition
Early mobilization..
Dr. Rios updated [id number] Adri-on 06/05/2024 as well as on 06/06/2024--[phone] including potential for bronchoscopy while in inpatient
Outpatient pulmonary [id number] saw Liz Chandler 05/30/24 and has appointment to see Dr. 07/04/24
Imaging reviewed:
Chest x-ray: 06/01/2024There is patchy right middle lobe opacity.. The cardiomediastinal silhouettes are within the limits of normal. Calcific atherosclerotic changes of the thoracic aortic arch are noted. There is no pneumothorax, pleural effusion
or mediastinal shift.
-
CT chest 05/26/2024:Diffuse scattered areas of tree-in-bud nodules and groundglass densities, significantly progressed in the bilateral upper lobes and right middle lobe and slightly improved in the bilateral lower lobes.
No pleural effusions, pericardial effusions or pathologically enlarged noncalcified lymph nodes in the thorax. No pneumothorax.
No thoracic aortic aneurysm. Severe coronary artery calcifications.
Visualized portion of the upper abdomen is unremarkable.
Echocardiogram 11/10/2023: Reviewed CONCLUSIONS- Normal left ventricular chamber size. Mild concentric left ventricular hypertrophy. Moderate reduced left ventricular systolic function with regional wall motion abnormalities. Enlarged right
ventricular size. Severe mitral regurgitation. Mild tricuspid regurgitation. Estimated pulmonary artery pressure of 40-45 mmHg. Mild pulmonic regurgitation. Normal pericardium without effusion. The IVC is of normal size and demonstrates normal
respiratory variation. Compared to prior echo EF% remains reduced and mitral regurgitation is now severe.
Subjective Data
-
Date of Service:
Date of Service: June 06, 2024
Chief Complaint: Pulmonary Follow Up and Dyspnea Follow Up
Subjective:
Overall feels better, less short of breath, minimal productive cough, no chest pain, abdominal pain
Review of Systems
General: Other (Per HPI)
Objective Data
Data Reviewed
Vital Signs / I&O:
Vital Signs
Temp Pulse Resp BP Pulse Ox
97.6 F 106 18 109/63 95
06/06/24 07:30 06/06/24 07:30 06/06/24 07:30 06/06/24 08:43 06/06/24 07:30
Intake and Output
06/05/24 06/06/24 06/07/24
06:59 06:59 06:59
Intake Total 1020 / 1020 600 / 600
Output Total 700 / 700 900 / 900
Balance 320 / 320 -300 / -300
SaO2: 95
Nasal Cannula flow liters per minute: 3
Physical Exam
General: Respiratory Distress (n), Comfortable and Other (NAD)
HEENT: Normocephalic, Anicteric and Moist Mucous Membranes
Cardiovascular: Regular Rhythm
Respiratory: Crackles, Rhonchi and Non-Labored Respirations
GI: Soft, Non Distended and Non Tender
Neurology: Awake, Alert and No Motor Deficits
Skin: Warm, Dry, Good Color, Cyanosis (n), Jaundice (n) and Rash (n)
Labs/Micro/Reports
Lab Data
06/06/24 06:58
06/06/24 06:58
Microbiology
06/01/24 13:27 Blood/Venous Blood Culture - Preliminary
No Growth in 4 days- Final report to follow
06/01/24 13:40 Blood/Venous Blood Culture - Preliminary
No Growth in 4 days- Final report to follow
06/01/24 17:28 Sputum Respiratory Culture - Final
Usual Respiratory Sherri
06/01/24 17:28 Sputum Gram Stain - Final
--- NOTE | 2024-06-06 10:52 | W.PN.CARDCBS ---
Today's Communication / Plan
-
He appears euvolemic. Transition to oral lasix 20 mg daily which is dose he was taking at home.
Wt continues to come day.
No recurrent NSVT , cont beta hardik and monitor lytes
Stable cv status
Will confirm outpt follow up
Discussed with nursing.
Please recall if needed.
Impression / Plan
-
.
Primary Inclusion Paraeducator: Dr. Saunders
Impression:
-Acute Hypoxic respiratory failure due to bronchiectasis exacerbation
-Concern for component of HFrEF, proBNP 9100
-Abnormal cardiac troponin secondary to Nonischemic myocardial injury
-History of severe bronchiolitis/bronchiectasis, recurrent pneumonia
-NSVT PM Dec
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
-CLL
-Severe multivessel CAD Status post cardiac catheterization in September 2023 with severely calcified LAD subtotally occluded, 80% OM, 70% RCAPrior discussions regarding medical management versus PCI versus CABG with plan for conservative treatment. CT
surgery felt patient was too high risk for CABG/MVR
-Hx NSTEMI in the setting of influenza infection July 2023
-Ischemic cardiomyopathy, EF 35-40% by echo 11/2023
-Moderate to severe mitral regurgitation
-Anemia/thrombocytopenia
-Hyperlipidemia
-DM 2
-HTN
ECHO 11/10/23: EF 35 to 40%, stage II diastolic dysfunction, moderately reduced LV systolic function with regional wall motion abnormalities including akinetic apex, apical septum, apical lateral wall, enlarged RV size, severe MR, mild TR, PAP 40 to
45 mmHg, mild [place]
Plan:
Acute on chronic worsening shortness of breath/cough with abnormal CT of the chest secondary to acute exacerbation of known severe bronchiectasis likely complicated by mild volume overloaded/heart failure decompensation
He appears euvolemic. Transition to oral lasix 20 mg daily which is dose he was taking at home.
Wt continues to come day.
Swallowing study was ok and speech signed off.
No recurrent NSVT , cont beta hardik and monitor lytes
Cont pulm toilet
Pulm/ID following.
-COVID, flu, Legionella assays negative
-IV antibiotics
-For Bronchoscopy
For known CM, cont GDMT: Aspirin 81 mg daily, Plavix 75 mg daily, Farxiga 10 mg daily, losartan 25 mg daily, metoprolol succinate 25 mg twice daily and atorvastatin 40 mg daily. Per patient's outpatient notes has not tolerated Aldactone due to
hyperkalemia. Blood pressure will likely limit use of Entresto but can consider as an outpatient.
-He was being considered for MitraClip candidacy as an outpatient.
-LDL at goal at 40.
Cont med therapy of nonMI trop
Stable cv status
Will confirm outpt follow up
Discussed with nursing.
Please recall if needed.
Progress Note - Inclusion Paraeducator
Subjective
Date of Service: June 06, 2024
Pt seen and examined. Breathing better.
Objective
Labs:
06/06/24 06:58
06/06/24 06:58
Labs
Hgb 9.7 g/dL (13.0-18.0) L 06/06/24 06:58
Hct 30.0 % (39.0-52.0) L 06/06/24 06:58
Plt Count 162 10^3/uL (130-400) 06/06/24 06:58
Sodium 134 mmol/L (135-145) L 06/06/24 06:58
Potassium 4.0 mmol/L (3.5-5.1) 06/06/24 06:58
BUN 27 mg/dl (9-20) H 06/06/24 06:58
Creatinine 1.2 mg/dL (0.7-1.3) 06/06/24 06:58
Glucose 137 mg/dl (70-99) H 06/06/24 06:58
Troponins
06/03/24
12:14
Troponin I 0.910 H* D
Vital Signs and I&O:
Vital Signs
Temp Pulse Resp BP Pulse Ox
97.6 F 106 18 109/63 95
06/06/24 07:30 06/06/24 07:30 06/06/24 07:30 06/06/24 08:43 06/06/24 10:15
Vital Signs
Temp Pulse Resp BP Pulse Ox
97.6 F 106 18 109/63 95
06/06/24 07:30 06/06/24 07:30 06/06/24 07:30 06/06/24 08:43 06/06/24 10:15
Intake & Output
06/04/24 06/05/24 06/06/24 06/07/24
06:59 06:59 06:59 06:59
Intake Total 660 / 660 1020 / 1020 600 / 600
Output Total 300 / 300 700 / 700 900 / 900
Balance 360 / 360 320 / 320 -300 / -300
Physical Exam
Physical Exam
General: No acute distress, AAOX3
Neck: Negative JVD
Heart: Regular, Negative S3 positive S1/S2, Negative S4, No murmur
Lungs: CTA b/l, negative wheezes/rales/rhonchi
Abd: Positive BS, NT/ND, neg rebound/rigidity/guarding
Ext: Negative cyanosis/clubbing/edema
Neuro: nonfocal
[2024-06-06 11:09] VITALS: BP 157/78
[2024-06-06] MEDS: FARXIGA 10 MG PO (11:30)
[2024-06-06 11:35] LABS: Glucose - Point of Care 180 mg/dl (70-99)
--- NOTE | 2024-06-06 12:22 | W.PN.ID1 ---
Date of Service
Date of Service: June 06, 2024
Today's Communication
- agree with checking sputum for NTM with bronchoscopy with cultures for fungus and afb: no need for isolation, do not suspect MTB
- c/w ciprofloxacin to complete 5 days of rx (less effect on qtc and s pneumo not seen in culture) 06/03-06/08
Assessment / Plan
Possible Pneumonia
Bronchiectasis
Shortness of breath
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
CLL - unknown baseline WBC count
Leukocytosis - CLL and on low dose steroids
DM2
CKD
Cachexia
- sputum culture 06/01: usual resp sherri; 05/17 Serratia - resistant to tetracycline and Augmentin
- blood cultures x2 in progress
- agree with checking sputum for NTM with bronchoscopy with cultures for fungus and afb: no need for isolation, do not suspect MTB
- c/w ciprofloxacin to complete 5 days of rx (less effect on qtc and s pneumo not seen in culture) 06/03-06/08
- currently on prednisone 10 mg
follow up with pulmonary; if found to have NTM infection, please notify my office to schedule follow up
Chief Complaint
-: Pneumonia and Other (Immunosuppression)
Subjective / Review of Systems
afebrile - denies further chills
bp stable
cough ongoing - nonproductive
no new complaints
Vital Signs / Physical Exam
Vital Signs
Vital Signs
Temp Pulse Resp BP Pulse Ox
98.5 F 96 16 157/78 99
06/06/24 11:06/06/24 11:06/06/24 11:06/06/24 11:06/06/24 11:09
Physical Exam
Constitutional: No Acute Distress
Cardiovascular: Regular Rate and S1/S2; Negative Murmur or Rub
Pulmonary: Clear and Symmetric; Negative Wheezes or Rales
Gastrointestinal: Soft, Non Tender, Non Distended and Normal Bowel Sounds
Skin: Warm and Dry; Negative Rash or Jaundice
Objective Data
Lab Data
Lab Results
06/06/24 06:58
06/06/24 06:58
Estimated Creat Clear 34 ml/min 06/06/24 06:58
Total Bilirubin 0.7 mg/dl (0.2-1.3) 06/03/24 06:38
AST 65 U/L (17-59) H 06/03/24 06:38
ALT 74 U/L (0-50) H 06/03/24 06:38
Alkaline Phosphatase 76 U/L (38-126) 06/03/24 06:38
Most recent labs reviewed.
Micro Results:
06/01/24 13:27 Blood Culture - Preliminary
Blood/Venous No Growth in 4 days- Final report to follow
06/01/24 13:40 Blood Culture - Preliminary
Blood/Venous No Growth in 4 days- Final report to follow
06/01/24 17:28 Respiratory Culture - Final
Sputum Usual Respiratory Sherri
Gram Stain - Final
06/01/24 15:53 Nasal Screen MRSA (PCR) - Final
Nose MRSA not detected - performed by PCR methodology.
06/01/24 15:53 Legionella Urinary Antigen - Final
Urine Negative for Legionella pneumophila Serogroup 1 antigen.
A negative result does not rule out the possiblity of
Legionella infection due to other serogroups or species of
Legionella. Clinical correlation is recommended.
Streptococcus pneumoniae Antigen (M - Final
Negative for Streptococcus pneumoniae antigen.
A negative result does not exclude infection with
Streptococcus pneumoniae. Clinical correlation is
recommended.
06/01/24 12:24 Influenza Types A & B (NIDA) - Final
Nasal Swab Negative for Influenza A & B, NAAT
Negative results must be combined with clinical observations
and patient history.
Nucleic Acid Amplification test (NAAT)performed on the
[employer] platform.
[2024-06-06 14:34] LABS: Glucose - Point of Care 221 mg/dl (70-99)
--- NOTE | 2024-06-06 14:36 | CM ---
Atul remains on O2 at this time.
He lives alone, 1 story home with laundry in basement, 4 steps to enter. Children are supportive.
Atul has not participated in therapy for about 5 days due to eating and/or fatigue.
Plan: Possible home with VN vs. SNF
NAYA continues to follow for O2 and any other needs for discharge.
[2024-06-06] MEDS: NOVOLOG FLEXPEN-MODERATE RESISTANCE 3 UNITS SC (14:50)
[2024-06-06 15:04] VITALS: BP 128/64
[2024-06-06 15:44] VITALS: BP 128/64; PULSE 94; O2SAT 96
[2024-06-06 17:26] LABS: Glucose - Point of Care 198 mg/dl (70-99)
[2024-06-06] MEDS: COLACE PO (17:29)
[2024-06-06] MEDS: NOVOLOG FLEXPEN-MODERATE RESISTANCE 1 UNITS SC (17:57)
[2024-06-06 21:09] LABS: Glucose - Point of Care 202 mg/dl (70-99)
[2024-06-06] MEDS: RESTORIL 15 MG PO (22:00)
[2024-06-06 23:35] VITALS: BP 113/56
[2024-06-07] VITALS (10 sets, daily range): BP systolic 99–141; BP diastolic 55–67; O2SAT 86–99; BMI 17.0
[2024-06-07 06:12] LABS: Glucose - Point of Care 141 mg/dl (70-99)
[2024-06-07] MEDS: DUONEB INH ×2 (07:45→19:13)
--- NOTE | 2024-06-07 07:55 | PN.DE.MGMTRT ---
Insulin Management
- -
06/07/2024: Diabetes management F/U:
84 year old male with PMH: Bronchiectasis, MVCAD, HFpEF, nephrolithiasis, CLL, hypogammaglobulinemia status post IVIG last week, anemia, HTN, T2DM, 1st degree AV block, HLD, kidney stones, presenting with shortness of breath for the past few days
associate with productive cough likely due to PNA.
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 A1C 8.6%, Cr 1.0, eGFR >60
Pt awake, alert, sitting up in bed, offers no complaints, able to discuss diabetes mgt.
06/05 Lantus was stopped. 06/06 FBG 137(V) and 144 POC. 06/07 FBG 141 this AM.
06/06 Premeal glucose range 144 to 221. Pt states that insulin administration is too complex for him and will not manage giving the shots 3x/day. He is requesting for alternative oral meds. Informed pt that Januvia was started this hospitalization
and Metformin dose was increased to 1000mg and that both will be continued at discharge.
Will stop AC NovoLog 3 units and cont: Januvia 100mg daily, Metformin 1000mg BID, Farxiga 10mg daily.
Will avoid insulin dosing to reduce risk of hypoglycemia in this patient of advanced age.
Plan of care discussed with Pt and Nurse
Diabetes History
- -
Type of Diabetes: 2
Pre-Admission Diabetes Regimen
06/06/24
06:58
Creatinine 1.2
Lab Results
Hemoglobin A1c 8.6 % (4.0-5.6) H 06/02/24 10:37
Insulin Pump Settings
IP Diabetes Regimen
06/06/24 06/06/24 06/06/24
06:58 11:27 14:32
Glucose 137 H
POC Glucose 180 H 221 H
06/06/24 06/06/24 06/07/24
17:24 21:08 06:07
Glucose
POC Glucose 198 H 202 H 141 H
Meal type: Lunch
Amount consumed: 100%
Patient Education
--- NOTE | 2024-06-07 08:10 | W.PN.UPDATE ---
Update Note
Progress Note Update
Bronchoscopy Note
Indications: Persistent cough, recurrent pneumonia, interstitial disease
Informed consent: Obtained from the patient
Findings: See bronchoscopy report for complete details. Anesthesia was present, LMA placed. Lidocaine administered to vocal cords and tracheobronchial tree to achieve topical anesthesia. Airway was clear, no endobronchial lesions. There were
moderate mucous plugs bilaterally. Airway was cleared. Right middle lobe and right lower lobe BAL completed. Sequential lavage of the right middle lobe ruled out progressively worsening bloody return. Return was serosanguineous overall.
Sample sent for cell count with differential, AFB, fungal, bacterial culture, cytology
Patient tolerated procedure well
Contacted daughter Adri and left message regarding findings
Resume diet after 2 hours or after gag returns
[2024-06-07 08:30] LABS: Glucose - Point of Care 157 mg/dl (70-99)
--- NOTE | 2024-06-07 08:42 | W.PN.HOSP.TC ---
Addendum entered and electronically signed by Lucas Jones MD 06/07/24 15:21:
Patient is in need of oxygen at 2 liters/minute via nasal cannula continuously due to pulse oximetry of 85% when ambulatory on room air. Pulse ox improved to 90% with supplemental oxygen. Oxygen will help to improve hypoxemia. Patient is mobile
within the home. DuoNeb therapy has been tried and is ineffective in treating hypoxemia related symptoms. Oxygen is needed to improve symptoms.
Original Note:
Today's Communication/Plan
-
Discharge planning today
Assessment / Plan
Assessment / Plan
Physical Exam
General: no acute distress, appears comfortable, cachectic appearance
HEENT: NormoCephalic, Moist mucous membranes and Atraumatic
Respiratory: Some faint crackles noted on auscultation otherwise relatively clear
Cardiac: S1/S2 and Regular Rhythm; No Murmur or Rub
GI: Soft, Non Tender, Non Distended and Normal Bowel Sounds; No Organomegaly
Musculoskeletal: No Clubbing, No Cyanosis and No Edema
Skin: No Rash
Neuro: Awake alert conversant coherent
Psych: Calm
A/P:
Sepsis/Probable pneumonia/Bronchiectasis with flare:
On oral Cipro by ID through 06/08
Status post bronchoscopy today 06/07--> follow-up results as outpatient
Remains on prednisone 10 mg p.o. daily
Blood cultures no growth
Sputum culture no growth (prior sputum culture on 05/17 Serratia marcescens)
Influenza, COVID-19, Legionella, and strep antigen negative
VSE review results from 06/05 and no problems
DuoNebs 3 times daily
Discussed with pulmonary today on 06/07 and he is cleared for discharge today.
Acute hypoxic respiratory failure due to above and heart failure:
Supplemental oxygen--> check for home oxygen needs
Monitor respiratory status closely
Acute on chronic systolic congestive heart failure:
IV Lasix switched to oral, Lasix 20 mg p.o. daily
Continue GDMT: Beta-blockers, ARB, and SGLT-i
Known EF 35 to 40% from last echo back in November this year
Cardiology consult appreciated
Moderate to severe mitral regurgitation:
Consideration of MitraClip as outpatient
Elevated troponin:
Elevated troponin due to nonischemic myocardial injury
CAD:
Continue medical management
Has been considered high risk for interventions or surgery
Continue anti-ischemic regimen, DAPT, beta-blockers, statins
Chest pain-free
NSVT:
Beta-blockers
Cardiac monitoring
CLL with immunoglobulin deficiency:
Continue outpatient IVIG
Hypertension:
Continue losartan and metoprolol and furosemide
Monitor blood pressure adjust medications accordingly
Hyperlipidemia:
Continue home statins, atorvastatin 40 mg nightly
Diabetes mellitus type 2:
Continue insulin sliding scale
NovoLog 3 units before meal
Continue Farxiga 10 mg p.o. daily
Continue metformin at 1000 mg twice a day
Hemoglobin A1c at 8.6 on 06/02
Anxiety:
Continue temazepam 15 mg p.o. nightly
DVT prophylaxis:
Heparin SQ
CODE STATUS:
DNR
Anticipated Discharge: Today
Subjective/Interval History
-
Date of Service: June 07, 2024
Patient feels well today. Afebrile
Objective Data
-
Labs:
Laboratory Results
06/07/24
06:00
WBC Pending
Hgb Pending
Hct Pending
Plt Count Pending
Sodium Pending
Potassium Pending
Chloride Pending
Carbon Dioxide Pending
BUN Pending
Creatinine Pending
Glucose Pending
Calcium Pending
Vital Signs:
Vital Signs
Temp Pulse Resp BP Pulse Ox
97.9 F 73 18 102/59 94
06/07/24 08:15 06/07/24 08:30 06/07/24 08:30 06/07/24 08:30 06/07/24 08:30
I&O
06/06/24 06/07/24 06/08/24
06:59 06:59 06:59
Intake Total 600 / 600 600 / 600
Output Total 900 / 900 1175 / 1175
Balance -300 / -300 -575 / -575
[2024-06-07] MEDS: NOVOLOG FLEXPEN-MODERATE RESISTANCE SC ×2 (09:20→11:55)
[2024-06-07] MEDS: LASIX 20 MG PO (09:25)
[2024-06-07] MEDS: PLAVIX 75 MG PO (09:25)
[2024-06-07] MEDS: FARXIGA 10 MG PO (09:25)
[2024-06-07] MEDS: MUCINEX 1200 MG PO (09:25)
[2024-06-07] MEDS: CIPRO 500 MG PO (09:25)
[2024-06-07] MEDS: DELTASONE 10 MG PO (09:26)
[2024-06-07] MEDS: GLUCOPHAGE 1000 MG PO ×2 (09:26→17:07)
[2024-06-07] MEDS: JANUVIA 100 MG PO (09:26)
[2024-06-07] MEDS: VITAMIN D3 (cholecalciferol) 25 MCG PO (09:26)
[2024-06-07] MEDS: ASPIR LOW (ENTERIC COATED) 81 MG PO (09:27)
[2024-06-07] MEDS: TOPROL XL 25 MG PO (09:27)
[2024-06-07] MEDS: FLUSH (NSS) 1 FLUSH IV (09:28)
[2024-06-07] MEDS: VITAMIN C 1000 MG PO (09:28)
[2024-06-07] MEDS: HEPARIN 5000 UNITS SC (09:28)
[2024-06-07] MEDS: NOVOLOG FLEXPEN SC (09:41)
--- NOTE | 2024-06-07 09:45 | PTCARENOTE ---
Pt returned from PACU s/p bronch via stretcher, accompanied by volunteer. Pt AAO x3, ZIMMERMAN well, ambulatory to bed with assistance; denies weakness/dizziness. VSS. On nc 2 lpm- pulse ox 93%, pt with (+) slight VARGAS, denies SOB; has occ
non-productive cough. Abd soft, non-tender, to start reg diet; took PO meds without difficulty; denies dysphagia. Voided in urinal upo nreturn to room. Afebrile; skin W/D/I. resting in bed at present. Will continue to monitor.
--- NOTE | 2024-06-07 10:31 | W.PN.PUL.V3 ---
Today's Communication / Plan
-
Bronchoscopy.
Await cultures.
Antibiotics per infectious disease.
Outpatient pulmonary follow-up
Assessment
-
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 Abnormal chest x-ray suggestive of
pneumonia. We were consulted on 06/02/2024 for evaluation.
Impression:
# Abnormal CT chest: Bronchiolitis/bilateral groundglass opacity/chronic bronchiectasis.
Differential diagnosis includes: Infectious bacterial/viral, atypical pulmonary edema given increased proBNP, opportunistic infection.
Bronchoscopy 06/07/24-pending
#Shortness of breath
#Leukocytosis - due to CLL
#Transaminitis
Volume overload, component, proBNP >9000
Conditions present prior admission:
#7 mm calculus at the right UPJ with obstructive uropathy s/p Cystoscopy/Right ureteroscopy/Laser lithotripsy/Right ureteral stent placement 11/25/23
#Chronic anemia (Hb ranges between 8.5-10.5)
#Thrombocytopenia (chronic with waxing and waning plt counts)
#DM type II (A1C: 6.9)
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
#Severe MR
# History of multivessel coronary artery disease
# History of first-degree AV block
History of severe chronic bronchiectasis: Follows with Dr. Sun
On low-dose prednisone/nebulizers/secretion clearance interventions
Plan
Respiratory status continues to improve
Supplemental oxygen as needed -attempt to wean to room air
Assess discharge supplemental oxygen needs
Mucus clearing devices.
Mucolytic.
Nebulizers.
Vest therapy-will try while in the hospital-if significantly beneficial will arrange in the outpatient setting
Prednisone 10 mg daily.
Aspiration precautions.
Video swallow 06/05/24-no fluoroscopic evidence for airway aspiration.
.
Cultures reviewed
Sputum cultures-usual respiratory sherri.
Legionella and streptococcal pneumonia antigens negative.
Influenza negative.
Sputum culture 05/17/24-Serratia.
Bronchoscopy 06/07/24-pending
Empiric antibiotic-finite course of ciprofloxacin
Infectious disease following-correspondence reviewed
Patient chronically on IVIG infusions
Follows up with hematology due to CLL
Continue diuresis s as tolerated.
Monitor intake/output, weight, renal function and lower extremity edema.
DVT prophylaxis-On subcutaneous heparin.
Nutrition
Early mobilization..
Dr. Rios updated [id number] Adri-on 06/05/2024 as well as on 06/06/2024--[phone] including potential for bronchoscopy while in inpatient
Outpatient pulmonary [id number] saw Liz Chandler 05/30/24 and has appointment to see Dr. 07/04/24
Imaging reviewed:
Chest x-ray: 06/01/2024There is patchy right middle lobe opacity.. The cardiomediastinal silhouettes are within the limits of normal. Calcific atherosclerotic changes of the thoracic aortic arch are noted. There is no pneumothorax, pleural effusion
or mediastinal shift.
-
CT chest 05/26/2024:Diffuse scattered areas of tree-in-bud nodules and groundglass densities, significantly progressed in the bilateral upper lobes and right middle lobe and slightly improved in the bilateral lower lobes.
No pleural effusions, pericardial effusions or pathologically enlarged noncalcified lymph nodes in the thorax. No pneumothorax.
No thoracic aortic aneurysm. Severe coronary artery calcifications.
Visualized portion of the upper abdomen is unremarkable.
Echocardiogram 11/10/2023: Reviewed CONCLUSIONS- Normal left ventricular chamber size. Mild concentric left ventricular hypertrophy. Moderate reduced left ventricular systolic function with regional wall motion abnormalities. Enlarged right
ventricular size. Severe mitral regurgitation. Mild tricuspid regurgitation. Estimated pulmonary artery pressure of 40-45 mmHg. Mild pulmonic regurgitation. Normal pericardium without effusion. The IVC is of normal size and demonstrates normal
respiratory variation. Compared to prior echo EF% remains reduced and mitral regurgitation is now severe.
Subjective Data
-
Date of Service:
Date of Service: June 07, 2024
Chief Complaint: Pulmonary Follow Up and Dyspnea Follow Up
Subjective:
Had bronchoscopy this morning, no complaints shortness of breath, chest pain, cough, or abdominal pain
Review of Systems
General: Other (. HPI)
Objective Data
Data Reviewed
Vital Signs / I&O:
Vital Signs
Temp Pulse Resp BP Pulse Ox
97.9 F 79 20 107/60 93
06/07/24 09:16 06/07/24 09:27 06/07/24 09:16 06/07/24 09:27 06/07/24 09:19
Intake and Output
06/06/24 06/07/24 06/08/24
06:59 06:59 06:59
Intake Total 600 / 600 600 / 600
Output Total 900 / 900 1175 / 1175
Balance -300 / -300 -575 / -575
SaO2: 93
Nasal Cannula flow liters per minute: 2
Physical Exam
General: Respiratory Distress (n), Comfortable and Other (NAD)
HEENT: Normocephalic, Anicteric and Moist Mucous Membranes
Cardiovascular: Regular Rhythm
Respiratory: Crackles, Rhonchi and Non-Labored Respirations
GI: Soft, Non Distended and Non Tender
Neurology: Awake, Alert and No Motor Deficits
Skin: Warm, Dry, Good Color, Cyanosis (n), Jaundice (n) and Rash (n)
Labs/Micro/Reports
Microbiology
06/07/24 08:29 Bronch Right Lower Lobe Fungal Culture - Preliminary
Culture in progress.
Positive cultures are reported as soon as detected.
Final report to follow in four to five weeks.
06/01/24 13:27 Blood/Venous Blood Culture - Final
No Growth - Final Report
06/01/24 13:40 Blood/Venous Blood Culture - Final
No Growth - Final Report
06/01/24 17:28 Sputum Respiratory Culture - Final
Usual Respiratory Sherri
06/01/24 17:28 Sputum Gram Stain - Final
[2024-06-07 10:46] LABS: Glucose - Point of Care 123 mg/dl (70-99)
--- NOTE | 2024-06-07 12:00 | W.PN.ID1 ---
Date of Service
Date of Service: June 07, 2024
Today's Communication
tomorrow is final day of ciprofloxacin
- will follow up cultures periodically, follow up with pulmonary, follow up with me PRN
Assessment / Plan
Possible Pneumonia
Bronchiectasis
Shortness of breath
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
CLL - unknown baseline WBC count
Leukocytosis - CLL and on low dose steroids
DM2
CKD
Cachexia
- sputum culture 06/01: usual resp sherri; 05/17 Serratia - resistant to tetracycline and Augmentin
- blood cultures x2 in progress
- s/p bronchoscopy today; follow up cell count, routine culture, fungal and afb cultures
- c/w ciprofloxacin to complete 5 days of rx (less effect on qtc and s pneumo not seen in culture) 06/03-06/08
- currently on prednisone 10 mg
- will follow up cultures periodically, follow up with pulmonary, follow up with me PRN
Chief Complaint
-: Pneumonia and Other (Immunosuppression)
Subjective / Review of Systems
afebrile
bp stable
on 2L NC
had bronchoscopy this AM: mucous plugs seen, some bloody return that subsequently cleared, no lesions
in good spinitis asking about discharge
Vital Signs / Physical Exam
Vital Signs
Vital Signs
Temp Pulse Resp BP Pulse Ox
98.1 F 78 20 141/55 92
06/07/24 11:15 06/07/24 11:15 06/07/24 11:15 06/07/24 11:15 06/07/24 11:15
Physical Exam
Constitutional: No Acute Distress, Chronically Ill and Cachetic
Cardiovascular: Regular Rate and S1/S2; Negative Murmur or Rub
Pulmonary: Clear and Symmetric; Negative Wheezes or Rales
Gastrointestinal: Soft, Non Tender, Non Distended and Normal Bowel Sounds
Skin: Warm and Dry; Negative Rash or Jaundice
Objective Data
Lab Data
Estimated Creat Clear 34 ml/min 06/06/24 06:58
Total Bilirubin 0.7 mg/dl (0.2-1.3) 06/03/24 06:38
AST 65 U/L (17-59) H 06/03/24 06:38
ALT 74 U/L (0-50) H 06/03/24 06:38
Alkaline Phosphatase 76 U/L (38-126) 06/03/24 06:38
Most recent labs reviewed.
Micro Results:
06/07/24 08:29 Fungal Culture - Preliminary
Bronch Right Lower Lobe Culture in progress.
Positive cultures are reported as soon as detected.
Final report to follow in four to five weeks.
06/07/24 08:29 Acid Fast Bacilli Smear - Pending
Bronch Right Lower Lobe Acid Fast Bacilli Culture - Pending
06/07/24 08:29 Respiratory Culture - Pending
Bronch Right Lower Lobe Gram Stain - Pending
06/01/24 13:27 Blood Culture - Final
Blood/Venous No Growth - Final Report
06/01/24 13:40 Blood Culture - Final
Blood/Venous No Growth - Final Report
06/01/24 17:28 Respiratory Culture - Final
Sputum Usual Respiratory Sherri
Gram Stain - Final
06/01/24 15:53 Nasal Screen MRSA (PCR) - Final
Nose MRSA not detected - performed by PCR methodology.
06/01/24 15:53 Legionella Urinary Antigen - Final
Urine Negative for Legionella pneumophila Serogroup 1 antigen.
A negative result does not rule out the possiblity of
Legionella infection due to other serogroups or species of
Legionella. Clinical correlation is recommended.
Streptococcus pneumoniae Antigen (M - Final
Negative for Streptococcus pneumoniae antigen.
A negative result does not exclude infection with
Streptococcus pneumoniae. Clinical correlation is
recommended.
06/01/24 12:24 Influenza Types A & B (NIDA) - Final
Nasal Swab Negative for Influenza A & B, NAAT
Negative results must be combined with clinical observations
and patient history.
Nucleic Acid Amplification test (NAAT)performed on the
[employer] platform.
[2024-06-07] MEDS: DUONEB 3 ML INH (12:23)
[2024-06-07 12:42] LABS: Hematocrit 30.7 % (39.0-52.0); Hemoglobin 9.7 g/dL (13.0-18.0); Mean Corp Hgb Conc. 31.6 g/dL (33.0-37.0); Mean Corpuscular Hgb 30.1 pg (27.0-31.0); Mean Corpuscular Volume 95.3 fL (80.0-94.0); Mean Platelet Volume 11.3 fL (7.4-10.4); Platelet Count 175 10^3/uL (130-400); Red Blood Cell Count 3.22 10^6/uL (4.70-6.10); Red Cell Dist. Width 16.7 % (11.5-14.5); White Blood Cell Count 25.2 10^3/uL (4.8-10.8)
[2024-06-07 12:56] LABS: Blood Urea Nitrogen 33 mg/dl (9-20); Carbon Dioxide 19 mmol/L (22-30); Chloride 105 mmol/L (98-107); Estimated Creatinine Clearance 33 ml/min; Glucose 218 mg/dl (70-99); Potassium 4.7 mmol/L (3.5-5.1); Sodium 137 mmol/L (135-145); eGFR > 60.00
--- NOTE | 2024-06-07 13:07 | W.DCSUMMARY ---
Discharge Summary
Discharge Data
Date of Admission: 06/01/24
Date of Discharge: 06/07/24
-
Pending Results: No
Hospital Course
Patient 84 years old male with history of bronchiectasis, CLL with hypogammaglobulinemia on IVIG, CHF, CAD, presented to the hospital cough shortness of breath and fever. Pulmonary and ID were consulted. Patient was treated with antibiotics and
bronchodilators. Cardiology was consulted. He was also treated with IV diuresis. Cardiology recommended to go back to his oral diuretics. In light of his immunocompromise status and multiple comorbidities patient underwent bronchoscopy on 06/07.
Bronchoscopy results will be follow-up as outpatient. He did qualify for home oxygen and case resource manager arranged. Otherwise, patient is hemodynamically stable and afebrile. He has been cleared by ID and pulmonary and cardiology. Patient will be
discharged in stable condition today.
Discharge duration: 35 minutes
Discharge Plan
-
Patient Disposition: Home with Home Care
Discharge Diagnosis/Procedures: Sepsis. Pneumonia. Bronchiectasis with flare. Acute hypoxic respiratory failure. Acute on chronic systolic congestive heart failure. Elevated troponin due to nonischemic myocardial injury. Nonsustained
ventricular tachycardia. History of coronary artery disease. History of chronic lymphocytic leukemia. Diabetes mellitus.
Diet: Low Cholesterol
Activity: As tolerated
Blood Work: Please PCP to order CBC, BMP within 1 week
Specialty Instructions: Weigh Daily- Call MD for wt gain/loss 3 lbs overnight/5 lbs in 1 week
Instructions: *[facility] Heart Failure Instructions
Referrals:
Lea Beasley PA-C [Specified Professional Personl] - 06/23/24 3:40 pm (You have a cardiology follow-up appointment at the [place] office with Dr. Saunders's physician assistant director of security, Lea. Please call with questions)
Evens Rios MD [Active] - in one to two weeks
Stan Gomez DO [Family Provider] - in less than 1 week
Prescriptions:
New
ciprofloxacin HCl 500 mg Tablet
500 mg PO BID 2 Days Qty: 4 0RF
Continued
ascorbic acid (vitamin C) [Vitamin C] 1,000 mg Tablet
1,000 mg PO DAILY
cholecalciferol (vitamin D3) [Vitamin D3] 25 mcg (1,000 unit) Tablet
25 mcg PO DAILY
dapagliflozin propanediol [Farxiga] 10 mg tablet
10 mg PO DAILY Qty: 30 6RF
furosemide 40 mg tablet
20 mg PO DAILY
clopidogrel [Plavix] 75 mg Tablet
75 mg PO DAILY
metformin 500 mg Tablet Extended Release 24 Hr
500 mg PO QPM
atorvastatin 40 mg tablet
40 mg PO QPM
aspirin 81 mg tablet,delayed release (DR/EC)
81 mg PO DAILY
losartan 25 mg tablet
25 mg PO DAILY
metoprolol succinate 25 mg tablet extended release 24 hr
25 mg PO BID
prednisone 10 mg Tablet
10 mg PO DAILY
cod liver oil Capsule
1 cap PO DAILY
temazepam 30 mg Capsule
30 mg PO HS
docusate sodium [Colace] 100 mg Capsule
100 mg PO QPM
Discharge Orders:
Discharge Patient (As Directed); Ordered 06/07/24
Ordered By: Lucas Jones
Discharge Date and Time
Discharge Date/Time: 06/07/24 19:36
Print Language: PERUVIAN
[2024-06-07 13:29] LABS: Brochalveolar Lavage Character Turbid (Clear); Brochalveolar Lavage Color Red
[2024-06-07 13:30] LABS: Brochalveolar Lavage WBC 1700000 cells/ml
[2024-06-07 13:31] LABS: Brochalveolar Lavage Volume 8 ml
--- NOTE | 2024-06-07 13:44 | CM ---
Addendum entered by Mariana Allen 06/07/24 15:37:
Patient will require home O2, faxed to [facility], will deliver bedside before 6:00 p.m.
Original Note:
CM reviewed chart, patient for discharge. Patient seen bedside, discussed PT recommendation of VN, patient agreeable to referral to [facility], TT to [facility] liaison. Patient confirms he is not on O2, awaiting respiratory test, patient aware he may require
home oxygen upon discharge. Patient reports he will have transport from family. IMM reviewed, signed, placed in chart. CM will continue to follow for all discharge planning needs.
Plan; home with [facility], awaiting need for home O2.
[2024-06-07 14:13] LABS: BAL Lymphocytes 17 %; BAL Macrophages 5 %; BAL Neutrophils 78 %
--- NOTE | 2024-06-07 14:21 | VNURNOTE ---
Home Health Liaison met with patient and son at bedside to discuss [facility] nurse/therapy, visits, schedule and homebound status. Patient is agreeable and understands that visits at home will be 2-3 x per week to assess and teach medical management.
[facility] brochure provided with contact information. Patient is aware that [facility] will contact them for start of care in 1-2 days after discharge from . Home 02 assessment pending.
[facility] referral completed in Care Port.
--- NOTE | 2024-06-07 16:38 | PTCARENOTE ---
Pt AAO x3, ZIMMERMAN well, OOB in [place] with PT/walker, tonny well. No c/o weakness/dizziness. VSS. On nc 2 lpm- pulse ox 98%, pt with (+) slight VARGAS; denies SOB. Abd soft, tonny PO well. Voids clear yellow urine in urinal. resting in bed at present; for
DC home after delivery of home O2. Will continue to monitor.
[2024-06-07 17:06] LABS: Glucose - Point of Care 252 mg/dl (70-99)
[2024-06-07] MEDS: NOVOLOG FLEXPEN-MODERATE RESISTANCE 5 UNITS SC (17:28)
[2024-06-07] MEDS: COLACE PO (17:32)
== END 2024-06-07 19:36 | disposition home health service (06) | DRG 871 ==
LOC: 4 EAST ACU 14:18
PROVIDERS: Internal Medicine; Internal Medicine Cardiovascular Disease; Internal Medicine Critical Care Medicine; Nurse Practitioner Family; Physician Assistant; ADMITTING PHYSICIAN Hospitalist; ATTENDING PHYSICIAN Hospitalist; CONSULT PHYSICIAN Internal Medicine Cardiovascular Disease; CONSULT PHYSICIAN Student in an Organized Health Care Education/Training Program; EMERGENCY PHYSICIAN Emergency Medicine; FAMILY PHYSICIAN Internal Medicine; OTHER PHYSICIAN Internal Medicine Critical Care Medicine
PROC: 0BJ08ZZ Inspection of Tracheobronchial Tree, Via Natural or Artificial Opening Endoscopic (ICD-10-PCS; 2024-06-07)
PROC: 0B9D8ZX Drainage of Right Middle Lung Lobe, Via Natural or Artificial Opening Endoscopic, Diagnostic (ICD-10-PCS; 2024-06-07)
DX: A41.89 Other specified sepsis (principal); I50.43 Acute on chronic combined systolic (congestive) and diastolic (congestive) heart failure; J18.9 Pneumonia, unspecified organism; J96.01 Acute respiratory failure with hypoxia; J47.1 Bronchiectasis with (acute) exacerbation; J47.0 Bronchiectasis with acute lower respiratory infection; I5A Non-ischemic myocardial injury (non-traumatic); I47.20 Ventricular tachycardia, unspecified; J98.11 Atelectasis; J84.9 Interstitial pulmonary disease, unspecified; Z11.52 Encounter for screening for COVID-19; I25.10 Atherosclerotic heart disease of native coronary artery without angina pectoris; I11.0 Hypertensive heart disease with heart failure; E11.9 Type 2 diabetes mellitus without complications; Z66 Do not resuscitate; D69.6 Thrombocytopenia, unspecified
CPT/HCPCS: 88305; 71046; 74230; 80048; 80053; 80061; 80202; 82947; 82962; 83036; 83735; 83880; 84100; 84484; 85025; 85027; 87015; 87040; 87070; 87102; 87116; 87205; 87449; 87502; 87641; 87811; 87899; 88112; 89051; 92610; 92611; 93005; 93306; 94640; 94669; 96374; 97162; 97166; 97530; 97535; 99285

== ENCOUNTER 2024-06-24 15:38 | Emergency (ER) | payer OTHER, MEDICARE, SELFPAY ==
[2024-06-24 15:41] VITALS: BP 121/61
--- NOTE | 2024-06-24 17:58 | ED.GENMED ---
History of Present Illness
General
Chief Complaint: Head Injury
Source: patient
Exam Limitations: none
Time Seen by Provider: 06/24/24 17:56
Nursing documentation reviewed up to this point in time: agreed with
History of Present Illness
History of Present Illness:
84-year-old male with a past medical history of CHF, hypertension, hyperlipidemia, diabetes presents emergency department today with concerns of head injury. Patient reports that he was standing up on a stepstool around 2 feet off the ground when
he fell straight back and fell and the back of his head. He did not lose consciousness, he does not have any headaches or neck pain. Patient states that when he got up and started walking, he felt blood run down the back of his head and was
concerned. He does take Xarelto. He denies any dizziness or lightheadedness. He denies any weakness in one-sided body versus other, any speech difficulties, any confusion.
Past History
Past History
ED Past Medical History: Cancer (Leukemia CLL), CHF, HTN, Hypercholesterolemia, NIDDM, Other (Kidney stones) and Other (Bronchiectasis)
ED Past Surgical History: Other (Hernia repair)
Social History
Tobacco: Non-smoker
Alcohol: None
Personal:
Living: with family
Review of Systems
Review of Systems
All Other Systems: ROS reviewed and negative except as documented in HPI and ROS
Phy Exam
Physical Exam
Physical Exam:
General: Patient is well appearing and in no acute distress; non-toxic
Skin: Warm and dry, small abrasion noted to posterior scalp
Head: Normocephalic, no palpable hematoma of the scalp, small abrasion noted to the posterior
Eyes: Sclera non-icteric. EOMs intact. PERRLA.
Cardiac: Regular rate
Peripheral Vascular: No lower extremity swelling or edema
Pulm: Normal respiratory effort
Musculoskeletal: No midline tenderness palpation of the cervical spine, no paraspinal
Neuro: CN II-XII intact, no focal neurologic deficits.
Psychiatric: Appropriate mood and affect.
Course
Orders/Labs/Results
Orders:
Orders
06/24/24 15:[address] [CT Head W/o Iv Contrast] Urgent
Comment:
Reason For Exam: fall on garage floor + thinners
Vital Signs
Initial and Last Documented VS:
Initial Vital Signs
Temp Pulse Resp BP Pulse Ox
98.3 F 105 18 121/61 98
06/24/24 15:41 06/24/24 15:41 06/24/24 15:41 06/24/24 15:41 06/24/24 15:41
Last Documented Vital Signs
Temp Pulse Resp BP Pulse Ox
98.3 F 105 18 121/61 98
06/24/24 15:41 06/24/24 15:41 06/24/24 15:41 06/24/24 15:41 06/24/24 15:41
MDM/Problems Addressed
Differential Diagnosis Includes:
See below
MDM/Problems Addressed:
NUMBER AND COMPLEXITY OF PROBLEMS ADDRESSED AT THE ENCOUNTER
� Chronic conditions affecting care:
� Acute Exacerbation and/or Progression of Chronic Illness:
� Differential Diagnosis includes:
AMOUNT AND/OR COMPLEXITY OF DATA TO BE REVIEWED AND ANALYZED
� I performed an independent evaluation of and my interpretation is:
CT: No acute intracranial abnormality
Other:
� Review of other/old records: Reviewed discharge summary from 06/07/2024, patient seen for shortness of breath, was admitted for shortness of breath and fever
� Clinical information was obtained by an independent historian: Daughter present with patient who provided
� Prescriptions/Medications Considered but not given: N/A
� Further testing considered but not performed: Not applicable
RISK OF COMPLICATIONS AND/OR MORBIDITY OR MORTALITY OF PATIENT MANAGEMENT
� Social determinants of health affecting care: None
� Discussion with other providers: ER attending
� Escalation of care including admission/observation vs risk of discharge considered:
84-year-old with a past medical history of CHF, hypertension, acidemia, coronary artery disease on Xarelto presents emergency department today with concerns of head injury. Patient states that he fell off a stepstool hitting the back of his head.
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 Patient has no midline spinal
tenderness of the cervical spine on exam, patient stable for discharge.
*Critical Care Note
Total Time (30-74mins, 75-104mins- exclusive of procedures): Not Applicable
ED Attending Note
-
Portions of this chart may have been created with voice recognition software.� Occasional wrong word or��sound alike� substitutions may have occurred due to the inherent limitations of voice recognition software.
Discharge Plan
Departure
Patient Disposition: Home (Routine Discharge)
Date of Disposition: 06/24/24
Time of Disposition: 18:07
Patient with high blood pressure during this ER visit?: Yes
Condition: Good
Discharge Problem:
Head injury, Abrasion
Instructions: Head Injury in Adults (DC), Fall Prevention for Older Adults
Prescriptions:
No Action
ascorbic acid (vitamin C) [Vitamin C] 1,000 mg Tablet
1,000 mg PO DAILY
cholecalciferol (vitamin D3) [Vitamin D3] 25 mcg (1,000 unit) Tablet
25 mcg PO DAILY
dapagliflozin propanediol [Farxiga] 10 mg tablet
10 mg PO DAILY Qty: 30 6RF
furosemide 40 mg tablet
20 mg PO DAILY
clopidogrel [Plavix] 75 mg Tablet
75 mg PO DAILY
metformin 500 mg Tablet Extended Release 24 Hr
500 mg PO QPM
atorvastatin 40 mg tablet
40 mg PO QPM
aspirin 81 mg tablet,delayed release (DR/EC)
81 mg PO DAILY
losartan 25 mg tablet
25 mg PO DAILY
metoprolol succinate 25 mg tablet extended release 24 hr
25 mg PO BID
prednisone 10 mg Tablet
10 mg PO DAILY
cod liver oil Capsule
1 cap PO DAILY
temazepam 30 mg Capsule
30 mg PO HS
docusate sodium [Colace] 100 mg Capsule
100 mg PO QPM
ciprofloxacin HCl 500 mg Tablet
500 mg PO BID 2 Days Qty: 4 0RF
Referrals:
Stan Gomez DO [Family Provider] -
Activity Restrictions/Additional Instructions:
Your CT scan today did not show any evidence of bleeding in the brain.
Your CT scan did show evidence of a chronic infection in the mastoid near the ear, please call your primary care provider to schedule follow-up appointment to address this finding.
PLEASE RETURN EMERGENCY DEPARTMENT SHOULD YOU EXPERIENCE CHEST PAIN, HEADACHES, NAUSEA OR VOMITING, VISUAL CHANGES, LIGHTHEADEDNESS, DIZZINESS, OR ANY OTHER SIGNS OR SYMPTOMS CONCERNING TO YOU.
Interventions
Interventions:
*Risk Screen - Suicide Last Done: 06/24/24 15:41
*General Assessment Last Done: 06/24/24 15:41
*Neglect/Abuse Screening Last Done: 06/24/24 15:41
ED- Fall Risk Assessment Last Done: 06/24/24 18:28
*ED COVID-19 Vaccine History Last Done: 06/24/24 15:41
*Nursing Disposition Last Done: 06/24/24 18:28
ED- Neurological Assessment Last Done: 06/24/24 17:51
ED-Skin Assessment Last Done: 06/24/24 17:52
Discharge Date and Time
Discharge Date/Time: 06/24/24 18:29
Print Language: CZECH
== END 2024-06-24 18:29 | disposition home or self-care (01) ==
LOC: EMR 15:38
PROVIDERS: EMERGENCY PHYSICIAN Emergency Medicine; FAMILY PHYSICIAN Internal Medicine
DX: S09.90XA Unspecified injury of head, initial encounter (principal); S00.91XA Abrasion of unspecified part of head, initial encounter; W08.XXXA Fall from other furniture, initial encounter; I11.0 Hypertensive heart disease with heart failure; I50.9 Heart failure, unspecified; I25.10 Atherosclerotic heart disease of native coronary artery without angina pectoris; E11.9 Type 2 diabetes mellitus without complications
CPT/HCPCS: 99284; 70450

== ENCOUNTER → 2024-06-27 06:40 | Outpatient (REF) | payer OTHER, SELFPAY ==
[2024-06-27 07:49] LABS: Hemoglobin 9.5 g/dL (13.0-18.0); Mean Corp Hgb Conc. 31.7 g/dL (33.0-37.0); Mean Corpuscular Hgb 30.5 pg (27.0-31.0); Mean Corpuscular Volume 96.5 fL (80.0-94.0); Mean Platelet Volume 11.8 fL (7.4-10.4); Platelet Count 125 10^3/uL (130-400); Red Blood Cell Count 3.11 10^6/uL (4.70-6.10); Red Cell Dist. Width 18.3 % (11.5-14.5); White Blood Cell Count 31.4 10^3/uL (4.8-10.8)
[2024-06-27 08:15] LABS: % Basophils 0.2 % (0-2); % Eosinophils 0.2 % (0-6); % Immature Granulocytes 0.3 % (0-0.5); % Lymphocytes 79.3 % (20.5-51.1); % Monocytes 0.6 % (1.7-9.3); % Neutrophils 19.4 % (42.2-75.2); Absolute Basophils 0.1 10^3/uL (0-0.2); Absolute Eosinophils 0.1 10^3/uL (0-0.7); Absolute Immature Granulocytes 0.1 10^3/uL (0-0.05); Absolute Lymphocytes 24.9 10^3/uL (1.2-3.4); Absolute Monocytes 0.2 10^3/uL (0.1-0.6); Absolute Neutrophils 6.1 10^3/uL (1.4-6.5); Nucleated Red Blood Cells % 0 % (-)
[2024-06-27 10:13] LABS: Glycohemoglobin (HgbA1c) 7.6 % (4.0-5.6)
[2024-06-27 18:09] LABS: ALT (SGPT) 32 U/L (0-50); AST (SGOT) 28 U/L (17-59); Albumin 3.2 g/dl (3.5-5.0); Alkaline Phosphatase 86 U/L (38-126); Blood Urea Nitrogen 31 mg/dl (9-20); Calcium 9.6 mg/dl (8.4-10.2); Carbon Dioxide 26 mmol/L (22-30); Chloride 109 mmol/L (98-107); Glucose 193 mg/dl (70-99); HDL Cholesterol 47 mg/dl; LDL Cholesterol, Calculated 40 mg/dl; Potassium 3.8 mmol/L (3.5-5.1); Sodium 141 mmol/L (135-145); Total Bilirubin 0.9 mg/dl (0.2-1.3); Total Cholesterol 100 mg/dl (50-199); Total Protein 5.7 g/dl (6.3-8.2); Triglyceride 66 mg/dl (10-149); Very Low Density Lipoprotein 13 mg/dl (0-30); eGFR > 60.00
[2024-06-28 23:38] LABS: IgA 180 mg/dl (70-400); IgG 690 mg/dl (700-1600); IgM 38 mg/dl (40-230)
== END ==
LOC: REG 06:40
PROVIDERS: ATTENDING PHYSICIAN Internal Medicine Hematology & Oncology; FAMILY PHYSICIAN Internal Medicine
DX: D72.820 Lymphocytosis (symptomatic) (principal); C91.10 Chronic lymphocytic leukemia of B-cell type not having achieved remission; D80.1 Nonfamilial hypogammaglobulinemia; E11.9 Type 2 diabetes mellitus without complications; E78.2 Mixed hyperlipidemia; I50.20 Unspecified systolic (congestive) heart failure
CPT/HCPCS: 36415; 80053; 80061; 82784; 83036; 85025

== ENCOUNTER 2024-07-10 13:31 | Inpatient (IN) | payer OTHER, SELFPAY ==
[2024-07-10] VITALS (21 sets, daily range): BP systolic 91–126; BP diastolic 62–94; BMI 17.7; BMI 16.9
--- NOTE | 2024-07-10 04:37 | ED.GENMED ---
History of Present Illness
General
Chief Complaint: Generalized Pain
Source: patient, ambulance crew and previous hospital records (Hospitalization June 01 to June 15 with complaints of shortness of breath/fever. Treated with antibiotics and bronchodilators.)
Exam Limitations: clinical condition (In moderate distress, moaning, history of present illness is limited)
Time Seen by Provider: 07/10/24 04:34
History of Present Illness
History of Present Illness:
This is an 84-year-old gentleman who resides at home alone, independently. 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 Hospitalized June 01 to June 07 for treatment of shortness of breath
with fever. Treated for pneumonia and exacerbation of bronchiectasis with antibiotics and bronchodilators.
He called his son rogelio with complaints of generalized pain and shortness of breath. Son arrived to the house and then called 911.
Patient found by EMS lying in bed complaining of shortness of breath and generalized pain. Initial room air pulse ox 85%. He has oxygen at home but generally does not require this.
Patient evaluated in this ED June 24 after suffering a fall from a stepstool, striking the back of his head. CT of the head was unremarkable. No reported recurrent falls.
History of present illness is quite limited due to patient's current condition, in moderate distress, persistently moaning, complaining of pain but otherwise unable to quantify.
On nonrebreather mask pulse ox 100%, has been transitioned to 6 L nasal cannula, 94 to 95%.
Past History
Past History
ED Past Medical History: Cancer (Leukemia CLL), CHF, HTN, Hypercholesterolemia, NIDDM, Other (Kidney stones) and Other (Bronchiectasis)
ED Past Surgical History: Other (Hernia repair)
Social History
Tobacco: Non-smoker
Alcohol: None
Personal:
Living: alone
Employment: Retired
Family History
Family History: Other (Noncontributory)
Phy Exam
Physical Exam
Physical Exam:
GENERAL: 84-year-old gentleman somewhat thin and frail in appearance, appears in moderate distress, mild to moderate tachypnea, frequent moist nonproductive cough. Frequently moaning and complaining of pain but otherwise cannot quantify.
EYE: pupils equal and reactive. anicteric
NECK: Supple, nontender, no meningismus, no significant adenopathy.
ENT: posterior pharynx is clear, oral mucosa is mildly dry. No rhinorrhea.
CARDIAC: Regular rate and rhythm. no murmur.
LUNGS: Mild to moderate respiratory distress, coarse rhonchi left mid to left lower lobe, rales right mid to right lower lobe
ABDOMEN: Soft, nondistended, without focal tenderness, no r/g, no cvat. normoactive BS.
NEUROLOGICAL: Awake, minimally drowsy, frequently moaning, he will answer yes and no questions appropriately. No focal neuro deficits.
SKIN: Warm and dry, n mildly pale in color, superficial abrasion right anterior knee without focal tenderness nor soft tissue swelling. No bleeding. No rash.
MUSCULOSKELETAL: No C/C/E. peripheral pulses are full and equal b/l. No palpable tenderness.
PSYCH: Mildly anxious.
Course
Orders/Labs/Results
Orders:
Orders
07/10/24 04:35
Electrocardiogram (*1) Urgent
Reason for Study: Other
Other Reason for Exam: Possible Sepsis
Cardiac Monitoring- Treatment ONCE
IV Insert/Care/Rem.- Treatment PRN
Urinalysis Reflex To Culture Urgent
Date Specimen was Collected: 07/10/24
Time Specimen was Collected: 04:36
CR Chest Portable - 1 View Urgent
Comment:
Reason For Exam: sob cough
Reason Study Needs to be Portable: Patient Unstable
O2 Therapy [RESP] Urgent
Titrate/Wean O2 to maintain O2 sat greater than (%): 93
Special Instructions: TO MAINTAIN CONTINUOUS O2 SATS > OR = 93%
Pulse Ox/cont/shift [RESP] Urgent
Quantity: 1
Special Instructions: CONTINUOUS
07/10/24 04:36
EKG- Treatment ONCE
07/10/24 04:38
Complete Blood Count/With Diff Urgent
Comprehensive Metabolic Panel Urgent
Lactic Acid Q4H
Comment: ON ICE, CANCEL 2ND ORDER IF FIRST LACTIC ACID LEVEL <2
07/10/24 04:41
Blood Culture Urgent
JOSE ENRIQUE Source: Blood/Venous
Specimen Description:
07/10/24 04:45
Blood Culture Urgent
JOSE ENRIQUE Source: Blood/Venous
Specimen Description:
07/10/24 04:48
COVID-19 Antigen Urgent
Source: Nasal Swab
INF RAPID [Influenza A+B Rapid Molecular] Urgent
JOSE ENRIQUE Source: Nasal Swab
Specimen Description:
07/10/24 06:25
Add On- LAB Urgent
Tests Added?: BNP
07/10/24 06:27
NT-proBNP Urgent
Comment: ADD ON
Troponin I Urgent
07/10/24 07:06
Furosemide [Lasix] 40 mg IV NOW STA
07/10/24 08:45
Lactic Acid Q4H
Comment: ON ICE, CANCEL 2ND ORDER IF FIRST LACTIC ACID LEVEL <2
Abnormal Lab Results
07/10/24 07/10/24
04:38 06:27
WBC 44.8 H* 10^3/uL
(4.8-10.8)
RBC 3.23 L 10^6/uL
(4.70-6.10)
Hgb 9.9 L g/dL
(13.0-18.0)
Hct 32.4 L %
(39.0-52.0)
MCV 100.3 H fL
(80.0-94.0)
MCHC 30.6 L g/dL
(33.0-37.0)
RDW 18.5 H %
(11.5-14.5)
MPV 11.8 H fL
(7.4-10.4)
Abs Immat Gran (auto) 0.4 H 10^3/uL
(0-0.05)
Absolute Neuts (auto) 9.9 H 10^3/uL
(1.4-6.5)
Absolute Lymphs (auto) 34.1 H 10^3/uL
(1.2-3.4)
Immature Gran % 0.8 H %
(0-0.5)
Neutrophils % 22.2 L %
(42.2-75.2)
Lymphocytes % 76.0 H %
(20.5-51.1)
Monocytes % 0.9 L %
(1.7-9.3)
Sodium 134 L mmol/L
(135-145)
BUN 26 H mg/dl
(9-20)
Glucose 329 H mg/dl
(70-99)
Lactic Acid 2.1 H mmol/L
(0.7-2.0)
Troponin I 0.590 H* ng/ml
Total Protein 5.9 L g/dl
(6.3-8.2)
Albumin 3.4 L g/dl
(3.5-5.0)
07/10/24 04:38
07/10/24 04:38
Vital Signs
Initial and Last Documented VS:
Initial Vital Signs
Pulse Resp BP Pulse Ox
115 24 103/70 87
07/10/24 04:22 07/10/24 04:22 07/10/24 04:22 07/10/24 04:22
Last Documented Vital Signs
Temp Pulse Resp BP Pulse Ox
97.2 F 113 29 91/64 98
07/10/24 05:06 07/10/24 05:15 07/10/24 05:15 07/10/24 05:12 07/10/24 05:23
MDM/Problems Addressed
Differential Diagnosis Includes:
Concern for pneumonia, exacerbation bronchiectasis, CHF, ACS
Appears somewhat more comfortable with supplemental oxygen.
Will check labs, EKG, portable chest x-ray.
Patient is chronically immunocompromised due to CLL/hypogammaglobulinemia�at risk for pneumonia/sepsis.
Chronic conditions affecting care: HTN, CAD, Cardiomyopathy, COPD, Immunosuppressed and Cancer (CLL)
*Radiology
Radiology exam reviewed: preliminary read by ED provider (Chest x-ray shows extensive bilateral pulmonary infiltrates which are new compared to previous film June 01. Concerning for pneumonitis versus pulmonary edema)
*Pulse Oximetry
Patient hypoxic: yes
*EKG
Interpreted by ED Provider?: Yes
Interpretation: abnormal
Comparison EKG: changes noted (Mild ST depression/ischemia noted anteriorly V1/V2 which is new compared to previous EKG June 05. Heart rate has increased from 80 to now 110)
Rate: tachycardiac
Rhythm: sinus
[place]: normal axis
Interval: normal interval
QRS Pattern: right bundle branch block
Ischemia: ST depression
*Perfect [employer] Feeder Offbearer Interpretation
Rate: tachycardiac
Interpretation: abnormal
Rhythm: sinus
*Critical Care Note
Total Time (30-74mins, 75-104mins- exclusive of procedures): 40
comment:
Critical care statement: A total of 40 minutes of critical care time was provided for this patient. This includes management of unstable vital signs, evaluation of the patient at bedside, reviewing the patient's pertinent medical records, discussion
with consultants, review of old EKGs and review of pertinent medical records. This time with separate from time utilized to perform the aforementioned documented procedures
Update Note
Update Note:
05:00
Patient is much more comfortable after supplemental oxygen initiated. Currently comfortable on 6 L nasal cannula with pulse ox 95%. He has had complete relief of pain. He does continue with mild resting tachypnea and moist nonproductive cough.
He is afebrile.
EKG shows sinus tachycardia with mild ST depression anteriorly V1 V2 which is new compared to previous.
Chest x-ray shows extensive fluffy bilateral infiltrates concerning for pulmonary edema versus bilateral pneumonitis. New findings compared to previous chest x-ray June 01.
Labs are pending.
Blood pressure is mildly soft 100-110 systolic.
07:00
Labs show markedly elevated white blood cell count, he has history of CLL, similar elevations previously.
Troponin elevated 0.590.
BNP is pending.
Will give an IV dose of Lasix, admit to hospitalist service.
ED Attending Note
-
Portions of this chart may have been created with voice recognition software.� Occasional wrong word or��sound alike� substitutions may have occurred due to the inherent limitations of voice recognition software.
Discharge Plan
Departure
Patient Disposition: Admit
Date of Disposition: 07/10/24
Time of Disposition: 07:15
Admit to: Telemetry
Admit to doctor: Payton
Presentation/result/management discussed w/ accepting MD/DO: Hospitalist
Condition: Serious
Discharge Problem:
Acute and chronic respiratory failure with hypoxia, ACS (acute coronary syndrome), Acute pulmonary edema
Prescriptions:
No Action
ascorbic acid (vitamin C) [Vitamin C] 1,000 mg Tablet
1,000 mg PO DAILY
cholecalciferol (vitamin D3) [Vitamin D3] 25 mcg (1,000 unit) Tablet
25 mcg PO DAILY
dapagliflozin propanediol [Farxiga] 10 mg tablet
10 mg PO DAILY Qty: 30 6RF
furosemide 40 mg tablet
20 mg PO DAILY
clopidogrel [Plavix] 75 mg Tablet
75 mg PO DAILY
metformin 500 mg Tablet Extended Release 24 Hr
500 mg PO QPM
atorvastatin 40 mg tablet
40 mg PO QPM
aspirin 81 mg tablet,delayed release (DR/EC)
81 mg PO DAILY
losartan 25 mg tablet
25 mg PO DAILY
metoprolol succinate 25 mg tablet extended release 24 hr
25 mg PO BID
prednisone 10 mg Tablet
10 mg PO DAILY
cod liver oil Capsule
1 cap PO DAILY
temazepam 30 mg Capsule
30 mg PO HS
docusate sodium [Colace] 100 mg Capsule
100 mg PO QPM
ciprofloxacin HCl 500 mg Tablet
500 mg PO BID 2 Days Qty: 4 0RF
Referrals:
Stan Gomez DO [Family Provider] -
Interventions
Interventions:
*Risk Screen - Suicide Last Done: 07/10/24 04:22
*General Assessment Last Done: 07/10/24 04:22
*Neglect/Abuse Screening Last Done: 07/10/24 04:22
ED- Fall Risk Assessment Last Done: 07/10/24 05:23
*ED COVID-19 Vaccine History Last Done: 07/10/24 04:22
Discharge Date and Time
Print Language: URUGUAYAN
[2024-07-10 05:11] LABS: Hematocrit 32.4 % (39.0-52.0); Hemoglobin 9.9 g/dL (13.0-18.0); Mean Corp Hgb Conc. 30.6 g/dL (33.0-37.0); Mean Corpuscular Hgb 30.7 pg (27.0-31.0); Mean Corpuscular Volume 100.3 fL (80.0-94.0); Mean Platelet Volume 11.8 fL (7.4-10.4); Platelet Count 197 10^3/uL (130-400); Red Blood Cell Count 3.23 10^6/uL (4.70-6.10); Red Cell Dist. Width 18.5 % (11.5-14.5); White Blood Cell Count 44.8 10^3/uL (4.8-10.8)
[2024-07-10 05:16] LABS: COVID-19 Antigen Negative (Negative)
[2024-07-10 05:29] LABS: Lactic Acid 2.1 mmol/L (0.7-2.0)
[2024-07-10 05:32] LABS: ALT (SGPT) 50 U/L (0-50); AST (SGOT) 57 U/L (17-59); Albumin 3.4 g/dl (3.5-5.0); Alkaline Phosphatase 122 U/L (38-126); Blood Urea Nitrogen 26 mg/dl (9-20); Carbon Dioxide 22 mmol/L (22-30); Chloride 103 mmol/L (98-107); Estimated Creatinine Clearance 37 ml/min; Glucose 329 mg/dl (70-99); Potassium 4.7 mmol/L (3.5-5.1); Sodium 134 mmol/L (135-145); Total Bilirubin 0.7 mg/dl (0.2-1.3); Total Protein 5.9 g/dl (6.3-8.2); eGFR > 60.00
[2024-07-10 06:25] LABS: % Eosinophils 0.1 % (0-6); % Immature Granulocytes 0.8 % (0-0.5); % Monocytes 0.9 % (1.7-9.3); % Neutrophils 22.2 % (42.2-75.2); Absolute Eosinophils 0.1 10^3/uL (0-0.7); Absolute Immature Granulocytes 0.4 10^3/uL (0-0.05); Absolute Lymphocytes 34.1 10^3/uL (1.2-3.4); Absolute Monocytes 0.4 10^3/uL (0.1-0.6); Absolute Neutrophils 9.9 10^3/uL (1.4-6.5); Nucleated Red Blood Cells % 0 % (-)
[2024-07-10 06:26] LABS: Anisocytosis 1+; Normal RBC Morphology No
[2024-07-10 06:28] LABS: Acanthocytes Occasional; Ovalocytes 1+
[2024-07-10] MEDS: LASIX 20 MG IV (07:38)
[2024-07-10 07:44] LABS: NT-proBNP 19900 pg/ml
[2024-07-10 13:20] LABS: Lactic Acid 1.1 mmol/L (0.7-2.0)
[2024-07-10 13:51] LABS: Urine Albumin Negative (Neg - Trace); Urine Bilirubin Negative (Negative); Urine Character Clear (Clear); Urine Color Yellow; Urine Glucose 3+ (Negative); Urine Ketone Negative (Negative); Urine Leukocyte Negative (Negative); Urine Nitrite Negative (Negative); Urine Occult Blood Trace (Negative); Urine Urobilinogen Negative (Neg - 1+)
[2024-07-10 14:51] LABS: Urine Squamous Cell 0-2 /LPF (Few)
[2024-07-10 14:52] LABS: Urine Amorphous Seen; Urine Red Blood Cell 0-2 /HPF (0-2); Urine White Cell 0-2 /HPF (0-5)
--- NOTE | 2024-07-10 15:38 | CON.CAR ---
Addendum entered and electronically signed by Kumar Marshall MD 07/10/24 16:17:
I saw and examined the patient.
The BRUSH CUTTER or PA's note was reviewed and I agree with the note.
Comment: General: Well developed, well nourished in NAD.
Neck: Supple, no JVD, HJR, carotids +2 B/L, no bruits bilaterally.
Heart: Non displaced PMI, RRR, no murmurs, No S3, S4, no rubs.
Lungs: Scattered rhonchi throughout
Extremities: No clubbing, cyanosis or edema bilaterally.
Neuro: Grossly nonfocal, awake, alert and oriented x3.
Atul has a history of chronic hypoxic respiratory failure, interstitial lung disease, severe bronchiolitis/bronchiectasis and recurrent pneumonia, chronic systolic CHF with estimate ejection fraction 35 to 40% in May 2024, severe multivessel
disease as well as moderate to severe MR and was turned down for surgery in 2023, CLL, diabetes, hypertension. He presents with shortness of breath and elevated troponin.
Will treat for acute systolic CHF. Will track troponins but not felt to be candidate for procedures in 2023.
Original Note:
Consultation
Consultation Request
Date/Time Consultation Requested: 07/10/24
Date/Time Consultation Performed: 07/10/24
Requesting Provider: Dr. Moody
Performing Provider: Dr. Marshall
Reason for Consultation: Acute HFrEF, CAD with elevated Troponin
Medical History
-
History of Present Illness:
Patient came to [facility] from home very early this morning with pain all over and SOB and cardiology has been consulted for acute HF and elevated Troponin. Patient was just admitted to 06/01/24 until 06/07/24 with PNA and bronchiectasis flare and then
had an ER visit for fall on 06/24/24. Patient is frail, but feels that he has been stable since the ER visit, but started with increased SOB on Wednesday and felt like he could not get comfortable to sleep. Patient reports that he sleeps sitting up in
a chair most of the time, but despite sitting up straight he could not catch his breath and felt restless. Patient called his son and when patient's son arrived the patient was moaning and rocking back and forth so son called 911 and patient was
brought to [facility]. In [facility] patient was given a total of Lasix 60 mg IV and reports increased urine output and improved SOB. Patient was also placed on oxygen at 6 L NC and has oxygen at home, but reports that he never uses it.
PMH:
Chronic hypoxic respiratory failure
Recent admission for PNA and bronchiectasis flare 06/01/24 until 06/07/24
ILD
Chronic atelectasis
History of severe bronchiolitis/bronchiectasis and recurrent pneumonia
Chronic HFrEF
Ischemic cardiomyopathy, EF 35-40% by echo 06/02/24
Severe multivessel CAD
NSTEMI peak Troponin 3.03 on 08/05/23
s/p cath with severely calcified LAD subtotally occluded, 80% OM, 70% RCA 09/2023
Prior discussions regarding medical management versus PCI versus CABG with plan for conservative treatment. CT surgery felt patient was too high risk for CABG/MVR 09/2023
Moderate to severe mitral regurgitation
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
CLL
Anemia/thrombocytopenia
Hyperlipidemia
DM 2
HTN
Past Medical History
Past Medical History: Other (in HPI)
Past Surgical History: Orthopedic
Social History
Tobacco: Non-Smoker
Alcohol: None
Drug: None
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
Employment: Retired
Family History
Family History: Diabetes
Allergies / Home Medications
Allergy/AdvReac Type Severity Reaction Status Date / Time
No Known Allergies Allergy Verified 07/10/24 04:21
�Medication �Instructions �Recorded �Confirmed �Type
ascorbic acid (vitamin C) 1,000 mg 1,000 mg PO DAILY Supplement 07/27/23 07/10/24 History
tablet (Vitamin C)
cholecalciferol (vitamin D3) 25 25 mcg PO DAILY Supplement 07/27/23 07/10/24 History
mcg (1,000 unit) tablet (Vitamin
D3)
dapagliflozin propanediol 10 mg 10 mg PO DAILY Heart Failure #30 08/05/23 07/10/24 Rx
tablet (Farxiga) tabs
aspirin 81 mg tablet,delayed 81 mg PO DAILY Blood Clot 11/24/23 07/10/24 History
release Prevention/Tx
atorvastatin 40 mg tablet 40 mg PO QPM High Cholesterol 11/24/23 07/10/24 History
clopidogrel 75 mg tablet (Plavix) 75 mg PO DAILY Blood Clot 11/24/23 07/10/24 History
Prevention/Tx
losartan 25 mg tablet 25 mg PO DAILY Heart Failure 11/24/23 07/10/24 History
metoprolol succinate 25 mg 25 mg PO BID Heart Failure 11/24/23 07/10/24 History
tablet,extended release 24 hr
cod liver oil 1 cap PO DAILY Supplement 06/01/24 07/10/24 History
docusate sodium 100 mg capsule 50 mg PO BIDPRN PRN constipation 06/01/24 07/10/24 History
(Colace)
prednisone 10 mg tablet 10 mg PO DAILY Lung/Breathing 06/01/24 07/10/24 History
Issues
temazepam 30 mg capsule 30 mg PO HS Sleep 06/01/24 07/10/24 History
Ivig Infusion 1 dose IV .Q 3-4 MONTHS CLL 07/10/24 07/10/24 History
budesonide 0.5 mg/2 mL suspension 0.5 mg inhalation BID 07/10/24 07/10/24 History
for nebulization
cyanocobalamin (vitamin B-12) 1,000 mcg PO DAILY 07/10/24 07/10/24 History
1,000 mcg tablet (Vitamin B-12)
furosemide 20 mg tablet 20 mg PO DAILY 07/10/24 07/10/24 History
ipratropium 0.5 mg-albuterol 3 mg 3 ml inhalation R Q6HPRN PRN sob 07/10/24 07/10/24 History
(2.5 mg base)/3 mL nebulization
soln
metformin 500 mg tablet,extended 500 mg PO DAILY 07/10/24 07/10/24 History
release 24 hr
Review of Systems
-
History Source: Patient
All other systems: Negative unless noted
Physical Exam
Vital Signs
Temp Pulse Resp BP Pulse Ox
97.2 F 95 23 108/70 99
07/10/24 05:06 07/10/24 14:45 07/10/24 14:45 07/10/24 12:48 07/10/24 14:45
GEN: NAD, AAOx3
HEENT: EOMI, MMM
LUNGS: 6 L NC. Decreased BS at bases B/L without wheeze or rales
CV: SR on tele. Reg, S1/S2, 1/6 syst LSB
ABD: soft, BS+, NT, ND
EXT: No clubbing, cyanosis, lesions or edema B/L
NEURO: Gross non-focal
SKIN: Warm, dry and pink. No rash
Lab Results
07/10/24 04:38
07/10/24 04:38
Troponin I 0.590 ng/ml H* 07/10/24 06:27
Zee-P-Zkbfdnxznkx Pept 75840 pg/ml 07/10/24 06:27
Impression / Plan
-
PCP: Dr. Gomez
Primary Broomcorn Scraper: Dr. Saunders
Impression:
Acute on chronic hypoxic respiratory failure
Recent admission for PNA and bronchiectasis flare 06/01/24 until 06/07/24
ILD
Chronic atelectasis
History of severe bronchiolitis/bronchiectasis and recurrent pneumonia
Acute on chronic HFrEF
Ischemic cardiomyopathy, EF 35-40% by echo 06/02/24
Severe multivessel CAD
NSTEMI peak Troponin 3.03 on 08/05/23
s/p cath with severely calcified LAD subtotally occluded, 80% OM, 70% RCA 09/2023
Prior discussions regarding medical management versus PCI versus CABG with plan for conservative treatment. CT surgery felt patient was too high risk for CABG/MVR 09/2023
Moderate to severe mitral regurgitation
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
CLL
Anemia/thrombocytopenia
Hyperlipidemia
DM 2
HTN
ECHO 11/10/23: EF 35 to 40%, stage II diastolic dysfunction, moderately reduced LV systolic function with regional wall motion abnormalities including akinetic apex, apical septum, apical lateral wall, enlarged RV size, severe MR, mild TR, PAP 40 to
45 mmHg, mild CO
Echo 06/02/24: EF 35 to 40%, the apex, inferoseptum, inferior and inferolateral cedillo are hypokinetic, basal septal hypertrophy, mild to moderate MR, mild peak/mean 19/12 mmHg
Plan:
-Patient came to [facility] from home very early this morning with pain all over and SOB and cardiology has been consulted for acute HF and elevated Troponin. Patient was just admitted to 06/01/24 until 06/07/24 with PNA and bronchiectasis flare and
then had an ER visit for fall on 06/24/24. Patient is frail, but feels that he has been stable since the ER visit, but started with increased SOB on Wednesday and felt like he could not get comfortable to sleep. Patient reports that he sleeps sitting
up in a chair most of the time, but despite sitting up straight he could not catch his breath and felt restless. Patient called his son and when patient's son arrived the patient was moaning and rocking back and forth so son called 911 and patient
was brought to [facility]. In [facility] patient was given a total of Lasix 60 mg IV and reports increased urine output and improved SOB. Patient was also placed on oxygen at 6 L NC and has oxygen at home, but reports that he never uses it.
-ECG reviewed by me does not have ST elevations and no acute ischemic changes.
-Troponin 0.59 and next Troponin pending. Will trend.
-Patient with known CAD as noted above, but was turned down to CABG. Check echo. Pending Troponin peak and echo will mange medically as a nonischemic myocardial injury Troponin elevation due to CHF or consider a repeat ischemic evaluation if EF is
worse with new WMA. At CT surgery evaluation in the office 09/06/23 there was mention of consideration for RCA, OM and possibly Diag PCI options.
-Cont outpatient doses of aspirin and Plavix.
-pro-BNP is which is the highest it has ever been for patient.Weight is only up about 4 lbs from last d/c on 06/07/24. Will establish a new dry weight at time of d/c
-Cont Lasix 40 mg IV BID, patient was taking Lasix 20 mg PO daily prior to admission
-Outpatient dose of Toprol XL 25 mg BID has been continued.
-Outpatient dose of losartan 25 mg daily has been continued.
-Outpatient dose of Farxiga 10 mg daily has been held.
-Patient with severe MR by echo 11/10/23 and then mild to mod MR by echo 06/02/24. Patient was turned down for surgical MVR. MitraClip has been considered, but he has not been formally evaluated.
[2024-07-10] MEDS: LASIX 40 MG IV (18:17)
[2024-07-10] MEDS: LOVENOX 40 MG SC (18:18)
[2024-07-10] MEDS: ASPIR LOW (ENTERIC COATED) 81 MG PO (18:18)
[2024-07-10] MEDS: PLAVIX 75 MG PO (18:18)
[2024-07-10] MEDS: COZAAR 25 MG PO (18:19)
[2024-07-10] MEDS: DELTASONE 10 MG PO (18:19)
--- NOTE | 2024-07-10 20:00 | HPS.HSE ---
Family Physician
-
Family Physician: Stan Gomez
Chief Complaint
-
Shortness of breath
History of Present Illness
84 y/o male with past medical history of significant CAD, HFrEF, bronchiectasis needing steroids, CLL with immunoglobulin deficiency and immunosuppressed, presented with shortness of breath and generalized pain. Patient's son came to the house and
called 911. Initial oxygen saturation on room air was 85%. Initially, patient was on nonrebreather mask with pulse ox 100%, has been transitioned to 6 L nasal cannula, 94 to 95%.
Medical History
Past Medical History
Past Medical History: Reports Other (As per HPI above)
Past Surgical History: Reports Other (Hernia Repair)
Social History
Tobacco: Non-smoker
Alcohol: None
Drug: None
Family History
Family History: Not pertinent
Allergies / Home Medications
Allergies reflects when Allergies were last updated in [facility].
Home Medications with original date entered in [facility]
Allergy/Medication List:
Allergies
Allergy/AdvReac Type Severity Reaction Status Date / Time
No Known Allergies Allergy Verified 07/10/24 04:21
Home Medications
ascorbic acid (vitamin C) 1,000 mg tablet (Vitamin C) 1,000 mg PO DAILY Supplement 07/27/23
cholecalciferol (vitamin D3) 25 mcg (1,000 unit) tablet (Vitamin D3) 25 mcg PO DAILY Supplement 07/27/23
dapagliflozin propanediol 10 mg tablet (Farxiga) 10 mg PO DAILY Heart Failure #30 tabs 08/05/23
aspirin 81 mg tablet,delayed release 81 mg PO DAILY Blood Clot Prevention/Tx 11/24/23
atorvastatin 40 mg tablet 40 mg PO QPM High Cholesterol 11/24/23
clopidogrel 75 mg tablet (Plavix) 75 mg PO DAILY Blood Clot Prevention/Tx 11/24/23
losartan 25 mg tablet 25 mg PO DAILY Heart Failure 11/24/23
metoprolol succinate 25 mg tablet,extended release 24 hr 25 mg PO BID Heart Failure 11/24/23
cod liver oil 1 cap PO DAILY Supplement 06/01/24
docusate sodium 100 mg capsule (Colace) 50 mg PO BIDPRN PRN constipation 06/01/24
prednisone 10 mg tablet 10 mg PO DAILY Lung/Breathing Issues 06/01/24
temazepam 30 mg capsule 30 mg PO HS Sleep 06/01/24
Ivig Infusion 1 dose IV .Q 3-4 MONTHS CLL 07/10/24
budesonide 0.5 mg/2 mL suspension for nebulization 0.5 mg inhalation BID 07/10/24
cyanocobalamin (vitamin B-12) 1,000 mcg tablet (Vitamin B-12) 1,000 mcg PO DAILY 07/10/24
furosemide 20 mg tablet 20 mg PO DAILY 07/10/24
ipratropium 0.5 mg-albuterol 3 mg (2.5 mg base)/3 mL nebulization soln 3 ml inhalation R Q6HPRN PRN sob 07/10/24
metformin 500 mg tablet,extended release 24 hr 500 mg PO DAILY 07/10/24
Review of Systems
-
A 12 point ROS was completed and negative except as noted: Yes
Physical Exam
Vital Signs
Vital Signs
Temp Pulse Resp BP Pulse Ox
97.2 F 103 29 126/94 100
07/10/24 05:06 07/10/24 18:45 07/10/24 18:45 07/10/24 18:30 07/10/24 18:45
Physical Exam
General: No Apparent Distress, Comfortable and Conversant
HEENT: NormoCephalic and Moist mucous membranes
Respiratory: Decreased Breath Sounds
Cardiac: S1/S2 and Regular Rhythm
GI: Soft, Non Tender and Normal Bowel Sounds
Musculoskeletal: No Cyanosis and No Edema
Skin: Warm and Dry
Neuro: Awake, Alert and AO x 3
Psych: Calm and Intact Judgment/Insight
Laboratory Results
-
07/10/24 04:38
07/10/24 04:38
Laboratory Results
Lactic Acid 1.1 mmol/L (0.7-2.0) 07/10/24 12:47
Total Bilirubin 0.7 mg/dl (0.2-1.3) 07/10/24 04:38
AST 57 U/L (17-59) 07/10/24 04:38
ALT 50 U/L (0-50) 07/10/24 04:38
Alkaline Phosphatase 122 U/L (38-126) 07/10/24 04:38
Troponin I 6.670 ng/ml H* 07/10/24 16:00
Impression/Plan
-
Assessment/Plan
Acute on chronic hypoxic respiratory failure
HFrEF
Ischemic cardiomyopathy, EF 35-40% by echo 11/2023
Concern for NSTEMI
-Continue IV Lasix
-Continue GDMT: Beta-blockers, ARB
-Daily weights, I's and O's
-Cardiology consult appreciated
-Trend troponins --> significant increase in troponin, start Heparin Drip -- discussed this cardiology
History of multivessel coronary artery disease
History NSTEMI in the setting of influenza infection July 2023
Continue medical management
Has been considered high risk for interventions or surgery - CT surgery felt patient was too high risk for CABG/MVR
Continue anti-ischemic regimen, DAPT, beta-blockers, statins
Chest pain-free
Recent Sepsis/Probable pneumonia/Bronchiectasis with flare
Recent Abnormal CT Chest: Bronchiolitis/bilateral groundglass opacity/chronic bronchiectasis.
Differential diagnosis includes: Infectious bacterial/viral, atypical pulmonary edema given increased proBNP, opportunistic infection.
Bronchoscopy 06/07/24
History of severe chronic bronchiectasis: Follows with Dr. Sun
On low-dose prednisone/nebulizers/secretion clearance interventions
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
Moderate to severe mitral regurgitation:
Consideration of MitraClip as outpatient
History of NSVT
Beta-blockers
Cardiac monitoring
Severe Mitral Regurgitation
CLL with immunoglobulin deficiency
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
Leukocytosis - CLL and on low dose steroids
Continue outpatient IVIG
Hypertension
Continue losartan and metoprolol and furosemide
Monitor blood pressure adjust medications accordingly
Hyperlipidemia
Continue home statins, atorvastatin 40 mg nightly
Diabetes mellitus type 2
Continue insulin sliding scale
Chronic Kidney Disease
Anxiety:
Continue temazepam 22.5 mg p.o. nightly (son confirmed this is the right dose)
7 mm calculus at the right UPJ with obstructive uropathy s/p Cystoscopy/Right ureteroscopy/Laser lithotripsy/Right ureteral stent placement 11/25/23
Chronic anemia (Hb ranges between 8.5-10.5)
Thrombocytopenia (chronic with waxing and waning plt counts)
Recent Transaminitis?
Cachexia
DVT prophylaxis:
Heparin SQ
CODE STATUS:
DNR
[2024-07-10] MEDS: DUONEB 3 ML INH (20:51)
[2024-07-10] MEDS: PULMICORT 0.5 MG INH (20:52)
[2024-07-10] MEDS: HEPARIN 3100 UNITS IV (21:15)
[2024-07-10] MEDS: HEPARIN 25000 UNITS/250 ML IV (21:17)
[2024-07-10] MEDS: LIPITOR 40 MG PO (21:20)
[2024-07-10] MEDS: TOPROL XL PO (21:44)
[2024-07-10] MEDS: RESTORIL 7.5 MG PO (22:47)
[2024-07-10 22:52] LABS: Glucose - Point of Care 293 mg/dl (70-99)
[2024-07-10 22:59] LABS: APTT > 200 Sec (23.4-35.0)
[2024-07-10 23:01] LABS: Hematocrit 27.2 % (39.0-52.0); Hemoglobin 8.7 g/dL (13.0-18.0); Mean Corpuscular Hgb 31.2 pg (27.0-31.0); Mean Corpuscular Volume 97.5 fL (80.0-94.0); Platelet Count 128 10^3/uL (130-400); Red Blood Cell Count 2.79 10^6/uL (4.70-6.10); Red Cell Dist. Width 18.3 % (11.5-14.5); White Blood Cell Count 22.6 10^3/uL (4.8-10.8)
--- NOTE | 2024-07-10 23:06 | PTCARENOTE ---
Initial PTT >200. Enedelia Delgado nurse practitioner made aware. Heparin GTT will be held for 2 hours per protocol.
[2024-07-11 03:30] VITALS: BP 97/63
[2024-07-11 06:00] VITALS: BMI 16.4
[2024-07-11 07:10] VITALS: BP 104/59
[2024-07-11] MEDS: PULMICORT 0.5 MG INH ×2 (07:31→20:33)
[2024-07-11 07:52] LABS: Hematocrit 25.3 % (39.0-52.0); Hemoglobin 8.5 g/dL (13.0-18.0); Mean Corp Hgb Conc. 33.6 g/dL (33.0-37.0); Mean Corpuscular Hgb 32.2 pg (27.0-31.0); Mean Corpuscular Volume 95.8 fL (80.0-94.0); Mean Platelet Volume 11.9 fL (7.4-10.4); Platelet Count 124 10^3/uL (130-400); Red Blood Cell Count 2.64 10^6/uL (4.70-6.10); Red Cell Dist. Width 18.4 % (11.5-14.5); White Blood Cell Count 20.8 10^3/uL (4.8-10.8)
[2024-07-11 07:53] LABS: Glucose - Point of Care 207 mg/dl (70-99)
[2024-07-11] MEDS: NOVOLOG FLEXPEN-LOW RESISTANCE 2 UNITS SC (07:58)
[2024-07-11] MEDS: LASIX 40 MG IV ×2 (07:58→17:02)
[2024-07-11] MEDS: VITAMIN C 1000 MG PO (07:58)
[2024-07-11] MEDS: ASPIR LOW (ENTERIC COATED) 81 MG PO (07:58)
[2024-07-11] MEDS: PLAVIX 75 MG PO (07:58)
[2024-07-11] MEDS: TOPROL XL 25 MG PO ×2 (07:59→19:50)
[2024-07-11] MEDS: COZAAR 25 MG PO (07:59)
[2024-07-11] MEDS: VITAMIN B-12 1000 MCG PO (07:59)
[2024-07-11] MEDS: VITAMIN D3 (cholecalciferol) 25 MCG PO (07:59)
[2024-07-11] MEDS: DELTASONE 10 MG PO (07:59)
[2024-07-11 08:02] LABS: APTT 33.5 Sec (23.4-35.0)
[2024-07-11 08:30] LABS: % Basophils 0.1 % (0-2); % Immature Granulocytes 0.4 % (0-0.5); % Lymphocytes 75.8 % (20.5-51.1); % Neutrophils 22.7 % (42.2-75.2); Absolute Immature Granulocytes 0.1 10^3/uL (0-0.05); Absolute Lymphocytes 15.8 10^3/uL (1.2-3.4); Absolute Monocytes 0.2 10^3/uL (0.1-0.6); Absolute Neutrophils 4.7 10^3/uL (1.4-6.5); Nucleated Red Blood Cells % 0 % (-)
[2024-07-11 08:33] LABS: Blood Urea Nitrogen 31 mg/dl (9-20); Calcium 8.2 mg/dl (8.4-10.2); Carbon Dioxide 24 mmol/L (22-30); Chloride 101 mmol/L (98-107); Estimated Creatinine Clearance 42 ml/min; Glucose 202 mg/dl (70-99); Magnesium 1.9 mg/dl (1.6-2.3); Potassium 3.8 mmol/L (3.5-5.1); Sodium 133 mmol/L (135-145); eGFR > 60.00
--- NOTE | 2024-07-11 10:20 | W.PN.CARDCBS ---
Today's Communication / Plan
-
Today's Plan:
-Continue IV diuresis
-We will repeat echocardiogram and have Dr. Martínez or Dr. Guadarrama review. MR was only estimated as mild-mod on the last study but was felt mod-severe to severe on prior studies. He has not had CELIA done
-Probably will need repeat coronary angiography once he is tuned up better
-He was seen by Dr. Esparza in the past. Will discuss with Dr. Palmer or Jing but likely high surgical risk
-Not sure if pulmonary status has been stable or progressive
-Spent >75 min reviewing old records, cath, echo's and CT office note
Impression / Plan
-
PCP: Dr. Gomez
Primary Insulation Worker Interior Surface: Dr. Saunders
Impression:
-Probable Type 2 myocardial infarction: Supply / demand mismatch. DIRECTOR OF ROOMS of LAD and residual CADz in OM3 and RCA: Troponin peaked at 6.67 ng/ml
-Acute on chronic hypoxic respiratory failure
-Recent admission for PNA and bronchiectasis flare 06/01/24 until 06/07/24
-ILD
-Chronic atelectasis
-History of severe bronchiolitis/bronchiectasis and recurrent pneumonia
-Acute on chronic HFrEF
-Ischemic cardiomyopathy, EF 35-40% by echo 06/02/24
-Severe multivessel CAD
s/p cath with severely calcified LAD subtotally occluded, 80% OM, 70% RCA 09/2023
Prior discussions regarding medical management versus PCI versus CABG with plan for conservative treatment. CT surgery felt patient was too high risk for CABG/MVR 09/2023
-Moderate to severe mitral regurgitation: Will need to review
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
-CLL
-Anemia/thrombocytopenia
-Hyperlipidemia
-DM 2
-HTN
-06/02/2024: Echo: LV: Not mildly reduced LV systolic function estimated at 35-40%. Warren, inferoseptum, inferior and inferolateral cedillo are hypokinetic. RV: Normal, LA: Normal, RA: Normal, MV: Mild-moderate MR, AV: Mild with P/M 19/12 mmHg.
Mild AI. TV: Mild TR with estimated PAP 35-40 mmHg
-11/10/2023: Echo: LV: Mild concentric LVH. Mildly reduced systolic function with EF 35-40. AK apex, apical septum, apical lateral wall. RV: Dilated, LA: Mildly dilated, RA: Dilated, MV: Severe MR, AV: Mild AI, calcified and restricted. TV:
Estimated PAP 40-45 mmHg
-08/05/2023: Echo: LV: Moderately reduced EF 30-35% by visual estimation the mid to distal septum and inferior cedillo are akinetic. RV: Normal, LA: Normal, RA: Normal, MV: Moderate-severe MR, AV: Mild-moderate AI, TV: Moderate TR with estimated PAP
50-55%
-08/31/2023: Cath: LM: Ca plaque in superior LM. No pressure dampening. LAD: Severely calcified over its course with calcified 65% before origin of first diagonal and occluded mid segment in area of dense calcification. LCX: Medium caliber
nondominant vessel. OM1 small with 60% ostial, OM3 long 80% RCA: 60-70% mid
Plan:
-Patient came to [facility] from home very early this morning with pain all over and SOB and cardiology has been consulted for acute HF and elevated Troponin. Patient was just admitted to 06/01/24 until 06/07/24 with PNA and bronchiectasis flare and
then had an ER visit for fall on 06/24/24. Patient is frail, but feels that he has been stable since the ER visit, but started with increased SOB on Wednesday and felt like he could not get comfortable to sleep. Patient reports that he sleeps sitting
up in a chair most of the time, but despite sitting up straight he could not catch his breath and felt restless. Patient called his son and when patient's son arrived the patient was moaning and rocking back and forth so son called 911 and patient
was brought to [facility]. In [facility] patient was given a total of Lasix 60 mg IV and reports increased urine output and improved SOB. Patient was also placed on oxygen at 6 L NC and has oxygen at home, but reports that he never uses it.
-Echocardiogram has been ordered
-Will need to repeat echo and review old echos side by side
-Tropoinin peaked at 6.67 ng/ml. ProBNP is quite elevated suggesting heart failure.
-Shortness of breath is so difficult to assess given underlying bronchiectasis
-Continue IV diuresis
-Would be reasonable to reassess coronary anatomy once he is diuresed and HF improved: Briefly reviewed angiograms. I am not sure LAD would be treatable. Could probably treat OM3 and +/- RCA.
-Outpatient dose of Toprol XL 25 mg BID has been continued.
-Outpatient dose of losartan 25 mg daily has been continued.
-Outpatient dose of Farxiga 10 mg daily has been held.
-May need CELIA later in hospitalization to determine if he is a candidate for MitraClip depending on review of transthoracic study
Progress Note - Insulation Worker Interior Surface
Subjective
Date of Service: July 11, 2024
Feeling a little better but still short of breath. No active chest pain (note: heading down for echo)
Objective
Labs:
07/11/24 07:23
07/11/24 07:23
Labs
Hgb 8.5 g/dL (13.0-18.0) L 07/11/24 07:23
Hct 25.3 % (39.0-52.0) L 07/11/24 07:23
Plt Count 124 10^3/uL (130-400) L 07/11/24 07:23
APTT 33.5 Sec (23.4-35.0) 07/11/24 07:23
Sodium 133 mmol/L (135-145) L 07/11/24 07:23
Potassium 3.8 mmol/L (3.5-5.1) 07/11/24 07:23
BUN 31 mg/dl (9-20) H 07/11/24 07:23
Creatinine 0.9 mg/dL (0.7-1.3) 07/11/24 07:23
Glucose 202 mg/dl (70-99) H 07/11/24 07:23
Troponins
07/10/24 07/10/24 07/10/24
06:27 16:00 21:51
Troponin I 0.590 H* 6.670 H* 4.790 H* D
07/11/24 07/11/24 07/11/24
03:43 07:23 07:45
Troponin I 3.670 H* 2.980 H* Cancelled
Vital Signs and I&O:
Vital Signs
Temp Pulse Resp BP Pulse Ox
98.0 F 87 16 104/59 100
07/11/24 07:10 07/11/24 07:34 07/11/24 07:34 07/11/24 07:10 07/11/24 07:34
Vital Signs
Temp Pulse Resp BP Pulse Ox
98.0 F 87 16 104/59 100
07/11/24 07:10 07/11/24 07:34 07/11/24 07:34 07/11/24 07:10 07/11/24 07:34
Intake & Output
07/08/24 07/09/24 07/10/24 07/11/24
23:59 23:59 23:59 23:59
Output Total 650 / 650
Balance -650 / -650
Physical Exam
Physical Exam
Gen: Awake, alert, oriented. Lying flat in bed. He is frail and elderly. Quite pleasant to talk to
HEENT: NC/AT, sclera anicteric
Lungs: Rhonchi bilaterally. Scattered wheezing and rales
CV: Reg rhythm with murmur at USB and HSM LLSB
Ext: No edema
[2024-07-11 10:58] VITALS: BMI 16.4
[2024-07-11 11:45] LABS: Glucose - Point of Care 331 mg/dl (70-99)
[2024-07-11 11:48] VITALS: BP 105/61
[2024-07-11] MEDS: NOVOLOG FLEXPEN-LOW RESISTANCE 4 UNITS SC ×2 (12:43→17:03)
--- NOTE | 2024-07-11 13:09 | CM ---
Patient seen at bedside. Patient states that he lives alone in a one story home with 4 steps. Patient stated that he did have home O2 from [facility] but did not use it as he found it to be cumbersome and he did not use it before so he did not use it
this time. Patient has VN at home but stated that there were so many people he couldn't keep track of everyone. Patient stated that he has a commode and he wants to go home but is not sure. CM will reach out to family to confirm resources. Pending
PT/OT assessment. CM will continue to follow for discharge planning needs.
PLan; home with VN vs SNF; patient has home O2 but was not using it.
[2024-07-11 14:30] LABS: APTT 32.3 Sec (23.4-35.0)
[2024-07-11 15:21] VITALS: BP 99/57
[2024-07-11 16:43] LABS: Glucose - Point of Care 348 mg/dl (70-99)
[2024-07-11] MEDS: LIPITOR 40 MG PO (17:02)
--- NOTE | 2024-07-11 17:28 | PTCARENOTE ---
Pt weaned from 6L O2 n/c to 2L O2 n/c--pulse ox 98% on 2L n/c.
--- NOTE | 2024-07-11 18:19 | CONSULT.CT ---
Consultation
-
Date/Time Consultation Requested: 07/11/24
Date/Time Consultation Performed: 07/11/24
Requesting Provider: Dr Eid
Performing Provider: Nalini DIALLO for DR. Ch
Reason for Consultation: surgical opinion for mitral and tricuspid regurgitation, CAD, heart failure
Patient History
Physicians
Family Physician: Stan Gomez
Outpatient Manager Labor Delivery: Lucas Galindo
Inpatient Manager Labor Delivery: Russell Eid
History of Present Illness
84-year-old male presented to [facility] [place] emergency room on 07/11/24 with progressive shortness of breath and escalating generalized pain that began the evening of 07/10/24. Denies chest pain. Patient notified son and upon son's
arrival, patient was moaning with pain and EMS notified for transport to the emergency room. Patient ruled in for NSTEMI with elevated troponin (peak 6.6). and found to have severe mitral regurgitation (from mild-moderate in May 2024). Patient
was given a total of Lasix 60 mg IV which improved SOB. Patient was also placed on oxygen at 6 L NC and has oxygen at home (since 2023), but reports that he never uses it.Patient with recent admission (06/01-06/07/24) for PNA and bronchiectasis flare
which was treated with antibiotics and bronchodilators. Patient had ER visit for mechanical fall on 06/24/24, having hit his head. CT of head was negative.
TTE 07/11/24: Septal apex, mid anteroseptal, and mid anterior wall are hypokinetic. Anterior apex and inferior apex appear akinetic. EF 35-40%. Severe mitral regurgitation. Trileaflet aortic valve with mild to moderate aortic stenosis. AV 15/7 mmHg.
LVOT 1.8 cm, ARJESH 1.2 cm2. Mild aortic regurgitation. Severe tricuspid regurgitation. Since echo June 02, 2024, MR has worsened from mild-moderate to severe. TR is worsened from mild to severe.
Left heart cath (08/31/23): RA 11; PA 38/18, 28; PCWP: 25; LVEDP : 30
LEFT MAIN: ok
LEFT ANTERIOR DESCENDING: Eccentric and heavily calcified 65% stenosis in the mid LAD before the origin of the only sizable diagonal branch. The LAD beyond the diagonal branch is very heavily calcified with eccentric plaque and is
occluded/subtotally occluded with very faint antegrade flow to the distal LAD
CIRCUMFLEX: nondominant vessel giving rise to a small OM1 that has a 60% ostial stenosis. The circumflex terminates in a moderate caliber OM 3 that has a long 80% proximal stenosis
RIGHT CORONARY ARTERY: 60-70% stenosis in its midportion near the origin of the only sizable RV marginal branch. PDA is a small to medium caliber vessel that is patent.
Past Medical History
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
ago w/uretheral stent-removed), chronic hypoxic respiratory failure)
Past Surgical History
Past Surgical History: Other (left cataract extraction, hernia repair w/mesh)
Dental History
Dental exam was more than 1 year ago
Family History
Mother: N/A
Father: N/A
Social History
Alcohol: None
Drug: None
Tobacco: Non-Smoker
Personal: ( December 2023)
Living: Alone
Employment: Retired ([employer])
Allergies
Allergy/AdvReac Type Severity Reaction Status Date / Time
No Known Allergies Allergy Verified 07/10/24 04:21
Home Medications
�Medication �Instructions �Recorded �Confirmed �Type
ascorbic acid (vitamin C) 1,000 mg 1,000 mg PO DAILY Supplement 07/27/23 07/10/24 History
tablet (Vitamin C)
cholecalciferol (vitamin D3) 25 25 mcg PO DAILY Supplement 07/27/23 07/10/24 History
mcg (1,000 unit) tablet (Vitamin
D3)
dapagliflozin propanediol 10 mg 10 mg PO DAILY Heart Failure #30 08/05/23 07/10/24 Rx
tablet (Farxiga) tabs
aspirin 81 mg tablet,delayed 81 mg PO DAILY Blood Clot 11/24/23 07/10/24 History
release Prevention/Tx
atorvastatin 40 mg tablet 40 mg PO QPM High Cholesterol 11/24/23 07/10/24 History
clopidogrel 75 mg tablet (Plavix) 75 mg PO DAILY Blood Clot 11/24/23 07/10/24 History
Prevention/Tx
losartan 25 mg tablet 25 mg PO DAILY Heart Failure 11/24/23 07/10/24 History
metoprolol succinate 25 mg 25 mg PO BID Heart Failure 11/24/23 07/10/24 History
tablet,extended release 24 hr
cod liver oil 1 cap PO DAILY Supplement 06/01/24 07/10/24 History
docusate sodium 100 mg capsule 50 mg PO BIDPRN PRN constipation 06/01/24 07/10/24 History
(Colace)
prednisone 10 mg tablet 10 mg PO DAILY Lung/Breathing 06/01/24 07/10/24 History
Issues
temazepam 30 mg capsule 30 mg PO HS Sleep 06/01/24 07/10/24 History
Ivig Infusion 1 dose IV .Q 3-4 MONTHS CLL 07/10/24 07/10/24 History
budesonide 0.5 mg/2 mL suspension 0.5 mg inhalation BID 07/10/24 07/10/24 History
for nebulization Lung/Breathing Issues
cyanocobalamin (vitamin B-12) 1,000 mcg PO DAILY Supplement 07/10/24 07/10/24 History
1,000 mcg tablet (Vitamin B-12)
furosemide 20 mg tablet 20 mg PO DAILY Fluid 07/10/24 07/10/24 History
Retention/Swelling
ipratropium 0.5 mg-albuterol 3 mg 3 ml inhalation R Q6HPRN PRN sob 07/10/24 07/10/24 History
(2.5 mg base)/3 mL nebulization
soln
metformin 500 mg tablet,extended 500 mg PO DAILY Diabetes 07/10/24 07/10/24 History
release 24 hr
Review of Systems
-
History Source: Patient
General: Reports Weight Loss (Consistently losing 6-8 pounds per year since diagnosed with CLL 8 years ago, cachectic (BMI 16.3), denies anorexia )
HEENT: Reports No Symptoms
Respiratory: Reports SOB (limits activity)
Cardiac: Reports No Symptoms
Abdomen/GI: Reports No Symptoms
: Reports No Symptoms
Musculoskeletal: Reports No Symptoms
Skin: Reports No Symptoms
Neurological: Reports No Symptoms
Vascular: Reports No Symptoms
Physical Exam
Vital Signs
Temp 98.7 F 07/11/24 15:21
Temp route: Oral 07/11/24 15:21
Pulse 97 07/11/24 15:21
Rhythm: Normal sinus rhythm 07/11/24 08:00
With- Sinus tachycardia 07/11/24 08:00
Resp Rate 18 07/11/24 15:21
Blood pressure 99/57 07/11/24 15:21
Blood pressure extremity used: Right upper arm 07/11/24 15:21
Position: Lying 07/11/24 15:21
MAP (cuff-Kimi Monitor) 105 07/10/24 18:30
SaO2 98 07/11/24 17:27
Nasal Cannula flow liters per minute 2 07/11/24 17:27
Oxygen Mode of Delivery Room air 07/10/24 04:22
Acceptable pain level during hospitalization? 0 07/10/24 04:22
Can the patient verbally communicate their pain? Yes 07/11/24 08:00
Pain scale rating: Pt states unable to rate 07/10/24 04:22
Actual Weight 47.315 kg 07/11/24 06:00
Body Mass Index (BMI) 16.4 07/11/24 06:00
Labs
07/11/24 07:23
07/11/24 07:23
APTT 32.3 Sec (23.4-35.0) 07/11/24 14:09
Troponin I 2.150 ng/ml H* D 07/11/24 14:09
Etx-A-Wjzocfefvap Pept 17591 pg/ml 07/10/24 06:27
Urinalysis
Urine Color Yellow 07/10/24 13:37
Urine Clarity Clear (Clear) 07/10/24 13:37
Urine pH 6.0 (5.0-9.0) 07/10/24 13:37
Ur Specific Otis 1.010 (<1.030) 07/10/24 13:37
Urine Ketones Negative (Negative) 07/10/24 13:37
Ur Occult Blood Reflex Trace (Negative) A 07/10/24 13:37
Urine Bilirubin Negative (Negative) 07/10/24 13:37
Leukocyte Esterase Rfl Negative (Negative) 07/10/24 13:37
Urine RBC 0-2 /HPF (0-2) 07/10/24 13:37
Urine WBC (Reflex) 0-2 /HPF (0-5) 07/10/24 13:37
Ur Squamous Epith Cells 0-2 /LPF (Few) 07/10/24 13:37
Amorphous Crystals Seen 07/10/24 13:37
Urine Glucose 3+ (Negative) A 07/10/24 13:37
Urine Albumin (Reflex) Negative (Neg - Trace) 07/10/24 13:37
Exam
General: Other (Cachectic, frail-appearing, reportedly does not use assistive devices to ambulate)
HEENT: Normocephalic, Anicteric, Moist Mucous Membranes and PERRLA
Neck: Trachea Midline
Respiratory: Crackles (Bibasilar)
Cardiac: S1/S2, Regular Rhythm and Murmur (II? HSM LSB 5th ICS)
GI: Soft, Non Tender, Non Distended and Normal Bowel Sounds
Rectal: Deferred by Provider
Skin: Warm and Dry
Neuro: AO x 3 and No Motor Deficits
Extremities: Pulses (+2/4 DP pulses B/L)
Lymph: No Lymphadenopathy
Psych: Calm
Assessment / Plan
-
84-year-old male with triple-vessel coronary disease, severe mitral regurgitation, severe tricuspid regurgitation, ischemic cardiomyopathy with EF 35-40% in setting of Chronic lymphocytic leukemia�(CLL)
- Dr. Ch will review imaging and discuss possible surgical options with patient
Data Reviewed
-
EKG: Report Reviewed by me and Discussed with Physician
Cash Surrender Calculator: Report Reviewed by me and Discussed with Physician
Echo: Report Reviewed by me and Discussed with Physician
Labs: Labs Reviewed by me and Discussed with Physician
--- NOTE | 2024-07-11 19:03 | W.PN.HOSP.TC ---
Today's Communication/Plan
-
Continue IV Lasix, Heparin Drip
Assessment / Plan
Assessment / Plan
Physical Exam
General: No Apparent Distress, Comfortable and Conversant
HEENT: Normocephalic and Moist mucous membranes
Respiratory: Decreased Breath Sounds
Cardiac: S1/S2 and Regular Rhythm
GI: Soft, Non Tender and Normal Bowel Sounds
Musculoskeletal: No Cyanosis and No Edema
Skin: Warm and Dry
Neuro: Awake, Alert and AO x 3
Psych: Calm and Intact Judgment/Insight
Assessment/Plan
Acute on chronic hypoxic respiratory failure
HFrEF
Ischemic cardiomyopathy, EF 35-40% by echo 11/2023
Concern for NSTEMI
-Continue IV Lasix
-Continue GDMT: Beta-blockers, ARB
-Daily weights, I's and O's
-Cardiology consult appreciated
-Trend troponins --> significant increase in troponin, start Heparin Drip -- discussed this cardiology
-Cardiac cath this admission
-Echo showed hypokinesis, LVEF 35 to 40%, severe mitral regurgitation, mild to moderate aortic stenosis, mild AR, severe TR, pulmonary hypertension with pulmonary artery pressure of 69 mmHg
-Cardiology asking cardiac surgery to see patient again
History of multivessel coronary artery disease
History NSTEMI in the setting of influenza infection July 2023
Continue medical management
Has been considered high risk for interventions or surgery - CT surgery felt patient was too high risk for CABG/MVR
Continue anti-ischemic regimen, DAPT, beta-blockers, statins
Chest pain-free
Recent Sepsis/Probable pneumonia/Bronchiectasis with flare
Recent Abnormal CT Chest: Bronchiolitis/bilateral groundglass opacity/chronic bronchiectasis.
Differential diagnosis includes: Infectious bacterial/viral, atypical pulmonary edema given increased proBNP, opportunistic infection.
Bronchoscopy 06/07/24
History of severe chronic bronchiectasis: Follows with Dr. Sun
On low-dose prednisone/nebulizers/secretion clearance interventions
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
Moderate to severe mitral regurgitation:
Consideration of MitraClip as outpatient
History of NSVT
Beta-blockers
Cardiac monitoring
Severe Mitral Regurgitation
CLL with immunoglobulin deficiency
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
Leukocytosis - CLL and on low dose steroids
-Continue outpatient IVIG in a couple of weeks
Hypertension
-Continue losartan and metoprolol and furosemide
-Monitor blood pressure adjust medications accordingly
Hyperlipidemia
-Continue home statins, atorvastatin 40 mg nightly
Diabetes mellitus type 2
-Continue insulin sliding scale
Chronic Kidney Disease
Anxiety
-Continue temazepam 22.5 mg p.o. nightly (son confirmed this is the right dose)
7 mm calculus at the right UPJ with obstructive uropathy s/p Cystoscopy/Right ureteroscopy/Laser lithotripsy/Right ureteral stent placement 11/25/23
Chronic anemia (Hb ranges between 8.5-10.5)
Thrombocytopenia (chronic with waxing and waning plt counts)
Recent Transaminitis?
Cachexia
DVT prophylaxis:
Heparin SQ
CODE STATUS:
DNR
Anticipated Discharge: > 48 hours
Subjective/Interval History
-
Date of Service: July 11, 2024
Patient was seen and examined. He denied any chest pain or SOB when he was seen.
Objective Data
-
Labs:
Laboratory Results
07/11/24 07/11/24 07/11/24
07:23 14:09 20:30
WBC 20.8 H
Hgb 8.5 L
Hct 25.3 L
Plt Count 124 L
APTT 33.5 32.3 Pending
Sodium 133 L
Potassium 3.8
Chloride 101
Carbon Dioxide 24
BUN 31 H
Creatinine 0.9
Glucose 202 H
Calcium 8.2 L
Vital Signs:
Vital Signs
Temp Pulse Resp BP Pulse Ox
98.7 F 97 18 99/57 98
07/11/24 15:21 07/11/24 15:21 07/11/24 15:21 07/11/24 15:21 07/11/24 17:27
I&O
07/10/24 07/11/24 07/12/24
06:59 06:59 06:59
Intake Total 660 / 660
Output Total 650 / 650 1125 / 1125
Balance -650 / -650 -465 / -465
[2024-07-11 19:49] VITALS: BP 102/61
[2024-07-11 20:57] LABS: APTT 38.9 Sec (23.4-35.0)
[2024-07-11 21:33] LABS: Glucose - Point of Care 265 mg/dl (70-99)
[2024-07-11] MEDS: RESTORIL 7.5 MG PO (21:33)
[2024-07-11 22:46] LABS: Procalcitonin 0.07 ng/ml (0.0-0.25)
--- NOTE | 2024-07-11 23:16 | W.PN.UPDATE ---
Update Note
Progress Note Update
-Preliminary blood culture was positive for gram positive cocci
-WBC is trending down gradually, 44.8 on admission--->22.6---->20.8
-Afebrile
-Will check Procalcitonin --->( result 0.07 ).
-Will consider repeating the blood cultures if patient symptomatic or develop fever.
[2024-07-11 23:26] VITALS: BP 97/56
[2024-07-12] VITALS (7 sets, daily range): BP systolic 94–116; BP diastolic 54–60; BMI 16.0
--- NOTE | 2024-07-12 01:44 | PTCARENOTE ---
Patient had 15 beats of VTach on telemetry monitoring. Patient denied chest pain or shortness of breath. Vital signs taken: blood pressure 95/54, temperature 97.5, pulse ox 99 on 2L, and heart rate 82. Enedelia IBANEZ made aware, no new orders placed.
[2024-07-12 04:39] LABS: APTT 61.4 Sec (23.4-35.0)
[2024-07-12] MEDS: HEPARIN 25000 UNITS/250 ML IV (06:14)
[2024-07-12 07:19] LABS: Glucose - Point of Care 209 mg/dl (70-99)
[2024-07-12] MEDS: NOVOLOG FLEXPEN-LOW RESISTANCE 2 UNITS SC (07:36)
[2024-07-12] MEDS: DELTASONE 10 MG PO (07:36)
[2024-07-12] MEDS: ASPIR LOW (ENTERIC COATED) 81 MG PO (07:36)
[2024-07-12] MEDS: VITAMIN C 1000 MG PO (07:37)
[2024-07-12] MEDS: VITAMIN D3 (cholecalciferol) 25 MCG PO (07:37)
[2024-07-12] MEDS: VITAMIN B-12 1000 MCG PO (07:37)
[2024-07-12] MEDS: PLAVIX 75 MG PO (07:37)
[2024-07-12] MEDS: TOPROL XL 25 MG PO ×2 (07:38→21:46)
[2024-07-12] MEDS: LASIX 40 MG IV ×2 (07:38→17:00)
[2024-07-12] MEDS: COZAAR 25 MG PO (07:39)
[2024-07-12 08:18] LABS: Hematocrit 29.7 % (39.0-52.0); Hemoglobin 9.4 g/dL (13.0-18.0); Mean Corp Hgb Conc. 31.6 g/dL (33.0-37.0); Mean Corpuscular Hgb 30.9 pg (27.0-31.0); Mean Corpuscular Volume 97.7 fL (80.0-94.0); Platelet Count 136 10^3/uL (130-400); Red Blood Cell Count 3.04 10^6/uL (4.70-6.10); Red Cell Dist. Width 18.5 % (11.5-14.5)
[2024-07-12] MEDS: PULMICORT 0.5 MG INH ×2 (08:19→19:31)
--- NOTE | 2024-07-12 08:29 | PN.CDI ---
CDI
- -
CDI:
Physician Documentation Request
Admit Date: 07/10/24 13:31
Dear Doctor Heidy,
Please review the following and provide your response in the progress notes.
Clinical Indicators:
Pt admitted with acute on chronic hypoxic respiratory failure, HFrEF, and concern for NSTEMI.
07/11 Registered Dietitian Note: 'Initial assessment due to BMI 16.3 (underweight).
Current BW: (07/11) 104 lbs 5 oz BMI: 16.3 (underweight). Weight history shows 06/01/24 he weighed 117 lbs. This is a loss of 22% BW over 1.5 months (significant).
Patient meets AND and ASPEN criteria for moderate protein calorie malnutrition of chronic illness due to moderate loss of fat loss in his orbital region and moderate loss of muscle in his temporal region.
If possible, please provide in your progress notes, additional specificity regarding the severity of the malnutrition:
Moderate protein calorie malnutrition
Other (please specify)
P[place]ott Criteria (ACP Hospitalist 2017)
2 or more criteria must be present for either
non severe or severe malnutrition
Note that the criteria differs related to the
presence of an acute or chronic illness
Chronic Illness
Energy Intake Non Severe: <75% for >1 month
Severe: <75% for >1 month
Weight Loss Non Severe: 5% over 1 month
7.5% over 3 months
10% over 6 months
20% over 1 year
Severe: >5% over 1 month
>7.5% over 3 months
>10% over 6 months
>20% over 1 year
Body Fat Non Severe: Mild Loss
Severe: Severe Loss
Muscle Mass Non Severe: Mild Loss
Severe: Severe Loss
Additional criteria that can be used to Determine if Mild or Moderate Malnutrition (Merck Manual 2018)
Use of terms such as suspected, likely, concern for, or probable (associated with a specific diagnosis that is being evaluated, monitored, or treated as if it exists) are acceptable and can be coded in the inpatient setting, when documented at the
time of discharge.
Thank you,
Sheila Dailey RN, BSN
CDI Specialist
Available via [employer]
Please use your independent medical judgment in providing your response.
[2024-07-12 08:31] LABS: Blood Urea Nitrogen 29 mg/dl (9-20); Calcium 7.6 mg/dl (8.4-10.2); Carbon Dioxide 29 mmol/L (22-30); Chloride 96 mmol/L (98-107); Estimated Creatinine Clearance 41 ml/min; Glucose 198 mg/dl (70-99); Potassium 2.9 mmol/L (3.5-5.1); Sodium 132 mmol/L (135-145); eGFR > 60.00
[2024-07-12 10:00] LABS: % Basophils 0.2 % (0-2); % Eosinophils 0.3 % (0-6); % Immature Granulocytes 0.4 % (0-0.5); % Lymphocytes 80.6 % (20.5-51.1); % Monocytes 1.1 % (1.7-9.3); % Neutrophils 17.4 % (42.2-75.2); Absolute Basophils 0.1 10^3/uL (0-0.2); Absolute Eosinophils 0.1 10^3/uL (0-0.7); Absolute Immature Granulocytes 0.1 10^3/uL (0-0.05); Absolute Lymphocytes 21.8 10^3/uL (1.2-3.4); Absolute Monocytes 0.3 10^3/uL (0.1-0.6); Absolute Neutrophils 4.7 10^3/uL (1.4-6.5); Nucleated Red Blood Cells % 0 % (-)
--- NOTE | 2024-07-12 10:52 | W.PN.UPDATE ---
Addendum entered and electronically signed by YOEL Estevez 07/12/24 10:58:
Error! this note was entered under the wrong patient.
Original Note:
Update Note
Progress Note Update
We were called people patient was having increased SOB. Pulmonary gave some morphine for comfort. Adapter was obtained from IR. Her CT was placed to -20mmHG of suction. Initally 575ml of serosang drainage came out. The CT will remain to pleuravac
suction while inpatient. When she is ready to go home then it can be disconnected and the visiting nurses and pulmonary can assume the drainage schedule. Patient expressed that she would like to move forward with comfort care. Her wishes were
expressed to her primary team.
[2024-07-12 11:15] LABS: APTT 77.3 Sec (23.4-35.0)
[2024-07-12 11:55] LABS: Glucose - Point of Care 360 mg/dl (70-99)
[2024-07-12] MEDS: NOVOLOG FLEXPEN-LOW RESISTANCE 5 UNITS SC (12:36)
--- NOTE | 2024-07-12 15:02 | W.PN.CARDCBS ---
Addendum entered and electronically signed by Lucas Saunders MD 07/12/24 17:46:
I saw and examined the patient on morning rounds.
The Supervisor Prop Making's note was reviewed and I agree with the note.
Comment: Briefly, 84-year-old man past medical history of multivessel CAD, ischemic cardiomyopathy with LVEF 35 to 40% and moderate to severe mitral regurgitation as well as anemia in the setting of CLL who presented with generalized pain and
dyspnea and was admitted for decompensated heart failure
Has received IV diuretics and appears comfortable on room air, previously requiring 6 L of supplemental oxygen
Weight is down at 102 pounds today which is the lowest on record
Hopefully can transition to oral Lasix in the next 24 to 48 hours
Also found to have elevated troponin, peaked at 6.6
Not reporting any chest pain at the time of my evaluation
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
Currently being treated with aspirin, Plavix, high intensity statin and beta-hardik
Continue heparin gtt for 48hrs total
CT surgery was asked to reevaluate the patient for CABG, appreciate their input
Patient has preferred a more conservative approach in the past, we discussed MitraClip as an option
Original Note:
Today's Communication / Plan
-
Appreciate input from Ct surgery
Impression / Plan
-
PCP: Dr. Gomez
Primary Densitometer Reader: Dr. Saunders
Impression:
-Elevated Troponin
probable Type 2 [place]: Supply / demand mismatch. MANAGER [employer]ING of LAD and residual CADz in OM3 and RCA: Troponin peaked at 6.67 ng/ml
-Acute on chronic hypoxic respiratory failure
-Recent admission for PNA and bronchiectasis flare 06/01/24 until 06/07/24
-ILD
-Chronic atelectasis
-History of severe bronchiolitis/bronchiectasis and recurrent pneumonia
-Acute on chronic HFrEF
-Ischemic cardiomyopathy, EF 35-40% by echo 06/02/24
-Severe multivessel CAD
s/p cath with severely calcified LAD subtotally occluded, 80% OM, 70% RCA 09/2023
Prior discussions regarding medical management versus PCI versus CABG with plan for conservative treatment. CT surgery felt patient was too high risk for CABG/MVR 09/2023
-Moderate to severe mitral regurgitation: Will need to review
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
-CLL
-Anemia/thrombocytopenia
-Hyperlipidemia
-DM 2
-HTN
-07/11/2024: Echo: LV: EF 35 to 40%. Anterior apex and inferior apex appear akinetic. Septal apex mid anteroseptal and mid anterior cedillo are hypokinetic. RV: Normal, LA: Normal, RA: Normal, MV: Severe MR, AV: Mild to moderate peak/mean 15/7 mmHg
-06/02/2024: Echo: LV: Not mildly reduced LV systolic function estimated at 35-40%. [place], inferoseptum, inferior and inferolateral cedillo are hypokinetic. RV: Normal, LA: Normal, RA: Normal, MV: Mild-moderate MR, AV: Mild with P/M 19/12 mmHg.
Mild AI. TV: Mild TR with estimated PAP 35-40 mmHg
-11/10/2023: Echo: LV: Mild concentric LVH. Mildly reduced systolic function with EF 35-40. AK apex, apical septum, apical lateral wall. RV: Dilated, LA: Mildly dilated, RA: Dilated, MV: Severe MR, AV: Mild AI, calcified and restricted. TV:
Estimated PAP 40-45 mmHg
-08/05/2023: Echo: LV: Moderately reduced EF 30-35% by visual estimation the mid to distal septum and inferior cedillo are akinetic. RV: Normal, LA: Normal, RA: Normal, MV: Moderate-severe MR, AV: Mild-moderate AI, TV: Moderate TR with estimated PAP
50-55%
-08/31/2023: Cath: LM: Ca plaque in superior LM. No pressure dampening. LAD: Severely calcified over its course with calcified 65% before origin of first diagonal and occluded mid segment in area of dense calcification. LCX: Medium caliber
nondominant vessel. OM1 small with 60% ostial, OM3 long 80% RCA: 60-70% mid
Plan:
-Troponin peaked at 6.67. Patient with chest pain on admission. Chronic WMA on echo and ECG abnormal. Troponin elevation in the setting of anemia and acute HF.
-Patient with known CAD as noted above and was evaluated for CABG and MVR last year, but felt to be high risk and family was interested in PCI and MitraClip as an alternative. At CT surgery evaluation in the office 09/06/23 there was mention of
consideration for RCA, OM and possibly Diag PCI options.
-Outpatient doses of aspirin and Plavix have been continued.
-Weight is down 6 lbs with Lasix 40 mg IV BID, patient was taking Lasix 20 mg PO daily prior to admission
-Outpatient dose of Toprol XL 25 mg BID has been continued.
-Outpatient dose of losartan 25 mg daily has been continued.
-Outpatient dose of Farxiga 10 mg daily has been held.
-Patient with severe MR by echo 07/11/23. Patient was turned down for surgical MVR. MitraClip has been considered, but he has not been formally evaluated. May need CELIA later in hospitalization to determine if he is a candidate for MitraClip depending
on review of transthoracic study
HPI: Patient came to [facility] from home very early this morning with pain all over and SOB and cardiology has been consulted for acute HF and elevated Troponin. Patient was just admitted to 06/01/24 until 06/07/24 with PNA and bronchiectasis flare and
then had an ER visit for fall on 06/24/24. Patient is frail, but feels that he has been stable since the ER visit, but started with increased SOB on Wednesday and felt like he could not get comfortable to sleep. Patient reports that he sleeps sitting
up in a chair most of the time, but despite sitting up straight he could not catch his breath and felt restless. Patient called his son and when patient's son arrived the patient was moaning and rocking back and forth so son called 911 and patient
was [facility] to [facility]. In [facility] patient was given a total of Lasix 60 mg IV and reports increased urine output and improved SOB. Patient was also placed on oxygen at 6 L NC and has oxygen at home, but reports that he never uses it.
Progress Note - Densitometer Reader
Subjective
Date of Service: July 12, 2024
He feels less SOB, no more aches
Objective
Labs:
07/12/24 06:42
07/12/24 06:42
Labs
Hgb 9.4 g/dL (13.0-18.0) L 07/12/24 06:42
Hct 29.7 % (39.0-52.0) L 07/12/24 06:42
Plt Count 136 10^3/uL (130-400) 07/12/24 06:42
APTT 77.3 Sec (23.4-35.0) H 07/12/24 10:36
Sodium 132 mmol/L (135-145) L 07/12/24 06:42
Potassium 2.9 mmol/L (3.5-5.1) L 07/12/24 06:42
BUN 29 mg/dl (9-20) H 07/12/24 06:42
Creatinine 0.9 mg/dL (0.7-1.3) 07/12/24 06:42
Glucose 198 mg/dl (70-99) H 07/12/24 06:42
Troponins
07/10/24 07/10/24 07/10/24
06:27 16:00 21:51
Troponin I 0.590 H* 6.670 H* 4.790 H* D
07/11/24 07/11/24 07/11/24
03:43 07:23 07:45
Troponin I 3.670 H* 2.980 H* Cancelled
07/11/24
14:09
Troponin I 2.150 H* D
Vital Signs and I&O:
Vital Signs
Temp Pulse Resp BP Pulse Ox
97.9 F 70 20 116/56 92
07/12/24 11:00 07/12/24 11:00 07/12/24 11:00 07/12/24 11:00 07/12/24 11:00
Vital Signs
Temp Pulse Resp BP Pulse Ox
97.9 F 70 20 116/56 92
07/12/24 11:00 07/12/24 11:00 07/12/24 11:00 07/12/24 11:00 07/12/24 11:00
Intake & Output
07/10/24 07/11/24 07/12/24 07/13/24
06:59 06:59 06:59 06:59
Intake Total 660 / 660
Output Total 650 / 650 2075 / 207
Balance -650 / -650 -1415 / -1415
Physical Exam
Physical Exam
GEN: NAD, AAOx3
HEENT: EOMI, MMM
LUNGS: RA. Decreased BS at bases B/L without wheeze or rales
CV: SR on tele.
ABD: ND
EXT: No edema B/L
NEURO: Gross non-focal
SKIN: No rash
[2024-07-12 16:54] LABS: Glucose - Point of Care 317 mg/dl (70-99)
[2024-07-12] MEDS: NOVOLOG FLEXPEN-LOW RESISTANCE 4 UNITS SC (17:00)
[2024-07-12] MEDS: LIPITOR 40 MG PO (17:01)
--- NOTE | 2024-07-12 18:38 | W.PN.HOSP.TC ---
Today's Communication/Plan
-
Continue IV Lasix
Assessment / Plan
Assessment / Plan
Physical Exam
General: No Apparent Distress, Comfortable and Conversant
HEENT: Normocephalic and Moist mucous membranes
Respiratory: Decreased Breath Sounds
Cardiac: S1/S2 and Regular Rhythm
GI: Soft, Non Tender and Normal Bowel Sounds
Musculoskeletal: No Cyanosis and No Edema
Skin: Warm and Dry
Neuro: Awake, Alert and AO x 3
Psych: Calm and Intact Judgment/Insight
Assessment/Plan
Acute on chronic hypoxic respiratory failure
HFrEF
Ischemic cardiomyopathy, EF 35-40% by echo 11/2023
Concern for NSTEMI
-Continue IV Lasix
-Continue GDMT: Beta-blockers, ARB
-Continue DAPT and high intensity statin
-Daily weights, I's and O's
-Cardiology consult appreciated
-Trend troponins --> peaked at 6.6 --> significant increase in troponin, start Heparin Drip -- discussed this cardiology
-Cardiac cath this admission
-Echo showed hypokinesis, LVEF 35 to 40%, severe mitral regurgitation, mild to moderate aortic stenosis, mild AR, severe TR, pulmonary hypertension with pulmonary artery pressure of 69 mmHg
-Cardiology asked cardiac surgery to see patient again
History of multivessel coronary artery disease
History NSTEMI in the setting of influenza infection July 2023
Continue medical management
Has been considered high risk for interventions or surgery - CT surgery felt patient was too high risk for CABG/MVR
Continue anti-ischemic regimen, DAPT, beta-blockers, statins
Chest pain-free
Recent Sepsis/Probable pneumonia/Bronchiectasis with flare
Recent Abnormal CT Chest: Bronchiolitis/bilateral groundglass opacity/chronic bronchiectasis.
Differential diagnosis includes: Infectious bacterial/viral, atypical pulmonary edema given increased proBNP, opportunistic infection.
Bronchoscopy 06/07/24
History of severe chronic bronchiectasis: Follows with Dr. Sun
On low-dose prednisone/nebulizers/secretion clearance interventions
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
Moderate to severe mitral regurgitation:
Consideration of MitraClip as outpatient
History of NSVT
Beta-blockers
Cardiac monitoring
Severe Mitral Regurgitation
CLL with immunoglobulin deficiency
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
Leukocytosis - CLL and on low dose steroids
-Continue outpatient IVIG in a couple of weeks
Hypertension
-Continue losartan and metoprolol and furosemide
-Monitor blood pressure adjust medications accordingly
Hyperlipidemia
-Continue home statins, atorvastatin 40 mg nightly
Diabetes mellitus type 2
-Continue insulin sliding scale
Chronic Kidney Disease
Anxiety
-Continue temazepam 22.5 mg p.o. nightly (son confirmed this is the right dose)
7 mm calculus at the right UPJ with obstructive uropathy s/p Cystoscopy/Right ureteroscopy/Laser lithotripsy/Right ureteral stent placement 11/25/23
Chronic anemia (Hb ranges between 8.5-10.5)
Thrombocytopenia (chronic with waxing and waning plt counts)
Recent Transaminitis?
Moderate protein calorie malnutrition
Cachexia
DVT prophylaxis:
Heparin
CODE STATUS:
DNR
Anticipated Discharge: > 48 hours
Subjective/Interval History
-
Date of Service: July 12, 2024
Patient was seen and examined. He denied any complaints. He denied chest pain or shortness of breath.
Objective Data
-
Labs:
Laboratory Results
07/12/24 07/12/24 07/12/24
06:42 10:36 18:00
WBC 27.0 H
Hgb 9.4 L
Hct 29.7 L
Plt Count 136
APTT 77.3 H Cancelled
Sodium 132 L
Potassium 2.9 L
Chloride 96 L
Carbon Dioxide 29
BUN 29 H
Creatinine 0.9
Glucose 198 H
Calcium 7.6 L
07/12/24
18:19
WBC
Hgb
Hct
Plt Count
APTT Pending
Sodium
Potassium
Chloride
Carbon Dioxide
BUN
Creatinine
Glucose
Calcium
Vital Signs:
Vital Signs
Temp Pulse Resp BP Pulse Ox
97.8 F 101 20 106/60 97
07/12/24 15:00 07/12/24 15:00 07/12/24 15:00 07/12/24 15:00 07/12/24 15:00
I&O
07/11/24 07/12/24 07/13/24
06:59 06:59 06:59
Intake Total 660 / 660 720 / 720
Output Total 650 / 650 2075 / 2075 700 / 700
Balance -650 / -650 -1415 / -1415
[2024-07-12] MEDS: DUONEB 3 ML INH (19:25)
[2024-07-12] MEDS: TOPROL XL PO (19:58)
[2024-07-12] MEDS: KCL 40 MEQ PO (20:14)
[2024-07-12] MEDS: RESTORIL 7.5 MG PO (21:46)
[2024-07-12 22:31] LABS: Glucose - Point of Care 309 mg/dl (70-99)
[2024-07-12 23:48] LABS: Blood Urea Nitrogen 38 mg/dl (9-20); Calcium 8.4 mg/dl (8.4-10.2); Carbon Dioxide 25 mmol/L (22-30); Chloride 94 mmol/L (98-107); Estimated Creatinine Clearance 37 ml/min; Glucose 273 mg/dl (70-99); Potassium 3.9 mmol/L (3.5-5.1); Sodium 129 mmol/L (135-145); eGFR > 60.00
[2024-07-13] VITALS (8 sets, daily range): BP systolic 90–104; BP diastolic 51–63; PULSE 100; O2SAT 98; BMI 16.1
[2024-07-13] MEDS: HEPARIN 25000 UNITS/250 ML IV (02:31)
--- NOTE | 2024-07-13 05:13 | W.PN.UPDATE ---
Update Note
Progress Note Update
Reported by the nursing staff that the patient is complaining of difficult breathing, SPO2 92-93 % on RA. Afebrile
- During assessment time, patient has tissues on the table with bright blood. Patient has nose bleeding that started this morning. Denies any history of epistaxis before. Patient started to cough sputum that mixed with blood, will monitor nose
bleeding and sputum and consider further management if needed. Will hold heparin drip for now
- Patient has difficult of breathing and Coarse lung sound noted.
-Repeat chest x-ray
-Will give morning dose of IV Lasix now.
-PRN nebs as needed.
[2024-07-13] MEDS: LASIX 40 MG IV ×2 (05:18→16:05)
[2024-07-13] MEDS: XOPENEX 0.63 MG INHALANT SOLUTION INH (05:19)
--- NOTE | 2024-07-13 05:26 | PTCARENOTE ---
Patient stated to RN that he felt like he had 'mucous stuck in his throat'. Patient`s nose was noted to be bleeding. Pulse oximetry obtained on patient; patient was 97% on room air. RN offered patient 2L of O2 for comfort. Nurse practitioner made
aware. Per household personal assistant nurse practitioner, hold the heparin drip and give 0800 Lasix. Respiratory therapist at bedside providing patient with nebulizer treatment. Blood pressure was 101/60, heart rate was 92, respirations were 20 and temperature was
97.8. Covid swab and Mucinex were also ordered for the patient. See MAR for medication administration.
[2024-07-13 06:08] LABS: COVID-19 Antigen Negative (Negative)
[2024-07-13 07:17] LABS: Glucose - Point of Care 307 mg/dl (70-99)
[2024-07-13] MEDS: PULMICORT 0.5 MG INH (07:57)
[2024-07-13] MEDS: DUONEB 3 ML INH ×2 (07:58→11:37)
[2024-07-13] MEDS: NOVOLOG FLEXPEN-LOW RESISTANCE 4 UNITS SC (08:40)
[2024-07-13] MEDS: PLAVIX 75 MG PO (08:42)
[2024-07-13] MEDS: DELTASONE 10 MG PO (08:42)
[2024-07-13] MEDS: VITAMIN C 1000 MG PO (08:42)
[2024-07-13] MEDS: ASPIR LOW (ENTERIC COATED) 81 MG PO (08:42)
[2024-07-13] MEDS: VITAMIN D3 (cholecalciferol) 25 MCG PO (08:42)
[2024-07-13] MEDS: VITAMIN B-12 1000 MCG PO (08:42)
[2024-07-13] MEDS: TOPROL XL 25 MG PO ×2 (08:42→19:52)
[2024-07-13] MEDS: COZAAR 25 MG PO (08:42)
[2024-07-13 08:47] LABS: APTT 39.2 Sec (23.4-35.0)
[2024-07-13 08:49] LABS: Hematocrit 27.7 % (39.0-52.0); Hemoglobin 8.6 g/dL (13.0-18.0); Mean Corpuscular Hgb 30.5 pg (27.0-31.0); Mean Corpuscular Volume 98.2 fL (80.0-94.0); Mean Platelet Volume 11.8 fL (7.4-10.4); Platelet Count 129 10^3/uL (130-400); Red Blood Cell Count 2.82 10^6/uL (4.70-6.10); Red Cell Dist. Width 18.3 % (11.5-14.5); White Blood Cell Count 22.1 10^3/uL (4.8-10.8)
[2024-07-13 09:06] LABS: Blood Urea Nitrogen 37 mg/dl (9-20); Calcium 8.3 mg/dl (8.4-10.2); Carbon Dioxide 27 mmol/L (22-30); Chloride 95 mmol/L (98-107); Estimated Creatinine Clearance 38 ml/min; Glucose 270 mg/dl (70-99); Magnesium 2.1 mg/dl (1.6-2.3); Sodium 131 mmol/L (135-145); eGFR > 60.00
--- NOTE | 2024-07-13 10:06 | W.PN.HOSP.TC ---
Today's Communication/Plan
-
Holding heparin gtt due to epistaxis
c/w medical treatment for CAD
f/w cardiology recommendations
Adjust insulin due to high blood glucose
Assessment / Plan
Assessment / Plan
Physical Exam
General: No Apparent Distress, Comfortable and Conversant
HEENT: Normocephalic and Moist mucous membranes
Respiratory: Decreased Breath Sounds
Cardiac: S1/S2 and Regular Rhythm
GI: Soft, Non Tender and Normal Bowel Sounds
Musculoskeletal: No Cyanosis and No Edema
Skin: Warm and Dry
Neuro: Awake, Alert and AO x 3
Psych: Calm and Intact Judgment/Insight
Assessment/Plan
Acute on chronic hypoxic respiratory failure
HFrEF
Ischemic cardiomyopathy, EF 35-40% by echo 11/2023
NSTEMI on underlying multivessel coronary artery disease with a MOLD MAKER HELPER of the LAD
Continue aggressive medical care
-Continue IV Lasix
-Continue GDMT: Beta-blockers, ARB
-Continue DAPT and high intensity statin
-Daily weights, I's and O's
-Cardiology consult appreciated
-Trend troponins --> peaked at 6.6 --> significant increase in troponin, started Heparin Drip but held due to Epistaxis
-Echo showed hypokinesis, LVEF 35 to 40%, severe mitral regurgitation, mild to moderate aortic stenosis, mild AR, severe TR, pulmonary hypertension with pulmonary artery pressure of 69 mmHg
-Cardiology asked cardiac surgery to see patient again
Continue medical management
Has been considered high risk for interventions or surgery - CT surgery felt patient was too high risk for CABG/MVR
Continue anti-ischemic regimen, DAPT, beta-blockers, statins
Chest pain-free
#Recent Sepsis/Probable pneumonia/Bronchiectasis with flare
Recent Abnormal CT Chest: Bronchiolitis/bilateral groundglass opacity/chronic bronchiectasis.
Differential diagnosis includes: Infectious bacterial/viral, atypical pulmonary edema given increased proBNP, opportunistic infection.
Bronchoscopy 06/07/24
History of severe chronic bronchiectasis: Follows with Dr. Sun
On low-dose prednisone/nebulizers/secretion clearance interventions
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
#Moderate to severe mitral regurgitation:
Consideration of MitraClip as outpatient
#History of NSVT
Beta-blockers
Cardiac monitoring
#Severe Mitral Regurgitation
# CLL with immunoglobulin deficiency
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
Leukocytosis - CLL and on low dose steroids
-Continue outpatient IVIG in a couple of weeks
#Essential hypertension
-Continue losartan and metoprolol and furosemide
-Monitor blood pressure adjust medications accordingly
#Hyperlipidemia
-Continue home statins, atorvastatin 40 mg nightly
#Diabetes mellitus type 2
Uncontrolled
Add Lantus and pre-meal insulin
-Continue insulin sliding scale
#Stage IIIb chronic Kidney Disease
#Anxiety
-Continue temazepam 22.5 mg p.o. nightly (son confirmed this is the right dose)
#7 mm calculus at the right UPJ with obstructive uropathy s/p Cystoscopy/Right ureteroscopy/Laser lithotripsy/Right ureteral stent placement 11/25/23
# Chronic anemia (Hb ranges between 8.5-10.5)
Thrombocytopenia (chronic with waxing and waning plt counts)
Recent Transaminitis
No abdominal pain
#Moderate protein calorie malnutrition
Cachexia
DVT prophylaxis:
Heparin
CODE STATUS:
DNR
Total time spent to see the patient, examine the patient, review data and lab results, discuss treatment plan with patient, nursing staff around 55 minutes
Anticipated Discharge: > 48 hours
Subjective/Interval History
-
Date of Service: July 13, 2024
No chest pain
No sob
Objective Data
-
Labs:
Laboratory Results
01/08/25 01/09/25
23:23 06:43
WBC 22.1 H
Hgb 8.6 L
Hct 27.7 L
Plt Count 129 L
APTT 39.2 H
Sodium 129 L 131 L
Potassium 3.9 D 4.0
Chloride 94 L 95 L
Carbon Dioxide 25 27
BUN 38 H 37 H
Creatinine 1.0 1.0
Glucose 273 H 270 H
Calcium 8.4 8.3 L
Vital Signs:
Vital Signs
Temp Pulse Resp BP Pulse Ox
98.4 F 90 18 101/60 97
07/13/24 03:23 07/13/24 08:01 07/13/24 08:01 07/13/24 05:18 07/13/24 08:41
I&O
07/12/24 07/13/24 07/14/24
06:59 06:59 06:59
Intake Total 660 / 660 960 / 960
Output Total 2074 1800 / 1800
Balance -1415 / -1415 -840 / -840
[2024-07-13 10:42] LABS: % Basophils 0.1 % (0-2); % Immature Granulocytes 0.5 % (0-0.5); % Lymphocytes 70.5 % (20.5-51.1); % Monocytes 1.1 % (1.7-9.3); % Neutrophils 27.8 % (42.2-75.2); Absolute Immature Granulocytes 0.1 10^3/uL (0-0.05); Absolute Lymphocytes 15.6 10^3/uL (1.2-3.4); Absolute Monocytes 0.3 10^3/uL (0.1-0.6); Absolute Neutrophils 6.1 10^3/uL (1.4-6.5); Nucleated Red Blood Cells % 0 % (-)
[2024-07-13 12:02] LABS: Glucose - Point of Care 571 mg/dl (70-99)
[2024-07-13 12:02] LABS: Glucose - Point of Care 541 mg/dl (70-99)
--- NOTE | 2024-07-13 12:04 | CM ---
Chart reviewed for d/c planning
PT/OT recommending home PT at d/c. CM spoke w/ pt's daughter, Adri. Adri confirmed pt is current w/ [facility] referral completed in [facility]
Plan: Home; [facility]
[2024-07-13 13:06] LABS: Glucose 537 mg/dl (70-99)
[2024-07-13] MEDS: NOVOLOG FLEXPEN 14 UNITS SC (13:12)
[2024-07-13] MEDS: NOVOLOG FLEXPEN-LOW RESISTANCE 6 UNITS SC (13:12)
[2024-07-13] MEDS: NOVOLOG FLEXPEN 5 UNITS SC (13:16)
--- NOTE | 2024-07-13 14:05 | VNURNOTE ---
Chart reviewed. Patient recently had [facility] Jun 08-2023. He then declined further visits. Met with pt at bedside. He states there were 'too many people' coming 'too often.' Liaison explained that [facility] can assist with assessing and monitoring
his symptoms, his medications, etc. Benefits are that someone can check on him during the day. Pt stated he has a lot of family who help. He did confirm that his family works during the day. Brochure left with patient. Called primary contact
Adri and left voicemail to discuss further.
--- NOTE | 2024-07-13 15:21 | PN.CDI ---
Addendum entered and electronically signed by Hanane Bliss MD 07/13/24 15:33:
NSTEMI
Original Note:
CDI
- -
CDI:
Physician Documentation Request
Admit Date: 07/10/24 13:31
Dear Doctor Ruthy,
Please review the following and provide your response in the progress notes.
Clinical Indicators:
Pt admitted with acute on chronic hypoxic respiratory failure.
07/12 Cardiology note: 'Elevated Troponin-probable Type 2 MA: Supply / demand mismatch. SOCIAL SERVICES ANALYST of LAD and residual CADz in OM3 and RCA: Troponin peaked at 6.67 ng/ml.'
07/13 Progress note: 'NSTEMI on underlying multivessel coronary artery disease with a SOCIAL SERVICES ANALYST of the LAD.'
Due to potential conflicting documentation, please clarify the following regarding the documented myocardial infarction
NSTEMI
Type 2 MA
Other
Use of terms such as suspected, likely, concern for, or probable (associated with a specific diagnosis that is being evaluated, monitored, or treated as if it exists) are acceptable and can be coded in the inpatient setting, when documented at the
time of discharge.
Thank you,
Sheila Dailey RN, BSN
CDI Specialist
Available via [place] [employer]
Please use your independent medical judgment in providing your response.
[2024-07-13 15:24] LABS: Glucose - Point of Care 479 mg/dl (70-99)
[2024-07-13] MEDS: NOVOLOG FLEXPEN 25 UNITS SC (16:03)
--- NOTE | 2024-07-13 16:05 | W.PN.CARDCBS ---
Addendum entered and electronically signed by Russell Cevallos MD 07/13/24 18:01:
84-year-old male with multiple issues admitted with acute on chronic HFrEF and interstitial lung disease. Patient is comfortable at present.
PMH: Interstitial lung disease, bronchiectasis, HFrEF, ischemic cardiomyopathy with an EF of 35-40%, multivessel CAD turndown for CABG, severe MR, mild aortic stenosis, immunoglobulin deficiency, CLL, hypertension, diabetes, hypertension
Current meds: Furosemide 40 mg IV twice daily, atorvastatin 40 mg daily, Lipitor, Plavix daily, aspirin 81 mg a day, losartan 25 mg daily, prednisone, insulin
pulse 97, intake and output -1.9 L, 98/53, weight is 46.7 kg, admission weight was 51.1 kg
chest x-ray bilateral infiltrates, effusions with blunting in bases.
White count is 22.1, hemoglobin is 8.6, platelets are 120, BUN/creatinine 37 and 1.0, glucose was 537 today, sodium is 131
Impression: See below
Plan:
Left heart catheterization in a.m.
Thereafter, can determine if interventions such as MitraClip, PCI are options
Will hold furosemide and a.m.
Original Note:
Today's Communication / Plan
-
Tentatively added on for [facility] in AM
Can have liquid breakfast
52 min in talking with patient and daughter and coordination of care
Impression / Plan
-
PCP: Dr. Gomez
Primary Assistant Public Defender: Dr. Saunders
Impression:
-Elevated Troponin
probable Type 2 WI: Supply / demand mismatch. STRIPPER AND PRINTER of LAD and residual CADz in OM3 and RCA: Troponin peaked at 6.67 ng/ml
-Acute on chronic hypoxic respiratory failure
-Recent admission for PNA and bronchiectasis flare 06/01/24 until 06/07/24
-ILD
-Chronic atelectasis
-History of severe bronchiolitis/bronchiectasis and recurrent pneumonia
-Acute on chronic HFrEF
-Ischemic cardiomyopathy, EF 35-40% by echo 06/02/24
-Severe multivessel CAD
s/p cath with severely calcified LAD subtotally occluded, 80% OM, 70% RCA 09/2023
Prior discussions regarding medical management versus PCI versus CABG with plan for conservative treatment. CT surgery felt patient was too high risk for CABG/MVR 09/2023
-Moderate to severe mitral regurgitation: Will need to review
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
-CLL
-Anemia/thrombocytopenia
-Hyperlipidemia
-DM 2
-HTN
-07/11/2024: Echo: LV: EF 35 to 40%. Anterior apex and inferior apex appear akinetic. Septal apex mid anteroseptal and mid anterior cedillo are hypokinetic. RV: Normal, LA: Normal, RA: Normal, MV: Severe MR, AV: Mild to moderate peak/mean 15/7 mmHg
-06/02/2024: Echo: LV: Not mildly reduced LV systolic function estimated at 35-40%. [place], inferoseptum, inferior and inferolateral cedillo are hypokinetic. RV: Normal, LA: Normal, RA: Normal, MV: Mild-moderate MR, AV: Mild with P/M 19/12 mmHg.
Mild AI. TV: Mild TR with estimated PAP 35-40 mmHg
-11/10/2023: Echo: LV: Mild concentric LVH. Mildly reduced systolic function with EF 35-40. AK apex, apical septum, apical lateral wall. RV: Dilated, LA: Mildly dilated, RA: Dilated, MV: Severe MR, AV: Mild AI, calcified and restricted. TV:
Estimated PAP 40-45 mmHg
-08/05/2023: Echo: LV: Moderately reduced EF 30-35% by visual estimation the mid to distal septum and inferior cedillo are akinetic. RV: Normal, LA: Normal, RA: Normal, MV: Moderate-severe MR, AV: Mild-moderate AI, TV: Moderate TR with estimated PAP
50-55%
-08/31/2023: Cath: LM: Ca plaque in superior LM. No pressure dampening. LAD: Severely calcified over its course with calcified 65% before origin of first diagonal and occluded mid segment in area of dense calcification. LCX: Medium caliber
nondominant vessel. OM1 small with 60% ostial, OM3 long 80% RCA: 60-70% mid
Plan:
-Overnight events noted, patient with epistaxis and heparin gtt was stopped. Epistaxis has resolved.
-Troponin peaked at 6.67. Patient with chest pain on admission. Chronic WMA on echo and ECG abnormal.
-Patient says that he is interested in repeat cardiac catheterization and PCI if indicated.
-Patient was seen by CT surgery on 07/11/23 and prior to that had been evaluated in the office and was not felt to be a candidate for CABG.
-Called and talked to patient's daughter in law and advocate Adri who is an RN. Adri is in agreement with cath. Previously patient was focused on being the primary caregiver for his , but she last year and he feels
comfortable taking time to take care of himself now.
-Patient was tolerating aspirin and Plavix prior to admission and these have been continued.
-Heparin gtt was started earlier this admission and then stopped 07/12/24 PM due to epistaxis.
-Weight is up 1 lb overnight despite ongoing Lasix 40 mg IV BID. Patient was taking Lasix 20 mg PO daily prior to admission
-Outpatient dose of Toprol XL 25 mg BID has been continued.
-Outpatient dose of losartan 25 mg daily has been continued.
-Outpatient dose of Farxiga 10 mg daily has been held.
-Patient with severe MR by echo 07/11/23. Patient was turned down for surgical MVR. MitraClip has been considered, but he has not been formally evaluated. May need CELIA later in hospitalization to determine if he is a candidate for MitraClip depending
on review of transthoracic study
HPI: Patient came to [facility] from home very early this morning with pain all over and SOB and cardiology has been consulted for acute HF and elevated Troponin. Patient was just admitted to 06/01/24 until 06/07/24 with PNA and bronchiectasis flare and
then had an ER visit for fall on 06/24/24. Patient is frail, but feels that he has been stable since the ER visit, but started with increased SOB on Wednesday and felt like he could not get comfortable to sleep. Patient reports that he sleeps sitting
up in a chair most of the time, but despite sitting up straight he could not catch his breath and felt restless. Patient called his son and when patient's son arrived the patient was moaning and rocking back and forth so son called 911 and patient
was [facility]. In [facility] patient was given a total of Lasix 60 mg IV and reports increased urine output and improved SOB. Patient was also placed on oxygen at 6 L NC and has oxygen at home, but reports that he never uses it.
Progress Note - Assistant Public Defender
Subjective
Date of Service: July 13, 2024
He continues to feel much better compared to admission
Objective
Labs:
07/13/24 06:43
07/13/24 12:20
Labs
Hgb 8.6 g/dL (13.0-18.0) L 07/13/24 06:43
Hct 27.7 % (39.0-52.0) L 07/13/24 06:43
Plt Count 129 10^3/uL (130-400) L 07/13/24 06:43
APTT 39.2 Sec (23.4-35.0) H 07/13/24 06:43
Sodium 131 mmol/L (135-145) L 07/13/24 06:43
Potassium 4.0 mmol/L (3.5-5.1) 07/13/24 06:43
BUN 37 mg/dl (9-20) H 07/13/24 06:43
Creatinine 1.0 mg/dL (0.7-1.3) 07/13/24 06:43
Glucose 537 mg/dl (70-99) H* 07/13/24 12:20
Troponins
07/10/24 07/10/24 07/11/24
16:00 21:51 03:43
Troponin I 6.670 H* 4.790 H* D 3.670 H*
07/11/24 07/11/24 07/11/24
07:23 07:45 14:09
Troponin I 2.980 H* Cancelled 2.150 H* D
Vital Signs and I&O:
Vital Signs
Temp Pulse Resp BP Pulse Ox
98.1 F 100 22 98/52 98
07/13/24 12:08 07/13/24 12:08 07/13/24 12:08 07/13/24 12:08 07/13/24 12:08
Vital Signs
Temp Pulse Resp BP Pulse Ox
98.1 F 100 22 98/52 98
07/13/24 12:08 07/13/24 12:08 07/13/24 12:08 07/13/24 12:08 07/13/24 12:08
Intake & Output
07/11/24 07/12/24 07/13/24 07/14/24
06:59 06:59 06:59 06:59
Intake Total 660 / 660 960 / 960 480 / 480
Output Total 650 / 650 2075 / 2075 1800 / 1800 1550 / 1550
Balance -650 / -650 -1415 / -1415 -840 / -840 -1070 / -1070
Physical Exam
Physical Exam
GEN: NAD, AAOx3
HEENT: EOMI, MMM
LUNGS: RA. No audible wheeze
CV: SR on tele.
ABD: ND
EXT: No edema B/L
NEURO: Gross non-focal
SKIN: No rash
[2024-07-13 17:31] LABS: Glucose - Point of Care 261 mg/dl (70-99)
[2024-07-13] MEDS: NOVOLOG FLEXPEN-HIGH RESISTANCE 7 UNITS SC (17:31)
[2024-07-13] MEDS: NOVOLOG FLEXPEN 7 UNITS SC (17:31)
[2024-07-13] MEDS: LIPITOR 40 MG PO (17:34)
[2024-07-13] MEDS: PULMICORT INH (19:42)
[2024-07-13 21:13] LABS: Glucose - Point of Care 137 mg/dl (70-99)
[2024-07-13] MEDS: RESTORIL 7.5 MG PO (22:01)
[2024-07-13] MEDS: LANTUS 0.1 UNITS SC (22:01)
[2024-07-14] VITALS (17 sets, daily range): BP systolic 87–111; BP diastolic 36–63; BMI 16.3
[2024-07-14 07:42] LABS: Glucose - Point of Care 87 mg/dl (70-99)
[2024-07-14] MEDS: PULMICORT 0.5 MG INH ×2 (08:12→18:15)
[2024-07-14] MEDS: DUONEB 3 ML INH ×2 (08:14→18:15)
[2024-07-14] MEDS: NOVOLOG FLEXPEN SC ×2 (09:05→12:45)
[2024-07-14] MEDS: PLAVIX 75 MG PO (09:06)
[2024-07-14] MEDS: NOVOLOG FLEXPEN-HIGH RESISTANCE SC ×2 (09:06→12:46)
[2024-07-14] MEDS: DELTASONE 10 MG PO (09:06)
[2024-07-14] MEDS: ASPIR LOW (ENTERIC COATED) 81 MG PO (09:06)
--- NOTE | 2024-07-14 09:09 | W.PN.HOSP.TC ---
Today's Communication/Plan
-
NPO for cath
Low blood glucose today
Give one time dextrose
Holding Lasix for now
Likely dc Wednesday if no events
Assessment / Plan
Assessment / Plan
Physical Exam
General: No Apparent Distress, Comfortable and Conversant
HEENT: Normocephalic and Moist mucous membranes
Respiratory: Decreased Breath Sounds
Cardiac: S1/S2 and Regular Rhythm
GI: Soft, Non Tender and Normal Bowel Sounds
Musculoskeletal: No Cyanosis and No Edema
Skin: Warm and Dry
Neuro: Awake, Alert and AO x 3
Psych: Calm and Intact Judgment/Insight
Assessment/Plan
Acute on chronic hypoxic respiratory failure
HFrEF
Ischemic cardiomyopathy, EF 35-40% by echo 11/2023
NSTEMI on underlying multivessel coronary artery disease with a OPTICAL DESIGNER of the LAD
Continue aggressive medical care
-s/p IV Lasix
-Continue GDMT: Beta-blockers, ARB
-Continue DAPT and high intensity statin
-Daily weights, I's and O's
-Cardiology consult appreciated
-Trend troponins --> peaked at 6.6 --started Heparin Drip but held due to Epistaxis
-Echo showed hypokinesis, LVEF 35 to 40%, severe mitral regurgitation, mild to moderate aortic stenosis, mild AR, severe TR, pulmonary hypertension with pulmonary artery pressure of 69 mmHg
Has been considered high risk for interventions or surgery - CT surgery felt patient was too high risk for CABG/MVR
Continue anti-ischemic regimen, DAPT, beta-blockers, statins
Chest pain-free,
Plan for cath 07/14
#Recent Sepsis/Probable pneumonia/Bronchiectasis with flare
Recent Abnormal CT Chest: Bronchiolitis/bilateral groundglass opacity/chronic bronchiectasis.
Differential diagnosis includes: Infectious bacterial/viral, atypical pulmonary edema given increased proBNP, opportunistic infection.
Bronchoscopy 06/07/24
History of severe chronic bronchiectasis: Follows with Dr. Sun
On low-dose prednisone/nebulizers/secretion clearance interventions
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
#Moderate to severe mitral regurgitation:
Consideration of MitraClip as outpatient
#History of NSVT
Beta-blockers
Cardiac monitoring
#Severe Mitral Regurgitation
# CLL with immunoglobulin deficiency
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
Leukocytosis - CLL and on low dose steroids
-Continue outpatient IVIG in a couple of weeks
#Essential hypertension
-Continue losartan and metoprolol and furosemide
-Monitor blood pressure adjust medications accordingly
#Hyperlipidemia
-Continue home statins, atorvastatin 40 mg nightly
#Diabetes mellitus type 2
better controlled
Added Lantus and pre-meal insulin
-Continue insulin sliding scale
#Stage IIIb chronic Kidney Disease
#Anxiety
-Continue temazepam 22.5 mg p.o. nightly (son confirmed this is the right dose)
#7 mm calculus at the right UPJ with obstructive uropathy s/p Cystoscopy/Right ureteroscopy/Laser lithotripsy/Right ureteral stent placement 11/25/23
# Chronic anemia (Hb ranges between 8.5-10.5)
Thrombocytopenia (chronic with waxing and waning plt counts)
Recent Transaminitis
No abdominal pain
#Moderate protein calorie malnutrition
Cachexia
DVT prophylaxis:
Heparin
CODE STATUS:
DNR
Total time spent to see the patient, examine the patient, review data and lab results, discuss treatment plan with patient, nursing staff around 55 minutes
Anticipated Discharge: Within 24 hours
Subjective/Interval History
-
Date of Service: July 14, 2024
He feels better
No chest pain
No bleeding
Objective Data
-
Labs:
Laboratory Results
07/14/24
07:55
WBC Pending
Hgb Pending
Hct Pending
Plt Count Pending
Sodium Pending
Potassium Pending
Chloride Pending
Carbon Dioxide Pending
BUN Pending
Creatinine Pending
Glucose Pending
Calcium Pending
Vital Signs:
Vital Signs
Temp Pulse Resp BP Pulse Ox
97.7 F 78 14 87/52 96
07/14/24 08:03 07/14/24 08:18 07/14/24 08:18 07/14/24 08:03 07/14/24 08:18
I&O
07/13/24 07/14/24 07/15/24
06:59 06:59 06:59
Intake Total 960 / 960 480 / 480
Output Total 1800 / 1800 1950 / 1950 1340 / 1340
Balance -840 / -840 -1470 / -1470 -1340 / -1340
[2024-07-14 09:10] LABS: Hematocrit 26.7 % (39.0-52.0); Hemoglobin 8.6 g/dL (13.0-18.0); Mean Corp Hgb Conc. 32.2 g/dL (33.0-37.0); Mean Corpuscular Hgb 30.9 pg (27.0-31.0); Red Blood Cell Count 2.78 10^6/uL (4.70-6.10); Red Cell Dist. Width 18.5 % (11.5-14.5); White Blood Cell Count 26.6 10^3/uL (4.8-10.8)
[2024-07-14 09:11] LABS: Blood Urea Nitrogen 43 mg/dl (9-20); Calcium 8.7 mg/dl (8.4-10.2); Carbon Dioxide 26 mmol/L (22-30); Chloride 100 mmol/L (98-107); Estimated Creatinine Clearance 38 ml/min; Glucose 66 mg/dl (70-99); Magnesium 2.5 mg/dl (1.6-2.3); Potassium 4.2 mmol/L (3.5-5.1); Sodium 134 mmol/L (135-145); eGFR > 60.00
[2024-07-14] MEDS: COZAAR PO (09:16)
[2024-07-14] MEDS: TOPROL XL PO (09:16)
[2024-07-14] MEDS: LASIX IV ×2 (09:16→18:32)
--- NOTE | 2024-07-14 09:48 | VNURNOTE ---
[facility] liaison spoke with patient's primary contact Adri. She is '100% agreeable' to [facility] services. She will speak with patient about accepting services. Primary contact understands benefits and services that [facility] can provide. Referral
accepted in [facility]. CM updated.
[2024-07-14 10:17] LABS: Mean Platelet Volume 12.1 fL (7.4-10.4); Platelet Count 121 10^3/uL (130-400)
[2024-07-14] MEDS: DEXTROSE 50% SYRINGE 25 GRAMS IV (10:36)
--- NOTE | 2024-07-14 11:19 | W.PN.UPDATE ---
Update Note
Progress Note Update
STS risk calc.
Simulated Patient Summary
Procedure Type:�CABG + MVR
Perioperative Outcome Estimate %
Operative Mortality 54.4%
Morbidity & Mortality 80.7%
Stroke 3.03%
Renal Failure 33.2%
Reoperation 23.5%
Prolonged Ventilation 79%
Deep Sternal Wound Infection 0.329%
Long Hospital Stay (>14 days) 68.9%
Short Hospital Stay (<6 days)* 0.497%
*higher values reflect a better outcome
Clinical Summary
Planned Surgery: CABG + MVR, Concomitant Tricuspid Repair, Urgent, First cardiovascular surgery
Demographics: 84 year old, White, male, 47kg, 170cm, BMI: 16.3 kg/m�
Insurance/Payor: Medicare
Lab Values: Creatinine: 1 mg/dL, Hematocrit: 26.7%, WBC Count: 26.6 10�/�L, Platelet Count: 081483 cells/�L
PreOp Medications: DONNA Inhibitors/ARBs <=48 hrs, Steroids <=24 hrs, ADP Inhibitors <=5 days
Substance Abuse: Never smoker
Risk Factors / Comorbidities: Cancer <=5 yrs, Hypertension, Immunocompromised
Pulmonary RF: Severe CLD, Recent Pneumonia, Home O?
Cardiac Status: Acute and chronic heart failure, Ejection Fraction = 35%
Coronary Artery Disease: 2 vessels diseased, Proximal LAD Stenosis >=70%, Non-ST Elevation IL, IL: 1 to 7 Days
Valve Disease: Aortic Stenosis, Mild AR, Severe MR, Severe TR
Will update STS again after Cardiac cath.
[2024-07-14 11:57] LABS: Glucose - Point of Care 256 mg/dl (70-99)
--- NOTE | 2024-07-14 15:45 | CM ---
Chart reviewed. Plan is for home w/ [facility] w/ [facility]
Plan: Home; [facility]/ [facility]
[2024-07-14 16:09] LABS: ACT-LR - POC 239 Seconds (116-155)
[2024-07-14 16:42] LABS: ACT-LR - POC 221 Seconds (116-155)
[2024-07-14 16:42] LABS: ACT-LR - POC 192 Seconds (116-155)
[2024-07-14 16:50] LABS: ACT-LR - POC 253 Seconds (116-155)
[2024-07-14 17:40] LABS: Glucose - Point of Care 206 mg/dl (70-99)
[2024-07-14] MEDS: LIPITOR 40 MG PO (18:34)
[2024-07-14] MEDS: NOVOLOG FLEXPEN 7 UNITS SC (19:06)
[2024-07-14] MEDS: NOVOLOG FLEXPEN-HIGH RESISTANCE 4 UNITS SC (19:07)
[2024-07-14 19:14] LABS: Total CK 23 U/L (55-170)
--- NOTE | 2024-07-14 19:38 | PTCARENOTE ---
Pt from 4th floor received post cardiac cath done via right femoral artery and vein. Dressing dry and intact, no sign of bleeding or hematoma. Pt denies any discomfort. Telemetry shows sinus rhythm.
--- NOTE | 2024-07-14 20:44 | ITS.CL.CATH ---
[employer] [facility] - Catheterization
Cardiac Catheterization
Procedure Report:
RIGHT AND LEFT HEART STUDY
Date of Procedure: July 14, 2024
PROCEDURES:
1. Right heart catheterization
2. Left heart catheterization with coronary angiography
3. Unsuccessful attempted PCI of OM 3
INDICATION: This is an 84-year-old gentleman with a past medical history of advanced coronary artery disease and moderate to severe mitral regurgitation. He presented to [facility] with complaints of increased shortness of breath and
subsequently ruled in for non-ST segment elevation myocardial infarction. He absolutely denies any anginal symptoms and has known chronic total occlusion of the mid LAD and high-grade stenosis in OM 3 in the mid RCA. The troponin elevation clearly
could be a type II myocardial infarction secondary to supply/demand mismatch. His last coronary angiogram was completed in August 2023 and he was subsequently evaluated by CT surgery and not felt to be a surgical candidate for bypass and mitral
valve given a multitude of medical problems including bronchiolitis/bronchiectasis, immunodeficiency, CLL, anemia and thrombocytopenia and hyperlipidemia. He is now referred for repeat coronary angiography
ACCESS: Right common femoral artery, 6 Jamaican sheath in right common femoral vein, 6 Jamaican sheath. Ultrasound guidance was utilized and micropuncture technique in order to obtain access in the femoral artery and femoral vein
HEMODYNAMICS : mmHg
RA (m) : 4
RV (s/d) : 39/2
PA (s/d, m) : 37/17, 25
PCWP (m) : 20
AO (s/d, m) : 98/55, 74
LV (s/d) : 103/6
LVEDP : 24
Estimated [place] Cardiac Output: 4.2 L / min and Cardiac Index: 2.7 L/ min / m-2
Systemic vascular resistance: 16.7 Wood units or 1333 [id number](-5)
Pulmonary vascular resistance: 1.2 Wood units or 95.2 [id number](-5)
CORONARY FINDINGS :
Dominance: Right
LEFT MAIN: The left main is calcified with a tubular narrowing but no pressure dampening occurred with engagement of a 6 Jamaican diagnostic catheter
LEFT ANTERIOR DESCENDING: The LAD is heavily calcified throughout its course. The mid LAD is subtotally occluded near the origin of the first diagonal branch and then becomes totally occluded just beyond the first sizable diagonal branch. The
distal LAD is noted to fill via left to left collaterals.
CIRCUMFLEX: The circumflex gives rise to a small OM1 and OM 2. There is a 95% calcified stenosis at the origin of OM-3.
RIGHT CORONARY ARTERY: The right coronary artery is a dominant vessel with an eccentric 70% stenosis in its midportion near the origin of the RV marginal branch
VENTRICULOGRAPHY: Not done
ANGIOPLASTY REPORT: After review of the diagnostic catheterization films the decision was made to proceed with an attempted angioplasty of the high-grade stenosis in OM 3. Intravenous heparin was administered with additional boluses required to
maintain an ACT above 250 seconds during the procedure. The origin of the left main was cannulated with an EBU 3.5 guiding catheter and a BMW guidewire was advanced to the circumflex but would not cross the stenotic segment in the proximal portion
of OM1. A 2.0 mm balloon was advanced to the BMW tip to provide additional backup support. Unfortunately, the wire still would not cross. The BMW guidewire was removed and exchanged for a Fielder XT wire. The Fielder XT wire probed the stenotic
segment and additional backup support was provided with a quick cross microcatheter. The Fielder crossed into a very small terminal obtuse marginal branch but never into the main body of OM 3. The tip of the wire was retracted and redirected but
could still not cross distally. At this point, the Fielder was removed and a GuideLiner was advanced over a Whisper wire and a Quick Cross microcatheter was advanced to the tip of the whisper wire. Unfortunately, even with adequate backup support
the Whisper wire could not cross the distal. Angiography now demonstrated SATISH II flow into the distal vessel, however, the patient remained chest pain-free. Flow into the distal vessel did improve over the next several minutes but never returned
to baseline. At this point, I felt that additional attempts to cross the lesion may result in vessel dissection and loss of flow and I elected to terminate the procedure as he was chest pain-free and clinically stable. CPK/MB levels will be
obtained serially post procedure
RADIATION SUMMARY: Fluoro Time (min): 26.6, Dose (mGy): 929, DAP (Gy.cm2) : 75.9
CONCLUSIONS
1. Unsuccessful attempted angioplasty and stenting of OM 3. A Fielder XT wire crossed the tightest portion of the lesion but could not be directed to the main body of OM 3 favoring a small side branch vessel.
2. Known severe mitral regurgitation. Will likely need [facility] to evaluate for possible MitraClip
Copy to: Dr. Lucas Saunders
[2024-07-14] MEDS: TOPROL XL 25 MG PO (21:04)
[2024-07-14 22:02] LABS: Glucose - Point of Care 298 mg/dl (70-99)
[2024-07-14] MEDS: LANTUS 0.1 UNITS SC (22:35)
[2024-07-14] MEDS: RESTORIL 7.5 MG PO (22:54)
--- NOTE | 2024-07-14 23:55 | PTCARENOTE ---
Received patient at change of shift. Patient on bed rest due to procedure, A&O x3, son and [id number] bedside. Right groin clean, dry, intact; soft, no hematoma, no ecchymosis. Discussed when able to ambulate. Patient verbalized understanding.
BP 87/54, ST w/ BBB 100s-110s, 96% on room air. Discussed plan of care for evening and calling care team for OOB. Patient verbalized understanding. Call byrnes within reach.
[2024-07-15] VITALS (17 sets, daily range): BP systolic 77–101; BP diastolic 47–65; BMI 15.9
[2024-07-15 01:01] LABS: Total CK 34 U/L (55-170)
[2024-07-15] MEDS: DUONEB 3 ML INH ×2 (05:25→08:44)
[2024-07-15 06:03] LABS: Blood Urea Nitrogen 39 mg/dl (9-20); Calcium 8.9 mg/dl (8.4-10.2); Carbon Dioxide 26 mmol/L (22-30); Chloride 99 mmol/L (98-107); Estimated Creatinine Clearance 46 ml/min; Glucose 163 mg/dl (70-99); Potassium 4.6 mmol/L (3.5-5.1); Sodium 133 mmol/L (135-145); Total CK 39 U/L (55-170); eGFR > 60.00
[2024-07-15 06:07] LABS: Hematocrit 28.1 % (39.0-52.0); Hemoglobin 9.2 g/dL (13.0-18.0); Mean Corp Hgb Conc. 32.7 g/dL (33.0-37.0); Mean Corpuscular Hgb 32.2 pg (27.0-31.0); Mean Corpuscular Volume 98.3 fL (80.0-94.0); Mean Platelet Volume 11.8 fL (7.4-10.4); Platelet Count 141 10^3/uL (130-400); Red Blood Cell Count 2.86 10^6/uL (4.70-6.10); Red Cell Dist. Width 18.6 % (11.5-14.5); White Blood Cell Count 32.2 10^3/uL (4.8-10.8)
--- NOTE | 2024-07-15 06:56 | W.PN.HOSP.TC ---
Today's Communication/Plan
-
Likely dc later today
Assessment / Plan
Assessment / Plan
Physical Exam
General: No Apparent Distress, Comfortable and Conversant
HEENT: Normocephalic and Moist mucous membranes
Respiratory: Decreased Breath Sounds
Cardiac: S1/S2 and Regular Rhythm
GI: Soft, Non Tender and Normal Bowel Sounds
Musculoskeletal: No Cyanosis and No Edema
Skin: Warm and Dry
Neuro: Awake, Alert and AO x 3
Psych: Calm and Intact Judgment/Insight
Assessment/Plan
Acute on chronic hypoxic respiratory failure
HFrEF
Ischemic cardiomyopathy, EF 35-40% by echo 11/2023
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
Continue aggressive medical care
-s/p IV Lasix
-Continue GDMT: Beta-blockers, ARB
-Continue DAPT and high intensity statin
-Daily weights, I's and O's
-Cardiology consult appreciated
-Trend troponins --> peaked at 6.6 --started Heparin Drip but held due to Epistaxis
-Echo showed hypokinesis, LVEF 35 to 40%, severe mitral regurgitation, mild to moderate aortic stenosis, mild AR, severe TR, pulmonary hypertension with pulmonary artery pressure of 69 mmHg
Has been considered high risk for interventions or surgery - CT surgery felt patient was too high risk for CABG/MVR
Continue anti-ischemic regimen, DAPT, beta-blockers, statins
Chest pain-free,
Plan for cath 07/14 , failed attempt to do PCI of OM. Plan for outpatient [facility] to evaluate for MitraClip.
#Recent Sepsis/Probable pneumonia/Bronchiectasis with flare
Recent Abnormal CT Chest: Bronchiolitis/bilateral groundglass opacity/chronic bronchiectasis.
Differential diagnosis includes: Infectious bacterial/viral, atypical pulmonary edema given increased proBNP, opportunistic infection.
Bronchoscopy 06/07/24
History of severe chronic bronchiectasis: Follows with Dr. Dino
On low-dose prednisone/nebulizers/secretion clearance interventions
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
#Moderate to severe mitral regurgitation:
Consideration of MitraClip as outpatient
#History of NSVT
Beta-blockers
Cardiac monitoring
#Severe Mitral Regurgitation
# CLL with immunoglobulin deficiency
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
Leukocytosis - CLL and on low dose steroids
-Continue outpatient IVIG in a couple of weeks
#Essential hypertension
-Continue losartan and metoprolol and furosemide
-Monitor blood pressure adjust medications accordingly
#Hyperlipidemia
-Continue home statins, atorvastatin 40 mg nightly
#Diabetes mellitus type 2
better controlled
Added Lantus and pre-meal insulin
-Continue insulin sliding scale
#Stage IIIb chronic Kidney Disease
#Anxiety
-Continue temazepam 22.5 mg p.o. nightly (son confirmed this is the right dose)
#7 mm calculus at the right UPJ with obstructive uropathy s/p Cystoscopy/Right ureteroscopy/Laser lithotripsy/Right ureteral stent placement 11/25/23
# Chronic anemia (Hb ranges between 8.5-10.5)
Thrombocytopenia (chronic with waxing and waning plt counts)
Recent Transaminitis
No abdominal pain
#Moderate protein calorie malnutrition
Cachexia
DVT prophylaxis:
Heparin
CODE STATUS:
DNR
Totaldischarge time spent to see the patient, examine the patient, review data and lab results, discuss discharge plan with patient, nursing staff around 67 minutes
Anticipated Discharge: Today
Subjective/Interval History
-
Date of Service: July 15, 2024
No chest pain
No sob
Objective Data
-
Labs:
Laboratory Results
07/15/24
05:20
WBC 32.2 H
Hgb 9.2 L
Hct 28.1 L
Plt Count 141
Sodium 133 L
Potassium 4.6
Chloride 99
Carbon Dioxide 26
BUN 39 H
Creatinine 0.8
Glucose 163 H
Calcium 8.9
Vital Signs:
Vital Signs
Temp Pulse Resp BP Pulse Ox
98.2 F 94 18 95/58 97
07/15/24 06:50 07/15/24 05:12 07/15/24 06:50 07/15/24 05:12 07/15/24 06:50
I&O
07/13/24 07/14/24 07/15/24
06:59 06:59 06:59
Intake Total 960 / 960 480 / 480
Output Total 1800 / 1800 1950 / 1950 1340 / 1340
Balance -840 / -840 -1470 / -1470 -1340 / -1340
[2024-07-15 07:47] LABS: % Basophils 0.2 % (0-2); % Eosinophils 0.1 % (0-6); % Immature Granulocytes 0.6 % (0-0.5); % Lymphocytes 72.1 % (20.5-51.1); % Monocytes 1.2 % (1.7-9.3); % Neutrophils 25.8 % (42.2-75.2); Absolute Basophils 0.1 10^3/uL (0-0.2); Absolute Immature Granulocytes 0.2 10^3/uL (0-0.05); Absolute Lymphocytes 23.2 10^3/uL (1.2-3.4); Absolute Monocytes 0.4 10^3/uL (0.1-0.6); Absolute Neutrophils 8.3 10^3/uL (1.4-6.5); Nucleated Red Blood Cells % 0 % (-)
[2024-07-15] MEDS: NOVOLOG FLEXPEN-HIGH RESISTANCE 2 UNITS SC (08:02)
[2024-07-15] MEDS: NOVOLOG FLEXPEN 7 UNITS SC ×3 (08:02→17:37)
[2024-07-15 08:03] LABS: Glucose - Point of Care 187 mg/dl (70-99)
--- NOTE | 2024-07-15 08:21 | W.PN.UPDATE ---
Update Note
Progress Note Update
Brief CTS Note
Discussed the case with Dr. Ch
Not an open surgical candidate
Will be evaluated for EFRAÍN. This can be done on an outpatient basis.
Recommend medical optimization per cardiology and then outpatient follow up with the valve clinic
Will sign off. Please recall if needed.
[2024-07-15] MEDS: PULMICORT 0.5 MG INH ×2 (08:27→18:14)
--- NOTE | 2024-07-15 08:43 | W.PN.CARDCBS ---
Addendum entered and electronically signed by Johnathan Guadarrama MD 07/15/24 10:17:
After talking on the phone patient had sinus tachycardia and increased dyspnea on exertion. Denies chest pains.
Will hold off on discharge and continue IV Lasix 40 mg IV twice daily. Continue to trend total CK.
Check EKG.
If clinically does poorly may need to consider [facility] as inpatient.
Original Note:
Today's Communication / Plan
-
Catheterization results reviewed status post failed OM PCI. Would trend total CK and repeat. As long as improving for possible discharge later today.
Will switch Lasix to 40 mg p.o. twice daily.
Continue aspirin and Plavix. Continue metoprolol, losartan and would restart Farxiga.
Plan will be for outpatient [facility] to evaluate for MitraClip. He is not a surgical candidate.
Impression / Plan
-
PCP: Dr. Gomez
Primary Wet Cotton Feeder: Dr. Saunders
Impression:
-Elevated Troponin
probable Type 2 NE: Supply / demand mismatch. OPERATOR AUTOMATED PROCESS of LAD and residual CADz in OM3 and RCA: Troponin peaked at 6.67 ng/ml
-Acute on chronic hypoxic respiratory failure
-Recent admission for PNA and bronchiectasis flare 06/01/24 until 06/07/24
-ILD
-Chronic atelectasis
-History of severe bronchiolitis/bronchiectasis and recurrent pneumonia
-Acute on chronic HFrEF
-Ischemic cardiomyopathy, EF 35-40% by echo 06/02/24
-Severe multivessel CAD
s/p cath with severely calcified LAD subtotally occluded, 80% OM, 70% RCA 09/2023
Prior discussions regarding medical management versus PCI versus CABG with plan for conservative treatment. CT surgery felt patient was too high risk for CABG/MVR 09/2023
-Moderate to severe mitral regurgitation: Will need to review
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
-CLL
-Anemia/thrombocytopenia
-Hyperlipidemia
-DM 2
-HTN
-07/11/2024: Echo: LV: EF 35 to 40%. Anterior apex and inferior apex appear akinetic. Septal apex mid anteroseptal and mid anterior cedillo are hypokinetic. RV: Normal, LA: Normal, RA: Normal, MV: Severe MR, AV: Mild to moderate peak/mean 15/7 mmHg
-06/02/2024: Echo: LV: Not mildly reduced LV systolic function estimated at 35-40%. [place], inferoseptum, inferior and inferolateral cedillo are hypokinetic. RV: Normal, LA: Normal, RA: Normal, MV: Mild-moderate MR, AV: Mild with P/M 19/12 mmHg.
Mild AI. TV: Mild TR with estimated PAP 35-40 mmHg
-11/10/2023: Echo: LV: Mild concentric LVH. Mildly reduced systolic function with EF 35-40. AK apex, apical septum, apical lateral wall. RV: Dilated, LA: Mildly dilated, RA: Dilated, MV: Severe MR, AV: Mild AI, calcified and restricted. TV:
Estimated PAP 40-45 mmHg
-08/05/2023: Echo: LV: Moderately reduced EF 30-35% by visual estimation the mid to distal septum and inferior cedillo are akinetic. RV: Normal, LA: Normal, RA: Normal, MV: Moderate-severe MR, AV: Mild-moderate AI, TV: Moderate TR with estimated PAP
50-55%
-08/31/2023: Cath: LM: Ca plaque in superior LM. No pressure dampening. LAD: Severely calcified over its course with calcified 65% before origin of first diagonal and occluded mid segment in area of dense calcification. LCX: Medium caliber
nondominant vessel. OM1 small with 60% ostial, OM3 long 80% RCA: 60-70% mid
Plan:
-Cath results reviewed. Failed OM PCI. Filling pressures were overall stable with pulmonary capillary wedge pressure of 20. PA pressure 37/17.
-Patient was turned down by CT surgery. Plan is for outpatient [facility] to evaluate for mitral clip.
-Will switch Lasix to 40 mg p.o. twice daily.
-Continue aspirin, Plavix, atorvastatin, metoprolol, losartan.
-Resume Farxiga 10 mg daily.
-Patient with severe MR by echo 07/11/23. Patient was turned down for surgical MVR.
HPI: Patient came to [facility] from home very early this morning with pain all over and SOB and cardiology has been consulted for acute HF and elevated Troponin. Patient was just admitted to 06/01/24 until 06/07/24 with PNA and bronchiectasis flare and
then had an ER visit for fall on 06/24/24. Patient is frail, but feels that he has been stable since the ER visit, but started with increased SOB on Wednesday and felt like he could not get comfortable to sleep. Patient reports that he sleeps sitting
up in a chair most of the time, but despite sitting up straight he could not catch his breath and felt restless. Patient called his son and when patient's son arrived the patient was moaning and rocking back and forth so son called 911 and patient
was brought to [facility]. In [facility] patient was given a total of Lasix 60 mg IV and reports increased urine output and improved SOB. Patient was also placed on oxygen at 6 L NC and has oxygen at home, but reports that he never uses it.
Progress Note - Wet Cotton Feeder
Subjective
Date of Service: July 15, 2024
Denies chest pains or shortness of breath. Status post failed OM PCI yesterday
Objective
Labs:
07/15/24 05:20
07/15/24 05:20
Labs
Hgb 9.2 g/dL (13.0-18.0) L 07/15/24 05:20
Hct 28.1 % (39.0-52.0) L 07/15/24 05:20
Plt Count 141 10^3/uL (130-400) 07/15/24 05:20
APTT 39.2 Sec (23.4-35.0) H 07/13/24 06:43
Sodium 133 mmol/L (135-145) L 07/15/24 05:20
Potassium 4.6 mmol/L (3.5-5.1) 07/15/24 05:20
BUN 39 mg/dl (9-20) H 07/15/24 05:20
Creatinine 0.8 mg/dL (0.7-1.3) 07/15/24 05:20
Glucose 163 mg/dl (70-99) H 07/15/24 05:20
Vital Signs and I&O:
Vital Signs
Temp Pulse Resp BP Pulse Ox
98.2 F 106 18 95/62 98
07/15/24 06:50 07/15/24 08:01 07/15/24 08:01 07/15/24 08:01 07/15/24 08:01
Vital Signs
Temp Pulse Resp BP Pulse Ox
98.2 F 106 18 95/62 98
07/15/24 06:50 07/15/24 08:01 07/15/24 08:01 07/15/24 08:01 07/15/24 08:01
Intake & Output
07/13/24 07/14/24 07/15/24 07/16/24
06:59 06:59 06:59 06:59
Intake Total 960 / 960 480 / 480
Output Total 1800 / 1800 1950 / 1950 1340 / 1340
Balance -840 / -840 -1470 / -1470 -1340 / -1340
Physical Exam
Physical Exam
GEN: No distress, awake, Ox3
HEENT: supple, anicteric, mmm
LUNGS: CTA, no wheezes/rales
CV: Reg, S1/S2, 2/6 syst apex, S3+
ABD: soft, BS+, NT/ND
EXT: No edema
NEURO: Gross non-focal
SKIN: No rash
[2024-07-15] MEDS: PLAVIX 75 MG PO (09:02)
[2024-07-15] MEDS: TOPROL XL 25 MG PO (09:02)
[2024-07-15] MEDS: ASPIR LOW (ENTERIC COATED) 81 MG PO (09:03)
[2024-07-15] MEDS: DELTASONE 10 MG PO (09:03)
[2024-07-15] MEDS: COZAAR 25 MG PO (09:03)
[2024-07-15] MEDS: LASIX 40 MG IV (09:53)
[2024-07-15] MEDS: LASIX IV (09:54)
--- NOTE | 2024-07-15 09:55 | PTCARENOTE ---
07/15/24 0930 Pt complaining of sudden shortness of breath after a couple phone calls. HR 120, Pt VARGAS+, placed on 2L NC-pulse ox 100%, Hospitalist and Die Polisher made aware. Stat PCXR ordered and performed, 40mg IV Lasix given. Pt with productive
cough- yellow sputum. Bilateral lung field coarse with fine rales at bases. B/P 99/62. Pt laying in bed. Will monitor throughout shift.
[2024-07-15] MEDS: NOVOLOG FLEXPEN-HIGH RESISTANCE 12 UNITS SC ×2 (13:14→17:38)
[2024-07-15 13:17] LABS: Glucose - Point of Care 367 mg/dl (70-99)
[2024-07-15 17:32] LABS: Glucose - Point of Care 360 mg/dl (70-99)
[2024-07-15] MEDS: LIPITOR 40 MG PO (17:37)
[2024-07-15 18:27] LABS: Total CK 38 U/L (55-170)
[2024-07-15] MEDS: TOPROL XL PO (19:48)
--- NOTE | 2024-07-15 21:13 | PTCARENOTE ---
Patient received at change of shift resting comfortably in the bed. Patient presently without any complaints, denies pain. Right groin site with gauze and tegaderm C/D/I, area soft to palpation. Patient with low blood pressure, house MANNEQUIN REFINISHER made aware,
evening Metoprolol held. Patient denies feeling lightheaded or dizzy. Remains on 2L NC with oxygen saturation 97%. Plan of care discussed with patient. Sinus rhythm on cardiac monitor. Call byrnes within reach. Care ongoing.
[2024-07-15 21:23] LABS: Glucose - Point of Care 183 mg/dl (70-99)
[2024-07-15] MEDS: RESTORIL 7.5 MG PO (22:16)
[2024-07-15] MEDS: LANTUS 0.1 UNITS SC (22:16)
--- NOTE | 2024-07-15 22:23 | PTCARENOTE ---
Patient oxygen saturation 98-100% on 2L NC. Patient requesting to keep oxygen on overnight for personal comfort, refusing to have oxygen weaned off at this time. Plan of care ongoing. Call byrnes within reach.
[2024-07-16] VITALS (13 sets, daily range): BP systolic 89–114; BP diastolic 56–75; BMI 16.3
[2024-07-16 03:47] LABS: Hematocrit 23.4 % (39.0-52.0); Hemoglobin 7.6 g/dL (13.0-18.0); Mean Corp Hgb Conc. 32.5 g/dL (33.0-37.0); Mean Corpuscular Hgb 31.5 pg (27.0-31.0); Mean Corpuscular Volume 97.1 fL (80.0-94.0); Mean Platelet Volume 12.3 fL (7.4-10.4); Platelet Count 117 10^3/uL (130-400); Red Blood Cell Count 2.41 10^6/uL (4.70-6.10); Red Cell Dist. Width 18.3 % (11.5-14.5); White Blood Cell Count 33.4 10^3/uL (4.8-10.8)
[2024-07-16 04:12] LABS: Blood Urea Nitrogen 50 mg/dl (9-20); Calcium 8.8 mg/dl (8.4-10.2); Carbon Dioxide 26 mmol/L (22-30); Chloride 98 mmol/L (98-107); Estimated Creatinine Clearance 35 ml/min; Glucose 157 mg/dl (70-99); Potassium 4.6 mmol/L (3.5-5.1); Sodium 130 mmol/L (135-145); eGFR > 60.00
[2024-07-16 06:24] LABS: % Basophils 0.1 % (0-2); % Eosinophils 0.2 % (0-6); % Immature Granulocytes 0.4 % (0-0.5); % Lymphocytes 82.5 % (20.5-51.1); % Neutrophils 15.8 % (42.2-75.2); Absolute Basophils 0.1 10^3/uL (0-0.2); Absolute Eosinophils 0.1 10^3/uL (0-0.7); Absolute Immature Granulocytes 0.2 10^3/uL (0-0.05); Absolute Lymphocytes 27.6 10^3/uL (1.2-3.4); Absolute Monocytes 0.3 10^3/uL (0.1-0.6); Absolute Neutrophils 5.2 10^3/uL (1.4-6.5); Nucleated Red Blood Cells % 0.1 % (-)
[2024-07-16] MEDS: PULMICORT 0.5 MG INH ×2 (06:34→17:54)
--- NOTE | 2024-07-16 06:35 | W.PN.HOSP.TC ---
Addendum entered and electronically signed by Hanane Bliss MD 07/16/24 13:48:
Addendum
Will give low dose Lasix post transfusion as his BP seems better
Will also un-hold Toprol to avoid NSVT episodes
End
Original Note:
Today's Communication/Plan
-
Give blood transfusion
Hold Lasix, Losartan for now, restart Lasix later if BP stabilizes
Assessment / Plan
Assessment / Plan
Physical Exam
General: No Apparent Distress, Comfortable and Conversant
HEENT: Normocephalic and Moist mucous membranes
Respiratory: Decreased Breath Sounds
Cardiac: S1/S2 and Regular Rhythm
GI: Soft, Non Tender and Normal Bowel Sounds
Musculoskeletal: No Cyanosis and No Edema
Skin: Warm and Dry
Neuro: Awake, Alert and AO x 3
Psych: Calm and Intact Judgment/Insight
Assessment/Plan
# hypotension, possible volume depletion
No signs of GI bleeding. No worsening hypoxia or chest pain
Post cath chest x ray improved in interstitial and airspace opacities.
Held Lasix
Will give blood, should help
Add holding parameters to Toprol
Acute on chronic hypoxic respiratory failure
HFrEF
Ischemic cardiomyopathy, EF 35-40% by echo 11/2023
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
Continue aggressive medical care
-s/p IV Lasix
-Continue GDMT: Beta-blockers, ARB
-Continue DAPT and high intensity statin
-Daily weights, I's and O's
-Cardiology consult appreciated
-Trend troponins --> peaked at 6.6 --started Heparin Drip but held due to Epistaxis
-Echo showed hypokinesis, LVEF 35 to 40%, severe mitral regurgitation, mild to moderate aortic stenosis, mild AR, severe TR, pulmonary hypertension with pulmonary artery pressure of 69 mmHg
Has been considered high risk for interventions or surgery - CT surgery felt patient was too high risk for CABG/MVR
Continue anti-ischemic regimen, DAPT, beta-blockers, statins
Chest pain-free,
Plan for cath 07/14 , failed attempt to do PCI of OM. Plan for outpatient [facility] to evaluate for MitraClip.
#Recent Sepsis/Probable pneumonia/Bronchiectasis with flare
Recent Abnormal CT Chest: Bronchiolitis/bilateral groundglass opacity/chronic bronchiectasis.
Differential diagnosis includes: Infectious bacterial/viral, atypical pulmonary edema given increased proBNP, opportunistic infection.
Bronchoscopy 06/07/24
History of severe chronic bronchiectasis: Follows with Dr. Sun
On low-dose prednisone/nebulizers/secretion clearance interventions
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
#Moderate to severe mitral regurgitation:
Consideration of MitraClip as outpatient
# Anemia of chronic disease due to underlying BM disease
Will give one unit of RBCs, might need for [place] if antibodies seen. Will type and Cross match.
Consent signed
#History of NSVT
Beta-blockers
Cardiac monitoring
#Severe Mitral Regurgitation
# CLL with immunoglobulin deficiency
Thrombocytopenia
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
Leukocytosis - CLL and on low dose steroids
Primary privacy director Dr Young
-Continue outpatient IVIG in a couple of weeks
#Essential hypertension
Off losartan due to low bP
#Hyperlipidemia
-Continue home statins, atorvastatin 40 mg nightly
#Diabetes mellitus type 2
better controlled
Added Lantus and pre-meal insulin
-Continue insulin sliding scale
#Stage IIIb chronic Kidney Disease
#Anxiety
-Continue temazepam 22.5 mg p.o. nightly (son confirmed this is the right dose)
#7 mm calculus at the right UPJ with obstructive uropathy s/p Cystoscopy/Right ureteroscopy/Laser lithotripsy/Right ureteral stent placement 11/25/23
# Chronic anemia (Hb ranges between 8.5-10.5)
Thrombocytopenia (chronic with waxing and waning plt counts)
Recent Transaminitis
No abdominal pain
#Moderate protein calorie malnutrition
Cachexia
DVT prophylaxis:
on dual antiplt therapy with low Plts and anemia
Do Thrombo guards
CODE STATUS:
DNR
Total time spent to see the patient, examine the patient, review data and lab results, discuss treatment plan with patient, nursing staff around 57 minutes
Anticipated Discharge: 24 - 48 hours
Subjective/Interval History
-
Date of Service: July 16, 2024
he feels better
Not dizzy
Objective Data
-
Labs:
Laboratory Results
07/16/24
03:07
WBC 33.4 H
Hgb 7.6 L
Hct 23.4 L
Plt Count 117 L
Sodium 130 L
Potassium 4.6
Chloride 98
Carbon Dioxide 26
BUN 50 H
Creatinine 1.1
Glucose 157 H
Calcium 8.8
Vital Signs:
Vital Signs
Temp Pulse Resp BP Pulse Ox
97.9 F 80 14 89/59 99
07/16/24 02:42 07/16/24 06:00 07/16/24 02:42 07/16/24 02:45 07/16/24 02:42
I&O
07/14/24 07/15/24 07/16/24
06:59 06:59 06:59
Intake Total 480 / 480 240 / 240
Output Total 1950 / 1950 1340 / 1340 300 / 300
Balance -1470 / -1470 -1340 / -1340 -60 / -60
[2024-07-16 07:21] LABS: Glucose - Point of Care 150 mg/dl (70-99)
[2024-07-16] MEDS: NOVOLOG FLEXPEN 7 UNITS SC ×3 (07:21→17:04)
[2024-07-16] MEDS: NOVOLOG FLEXPEN-HIGH RESISTANCE 2 UNITS SC ×2 (07:21→13:17)
[2024-07-16] MEDS: TOPROL XL PO (07:22)
[2024-07-16] MEDS: PLAVIX 75 MG PO (08:02)
[2024-07-16] MEDS: ASPIR LOW (ENTERIC COATED) 81 MG PO (08:02)
[2024-07-16] MEDS: DELTASONE 10 MG PO (08:03)
[2024-07-16] MEDS: COZAAR PO (08:34)
--- NOTE | 2024-07-16 09:12 | W.PN.CARDCBS ---
Today's Communication / Plan
-
Lasix on hold due to hypotension
Remains hypoxic with on 2 L of oxygen
Hemoglobin 7.6 and is to be transfused
May consider CELIA prior to discharge to evaluate for mitral clip when oxygen status is stable
Impression / Plan
-
PCP: Dr. Gomez
Primary Chopped Strand Operator: Dr. Saunders
Impression:
-Elevated Troponin
probable Type 2 OH: Supply / demand mismatch. 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
-Acute on chronic hypoxic respiratory failure
-Recent admission for PNA and bronchiectasis flare 06/01/24 until 06/07/24
-ILD
-Chronic atelectasis
-History of severe bronchiolitis/bronchiectasis and recurrent pneumonia
-Acute on chronic HFrEF
-Ischemic cardiomyopathy, EF 35-40% by echo 06/02/24
-Severe multivessel CAD
s/p cath with severely calcified LAD subtotally occluded, 80% OM, 70% RCA 09/2023
Prior discussions regarding medical management versus PCI versus CABG with plan for conservative treatment. CT surgery felt patient was too high risk for CABG/MVR 09/2023
Failed OM PCI 07/14/2024
-Moderate to severe mitral regurgitation: Will need to review
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
-CLL
-Anemia/thrombocytopenia
-Hyperlipidemia
-DM 2
-HTN
-07/11/2024: Echo: LV: EF 35 to 40%. Anterior apex and inferior apex appear akinetic. Septal apex mid anteroseptal and mid anterior cedillo are hypokinetic. RV: Normal, LA: Normal, RA: Normal, MV: Severe MR, AV: Mild to moderate peak/mean 15/7 mmHg
-06/02/2024: Echo: LV: Not mildly reduced LV systolic function estimated at 35-40%. [place], inferoseptum, inferior and inferolateral cedillo are hypokinetic. RV: Normal, LA: Normal, RA: Normal, MV: Mild-moderate MR, AV: Mild with P/M 19/12 mmHg.
Mild AI. TV: Mild TR with estimated PAP 35-40 mmHg
-11/10/2023: Echo: LV: Mild concentric LVH. Mildly reduced systolic function with EF 35-40. [place] apex, apical septum, apical lateral wall. RV: Dilated, LA: Mildly dilated, RA: Dilated, MV: Severe MR, AV: Mild AI, calcified and restricted. TV:
Estimated PAP 40-45 mmHg
-08/05/2023: Echo: LV: Moderately reduced EF 30-35% by visual estimation the mid to distal septum and inferior cedillo are akinetic. RV: Normal, LA: Normal, RA: Normal, MV: Moderate-severe MR, AV: Mild-moderate AI, TV: Moderate TR with estimated PAP
50-55%
-08/31/2023: Cath: LM: Ca plaque in superior LM. No pressure dampening. LAD: Severely calcified over its course with calcified 65% before origin of first diagonal and occluded mid segment in area of dense calcification. LCX: Medium caliber
nondominant vessel. OM1 small with 60% ostial, OM3 long 80% RCA: 60-70% mid
Plan:
He remains hypoxic on 2 L of oxygen
IV Lasix was started on 07/15/2024 but now has been held due to hypotension
Is now severely anemic with hemoglobin of 7.6 and is to be transfused
He is not a surgical candidate for emboli or CAD
Mitral clip has been discussed
Plan was for outpatient CELIA but could consider doing as an inpatient when hypoxemia has improved
HPI: Patient came to [facility] from home very early this morning with pain all over and SOB and cardiology has been consulted for acute HF and elevated Troponin. Patient was just admitted to 06/01/24 until 06/07/24 with PNA and bronchiectasis flare and
then had an ER visit for fall on 06/24/24. Patient is frail, but feels that he has been stable since the ER visit, but started with increased SOB on Wednesday and felt like he could not get comfortable to sleep. Patient reports that he sleeps sitting
up in a chair most of the time, but despite sitting up straight he could not catch his breath and felt restless. Patient called his son and when patient's son arrived the patient was moaning and rocking back and forth so son called 911 and patient
was brought to [facility]. [facility] patient was given a total of Lasix 60 mg IV and reports increased urine output and improved SOB. Patient was also placed on oxygen at 6 L NC and has oxygen at home, but reports that he never uses it.
Progress Note - Chopped Strand Operator
Subjective
Date of Service: July 16, 2024
No complaints. Remains on 2 L of oxygen
Objective
Labs:
07/16/24 03:07
07/16/24 03:07
Labs
Hgb 7.6 g/dL (13.0-18.0) L 07/16/24 03:07
Hct 23.4 % (39.0-52.0) L 07/16/24 03:07
Plt Count 117 10^3/uL (130-400) L 07/16/24 03:07
APTT 39.2 Sec (23.4-35.0) H 07/13/24 06:43
Sodium 130 mmol/L (135-145) L 07/16/24 03:07
Potassium 4.6 mmol/L (3.5-5.1) 07/16/24 03:07
BUN 50 mg/dl (9-20) H 07/16/24 03:07
Creatinine 1.1 mg/dL (0.7-1.3) 07/16/24 03:07
Glucose 157 mg/dl (70-99) H 07/16/24 03:07
Vital Signs and I&O:
Vital Signs
Temp Pulse Resp BP Pulse Ox
98 F 90 22 96/60 99
07/16/24 07:27 07/16/24 06:36 07/16/24 07:27 07/16/24 07:22 07/16/24 07:35
Vital Signs
Temp Pulse Resp BP Pulse Ox
98 F 90 22 96/60 99
07/16/24 07:27 07/16/24 06:36 07/16/24 07:27 07/16/24 07:22 07/16/24 07:35
Intake & Output
07/14/24 07/15/24 07/16/24 07/17/24
06:59 06:59 06:59 06:59
Intake Total 480 / 480 240 / 240
Output Total 1950 / 1950 1340 / 1340 300 / 300
Balance -1470 / -1470 -1340 / -1340 -60 / -60
Physical Exam
Physical Exam
General: Well developed, well nourished in NAD.
Neck: Supple, no JVD, HJR, carotids +2 B/L, no bruits bilaterally.
Heart: Non displaced PMI, RRR, no murmurs, No S3, S4, no rubs.
Lungs: Scattered rhonchi
Extremities: No clubbing, cyanosis or edema bilaterally.
Neuro: Grossly nonfocal, awake, alert and oriented x3.
[2024-07-16 12:42] LABS: Glucose - Point of Care 189 mg/dl (70-99)
[2024-07-16] MEDS: LASIX 20 MG IV (13:54)
--- NOTE | 2024-07-16 14:07 | PTCARENOTE ---
07/16/2024 1400 Patient's AM Hemoglobin was 7.6, Md aware, orders given to transfuse #1 PRBC. Patient received #1 unit of blood without any s/s of transfusion reaction. Pt's Vitals remained stable and afebrile. 99% on 1L NC. Post-transfusion Pt
received 20mg IV Lasix as per Md order. Will monitor throughout shift.
[2024-07-16 16:56] LABS: Glucose - Point of Care 337 mg/dl (70-99)
[2024-07-16] MEDS: LIPITOR 40 MG PO (17:05)
[2024-07-16] MEDS: NOVOLOG FLEXPEN-HIGH RESISTANCE 10 UNITS SC (17:05)
[2024-07-16] MEDS: TOPROL XL 25 MG PO (19:26)
--- NOTE | 2024-07-16 20:12 | PTCARENOTE ---
Patient received at change of shift resting comfortably in the bed. Patient offers no complaints at this time. Oxygen saturation on room air 94%. Right groin site with gauze and tegaderm C/D/I. Normal sinus rhythm on conveyor monitor. Plan of care
discussed with patient. Call byrnes within. Care ongoing.
[2024-07-16] MEDS: RESTORIL 7.5 MG PO (22:29)
[2024-07-16 22:31] LABS: Glucose - Point of Care 240 mg/dl (70-99)
[2024-07-16] MEDS: LANTUS 0.1 UNITS SC (22:31)
[2024-07-17] VITALS (9 sets, daily range): BP systolic 97–109; BP diastolic 55–67; PULSE 85–89; O2SAT 98–99; BMI 16.7
[2024-07-17 03:21] LABS: Hemoglobin 8.9 g/dL (13.0-18.0); Mean Corpuscular Hgb 31.2 pg (27.0-31.0); Mean Corpuscular Volume 94.7 fL (80.0-94.0); Mean Platelet Volume 11.2 fL (7.4-10.4); Platelet Count 124 10^3/uL (130-400); Red Blood Cell Count 2.85 10^6/uL (4.70-6.10); Red Cell Dist. Width 18.6 % (11.5-14.5); White Blood Cell Count 33.4 10^3/uL (4.8-10.8)
[2024-07-17 03:45] LABS: Blood Urea Nitrogen 45 mg/dl (9-20); Calcium 8.5 mg/dl (8.4-10.2); Carbon Dioxide 27 mmol/L (22-30); Chloride 96 mmol/L (98-107); Estimated Creatinine Clearance 39 ml/min; Glucose 170 mg/dl (70-99); Potassium 4.3 mmol/L (3.5-5.1); Sodium 131 mmol/L (135-145); eGFR > 60.00
--- NOTE | 2024-07-17 06:30 | W.PN.HOSP.TC ---
Addendum entered and electronically signed by Hanane Bliss MD 07/17/24 13:46:
Addendum
Reviewed DM medications,a djusted the doses
End
Original Note:
Today's Communication/Plan
-
Pt and family want to do CELIA as inpt
Pt has bilateral basilar bronchiectasis, bronchiolitis = chronic rales
will resume Lasix 40 mg, avoid extra doses
Will resume BB due to NSVT and Improvement in BP
Assessment / Plan
Assessment / Plan
Physical Exam
General: No Apparent Distress, Comfortable and Conversant
HEENT: Normocephalic and Moist mucous membranes
Respiratory: Decreased Breath Sounds
Cardiac: S1/S2 and Regular Rhythm
GI: Soft, Non Tender and Normal Bowel Sounds
Musculoskeletal: No Cyanosis and No Edema
Skin: Warm and Dry
Neuro: Awake, Alert and AO x 3
Psych: Calm and Intact Judgment/Insight
Assessment/Plan
# hypotension, hypovolemic shock
Resolved with holding Lasix, and giving IVF & RBCs
# chronic bilateral basilar bronchiectasis, bronchiolitis
Rales on lung exam is chronic
Recent Sepsis/Probable pneumonia/Bronchiectasis with flare
Recent Abnormal CT Chest: Bronchiolitis/bilateral groundglass opacity/chronic bronchiectasis.
Bronchoscopy 06/07/24 with pathology, no infectious source found.
Follows with Dr. Sun
On low-dose prednisone/nebulizers/secretion clearance interventions
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
# Acute on chronic hypoxic respiratory failure
HFrEF
Ischemic cardiomyopathy, EF 35-40% by echo 11/2023
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
Continue aggressive medical care
-s/p IV Lasix
-Continue GDMT: Beta-blockers, ARB
-Continue DAPT and high intensity statin
-Daily weights, I's and O's
-Cardiology consult appreciated
-Trend troponins --> peaked at 6.6 --started Heparin Drip but held due to Epistaxis
-Echo showed hypokinesis, LVEF 35 to 40%, severe mitral regurgitation, mild to moderate aortic stenosis, mild AR, severe TR, pulmonary hypertension with pulmonary artery pressure of 69 mmHg
Has been considered high risk for interventions or surgery - CT surgery felt patient was too high risk for CABG/MVR
Continue anti-ischemic regimen, DAPT, beta-blockers, statins
Chest pain-free,
Plan for cath 07/14 , failed attempt to do PCI of OM. Plan for outpatient CELIA to evaluate for MitraClip.
#Moderate to severe mitral regurgitation:
Consideration of MitraClip as inpatient
# Anemia of chronic disease due to underlying BM disease
s/p one unit of blood 07/16
#History of NSVT
Beta-blockers
Cardiac monitoring
#Severe Mitral Regurgitation
# CLL with immunoglobulin deficiency
Thrombocytopenia
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
Leukocytosis - CLL and on low dose steroids
Primary hands hanger Dr Young
-Continue outpatient IVIG in a couple of weeks
#Essential hypertension
Off losartan due to low bP
#Hyperlipidemia
-Continue home statins, atorvastatin 40 mg nightly
#Diabetes mellitus type 2
better controlled
Added Lantus and pre-meal insulin
-Continue insulin sliding scale
#Stage IIIb chronic Kidney Disease
#Anxiety
-Continue temazepam 22.5 mg p.o. nightly (son confirmed this is the right dose)
#7 mm calculus at the right UPJ with obstructive uropathy s/p Cystoscopy/Right ureteroscopy/Laser lithotripsy/Right ureteral stent placement 11/25/23
# Chronic anemia (Hb ranges between 8.5-10.5)
Thrombocytopenia (chronic with waxing and waning plt counts)
Recent Transaminitis
No abdominal pain
#Moderate protein calorie malnutrition
Cachexia
DVT prophylaxis:
on dual antiplt therapy with low Plts and anemia
Do Thrombo guards
CODE STATUS:
DNR
Total time spent to see the patient, examine the patient, review data and lab results, discuss treatment plan with patient, nursing staff around 57 minutes
Anticipated Discharge: 24 - 48 hours
Subjective/Interval History
-
Date of Service: July 17, 2024
Feels better
Objective Data
-
Labs:
Laboratory Results
07/17/24
02:59
WBC 33.4 H
Hgb 8.9 L
Hct 27.0 L
Plt Count 124 L
Sodium 131 L
Potassium 4.3
Chloride 96 L
Carbon Dioxide 27
BUN 45 H
Creatinine 1.0
Glucose 170 H
Calcium 8.5
Vital Signs:
Vital Signs
Temp Pulse Resp BP Pulse Ox
98.0 F 89 14 99/60 96
07/17/24 02:46 07/17/24 02:48 07/17/24 02:46 07/17/24 02:48 07/17/24 02:46
I&O
07/15/24 07/16/24 07/17/24
06:59 06:59 06:59
Intake Total 240 / 240 730 / 730
Output Total 1340 / 1340 300 / 300 1600 / 1600
Balance -1340 / -1340 -60 / -60 -870 / -870
[2024-07-17 07:32] LABS: Glucose - Point of Care 129 mg/dl (70-99)
[2024-07-17] MEDS: NOVOLOG FLEXPEN 7 UNITS SC (08:47)
[2024-07-17] MEDS: NOVOLOG FLEXPEN-HIGH RESISTANCE SC ×2 (08:48→12:28)
[2024-07-17] MEDS: TOPROL XL 25 MG PO ×2 (08:49→20:08)
[2024-07-17] MEDS: ASPIR LOW (ENTERIC COATED) 81 MG PO (08:49)
[2024-07-17] MEDS: LASIX 40 MG PO (08:49)
[2024-07-17] MEDS: DELTASONE 10 MG PO (08:50)
[2024-07-17] MEDS: PLAVIX 75 MG PO (08:50)
[2024-07-17] MEDS: FLUSH (NSS) 1 FLUSH IV (08:52)
--- NOTE | 2024-07-17 09:06 | W.PN.CARDCBS ---
Addendum entered and electronically signed by Ranjith Martínez DO 07/17/24 12:44:
I saw and examined the patient.
The Pain Coordinator's note was reviewed and I agree with the note.
Comment:
Plan:
CELIA Jul 18 2024 to eval for candidacy for MV clip as he was not a candidate for surgical MVR.
Cont med tx of CAD, failed PCI of OM3, not CABG candidate.
Cont DAPT
Cont Toprol
Losartan and Farxiga held.
Cont oral diuretic. Monitor Is and Os, appears euvolemic
Primary service to address depression
Discussed with family at bedside.
Addendum entered and electronically signed by Petrona Guerrier PA-C 07/17/24 11:14:
.
Original Note:
Today's Communication / Plan
-
DM POLARITY TESTER consult
Consider starting Lexapro or Zoloft, working on weaning outpatient dose of Restoril
CELIA in AM
Weight up 2 lbs overnight, but 93% on RA and overall still down 2 lbs with IV diuresis this admission
53 min face to face, talking with daughter in law and coordinating care
Impression / Plan
-
PCP: Dr. Gomez
Primary Mobile Qa Tester: Dr. Saunders
Impression:
-Elevated Troponin
probable Type 2 DC: Supply / demand mismatch. 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
Unsuccessful attempted PCI of OM 3 07/14/2024
-Acute on chronic hypoxic respiratory failure
-Recent admission for PNA and bronchiectasis flare 06/01/24 until 06/07/24
-ILD
-Chronic atelectasis
-History of severe bronchiolitis/bronchiectasis and recurrent pneumonia
-Acute on chronic HFrEF
-Ischemic cardiomyopathy, EF 35-40% by echo 06/02/24
-Severe multivessel CAD
s/p cath with severely calcified LAD subtotally occluded, 80% OM, 70% RCA 09/2023
Prior discussions regarding medical management versus PCI versus CABG with plan for conservative treatment. CT surgery felt patient was too high risk for CABG/MVR 09/2023
Failed OM PCI 07/14/2024
-Moderate to severe mitral regurgitation
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
-CLL
-Anemia/thrombocytopenia
-Hyperlipidemia
-DM 2
-HTN
-07/11/2024: Echo: LV: EF 35 to 40%. Anterior apex and inferior apex appear akinetic. Septal apex mid anteroseptal and mid anterior cedillo are hypokinetic. RV: Normal, LA: Normal, RA: Normal, MV: Severe MR, AV: Mild to moderate peak/mean 15/7 mmHg
-06/02/2024: Echo: LV: Not mildly reduced LV systolic function estimated at 35-40%. [place], inferoseptum, inferior and inferolateral cedillo are hypokinetic. RV: Normal, LA: Normal, RA: Normal, MV: Mild-moderate MR, AV: Mild with P/M 19/12 mmHg.
Mild AI. TV: Mild TR with estimated PAP 35-40 mmHg
-11/10/2023: Echo: LV: Mild concentric LVH. Mildly reduced systolic function with EF 35-40. [place] apex, apical septum, apical lateral wall. RV: Dilated, LA: Mildly dilated, RA: Dilated, MV: Severe MR, AV: Mild AI, calcified and restricted. TV:
Estimated PAP 40-45 mmHg
-08/05/2023: Echo: LV: Moderately reduced EF 30-35% by visual estimation the mid to distal septum and inferior cedillo are akinetic. RV: Normal, LA: Normal, RA: Normal, MV: Moderate-severe MR, AV: Mild-moderate AI, TV: Moderate TR with estimated PAP
50-55%
-08/31/2023: Cath: LM: Ca plaque in superior LM. No pressure dampening. LAD: Severely calcified over its course with calcified 65% before origin of first diagonal and occluded mid segment in area of dense calcification. LCX: Medium caliber
nondominant vessel. OM1 small with 60% ostial, OM3 long 80% RCA: 60-70% mid
Plan:
-No chest pain, but he says he feels SOB. Pulse ox is 93% on RA. O2 at 1 L for comfort. Called and talked to patient's [id number], Adri, for 16 minutes on 07/17/2024. There have been concerns for increasing anxiety at home. Patient was
also experiencing insomnia at home due to lung issues and was started on Restoril by his PCP with dose increased up to 30 mg at bedtime resulting in increasing confusion and changes in behavior culminating in an ER visit after he fell out of bed and
at that time they decided to start weaning down on the dose and he is down to 7.5 mg at bedtime at this time with the plan to stop. In the meantime he continues to be anxious and appears anxious on 07/17/2024. Will ask hospitalist attending if they
think Lexapro or Zoloft is a better choice.
-Troponin peaked at 6.67 this admission and was managed as a type II DC. Patient with chest pain on admission. Chronic WMA on echo and ECG abnormal. Appreciate input from CT surgery team, patient is not a candidate for CABG.
-Patient was tolerating aspirin and Plavix prior to admission and these have been continued.
-Heparin gtt was started and stopped earlier this admission due to epistaxis.
-Weight is up 1 lb overnight, but still overall down 2 lbs from admission with Lasix IV diuresis earlier this admission. Currently ordered Lasix 40 mg PO daily. Patient was taking Lasix 20 mg PO daily prior to admission
-Labs and VS for 07/17/24 reviewed by me.
-Outpatient dose of Toprol XL 25 mg BID has been continued.
-Outpatient dose of losartan 25 mg daily on hold due to hypotension.
-Outpatient dose of Farxiga 10 mg daily has been held.
-Patient with severe MR by echo 07/11/23. Patient was turned down for surgical MVR. MitraClip has been considered, but he has not been formally evaluated. Plan is for CELIA 07/18/24.
HPI: Patient came to [facility] from home very early this morning with pain all over and SOB and cardiology has been consulted for acute HF and elevated Troponin. Patient was just admitted to 06/01/24 until 06/07/24 with PNA and bronchiectasis flare and
then had an ER visit for fall on 06/24/24. Patient is frail, but feels that he has been stable since the ER visit, but started with increased SOB on Wednesday and felt like he could not get comfortable to sleep. Patient reports that he sleeps sitting
up in a chair most of the time, but despite sitting up straight he could not catch his breath and felt restless. Patient called his son and when patient's son arrived the patient was moaning and rocking back and forth so son called 911 and patient
was brought to [facility]. In [facility] patient was given a total of Lasix 60 mg IV and reports increased urine output and improved SOB. Patient was also placed on oxygen at 6 L NC and has oxygen at home, but reports that he never uses it.
Progress Note - Mobile Qa Tester
Subjective
Date of Service: July 17, 2024
Feels anxious and SOB, but no chest pain, pulse ox 93% on RA
Objective
Labs:
07/17/24 02:59
07/17/24 02:59
Labs
Hgb 8.9 g/dL (13.0-18.0) L 07/17/24 02:59
Hct 27.0 % (39.0-52.0) L 07/17/24 02:59
Plt Count 124 10^3/uL (130-400) L 07/17/24 02:59
APTT 39.2 Sec (23.4-35.0) H 07/13/24 06:43
Sodium 131 mmol/L (135-145) L 07/17/24 02:59
Potassium 4.3 mmol/L (3.5-5.1) 07/17/24 02:59
BUN 45 mg/dl (9-20) H 07/17/24 02:59
Creatinine 1.0 mg/dL (0.7-1.3) 07/17/24 02:59
Glucose 170 mg/dl (70-99) H 07/17/24 02:59
Vital Signs and I&O:
Vital Signs
Temp Pulse Resp BP Pulse Ox
97.6 F 93 16 109/55 99
07/17/24 08:16 07/17/24 08:49 07/17/24 08:16 07/17/24 08:49 07/17/24 08:16
Vital Signs
Temp Pulse Resp BP Pulse Ox
97.6 F 93 16 109/55 99
07/17/24 08:16 07/17/24 08:49 07/17/24 08:16 07/17/24 08:49 07/17/24 08:16
Intake & Output
07/15/24 07/16/24 07/17/24 07/18/24
06:59 06:59 06:59 06:59
Intake Total 240 / 240 970 / 970
Output Total 1340 / 1340 300 / 300 1600 / 1600
Balance -1340 / -1340 -60 / -60 -630 / -630
Physical Exam
Physical Exam
GEN: NAD, AAOx3
HEENT: EOMI, MMM
LUNGS: Completing nebulizer treatment. No audible wheeze
CV: SR on tele.
ABD: ND
EXT: No edema B/L
NEURO: Gross non-focal
SKIN: No rash
[2024-07-17] MEDS: PULMICORT 0.5 MG INH ×2 (09:26→19:30)
--- NOTE | 2024-07-17 10:22 | PTCARENOTE ---
Addendum entered by Irlanda Craig RN 07/17/24 11:46:
TT Dr. Bliss, ordered ativan for anxiety, given as ordered.
Original Note:
received patient this am, awake, oriented x 3. monitor shows NSR, VSS. INT in left arm unable to flush, will change site. lung calderon coarse throughout, after breathing treatment patient became anxious, removed treatment(it was finished) and applied
2 LNC and offered emotional support. TT Petrona Guerrier will order something for anxiety. patient remains DNR with bracelet on.
--- NOTE | 2024-07-17 10:37 | PN.DE.MGMTRT ---
Insulin Management
- -
07/17/2024: Diabetes management Consult
84 year old male with PMH: Bronchiectasis, MVCAD, HFpEF, nephrolithiasis, CLL, hypogammaglobulinemia status post IVIG last week, anemia, HTN, T2DM, 1st degree AV block, HLD, kidney stones, presenting with shortness of breath and generalized pain due
to Acute on chronic hypoxic respiratory failure.
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 Last A1C 8.6% on 06/02/24, Cr 1.0, eGFR >60
Current diabetes regimen includes: AC NovoLog 7 units, Lantus 10 units @HS and low corrective insulin with meals.
06/01 glucose range 173 to 307, HS blood sugar was 255, FBG 236 this AM. Will cont Lantus 10 units as ordered by the hospitalist.
Will start Januvia 50mg daily. Resume his op regimen Metformin 500mg and Farxiga 10mg daily.
Avoid aggressive insulin dosing to avoid hypoglycemia in this patient of advanced age.
Diabetes History
- -
Type of Diabetes: 2
Pre-Admission Diabetes Regimen
07/17/24
02:59
Creatinine 1.0
Insulin Pump Settings
IP Diabetes Regimen
07/16/24 07/16/24 07/16/24
12:41 16:55 22:30
Glucose
POC Glucose 189 H 337 H 240 H
07/17/24 07/17/24
02:59 07:31
Glucose 170 H
POC Glucose 129 H
Meal type: Breakfast
Meal type: Dinner
Meal type: Lunch
Amount consumed: 90%
Amount consumed: 100%
Amount consumed: 100%
Patient Education
[2024-07-17] MEDS: FARXIGA 10 MG PO (11:37)
[2024-07-17] MEDS: ATIVAN 0.25 MG PO (11:38)
[2024-07-17 12:28] LABS: Glucose - Point of Care 148 mg/dl (70-99)
[2024-07-17] MEDS: JANUVIA 50 MG PO (13:17)
[2024-07-17] MEDS: GLUCOPHAGE 500 MG PO ×2 (13:18→17:36)
[2024-07-17] MEDS: LIPITOR 40 MG PO (17:36)
[2024-07-17 17:38] LABS: Glucose - Point of Care 269 mg/dl (70-99)
[2024-07-17] MEDS: NOVOLOG FLEXPEN-HIGH RESISTANCE 7 UNITS SC (17:38)
[2024-07-17 22:23] LABS: Glucose - Point of Care 170 mg/dl (70-99)
[2024-07-17] MEDS: RESTORIL 7.5 MG PO (22:26)
[2024-07-18] VITALS (8 sets, daily range): BP systolic 86–118; BP diastolic 54–61; BMI 16.7
[2024-07-18] MEDS: ATIVAN 0.25 MG PO (02:51)
--- NOTE | 2024-07-18 06:39 | W.PN.HOSP.TC ---
Today's Communication/Plan
-
NPO for CELIA
Hold DM meds while NPO
Assessment / Plan
Assessment / Plan
Physical Exam
General: No Apparent Distress, Comfortable and Conversant
HEENT: Normocephalic and Moist mucous membranes
Respiratory: Decreased Breath Sounds
Cardiac: S1/S2 and Regular Rhythm
GI: Soft, Non Tender and Normal Bowel Sounds
Musculoskeletal: No Cyanosis and No Edema
Skin: Warm and Dry
Neuro: Awake, Alert and AO x 3
Psych: Calm and Intact Judgment/Insight
Assessment/Plan
# hypotension, hypovolemic shock
Resolved with holding Lasix, and giving IVF & RBCs
# chronic bilateral basilar bronchiectasis, bronchiolitis
Rales on lung exam is chronic
Recent Sepsis/Probable pneumonia/Bronchiectasis with flare
Recent Abnormal CT Chest: Bronchiolitis/bilateral groundglass opacity/chronic bronchiectasis.
Bronchoscopy 06/07/24 with pathology, no infectious source found.
Follows with Dr. Sun
On low-dose prednisone/nebulizers/secretion clearance interventions
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
# Acute on chronic hypoxic respiratory failure
HFrEF
Ischemic cardiomyopathy, EF 35-40% by echo 11/2023
NSTEMI on underlying multivessel coronary artery disease with a STATISTICAL MODELER of the LAD
Continue aggressive medical care
-s/p IV Lasix
-Continue GDMT: Beta-blockers, ARB
-Continue DAPT and high intensity statin
-Daily weights, I's and O's
-Cardiology consult appreciated
-Trend troponins --> peaked at 6.6 --started Heparin Drip but held due to Epistaxis
-Echo showed hypokinesis, LVEF 35 to 40%, severe mitral regurgitation, mild to moderate aortic stenosis, mild AR, severe TR, pulmonary hypertension with pulmonary artery pressure of 69 mmHg
Has been considered high risk for interventions or surgery - CT surgery felt patient was too high risk for CABG/MVR
Continue anti-ischemic regimen, DAPT, beta-blockers, statins
Chest pain-free,
Plan for cath 07/14 , failed attempt to do PCI of OM. Plan for outpatient CELIA to evaluate for MitraClip.
#Moderate to severe mitral regurgitation:
Consideration of MitraClip as inpatient
# Anemia of chronic disease due to underlying BM disease
s/p one unit of blood 07/16
#History of NSVT
Beta-blockers
Cardiac monitoring
#Severe Mitral Regurgitation
# CLL with immunoglobulin deficiency
Thrombocytopenia
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
Leukocytosis - CLL and on low dose steroids
Primary food and beverage outlets manager Dr Young
-Continue outpatient IVIG in a couple of weeks
#Essential hypertension
Off losartan due to low bP
#Hyperlipidemia
-Continue home statins, atorvastatin 40 mg nightly
#Diabetes mellitus type 2
better controlled
Adjusted oral DM meds doses according to GFR ,
Lantus and pre-meal insulin were stopped
-Continue insulin sliding scale
#Stage IIIb chronic Kidney Disease
#Anxiety
- temazepam, reduced the dose , started on low dose Ativan PRN
#7 mm calculus at the right UPJ with obstructive uropathy s/p Cystoscopy/Right ureteroscopy/Laser lithotripsy/Right ureteral stent placement 11/25/23
# Chronic anemia (Hb ranges between 8.5-10.5)
Thrombocytopenia (chronic with waxing and waning plt counts)
Recent Transaminitis
No abdominal pain
#Moderate protein calorie malnutrition
Cachexia
DVT prophylaxis:
on dual antiplt therapy with low Plts and anemia
Do Thrombo guards
CODE STATUS:
DNR
Total time spent to see the patient, examine the patient, review data and lab results, discuss treatment plan with patient, nursing staff around 57 minutes
Anticipated Discharge: 24 - 48 hours
Subjective/Interval History
-
Date of Service: July 18, 2024
He slept well
Objective Data
-
Vital Signs:
Vital Signs
Temp Pulse Resp BP Pulse Ox
97.8 F 84 18 99/60 95
07/18/24 02:50 07/18/24 02:49 07/18/24 02:50 07/18/24 02:49 07/18/24 02:50
I&O
07/16/24 07/17/24 07/18/24
06:59 06:59 06:59
Intake Total 240 / 240 970 / 970 240 / 240
Output Total 300 / 300 1600 / 1600 1475 / 1475
Balance -60 / -60 -630 / -630 -1235 / -1235
--- NOTE | 2024-07-18 08:01 | PN.DE.MGMTRT ---
Insulin Management
- -
07/18/2024: Diabetes management Consult Follow up
Patient admitted 07/10 with c/o generalized pain and SOB found to have acute on chronic hypoxic respiratory failure. PMH: Bronchiectasis, MVCAD, HFpEF, nephrolithiasis, CLL, hypogammaglobulinemia status post IVIG last week, anemia, HTN, T2DM, 1st
degree AV block, HLD, kidney stones.
Prior to admission was taking Metformin 500mg Q PM and Farxiga 10mg daily. Last A1C 8.6% on 06/02/24, Cr 1.0, eGFR >60.
Current diabetes regimen includes: AC NovoLog 7 units, Lantus 10 units @HS and low corrective insulin with meals.
Patient is NPO for procedure today.
07/17 glucose range 129 to 269, HS blood sugar was 170.
Patient did not receive Lantus 10 units at HS. Fasting glucose this AM 140
Januvia 50mg daily started 07/17. Resume his op regimen Metformin 500mg and Farxiga 10mg daily. To receive after procedure today.
Avoid aggressive insulin dosing to avoid hypoglycemia in this patient of advanced age.
Discussed with nurse.
Diabetes History
- -
Type of Diabetes: 2
Pre-Admission Diabetes Regimen
Insulin Pump Settings
IP Diabetes Regimen
07/17/24 07/17/24 07/17/24
12:25 17:37 22:21
POC Glucose 148 H 269 H 170 H
Meal type: Dinner
Meal type: Dinner
Meal type: Breakfast
Amount consumed: 100%
Amount consumed: 80%
Amount consumed: 90%
Patient Education
[2024-07-18] MEDS: ASPIR LOW (ENTERIC COATED) 81 MG PO (08:15)
[2024-07-18] MEDS: PLAVIX 75 MG PO (08:15)
[2024-07-18] MEDS: TOPROL XL 25 MG PO (08:15)
[2024-07-18] MEDS: DELTASONE 10 MG PO (08:15)
[2024-07-18 08:19] LABS: Glucose - Point of Care 140 mg/dl (70-99)
--- NOTE | 2024-07-18 08:21 | PTCARENOTE ---
received patient this am in very good spirits, continued to thank me for the Ativan that was ordered by the hospitalist. union laborer called over, patient need a #20g INT, called IV team, placed in right arm #22. also BS this am 140. monitor shows NSR,
VSS. patient remains NPO.
[2024-07-18] MEDS: NOVOLOG FLEXPEN-HIGH RESISTANCE SC (08:38)
[2024-07-18] MEDS: FARXIGA PO (08:39)
[2024-07-18] MEDS: GLUCOPHAGE PO (08:39)
[2024-07-18] MEDS: JANUVIA PO (08:39)
[2024-07-18] MEDS: PULMICORT 0.5 MG INH ×2 (08:41→20:45)
[2024-07-18 12:24] LABS: Glucose - Point of Care 246 mg/dl (70-99)
[2024-07-18] MEDS: LASIX 40 MG IV (12:26)
--- NOTE | 2024-07-18 12:26 | W.PN.CARDCBS ---
Addendum entered and electronically signed by Johnathan Guadarrama MD 07/18/24 12:42:
I saw and examined the patient.
The Home Appliance Tech's note was reviewed and I agree with the note.
Comment:
GEN: No distress, awake, Ox3
HEENT: supple, anicteric, mmm
LUNGS: CTA, no wheezes/rales
CV: Reg, S1/S2, 2/6 syst LSB, S3+
ABD: soft, BS+, NT/ND
EXT: No edema
NEURO: Gross non-focal
SKIN: No rash
Plan:
CELIA today with severe mitral regurgitation. LVEF 35%, full report to follow.
I do think he would be a candidate for mitral clip. Will discuss with valve clinic team.
He does have significant pleural effusions by CELIA. Would restart Lasix 40 mg IV daily.
Hopefully we can optimize him and get him home and rehabilitated and eventually proceed with mitral clip.
Continue aspirin, Plavix, metoprolol, losartan and atorvastatin for significant coronary artery disease.
He had a failed PCI of the OM July 14. Not a surgical candidate for CABG/mitral valve repair
Original Note:
Today's Communication / Plan
-
Lasix 40 mg IV now and then daily for acute HF
s/p CELIA
Consider adding an SSRI
Impression / Plan
-
PCP: Dr. Gomez
Primary Warehouse Unloader: Dr. Saunders
Impression:
-Elevated Troponin
probable Type 2 AZ: Supply / demand mismatch. DATA COMMUNICATIONS ANALYST of LAD and residual CADz in OM3 and RCA: Troponin peaked at 6.67 ng/ml
Unsuccessful attempted PCI of OM 3 07/14/2024
-Acute on chronic hypoxic respiratory failure
-Recent admission for PNA and bronchiectasis flare 06/01/24 until 06/07/24
-ILD
-Chronic atelectasis
-History of severe bronchiolitis/bronchiectasis and recurrent pneumonia
-Acute on chronic HFrEF
-Ischemic cardiomyopathy, EF 35-40% by echo 06/02/24
-Severe multivessel CAD
s/p cath with severely calcified LAD subtotally occluded, 80% OM, 70% RCA 09/2023
Prior discussions regarding medical management versus PCI versus CABG with plan for conservative treatment. CT surgery felt patient was too high risk for CABG/MVR 09/2023
Failed OM PCI 07/14/2024
-Moderate to severe mitral regurgitation
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
-CLL
-Anemia/thrombocytopenia
-Hyperlipidemia
-DM 2
-HTN
-07/18/24: CELIA: Report pending, but preliminarily looks like sev MR with anatomy typically amenable to clipping, pleural effusion
-07/11/2024: Echo: LV: EF 35 to 40%. Anterior apex and inferior apex appear akinetic. Septal apex mid anteroseptal and mid anterior cedillo are hypokinetic. RV: Normal, LA: Normal, RA: Normal, MV: Severe MR, AV: Mild to moderate peak/mean 15/7 mmHg
-06/02/2024: Echo: LV: Not mildly reduced LV systolic function estimated at 35-40%. [place], inferoseptum, inferior and inferolateral cedillo are hypokinetic. RV: Normal, LA: Normal, RA: Normal, MV: Mild-moderate MR, AV: Mild with P/M 19/12 mmHg.
Mild AI. TV: Mild TR with estimated PAP 35-40 mmHg
-11/10/2023: Echo: LV: Mild concentric LVH. Mildly reduced systolic function with EF 35-40. AK apex, apical septum, apical lateral wall. RV: Dilated, LA: Mildly dilated, RA: Dilated, MV: Severe MR, AV: Mild AI, calcified and restricted. TV:
Estimated PAP 40-45 mmHg
-08/05/2023: Echo: LV: Moderately reduced EF 30-35% by visual estimation the mid to distal septum and inferior cedillo are akinetic. RV: Normal, LA: Normal, RA: Normal, MV: Moderate-severe MR, AV: Mild-moderate AI, TV: Moderate TR with estimated PAP
50-55%
-08/31/2023: Cath: LM: Ca plaque in superior LM. No pressure dampening. LAD: Severely calcified over its course with calcified 65% before origin of first diagonal and occluded mid segment in area of dense calcification. LCX: Medium caliber
nondominant vessel. OM1 small with 60% ostial, OM3 long 80% RCA: 60-70% mid
Plan:
-Weight is up 2 lbs, PCWP was 20 by [facility] 07/14/24. Change to Lasix 40 mg IV daily, dose ordered for now by il 07/18/24.
-Patient was taking Lasix 20 mg PO daily prior to admission
-Patient completed CELIA 07/18/24 and final report pending, but appears consistent with sev MR and that anatomy would be suitable for clipping
-Troponin peaked at 6.67 this admission and was managed as a type II AZ.
-Patient was tolerating aspirin and Plavix prior to admission and these have been continued.
-Heparin gtt was started and stopped earlier this admission due to epistaxis.
-Outpatient dose of Toprol XL 25 mg BID has been continued.
-Outpatient dose of losartan 25 mg daily on hold due to hypotension.
-Outpatient dose of Farxiga 10 mg daily has been held.
-Patient with agitation and insomnia at home prior to admission. PCP had started Restoril and higher doses caused agitation and patient then had a fall out of his bed one night leading to an ER visit so family has been working to wean dose. Might
benefit from SSRI.
HPI: Patient came to [facility] from home very early this morning with pain all over and SOB and cardiology has been consulted for acute HF and elevated Troponin. Patient was just admitted to 06/01/24 until 06/07/24 with PNA and bronchiectasis flare and
then had an ER visit for fall on 06/24/24. Patient is frail, but feels that he has been stable since the ER visit, but started with increased SOB on Wednesday and felt like he could not get comfortable to sleep. Patient reports that he sleeps sitting
up in a chair most of the time, but despite sitting up straight he could not catch his breath and felt restless. Patient called his son and when patient's son arrived the patient was moaning and rocking back and forth so son called 911 and patient
was brought to [facility]. [facility] was given a total of Lasix 60 mg IV and reports increased urine output and improved SOB. Patient was also placed on oxygen at 6 L NC and has oxygen at home, but reports that he never uses it.
Progress Note - Warehouse Unloader
Subjective
Date of Service: July 18, 2024
No chest pain
Objective
Labs:
07/17/24 02:59
07/17/24 02:59
Labs
Hgb 8.9 g/dL (13.0-18.0) L 07/17/24 02:59
Hct 27.0 % (39.0-52.0) L 07/17/24 02:59
Plt Count 124 10^3/uL (130-400) L 07/17/24 02:59
APTT 39.2 Sec (23.4-35.0) H 07/13/24 06:43
Sodium 131 mmol/L (135-145) L 07/17/24 02:59
Potassium 4.3 mmol/L (3.5-5.1) 07/17/24 02:59
BUN 45 mg/dl (9-20) H 07/17/24 02:59
Creatinine 1.0 mg/dL (0.7-1.3) 07/17/24 02:59
Glucose 170 mg/dl (70-99) H 07/17/24 02:59
Vital Signs and I&O:
Vital Signs
Temp Pulse Resp BP Pulse Ox
97.7 F 86 16 91/54 95
07/18/24 12:13 07/18/24 12:13 07/18/24 12:13 07/18/24 12:13 07/18/24 12:13
Vital Signs
Temp Pulse Resp BP Pulse Ox
97.7 F 86 16 91/54 95
07/18/24 12:13 07/18/24 12:13 07/18/24 12:13 07/18/24 12:13 07/18/24 12:13
Intake & Output
07/16/24 07/17/24 07/18/24 07/19/24
06:59 06:59 06:59 06:59
Intake Total 240 / 240 970 / 970 240 / 240
Output Total 300 / 300 1600 / 1600 1475 / 1475 250 / 250
Balance -60 / -60 -630 / -630 -1235 / -1235 -250 / -250
Physical Exam
Physical Exam
GEN: NAD, AAOx3
HEENT: EOMI, MMM
LUNGS: RA. No audible wheeze
CV: SR on tele.
ABD: ND
EXT: No edema B/L
NEURO: Gross non-focal
SKIN: No rash
[2024-07-18] MEDS: FLUSH (NSS) 1 FLUSH IV (12:27)
[2024-07-18] MEDS: NOVOLOG FLEXPEN-HIGH RESISTANCE 4 UNITS SC (12:27)
[2024-07-18] MEDS: LASIX PO (12:31)
--- NOTE | 2024-07-18 12:45 | PTCARENOTE ---
returned back from [facility]/Echo, lethargic. VSS. lasix 40mg IV given as ordered. patient would like to eat breakfast, diet order put in by PA.
[2024-07-18 15:54] LABS: NT-proBNP 11400 pg/ml
[2024-07-18 16:19] LABS: Glucose - Point of Care 389 mg/dl (70-99)
[2024-07-18] MEDS: NOVOLOG FLEXPEN-HIGH RESISTANCE 12 UNITS SC (16:41)
[2024-07-18] MEDS: GLUCOPHAGE 500 MG PO (16:42)
[2024-07-18] MEDS: LIPITOR 40 MG PO (16:59)
[2024-07-18] MEDS: TOPROL XL PO (20:00)
[2024-07-18] MEDS: RESTORIL 7.5 MG PO (22:31)
--- NOTE | 2024-07-18 23:58 | PTCARENOTE ---
Assumed care of the patient @ 1900. Pt is AAOx3 SR on the monitor VSS. Call byrnes within reach.
[2024-07-19] VITALS (9 sets, daily range): BP systolic 94–110; BP diastolic 57–65; PULSE 77; O2SAT 97; BMI 16.6
[2024-07-19] MEDS: ATIVAN 0.25 MG PO (04:30)
--- NOTE | 2024-07-19 06:35 | W.PN.HOSP.TC ---
Today's Communication/Plan
-
discharge if ok with cardiology
Can not tolerate high doses of Lasix.
Losartan on hold for few days
Assessment / Plan
Assessment / Plan
Physical Exam
General: No Apparent Distress, Comfortable and Conversant
HEENT: Normocephalic and Moist mucous membranes
Respiratory: Decreased Breath Sounds
Cardiac: S1/S2 and Regular Rhythm
GI: Soft, Non Tender and Normal Bowel Sounds
Musculoskeletal: No Cyanosis and No Edema
Skin: Warm and Dry
Neuro: Awake, Alert and AO x 3
Psych: Calm and Intact Judgment/Insight
Assessment/Plan
# hypotension, hypovolemic shock
Resolved with holding Lasix, and giving IVF & RBCs
# chronic bilateral basilar bronchiectasis, bronchiolitis
Rales on lung exam is chronic
Recent Sepsis/Probable pneumonia/Bronchiectasis with flare
Recent Abnormal CT Chest: Bronchiolitis/bilateral groundglass opacity/chronic bronchiectasis.
Bronchoscopy 06/07/24 with pathology, no infectious source found.
Follows with Dr. Sun
On low-dose prednisone/nebulizers/secretion clearance interventions
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
# Acute on chronic hypoxic respiratory failure
HFrEF
Ischemic cardiomyopathy, EF 35-40% by echo 11/2023
NSTEMI on underlying multivessel coronary artery disease with a CLERICAL RECEPTIONIST of the LAD
Continue aggressive medical care
-s/p IV Lasix
-Continue GDMT: Beta-blockers, ARB
-Continue DAPT and high intensity statin
-Daily weights, I's and O's
-Cardiology consult appreciated
-Trend troponins --> peaked at 6.6 --started Heparin Drip but held due to Epistaxis
-Echo showed hypokinesis, LVEF 35 to 40%, severe mitral regurgitation, mild to moderate aortic stenosis, mild AR, severe TR, pulmonary hypertension with pulmonary artery pressure of 69 mmHg
Has been considered high risk for interventions or surgery - CT surgery felt patient was too high risk for CABG/MVR
Continue anti-ischemic regimen, DAPT, beta-blockers, statins
Chest pain-free,
Plan for cath 07/14 , failed attempt to do PCI of OM.
CELIA to evaluate for MitraClip. Severe mR, plan to do rehab and f/w OP.
#Moderate to severe mitral regurgitation:
Consideration of MitraClip as inpatient
# Anemia of chronic disease due to underlying BM disease
s/p one unit of blood 07/16
#History of NSVT
Beta-blockers
Cardiac monitoring
#Severe Mitral Regurgitation
# CLL with immunoglobulin deficiency
Thrombocytopenia
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
Leukocytosis - CLL and on low dose steroids
Primary heel trimmer Dr Young
-Continue outpatient IVIG in a couple of weeks
#Essential hypertension
Off losartan due to low bP
#Hyperlipidemia
-Continue home statins, atorvastatin 40 mg nightly
#Diabetes mellitus type 2
better controlled
Adjusted oral DM meds doses according to GFR ,
Lantus and pre-meal insulin were stopped
-Continue insulin sliding scale
#Stage IIIb chronic Kidney Disease
#Anxiety
- temazepam, reduced the dose , started on low dose Ativan PRN
#7 mm calculus at the right UPJ with obstructive uropathy s/p Cystoscopy/Right ureteroscopy/Laser lithotripsy/Right ureteral stent placement 11/25/23
# Chronic anemia (Hb ranges between 8.5-10.5)
Thrombocytopenia (chronic with waxing and waning plt counts)
Recent Transaminitis
No abdominal pain
#Moderate protein calorie malnutrition
Cachexia
DVT prophylaxis:
on dual antiplt therapy with low Plts and anemia
Do Thrombo guards
CODE STATUS:
DNR
Total time spent to see the patient, examine the patient, review data and lab results, discuss treatment plan with patient, nursing staff around 57 minutes
Anticipated Discharge: Today
Subjective/Interval History
-
Date of Service: July 19, 2024
Upset being in hospital
Objective Data
-
Vital Signs:
Vital Signs
Temp Pulse Resp BP Pulse Ox
98.3 F 80 16 95/57 96
07/18/24 22:32 07/19/24 01:47 07/19/24 01:47 07/19/24 01:45 07/19/24 01:47
I&O
07/17/24 07/18/24 07/19/24
06:59 06:59 06:59
Intake Total 970 / 970 240 / 240
Output Total 1600 / 1600 1475 / 1475 1050 / 1050
Balance -630 / -630 -1235 / -1235 -1050 / -1050
[2024-07-19 07:22] LABS: Glucose - Point of Care 144 mg/dl (70-99)
[2024-07-19] MEDS: NOVOLOG FLEXPEN-HIGH RESISTANCE SC ×2 (07:42→17:11)
[2024-07-19] MEDS: ASPIR LOW (ENTERIC COATED) 81 MG PO (08:08)
[2024-07-19] MEDS: TOPROL XL 25 MG PO (08:08)
[2024-07-19] MEDS: GLUCOPHAGE 500 MG PO ×2 (08:08→16:54)
[2024-07-19] MEDS: LASIX 40 MG IV (08:08)
[2024-07-19] MEDS: DELTASONE 10 MG PO (08:08)
[2024-07-19] MEDS: PLAVIX 75 MG PO (08:08)
[2024-07-19] MEDS: JANUVIA 50 MG PO ×2 (08:08→11:00)
--- NOTE | 2024-07-19 08:50 | PN.DE.MGMTRT ---
Insulin Management
- -
07/19/2024: Diabetes management Follow up
Patient admitted 07/10 with c/o generalized pain and SOB found to have acute on chronic hypoxic respiratory failure. PMH: Bronchiectasis, MVCAD, HFpEF, nephrolithiasis, CLL, hypogammaglobulinemia status post IVIG last week, anemia, HTN, T2DM, 1st
degree AV block, HLD, kidney stones.
Prior to admission was taking Metformin 500mg Q PM and Farxiga 10mg daily. Last A1C 8.6% on 06/02/24, Cr 1.0, eGFR >60.
AC NovoLog and Lantus stopped on 07/17 and switched to oral regimen.
Pt awake, alert, oriented, sitting up in bed, offers no complaints, able to discuss diabetes management.
07/18 glucose range 140 to 389, FBG 144 this AM. Will increase Januvia to 100mg daily.
Cont Metformin 500mg BID and Farxiga 10mg daily.
Avoid aggressive insulin dosing to avoid hypoglycemia in this patient of advanced age.
Discussed with nurse.
Diabetes History
- -
Type of Diabetes: 2
Pre-Admission Diabetes Regimen
Insulin Pump Settings
IP Diabetes Regimen
07/18/24 07/18/24 07/19/24
12:23 16:18 07:21
POC Glucose 246 H 389 H 144 H
Meal type: Lunch
Amount consumed: 20%
Patient Education
[2024-07-19] MEDS: PULMICORT 0.5 MG INH ×2 (08:55→19:40)
--- NOTE | 2024-07-19 09:58 | W.PN.CARDCBS ---
Addendum entered and electronically signed by Zoe White MD 07/19/24 10:26:
I saw and examined the patient.
The Transmitter Operator's note was reviewed and I agree with the note.
Comment: Patient visibly short of breath at rest in bed. Crackles at the baseline. 4/6 apical holosystolic murmur. No edema noted. He is frustrated about recurrent admissions and needing to stay in the hospital. We discussed this at great
length. He remains in heart failure primarily in part related to severe mitral regurgitation. We discussed options including mitral valve clip, palliative care, hospice. At this time he prefers not to make any further decisions or discuss any of
these options. We will continue to discussed with patient wishes. Physician hair or beauty salon assistant reach out to patient's daughter who also is going to talk with patient and ideally would want to maximize patient's clinical status and then proceed with
assessment for mitral valve clip.
Continue with diuresis and we have increased Lasix today.
We have added very low-dose Aldactone and will carefully watch volume status, creatinine potassium
Continue switching patient to Entresto from lisinopril.
He is anemic and being followed by primary service and oncology/hematology.
Addendum entered and electronically signed by Petrona Guerrier PA-C 07/19/24 10:17:
Updated patient's [id number], Adri, by phone for 6 minutes. We made a plan to give patient a small dose of Ativan 0.25 mg p.o. x 1 now due to his agitation. We are also going to ask for outpatient palliative care consultation. Patient
currently says he is no longer interested in MitraClip, but family is still interested for the patient and they feel that his current refusal is due to his frustration and wanting to go home it does not reflect his overall desire to proceed with
MitraClip which may provide him long-term improvement in quality of life due to decrease heart failure symptoms and hospitalization.
Original Note:
Today's Communication / Plan
-
Increase Lasix to 40 mg IV BID
Will call and talk to patient's daughter in law.
Impression / Plan
-
PCP: Dr. Gomez
Primary Therapy Director: Dr. Saunders
Impression:
-Elevated Troponin
probable Type 2 OH: Supply / demand mismatch. 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
Unsuccessful attempted PCI of OM 3 07/14/2024
-Acute on chronic hypoxic respiratory failure
-Recent admission for PNA and bronchiectasis flare 06/01/24 until 06/07/24
-ILD
-Chronic atelectasis
-History of severe bronchiolitis/bronchiectasis and recurrent pneumonia
-Acute on chronic HFrEF
-Ischemic cardiomyopathy, EF 35-40% by echo 06/02/24
-Severe multivessel CAD
s/p cath with severely calcified LAD subtotally occluded, 80% OM, 70% RCA 09/2023
Prior discussions regarding medical management versus PCI versus CABG with plan for conservative treatment. CT surgery felt patient was too high risk for CABG/MVR 09/2023
Failed OM PCI 07/14/2024
-Moderate to severe mitral regurgitation
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
-CLL
-Anemia/thrombocytopenia
-Hyperlipidemia
-DM 2
-HTN
-07/18/24: CELIA: Report pending, but preliminarily looks like sev MR with anatomy typically amenable to clipping, pleural effusion
-07/11/2024: Echo: LV: EF 35 to 40%. Anterior apex and inferior apex appear akinetic. Septal apex mid anteroseptal and mid anterior cedillo are hypokinetic. RV: Normal, LA: Normal, RA: Normal, MV: Severe MR, AV: Mild to moderate peak/mean 15/7 mmHg
-06/02/2024: Echo: LV: Not mildly reduced LV systolic function estimated at 35-40%. [place], inferoseptum, inferior and inferolateral cedillo are hypokinetic. RV: Normal, LA: Normal, RA: Normal, MV: Mild-moderate MR, AV: Mild with P/M 19/12 mmHg.
Mild AI. TV: Mild TR with estimated PAP 35-40 mmHg
-11/10/2023: Echo: LV: Mild concentric LVH. Mildly reduced systolic function with EF 35-40. AK apex, apical septum, apical lateral wall. RV: Dilated, LA: Mildly dilated, RA: Dilated, MV: Severe MR, AV: Mild AI, calcified and restricted. TV:
Estimated PAP 40-45 mmHg
-08/05/2023: Echo: LV: Moderately reduced EF 30-35% by visual estimation the mid to distal septum and inferior cedillo are akinetic. RV: Normal, LA: Normal, RA: Normal, MV: Moderate-severe MR, AV: Mild-moderate AI, TV: Moderate TR with estimated PAP
50-55%
-08/31/2023: Cath: LM: Ca plaque in superior LM. No pressure dampening. LAD: Severely calcified over its course with calcified 65% before origin of first diagonal and occluded mid segment in area of dense calcification. LCX: Medium caliber
nondominant vessel. OM1 small with 60% ostial, OM3 long 80% RCA: 60-70% mid
Plan:
-Weight unchanged despite Lasix 40 mg IV x1 on 07/18/24 PM. PCWP was 20 by RHC 07/14/24 and weight is up 2 lbs from time of RHC. Increased to Lasix 40 mg IV BID.
-Patient with conversational dyspnea on 07/19/24, but says that he wants to go home. Will update family. Recommend ongoing admission and diuresis and if patient leaves 07/19/24 then he is at high risk for readmission.
-Patient completed CELIA 07/18/24 and final report pending, but appears consistent with sev MR and that anatomy would be suitable for clipping. Patient is frustrated on 07/19/24 and now says that he is not sure that he would want clipping. He is
frustrated that his PCI was unsuccessful as well.
-Troponin peaked at 6.67 this admission and was managed as a type II OH.
-Patient was tolerating aspirin and Plavix prior to admission and these have been continued.
-Heparin gtt was started and stopped earlier this admission due to epistaxis.
-Outpatient dose of Toprol XL 25 mg BID has been continued.
-Outpatient dose of losartan 25 mg daily on hold due to hypotension. Will ask CM to check on cost of Entresto 24/26 mg BID.
-Will add spironolactone 12.5 mg daily.
-Outpatient dose of Farxiga 10 mg daily has been held.
-Patient with agitation and insomnia at home prior to admission. PCP had started Restoril and higher doses caused agitation and patient then had a fall out of his bed one night leading to an ER visit so family has been working to wean dose. Might
benefit from SSRI.
HPI: Patient came to [facility] from home very early this morning with pain all over and SOB and cardiology has been consulted for acute HF and elevated Troponin. Patient was just admitted to 06/01/24 until 06/07/24 with PNA and bronchiectasis flare and
then had an ER visit for fall on 06/24/24. Patient is frail, but feels that he has been stable since the ER visit, but started with increased SOB on Wednesday and felt like he could not get comfortable to sleep. Patient reports that he sleeps sitting
up in a chair most of the time, but despite sitting up straight he could not catch his breath and felt restless. Patient called his son and when patient's son arrived the patient was moaning and rocking back and forth so son called 911 and patient
was brought to [facility]. In [facility] patient was given a total of Lasix 60 mg IV and reports increased urine output and improved SOB. Patient was also placed on oxygen at 6 L NC and has oxygen at home, but reports that he never uses it.
Progress Note - Therapy Director
Subjective
Date of Service: July 19, 2024
He says he is upset, he wants to go home, he denies being SOB despite taking deep breaths every 3 words
Objective
Labs:
07/17/24 02:59
07/17/24 02:59
Labs
Hgb 8.9 g/dL (13.0-18.0) L 07/17/24 02:59
Hct 27.0 % (39.0-52.0) L 07/17/24 02:59
Plt Count 124 10^3/uL (130-400) L 07/17/24 02:59
APTT 39.2 Sec (23.4-35.0) H 07/13/24 06:43
Sodium 131 mmol/L (135-145) L 07/17/24 02:59
Potassium 4.3 mmol/L (3.5-5.1) 07/17/24 02:59
BUN 45 mg/dl (9-20) H 07/17/24 02:59
Creatinine 1.0 mg/dL (0.7-1.3) 07/17/24 02:59
Glucose 170 mg/dl (70-99) H 07/17/24 02:59
Vital Signs and I&O:
Vital Signs
Temp Pulse Resp BP Pulse Ox
97.8 F 72 14 97/60 96
07/19/24 07:17 07/19/24 09:00 07/19/24 09:00 07/19/24 08:08 07/19/24 07:17
Vital Signs
Temp Pulse Resp BP Pulse Ox
97.8 F 72 14 97/60 96
07/19/24 07:17 07/19/24 09:00 07/19/24 09:00 07/19/24 08:08 07/19/24 07:17
Intake & Output
07/17/24 07/18/24 07/19/24 07/20/24
06:59 06:59 06:59 06:59
Intake Total 970 / 970 240 / 240
Output Total 1600 / 1600 1475 / 1475 1050 / 1050
Balance -630 / -630 -1235 / -1235 -1050 / -1050
Physical Exam
Physical Exam
GEN: NAD, AAOx3
HEENT: EOMI, MMM
LUNGS: RA. Conversational dyspnea. No audible wheeze
CV: SR on tele.
ABD: ND
EXT: No edema B/L
NEURO: Gross non-focal
SKIN: No rash
[2024-07-19] MEDS: ATIVAN 0.5 MG PO (11:00)
[2024-07-19] MEDS: ALDACTONE 12.5 MG PO (11:00)
[2024-07-19] MEDS: FARXIGA 10 MG PO (11:00)
[2024-07-19 12:31] LABS: Glucose - Point of Care 287 mg/dl (70-99)
[2024-07-19] MEDS: NOVOLOG FLEXPEN-HIGH RESISTANCE 7 UNITS SC (12:53)
--- NOTE | 2024-07-19 13:47 | CM ---
Addendum entered by JOCELYN Woodard 07/19/24 16:22:
[facility] has no availability thru the week.
Notified family. Awaiting alternative options.
Will refer accordingly.
Addendum entered by JOCELYN Woodard 07/19/24 15:26:
Spoke w/ Attending MD. Recommendation at this time is for SNF. Pt. anxious to transfer to SNF.
Met w/ patient, son JR at bedside. We reviewed DC plan. Pt. states that he and his family would like referral to [facility].
Reviewed discharge process to include referral process and insurance authorization.
Referral made to per patient request. Will await response.
Will cont. to follow and update accordingly.
Original Note:
CM following for DC planning needs.
Reviewed initial assessment. Pt. resides in a 1 story home w/ 4 JEANNINE alone. He is indep. at baseline w/ ADLs, mobility.
PT recommending home health.
Prior to admission, patient was open to [facility]. Goal is to return to home w/ [facility].
Will confirm this plan with patient prior to DC.
Will cont. to follow.
--- NOTE | 2024-07-19 15:02 | PTCARENOTE ---
Pt is AOx3, no complaints or discomfort. VSS, SR on tele monitor. Pt worked with PT today. Call byrnes within reach.
[2024-07-19 16:49] LABS: Glucose - Point of Care 134 mg/dl (70-99)
[2024-07-19] MEDS: LIPITOR 40 MG PO (16:54)
[2024-07-19] MEDS: TOPROL XL PO (20:38)
[2024-07-19] MEDS: RESTORIL 7.5 MG PO (20:39)
[2024-07-19 21:22] LABS: Glucose - Point of Care 210 mg/dl (70-99)
[2024-07-20] VITALS (8 sets, daily range): BP systolic 96–111; BP diastolic 60–65; PULSE 83–85; O2SAT 98; BMI 16.5
[2024-07-20] MEDS: ATIVAN 0.25 MG PO (01:28)
--- NOTE | 2024-07-20 02:06 | PTCARENOTE ---
Assumed care of the patient @ 1900. Pt AAOx3 anxious at times. Ativan po given. Denies pain or SOB on RA. Ambulated to bathroom 1 person assist with walker unable to have bm. Senokot and Miralax offered but he declined. Call byrnes within reach.
[2024-07-20] MEDS: PULMICORT 0.5 MG INH (07:16)
[2024-07-20 07:28] LABS: Glucose - Point of Care 106 mg/dl (70-99)
--- NOTE | 2024-07-20 07:44 | W.PN.CARDCBS ---
Addendum entered and electronically signed by Russell Eid MD 07/20/24 16:51:
Attending addendum: Patient seen and examined. We had reviewed CELIA at our valve clinic meeting this morning. CELIA appears appropriate for MitraClip. I discussed with Dr. Baldwin and briefly with Dr. Saunders. He is stable for discharge with
planned rehab stay at [facility]. We will likely proceed with MitrClip tentatively planned 08/02.
Original Note:
Today's Communication / Plan
-
Lasix 40 mg PO BID
Rehab at [facility]
Return for MitraClip
54 min in face to face with patient and family and coordination of care
Impression / Plan
-
PCP: Dr. Gomez
Primary Ed Transporter: Dr. Saunders
Impression:
-Elevated Troponin
probable Type 2 IL: Supply / demand mismatch. 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
Unsuccessful attempted PCI of OM 3 07/14/2024
-Acute on chronic hypoxic respiratory failure
-Recent admission for PNA and bronchiectasis flare 06/01/24 until 06/07/24
-ILD
-Chronic atelectasis
-History of severe bronchiolitis/bronchiectasis and recurrent pneumonia
-Acute on chronic HFrEF
-Ischemic cardiomyopathy, EF 35-40% by echo 06/02/24
-Severe multivessel CAD
s/p cath with severely calcified LAD subtotally occluded, 80% OM, 70% RCA 09/2023
Prior discussions regarding medical management versus PCI versus CABG with plan for conservative treatment. CT surgery felt patient was too high risk for CABG/MVR 09/2023
Failed OM PCI 07/14/2024
-Moderate to severe mitral regurgitation
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
-CLL
-Anemia/thrombocytopenia
-Hyperlipidemia
-DM 2
-HTN
-07/18/24: CELIA: Report pending, but preliminarily looks like sev MR with anatomy typically amenable to clipping, pleural effusion
-07/11/2024: Echo: LV: EF 35 to 40%. Anterior apex and inferior apex appear akinetic. Septal apex mid anteroseptal and mid anterior cedillo are hypokinetic. RV: Normal, LA: Normal, RA: Normal, MV: Severe MR, AV: Mild to moderate peak/mean 15/7 mmHg
-06/02/2024: Echo: LV: Not mildly reduced LV systolic function estimated at 35-40%. [place], inferoseptum, inferior and inferolateral cedillo are hypokinetic. RV: Normal, LA: Normal, RA: Normal, MV: Mild-moderate MR, AV: Mild with P/M 19/12 mmHg.
Mild AI. TV: Mild TR with estimated PAP 35-40 mmHg
-11/10/2023: Echo: LV: Mild concentric LVH. Mildly reduced systolic function with EF 35-40. AK apex, apical septum, apical lateral wall. RV: Dilated, LA: Mildly dilated, RA: Dilated, MV: Severe MR, AV: Mild AI, calcified and restricted. TV:
Estimated PAP 40-45 mmHg
-08/05/2023: Echo: LV: Moderately reduced EF 30-35% by visual estimation the mid to distal septum and inferior cedillo are akinetic. RV: Normal, LA: Normal, RA: Normal, MV: Moderate-severe MR, AV: Mild-moderate AI, TV: Moderate TR with estimated PAP
50-55%
-08/31/2023: Cath: LM: Ca plaque in superior LM. No pressure dampening. LAD: Severely calcified over its course with calcified 65% before origin of first diagonal and occluded mid segment in area of dense calcification. LCX: Medium caliber
nondominant vessel. OM1 small with 60% ostial, OM3 long 80% RCA: 60-70% mid
Plan:
-PCWP was 20 by RHC 07/14/24 and weight is up 2 lbs from time of RHC. Recommend Lasix 40 mg PO BID upon d/c
-Patient completed CELIA 07/18/24 and appears consistent with sev MR and that anatomy would be suitable for clipping. Plan is for MitraClip 08/02/24. Communicated with structural heart program subway train operator and relayed patient's information about his dentist and
his last visit so that we can get dental clearance.
-Troponin peaked at 6.67 this admission and was managed as a type II IL.
-Patient was tolerating aspirin and Plavix prior to admission and these have been continued.
-Heparin gtt was started and stopped earlier this admission due to epistaxis.
-Outpatient dose of Toprol XL 25 mg BID has been continued.
-Outpatient dose of losartan 25 mg daily on hold due to hypotension.
-Added spironolactone 12.5 mg daily on 07/19/24.
-Outpatient dose of Farxiga 10 mg daily has been held.
-Talked with patient's son in the room on 07/20/24
HPI: Patient came to [facility] from home very early this morning with pain all over and SOB and cardiology has been consulted for acute HF and elevated Troponin. Patient was just admitted to 06/01/24 until 06/07/24 with PNA and bronchiectasis flare and
then had an ER visit for fall on 06/24/24. Patient is frail, but feels that he has been stable since the ER visit, but started with increased SOB on Wednesday and felt like he could not get comfortable to sleep. Patient reports that he sleeps sitting
up in a chair most of the time, but despite sitting up straight he could not catch his breath and felt restless. Patient called his son and when patient's son arrived the patient was moaning and rocking back and forth so son called 911 and patient
was brought to [facility]. In [facility] patient was given a total of Lasix 60 mg IV and reports increased urine output and improved SOB. Patient was also placed on oxygen at 6 L NC and has oxygen at home, but reports that he never uses it.
Progress Note - Ed Transporter
Subjective
Date of Service: July 20, 2024
He feels less anxious today
Objective
Labs:
07/17/24 02:59
01/13/25 02:59
Labs
Hgb 8.9 g/dL (13.0-18.0) L 07/17/24 02:59
Hct 27.0 % (39.0-52.0) L 07/17/24 02:59
Plt Count 124 10^3/uL (130-400) L 07/17/24 02:59
APTT 39.2 Sec (23.4-35.0) H 07/13/24 06:43
Sodium 131 mmol/L (135-145) L 07/17/24 02:59
Potassium 4.3 mmol/L (3.5-5.1) 07/17/24 02:59
BUN 45 mg/dl (9-20) H 07/17/24 02:59
Creatinine 1.0 mg/dL (0.7-1.3) 07/17/24 02:59
Glucose 170 mg/dl (70-99) H 07/17/24 02:59
Vital Signs and I&O:
Vital Signs
Temp Pulse Resp BP Pulse Ox
97.4 F 67 18 96/60 92
07/20/24 04:27 07/20/24 07:17 07/20/24 07:17 07/20/24 04:23 07/20/24 07:17
Vital Signs
Temp Pulse Resp BP Pulse Ox
97.4 F 67 18 96/60 92
07/20/24 04:27 07/20/24 07:17 07/20/24 07:17 07/20/24 04:23 07/20/24 07:17
Intake & Output
07/18/24 07/19/24 07/20/24 07/21/24
06:59 06:59 06:59 06:59
Intake Total 240 / 240
Output Total 1475 / 1475 1050 / 1050 1250 / 1250
Balance -1235 / -1235 -1050 / -1050 -1250 / -1250
Physical Exam
Physical Exam
GEN: NAD, AAOx3
HEENT: EOMI, MMM
LUNGS: RA. No audible wheeze. Productive cough.
CV: SR on tele.
ABD: ND
EXT: No edema B/L
NEURO: Gross non-focal
SKIN: No rash
[2024-07-20] MEDS: NOVOLOG FLEXPEN-HIGH RESISTANCE SC (08:20)
[2024-07-20] MEDS: SENOKOT-S 1 TABLET PO (08:20)
[2024-07-20] MEDS: MIRALAX 17 GRAMS PO (08:20)
[2024-07-20] MEDS: DELTASONE 10 MG PO (08:20)
[2024-07-20] MEDS: LASIX 40 MG PO (08:21)
[2024-07-20] MEDS: PLAVIX 75 MG PO (08:21)
[2024-07-20] MEDS: JANUVIA 100 MG PO (08:21)
[2024-07-20] MEDS: GLUCOPHAGE 500 MG PO ×2 (08:21→16:03)
[2024-07-20] MEDS: ASPIR LOW (ENTERIC COATED) 81 MG PO (08:21)
[2024-07-20] MEDS: ALDACTONE 12.5 MG PO (08:21)
[2024-07-20] MEDS: FARXIGA 10 MG PO (08:22)
--- NOTE | 2024-07-20 08:47 | W.PN.HOSP.TC ---
Addendum entered and electronically signed by Dereck Grove MD 07/20/24 14:37:
DW cards Dr Eid, Mary -ok for dc
Original Note:
Today's Communication/Plan
-
DC if okay from cardiology standpoint
Assessment / Plan
Assessment / Plan
Assessment/Plan
# Acute hypoxic respiratory failure
Acute on chronic HFrEF
Ischemic cardiomyopathy, EF 35-40% by echo 11/2023
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
Continue aggressive medical care
-s/p IV Lasix-improved weight 104 pounds which seems to be his baseline
-Continue GDMT: Beta-blockers, ARB, aldactone
-Continue with Farxiga
-Continue DAPT and high intensity statin
-Cardiology consult appreciated
-Trended troponins --> peaked at 6.6 --started Heparin Drip but held due to Epistaxis
-Echo showed hypokinesis, LVEF 35 to 40%, severe mitral regurgitation, mild to moderate aortic stenosis, mild AR, severe TR, pulmonary hypertension with pulmonary artery pressure of 69 mmHg
Has been considered high risk for interventions or surgery - CT surgery felt patient was too high risk for CABG/MVR
Continue anti-ischemic regimen, DAPT, beta-blockers, statins
Chest pain-free,
cath 07/14 - failed attempt to do PCI of OM.
CELIA to evaluate for MitraClip. Severe mR, plan to do rehab and f/w OP.
#Moderate to severe mitral regurgitation:
Cardiology discussed options including mitral valve clip, palliative care and hospice. Patient preferred to not make any further decisions or discuss any of these options. Continue optimize clinical status and depending on his wishes proceed with
mitral valve clip.
# chronic bilateral basilar bronchiectasis, bronchiolitis
Rales on lung exam is chronic
Recent Sepsis/Probable pneumonia/Bronchiectasis with flare
Recent Abnormal CT Chest: Bronchiolitis/bilateral groundglass opacity/chronic bronchiectasis.
Bronchoscopy 06/07/24 with pathology, no infectious source found.
Follows with Dr. Sun
On low-dose prednisone/nebulizers/secretion clearance interventions
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
# Anemia of chronic disease due to underlying BM disease
s/p one unit of blood 07/16
#History of NSVT
Beta-blockers
Cardiac monitoring
# CLL with immunoglobulin deficiency
Thrombocytopenia
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
Leukocytosis - CLL and on low dose steroids
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
-Continue outpatient IVIG in a couple of weeks
#Essential hypertension
under goal
#Hyperlipidemia
-Continue home statins, atorvastatin 40 mg nightly
#Diabetes mellitus type 2
better controlled
Adjusted oral DM meds doses according to GFR ,
Lantus and pre-meal insulin were stopped
-Continue insulin sliding scale
#Stage IIIb chronic Kidney Disease
Cr stable
#Anxiety
- temazepam, reduced the dose , started on low dose Ativan PRN
#7 mm calculus at the right UPJ with obstructive uropathy s/p Cystoscopy/Right ureteroscopy/Laser lithotripsy/Right ureteral stent placement 11/25/23
# Chronic anemia (Hb ranges between 8.5-10.5)
Thrombocytopenia (chronic with waxing and waning plt counts)
Recent Transaminitis
No abdominal pain
#Moderate protein calorie malnutrition
Cachexia
DVT prophylaxis:
on dual antiplt therapy with low Plts and anemia
Do Thrombo guards
CODE STATUS:
DNR
Dispo - rehab -pt agreeable
DC to rehab today if okay from cardiology standpoint
More than 30 minutes spent in discharge including
Final examination of the patient
Summarizing hospital stay
Instructions for continuing care to all relevant caregivers
Preparation of discharge records, prescriptions, and referral forms
Total time spent (in minutes): 35
Anticipated Discharge: Today
Subjective/Interval History
-
Date of Service: July 20, 2024
Patient sitting comfortably in his bed. Voices no specific complaints.
Remains off of oxygen and saturating well.
Denies any shortness of breath or chest pain.
He says he is got 3 choices of rehab ,he and his family are working on them.
Objective Data
-
Labs:
Laboratory Results
07/20/24
08:07
WBC Pending
Hgb Pending
Hct Pending
Plt Count Pending
Sodium Pending
Potassium Pending
Chloride Pending
Carbon Dioxide Pending
BUN Pending
Creatinine Pending
Glucose Pending
Calcium Pending
Total Bilirubin Pending
AST Pending
ALT Pending
Alkaline Phosphatase Pending
Vital Signs:
Vital Signs
Temp Pulse Resp BP Pulse Ox
97.9 F 95 20 111/65 98
07/20/24 07:57 07/20/24 08:00 07/20/24 07:57 07/20/24 08:21 07/20/24 07:57
I&O
07/19/24 07/20/24 07/21/24
06:59 06:59 06:59
Intake Total 480 / 480
Output Total 1050 / 1050 1250 / 1250
Balance -1050 / -1050 -1250 / -1250 480 / 480
Review of Systems
-
Constitutional: Denies Fever
EENT: Denies Sore Throat
Respiratory: Denies Cough
Abdomen/GI: Denies Abdominal Pain, Nausea, Vomiting, Diarrhea or Constipated
Neuro: Denies Dizzy
Physical Exam
-
General: No Apparent Distress
HEENT: Moist Mucous Membranes
Respiratory: Crackles (bibasal) and Non Labored Respirations; Negative Wheezes or Accessory Resp Muscle Use
Cardiac: Regular Rhythm and S1/S2
GI: Soft
Musculoskeletal: No Edema
Neuro: AO x 3
Psych: Calm; Negative Confused
Data Reviewed
-
Labs: Labs Reviewed by me
--- NOTE | 2024-07-20 08:57 | PN.DE.MGMTRT ---
Insulin Management
- -
:
07/20/2024: Diabetes management Follow up
Patient admitted 07/10 with c/o generalized pain and SOB found to have acute on chronic hypoxic respiratory failure. PMH: Bronchiectasis, MVCAD, HFpEF, nephrolithiasis, CLL, hypogammaglobulinemia status post IVIG last week, anemia, HTN, T2DM, 1st
degree AV block, HLD, kidney stones.
Prior to admission was taking Metformin 500mg Q PM and Farxiga 10mg daily. Last A1C 8.6% on 06/02/24, Cr 1.0, eGFR >60.
AC NovoLog and Lantus stopped on 07/17 and switched to oral regimen.
Pt awake, alert, oriented, resting in bed, offers no complaints, able to discuss diabetes management. Patient states he has had diabetes ~ 19 years, sees Dr. Stan Gomez for diabetes care. He has a glucose monitor but has not tested in awhile.
Recommended he test glucose BID and report to primary doctor for further needed adjustments. Provided diabetes education booklet and starred new medication, Januvia 100 mg and continued metformin and farxiga.
07/19 glucose range 134 to 210, FBG 106 this AM. Januvia increased to 100mg daily with Metformin 500mg BID and Farxiga 10mg daily.
Avoid aggressive insulin dosing to avoid hypoglycemia in this patient of advanced age.
Discussed with nurse.
Diabetes History
- -
Type of Diabetes: 2
Pre-Admission Diabetes Regimen
Insulin Pump Settings
IP Diabetes Regimen
07/19/24 07/19/24 07/19/24
12:30 16:47 21:21
POC Glucose 287 H 134 H 210 H
07/20/24
07:26
POC Glucose 106 H
Meal type: Breakfast
Meal type: Breakfast
Meal type: Dinner
Meal type: Breakfast
Amount consumed: 100%
Amount consumed: 100%
Amount consumed: 100%
Amount consumed: 100%
Patient Education
[2024-07-20 10:44] LABS: Hematocrit 29.1 % (39.0-52.0); Hemoglobin 9.5 g/dL (13.0-18.0); Mean Corp Hgb Conc. 32.6 g/dL (33.0-37.0); Mean Corpuscular Hgb 31.6 pg (27.0-31.0); Mean Corpuscular Volume 96.7 fL (80.0-94.0); Mean Platelet Volume 10.8 fL (7.4-10.4); Platelet Count 139 10^3/uL (130-400); Red Blood Cell Count 3.01 10^6/uL (4.70-6.10); Red Cell Dist. Width 17.8 % (11.5-14.5); White Blood Cell Count 18.9 10^3/uL (4.8-10.8)
[2024-07-20 10:55] LABS: ALT (SGPT) 22 U/L (0-50); AST (SGOT) 25 U/L (17-59); Alkaline Phosphatase 79 U/L (38-126); Blood Urea Nitrogen 35 mg/dl (9-20); Calcium 8.7 mg/dl (8.4-10.2); Carbon Dioxide 27 mmol/L (22-30); Chloride 95 mmol/L (98-107); Estimated Creatinine Clearance 35 ml/min; Glucose 203 mg/dl (70-99); Potassium 4.4 mmol/L (3.5-5.1); Sodium 129 mmol/L (135-145); Total Bilirubin 0.7 mg/dl (0.2-1.3); Total Protein 5.3 g/dl (6.3-8.2); eGFR > 60.00
[2024-07-20] MEDS: TOPROL XL 25 MG PO (11:06)
[2024-07-20 11:24] LABS: Glucose - Point of Care 188 mg/dl (70-99)
[2024-07-20] MEDS: NOVOLOG FLEXPEN-HIGH RESISTANCE 2 UNITS SC (12:12)
--- NOTE | 2024-07-20 14:00 | CM ---
CM following for DC planning needs.
Plan is SNF placement.
[facility] able to accept for admission today.
[id number].
Call to JR raysa to update.
Updated pt. at bedside.
Will plan to transfer this afternoon, if medically stable to [facility].
RN report: [phone]
Fax- [phone]
[2024-07-20 15:56] LABS: Glucose - Point of Care 239 mg/dl (70-99)
[2024-07-20] MEDS: LIPITOR 40 MG PO (16:04)
[2024-07-20] MEDS: NOVOLOG FLEXPEN-HIGH RESISTANCE 4 UNITS SC (16:04)
--- NOTE | 2024-07-20 16:44 | CONSULT.STRU ---
Consultation
-
Date/Time Consultation Requested: 07/18/2024
Date/Time Consultation Performed: 07/20/2023
Requesting Provider: Johnathan Guadarrama MD
Performing Provider: YOEL Celestin
Reason for Consultation: Severe MR/mitral clip
Patient History
Physicians
Family Physician: Stan Gomez MD
Outpatient Microbiology Supervisor: Jay Galindo MD
Primary Microbiology Supervisor: Jay Galindo MD
History of Present Illness
Mr. Lopez is a very pleasant 84 yom that presented to [facility] with progressive VARGAS and ruled in for a NSTEMI with an elevated troponin and found to have severe MR. In DHER patient was given a total of Lasix 60 mg IV and reports increased
urine output and improved SOB. Patient was also placed on oxygen at 6 L NC and has oxygen at home, but reports that he never uses it. His cardiac catheterization from 07/14/2024 is notable for Severe multivessel coronary artery disease with a
heavily calcified LAD over the course of the vessel and diffuse atherosclerosis in the proximal to mid vessel spanning the origin of the only sizable diagonal branch. There is a high-grade stenosis proximally in a sizable OM 3 and in the mid right
coronary artery. Mildly elevated left ventricular filling pressures. Echocardiogram from 07/11/2024 is significant for EF 35-40%, AV P/M 15/7, mild AI, Severe MR, Severe TR, PAP 69 mmHg. He was evaluated by the CT surgical team and not felt to be a
surgical candidate for CABG or mitral valve r/t comorbidities including CLL, Anemia, thrombocytopenia, and hyperlipidemia. Mr. Lopez had a CELIA 07/19/2024 to assess the mitral valve for candidacy for mitraclip: Mitral Valve: Mildly thickened mitral
valve leaflets. Restricted posterior leaflet. Severe central mitral regurgitation. Mean gradient 2 mmHg. MR ERO by Pisa 0.36 cm sq. regurgitant volume 54 ml. Peak E wave velocity 105 cm/sec. Posterior leaflet length 11 to 14 mm. Mitral valve
area by 3D planimetry 6.4 cm sq. He has been discussed with the heart team in the SDM and recommended for EFRAÍN (Mitraclip). Discussed the procedure with the patient and scheduled him for 08/02/2024. Allowed for and answered questions at bedside.
Past Medical History
Past Medical History: CAD (Known 3-VCAD), Cancer (CLL), CHF (HFrEF , ICM), HTN, NIDDM, Valvular Disease (MR) and Other (pneumonia/ Bronchiectasis, kidney stones, NSTEMI, RBBB, LAFB, TRENA (07/2022), influenza B (07/2022), pleural effusions, chronic
hypoxic respiratory failure)
Past Surgical History
Past Surgical History: Other ((L) cataract extraction, hernia repair with Mesh, (R) RTC (labral debridement and SAD), Lithotripsy w/ stent placement)
Dental History
Dr. Judy Cleaning (patient states he is UTD)- Dental Clearance form faxed to dentist
Family History
Mother: N/A
Father: N/A
Family Medical History: Diabetes
Social History
Alcohol: None
Drug: None
Tobacco: Non-Smoker
Personal:
Living: Assisted Living (D/c'd to [facility])
Employment: Retired
Allergies
Allergy/AdvReac Type Severity Reaction Status Date / Time
No Known Allergies Allergy Verified 07/10/24 04:21
Home Medications
�Medication �Instructions �Recorded �Confirmed �Type
ascorbic acid (vitamin C) 1,000 mg 1,000 mg PO DAILY Supplement 07/27/23 07/10/24 History
tablet (Vitamin C)
cholecalciferol (vitamin D3) 25 25 mcg PO DAILY Supplement 07/27/23 07/10/24 History
mcg (1,000 unit) tablet (Vitamin
D3)
dapagliflozin propanediol 10 mg 10 mg PO DAILY Heart Failure #30 08/05/23 07/10/24 Rx
tablet (Farxiga) tabs
aspirin 81 mg tablet,delayed 81 mg PO DAILY Blood Clot 11/24/23 07/10/24 History
release Prevention/Tx
atorvastatin 40 mg tablet 40 mg PO QPM High Cholesterol 11/24/23 07/10/24 History
clopidogrel 75 mg tablet (Plavix) 75 mg PO DAILY Blood Clot 11/24/23 07/10/24 History
Prevention/Tx
losartan 25 mg tablet 25 mg PO DAILY Heart Failure 11/24/23 07/10/24 History
metoprolol succinate 25 mg 25 mg PO BID Heart Failure 11/24/23 07/10/24 History
tablet,extended release 24 hr
cod liver oil 1 cap PO DAILY Supplement 06/01/24 07/10/24 History
docusate sodium 100 mg capsule 50 mg PO BIDPRN PRN constipation 06/01/24 07/10/24 History
(Colace)
prednisone 10 mg tablet 10 mg PO DAILY Lung/Breathing 06/01/24 07/10/24 History
Issues
Ivig Infusion 1 dose IV .Q 3-4 MONTHS CLL 07/10/24 07/10/24 History
budesonide 0.5 mg/2 mL suspension 0.5 mg inhalation BID 07/10/24 07/10/24 History
for nebulization Lung/Breathing Issues
cyanocobalamin (vitamin B-12) 1,000 mcg PO DAILY Supplement 07/10/24 07/10/24 History
1,000 mcg tablet (Vitamin B-12)
ipratropium 0.5 mg-albuterol 3 mg 3 ml inhalation R Q6HPRN PRN sob 07/10/24 07/10/24 History
(2.5 mg base)/3 mL nebulization
soln
dextromethorphan-guaifenesin 10 5 ml PO Q4HPRN PRN cough #237 mL 07/20/24 Rx
mg-100 mg/5 mL oral syrup
furosemide 20 mg tablet 40 mg (2 x 20 mg) PO DAILY Fluid 07/20/24 07/10/24 Rx
Retention/Swelling #0 tabs
furosemide 40 mg tablet (Lasix) 40 mg PO BID Heart Failure #60 tabs 07/20/24 Rx
metformin 500 mg tablet,extended 500 mg PO BID Diabetes #0 tabs 07/20/24 07/10/24 Rx
release 24 hr
sitagliptin phosphate 100 mg 100 mg PO DAILY #1 tab 07/20/24 Rx
tablet (Januvia)
spironolactone 25 mg tablet 12.5 mg (1/2 x 25 mg) PO DAILY #1 07/20/24 Rx
tab
temazepam 30 mg capsule 30 mg PO HS Sleep #4 caps 07/20/24 Rx
STS%
STS %: 21.1
Physical Exam
Vital Signs
Temp 97.7 F 07/20/24 14:56
Temp route: Oral 07/20/24 14:56
Pulse 80 07/20/24 14:56
Rhythm: Normal sinus rhythm 07/20/24 08:00
With- Sinus tachycardia 07/15/24 08:00
Resp Rate 18 07/20/24 14:56
Blood pressure 102/60 07/20/24 14:56
Blood pressure extremity used: Right upper arm 07/20/24 14:56
Position: Lying 07/20/24 14:56
MAP (cuff-Kimi Monitor) 73 07/20/24 14:56
SaO2 97 07/20/24 14:56
Nasal Cannula flow liters per minute 2 07/17/24 12:02
Oxygen Mode of Delivery Room air 07/20/24 14:56
Pulse Ox at Rest 98 07/20/24 11:49
Acceptable pain level during hospitalization? 0 07/10/24 04:22
Can the patient verbally communicate their pain? Yes 07/20/24 08:00
Pain scale rating: Pt states unable to rate 07/10/24 04:22
Actual Weight 47.6 kg 07/20/24 04:27
Body Mass Index (BMI) 16.5 07/20/24 04:27
Supine- Blood Pressure 105/63 07/20/24 11:58
Supine- Pulse 83 07/20/24 11:58
Sitting- Blood Pressure 102/65 07/17/24 14:20
Sitting- Pulse 89 07/17/24 14:20
Heart rate after activity 96 07/20/24 11:58
Blood pressure after activity 110/63 07/19/24 15:04
Oxygen Saturation with Activity 95 07/20/24 11:58
Labs
07/20/24 10:35
07/20/24 10:35
APTT 39.2 Sec (23.4-35.0) H 07/13/24 06:43
Troponin I 2.150 ng/ml H* D 07/11/24 14:09
Epi-H-Qoiwornwtiv Pept 89085 pg/ml 07/18/24 15:08
Urinalysis
Urine Color Yellow 07/10/24 13:37
Urine Clarity Clear (Clear) 07/10/24 13:37
Urine pH 6.0 (5.0-9.0) 07/10/24 13:37
Ur Specific [place] 1.010 (<1.030) 07/10/24 13:37
Urine Ketones Negative (Negative) 07/10/24 13:37
Ur Occult Blood Reflex Trace (Negative) A 07/10/24 13:37
Urine Bilirubin Negative (Negative) 07/10/24 13:37
Leukocyte Esterase Rfl Negative (Negative) 07/10/24 13:37
Urine RBC 0-2 /HPF (0-2) 07/10/24 13:37
Urine WBC (Reflex) 0-2 /HPF (0-5) 07/10/24 13:37
Ur Squamous Epith Cells 0-2 /LPF (Few) 07/10/24 13:37
Amorphous Crystals Seen 07/10/24 13:37
Urine Glucose 3+ (Negative) A 07/10/24 13:37
Urine Albumin (Reflex) Negative (Neg - Trace) 07/10/24 13:37
Diagnostic Studies
Procedure Type:�Isolated MVr
Perioperative Outcome Estimate %
Operative Mortality 21.1%
Morbidity & Mortality 60.4%
Stroke 4.86%
Renal Failure 10.1%
Reoperation 8.93%
Prolonged Ventilation 53.7%
Deep Sternal Wound Infection 0.001%
Long Hospital Stay (>14 days) 31.9%
Short Hospital Stay (<6 days)* 11.6%
ECHOCARDIOGRAM 07/11/2024:
CONCLUSIONS
Normal left ventricular chamber size. Mild to moderately reduced left
ventricular systolic function. Septal apex, mid anteroseptal, and mid anterior
wall are hypokinetic.. Anterior apex and inferior apex appear akinetic. LV
ejection fraction is 35-40% by Velez's method of discs.
Mitral valve opens normally. Severe mitral regurgitation.
Trileaflet aortic valve. Thickened aortic valve with restricted leaflet motion.
Mild to moderate aortic stenosis. Peak/mean gradients across the aortic valve
are 15/7 mmHg. Using an LVOT diameter of 1.8 cm, the aortic valve by the
Continuity equation is calculated at 1.2 cm2. Mild aortic regurgitation.
Tricuspid valve opens normally. Severe tricuspid regurgitation. Estimated
pulmonary artery pressure of 69 mmHg. Assuming a right atrial pressure of 3
mmHg.
Since echo June 02, 2024, MR has worsened from mild-moderate to severe. PA
systolic pressure is increased from 35-40 mmHg to 69 mmHg and TR is worsened
from mild to severe. Pleural effusion is present.
CARDIAC CATHETERIZATION 07/10/2024:
CONCLUSIONS
1. Unsuccessful attempted angioplasty and stenting of OM 3. A Fielder XT wire crossed the tightest portion of the lesion but could not be directed to the main body of OM 3 favoring a small side branch vessel.
2. Known severe mitral regurgitation. Will likely need CELIA to evaluate for possible MitraClip
TRANSESOPHAGEAL ECHOCARDIOGRAM 07/18/2024:
CONCLUSIONS
Normal left ventricular chamber size. Mildly reduced left ventricular systolic
function. Global hypokinesis. Normal left ventricular wall thickness. Left
ventricular ejection fraction is 45%.
Normal right ventricular size and function.
Mildly dilated left atrium.
No thrombus detected in the left atrial appendage.
Mildly thickened mitral valve leaflets. Restricted posterior leaflet. Severe
central mitral regurgitation. Mean gradient 2 mmHg. MR ERO by Pisa 0.36 cm
sq. regurgitant volume 54 ml. Peak E wave velocity 105 cm/sec. Posterior
leaflet length 11 to 14 mm. Mitral valve area by 3D planimetry 6.4 cm sq.
Thickened aortic valve with mildly restricted leaflet motion. Mild to moderate
aortic stenosis. Mild aortic regurgitation.
Mild tricuspid regurgitation.
Systolic flow reversal (suggestive of severe MR) in the pulmonary veins.
Exam
General: Other (frail)
HEENT: Normocephalic
Respiratory: Clear (anteriorly)
Cardiac: Regular Rhythm and Murmur (II/ HSM)
GI: Soft and Non Tender
Rectal: Deferred by Provider
Skin: Warm
Neuro: Awake, Alert, Oriented and AO x 3
Psych: Calm
Assessment / Plan
-
Severe MR
Patient has been evaluated by the heart team
CELIA completed and reviewed
Mitraclip scheduled for 08/02/2024
Preadmission testing completed inpatient
Patient will continue aspirin + plavix including the morning of procedure
Januvia and Farxiga should be held x 3 days before procedure
Dental clearance -Form faxed
Continue GDMT as tolerated
Data Reviewed
-
EKG: Tracing Personally Visualized and interpreted (NSR RBBB)
Hitting Coach: Report Reviewed by me and Discussed with Physician
Echo: Report Reviewed by me and Discussed with Physician (reviewed and discussed with the heart team)
Labs: Labs Reviewed by me
Old Records: Reviewed (inpatient notes)
Total Time Spent with Patient (in minutes): 45
--- NOTE | 2024-07-21 11:26 | W.HF.CON ---
Heart Failure
- LV Function
Left ventricular function study result: LV Ejection fraction 36-40%
Ejection Fraction Percentage: 35-40
- ARNI
Patient already on ARNI: No
Heart Failure ARNI Contraindication: Hypotension
- ACEI/ARB
Patient already on ACEI/ARB: Yes
- Beta Jennifer
Patient already on Evidence Based Beta Jennifer: Yes
- Mineralocorticord Receptor Antagonist
Patient already on MRA: Yes
- SGLT-2 Inhibitor
Patient already on SGLT-2 Inhibitor: Yes
- NYHA CHF Classification
NYHA CHF Classification Level: Class III - Symptoms w/ min exertion, interferes w/ nml daily activity (severe MR)
- ACC/AHA Stage
ACC/AHA Stage: Stage C: Symptomatic Heart Failure
--- NOTE | 2024-07-21 15:23 | W.DCSUMMARY ---
Discharge Summary
Discharge Data
Date of Admission: 07/10/24
Date of Discharge: 07/21/24
-
Pending Results: No
Hospital Course
Primary diagnosis:
Acute on chronic heart failure with reduced EF
Ischemic cardiomyopathy with EF of 35 to 40%
Non-ST elevation myocardial infarction
Moderate to severe mitral regurgitation
Secondary diagnosis:
Chronic bilateral basilar bronchiectasis, bronchiolitis
Anemia of chronic disease
CLL with immunoglobulin deficiency
Essential hypertension
Hyperlipidemia
Diabetes mellitus type 2
Hospital course:
Patient with a history of chronic hypoxic respiratory failure, interstitial lung disease, severe bronchiolitis/bronchiectasis and recurrent pneumonia, chronic systolic heart failure with EF of 35 to 40%, severe multivessel disease and mitral
regurgitation presented with shortness of breath and elevated troponin. He was felt not a candidate for CT surgery in 2023.
He was noted to be in acute systolic heart failure and non-ST elevation PA. His peak troponins were 6.6. His BNP was elevated . Chest x-ray showed acute CHF versus acute pulmonary edema. He had a good response to diuresis weight decreased
from 112 pounds 104 pounds at the time of discharge. He was off of oxygen prior to discharge.
He had a CELIA in 07/18 which showed severe MR and appears appropriate for MitraClip. MitraClip was tentatively planned for 08/02.
Pulmonary capillary wedge pressure was 20 by RHC 07/14. Unsuccessful attempt at PCI of OM 3 07/14.
He was transitioned to Lasix 40 mg twice daily upon discharge. He was tolerating aspirin and Plavix prior to admission and that was continued. His outpatient Toprol/losartan was continued. Farxiga was continued. Spironolactone was added.
Regards to diabetes he was on metformin and Farxiga with a last hemoglobin A1c of 8.6 06/02/2024. Januvia was added on this admission.
Once he was medically stable he was discharged to rehab.
Consultants on board:
Cardiology-Kumar Teresa
Discharge Plan
-
Patient Disposition: Prison/SNF
Discharge Diagnosis/Procedures: Acute on chronic heart failure with preserved EF, non-ST elevation PA, Unsuccessful attempted angioplasty and stenting of OM 3, severe MR
Diet: 2 Gram Sodium, Diabetic, Carb Controlled and Restrict fluids to 64 oz
Activity: As tolerated
Driving Restrictions: Not until seen by your Dr
Other Services: PT and OT
Specialty Instructions: Weigh Daily- Call MD for wt gain/loss 3 lbs overnight/5 lbs in 1 week
Activity Restrictions/Additional Instructions:
You are scheduled for Mitraclip on Wednesday08/02/2024. You will arrive to the critical care pavilion at 5:30 am. Hold your Januvia x 3 days before your procedure (last dose 07/29) continue your aspirin including the morning of the procedure. You
will get a phone call from the heart team the day before to confirm time and location of arrival.
Instructions: *DCA Heart Failure Instructions
Stand Alone Forms: DC Instructions- Cath/EP Lab
Referrals:
[facility] [Outside]
(- [phone]
FAX- [phone])
Lucas Saunders MD [Active] - 08/29/24 10:00 am (Cardiology followup appointment)
Stan Gomez DO [Family Provider] -
Additional Discharge Medication Instructions: -The structural heart team nurse practitioners, Nicole and Yolanda, will reach out to your dentist for the dental clearance form.
-You are scheduled to return for MitraClip on 08/02/24.
Prescriptions:
New
spironolactone 25 mg Tablet
12.5 mg PO DAILY Qty: 1 0RF
Januvia 100 mg Tablet
100 mg PO DAILY Qty: 1 0RF
dextromethorphan-guaifenesin 10-100 mg/5 mL Syrup
5 ml PO Q4HPRN PRN (Reason: cough) Qty: 237 0RF
furosemide [Lasix] 40 mg tablet
40 mg PO BID Qty: 60 11RF
Continued
ascorbic acid (vitamin C) [Vitamin C] 1,000 mg Tablet
1,000 mg PO DAILY
cholecalciferol (vitamin D3) [Vitamin D3] 25 mcg (1,000 unit) Tablet
25 mcg PO DAILY
dapagliflozin propanediol [Farxiga] 10 mg tablet
10 mg PO DAILY Qty: 30 6RF
clopidogrel [Plavix] 75 mg Tablet
75 mg PO DAILY
atorvastatin 40 mg tablet
40 mg PO QPM
aspirin 81 mg tablet,delayed release (DR/EC)
81 mg PO DAILY
losartan 25 mg tablet
25 mg PO DAILY
metoprolol succinate 25 mg tablet extended release 24 hr
25 mg PO BID
prednisone 10 mg Tablet
10 mg PO DAILY
cod liver oil Capsule
1 cap PO DAILY
docusate sodium [Colace] 100 mg Capsule
50 mg PO BIDPRN PRN (Reason: constipation)
ipratropium-albuterol 0.5 mg-3 mg(2.5 mg base)/3 mL solution for nebulization
3 ml INHALATION R Q6HPRN PRN (Reason: sob)
cyanocobalamin (vitamin B-12) [Vitamin B-12] 1,000 mcg Tablet
1,000 mcg PO DAILY
budesonide 0.5 mg/2 mL suspension for nebulization
0.5 mg inhalation BID
Ivig Infusion
1 dose IV .Q 3-4 MONTHS
temazepam 30 mg Capsule
30 mg PO HS Qty: 4 0RF
Changed
furosemide 20 mg tablet
40 mg PO DAILY Qty: 0 0RF
Rx Instructions:
Dose increased from 20 to 40 mg daily
metformin 500 mg tablet extended release 24 hr
500 mg PO BID Qty: 0 0RF
Rx Instructions:
increased from once to twice daily
Discharge Orders:
Discharge Patient (As Directed); Ordered 07/20/24
Ordered By: Dereck Grove
Care Plan Goals
Care Plan Goals:
Problem: Readiness for enhanced knowledge related to diagnosis and treatment plan
Goal: Understand your diagnosis and treatment plan needs, including medications if applicable.
Instructions: Know your diagnosis, underlying causes and treatment plan options, including medications if applicable. Consult with your health care team to learn about your diagnosis and treatment plan, including medications if applicable.
Discharge Date and Time
Discharge Date/Time: 07/20/24 17:42
Print Language: IRISH
== END 2024-07-20 17:42 | DRG 280 ==
LOC: IVU 13:31
PROVIDERS: Internal Medicine; Internal Medicine Cardiovascular Disease; Internal Medicine Interventional Cardiology; Nurse Practitioner; Nurse Practitioner Family; Physician Assistant Medical; ADMITTING PHYSICIAN Hospitalist; ATTENDING PHYSICIAN Internal Medicine; CONSULT PHYSICIAN Internal Medicine Cardiovascular Disease; EMERGENCY PHYSICIAN Emergency Medicine; FAMILY PHYSICIAN Internal Medicine
PROC: 4A023N8 Measurement of Cardiac Sampling and Pressure, Bilateral, Percutaneous Approach (ICD-10-PCS; 2024-07-14)
PROC: 02JA3ZZ Inspection of Heart, Percutaneous Approach (ICD-10-PCS; 2024-07-14)
PROC: B211YZZ Fluoroscopy of Multiple Coronary Arteries using Other Contrast (ICD-10-PCS; 2024-07-14)
PROC: 30233N1 Transfusion of Nonautologous Red Blood Cells into Peripheral Vein, Percutaneous Approach (ICD-10-PCS; 2024-07-16)
PROC: B24BZZ4 Ultrasonography of Heart with Aorta, Transesophageal (ICD-10-PCS; 2024-07-18)
DX: I21.3 ST elevation (STEMI) myocardial infarction of unspecified site (principal); I50.23 Acute on chronic systolic (congestive) heart failure; J96.21 Acute and chronic respiratory failure with hypoxia; R57.1 Hypovolemic shock; C91.10 Chronic lymphocytic leukemia of B-cell type not having achieved remission; D80.1 Nonfamilial hypogammaglobulinemia; Z66 Do not resuscitate; R64 Cachexia; Z68.1 Body mass index [BMI] 19.9 or less, adult; D84.9 Immunodeficiency, unspecified; J84.9 Interstitial pulmonary disease, unspecified; J98.11 Atelectasis; E44.0 Moderate protein-calorie malnutrition; I13.0 Hypertensive heart and chronic kidney disease with heart failure and stage 1 through stage 4 chronic kidney disease, or unspecified chronic kidney disease; I47.19 Other supraventricular tachycardia; I25.5 Ischemic cardiomyopathy; I25.10 Atherosclerotic heart disease of native coronary artery without angina pectoris; D63.0 Anemia in neoplastic disease; I34.0 Nonrheumatic mitral (valve) insufficiency; E78.00 Pure hypercholesterolemia, unspecified; D69.6 Thrombocytopenia, unspecified; J47.9 Bronchiectasis, uncomplicated; Z79.84 Long term (current) use of oral hypoglycemic drugs; Z79.82 Long term (current) use of aspirin; Z79.02 Long term (current) use of antithrombotics/antiplatelets; Z79.51 Long term (current) use of inhaled steroids; Z79.52 Long term (current) use of systemic steroids; Z79.899 Other long term (current) drug therapy; Z11.52 Encounter for screening for COVID-19; I95.89 Other hypotension; N18.32 Chronic kidney disease, stage 3b; E11.22 Type 2 diabetes mellitus with diabetic chronic kidney disease; R45.1 Restlessness and agitation
CPT/HCPCS: 93308; 71045; 71046; 80048; 80053; 81003; 81015; 82550; 82947; 82962; 83605; 83735; 83880; 84145; 84484; 85025; 85027; 85347; 85730; 86850; 86900; 86901; 86920; 87040; 87150; 87205; 87502; 87811; 92920; 93005; 93312; 93320; 93321; 93325; 93460; 94640; 96374; 97116; 97162; 97166; 97530; 99291; C1725; C1760; C1769; C1894; P9016; Q9967

== ENCOUNTER → 2024-07-25 11:05 | Outpatient (REF) | payer OTHER, SELFPAY ==
[2024-07-25 12:50] LABS: % Basophils 0.2 % (0-2); % Immature Granulocytes 1.1 % (0-0.5); % Lymphocytes 71.5 % (20.5-51.1); % Monocytes 1.3 % (1.7-9.3); % Neutrophils 25.9 % (42.2-75.2); Absolute Immature Granulocytes 0.3 10^3/uL (0-0.05); Absolute Lymphocytes 18.5 10^3/uL (1.2-3.4); Absolute Monocytes 0.3 10^3/uL (0.1-0.6); Absolute Neutrophils 6.7 10^3/uL (1.4-6.5); Hematocrit 36.5 % (39.0-52.0); Hemoglobin 10.7 g/dL (13.0-18.0); Mean Corp Hgb Conc. 29.3 g/dL (33.0-37.0); Mean Corpuscular Hgb 31.6 pg (27.0-31.0); Mean Corpuscular Volume 107.7 fL (80.0-94.0); Nucleated Red Blood Cells % 0.1 % (-); Platelet Count 221 10^3/uL (130-400); Red Blood Cell Count 3.39 10^6/uL (4.70-6.10); Red Cell Dist. Width 17.7 % (11.5-14.5); White Blood Cell Count 25.9 10^3/uL (4.8-10.8)
== END ==
LOC: OLABP 11:05
PROVIDERS: ATTENDING PHYSICIAN Family Medicine
DX: N18.30 Chronic kidney disease, stage 3 unspecified (principal); D80.1 Nonfamilial hypogammaglobulinemia; I50.23 Acute on chronic systolic (congestive) heart failure; J96.21 Acute and chronic respiratory failure with hypoxia; J47.9 Bronchiectasis, uncomplicated; E44.0 Moderate protein-calorie malnutrition; J21.9 Acute bronchiolitis, unspecified; R64 Cachexia; R57.1 Hypovolemic shock; D69.6 Thrombocytopenia, unspecified; I25.5 Ischemic cardiomyopathy; I11.0 Hypertensive heart disease with heart failure; I24.9 Acute ischemic heart disease, unspecified; E11.9 Type 2 diabetes mellitus without complications; J81.0 Acute pulmonary edema; I34.0 Nonrheumatic mitral (valve) insufficiency; I10 Essential (primary) hypertension; C91.10 Chronic lymphocytic leukemia of B-cell type not having achieved remission; B49 Unspecified mycosis; D64.9 Anemia, unspecified
CPT/HCPCS: 36415; 85025

== ENCOUNTER → 2024-07-26 10:29 | Outpatient (REF) | payer OTHER, SELFPAY ==
[2024-07-26 11:59] LABS: ALT (SGPT) 37 U/L (0-50); AST (SGOT) 40 U/L (17-59); Albumin 4.3 g/dl (3.5-5.0); Alkaline Phosphatase 105 U/L (38-126); Blood Urea Nitrogen 50 mg/dl (9-20); Calcium 9.2 mg/dl (8.4-10.2); Carbon Dioxide 16 mmol/L (22-30); Chloride 96 mmol/L (98-107); Glucose 329 mg/dl (70-99); Potassium 5.1 mmol/L (3.5-5.1); Sodium 132 mmol/L (135-145); Total Bilirubin 1.2 mg/dl (0.2-1.3); Total Protein 6.8 g/dl (6.3-8.2); eGFR 46.19
== END ==
LOC: OLABP 10:29
PROVIDERS: ATTENDING PHYSICIAN Family Medicine
DX: N18.30 Chronic kidney disease, stage 3 unspecified (principal); D80.1 Nonfamilial hypogammaglobulinemia; I50.23 Acute on chronic systolic (congestive) heart failure; J96.21 Acute and chronic respiratory failure with hypoxia; J47.9 Bronchiectasis, uncomplicated; E44.0 Moderate protein-calorie malnutrition; R64 Cachexia; D64.9 Anemia, unspecified; J21.9 Acute bronchiolitis, unspecified; R57.1 Hypovolemic shock; B49 Unspecified mycosis; C91.10 Chronic lymphocytic leukemia of B-cell type not having achieved remission; D69.6 Thrombocytopenia, unspecified; I25.5 Ischemic cardiomyopathy; I11.0 Hypertensive heart disease with heart failure; I10 Essential (primary) hypertension
CPT/HCPCS: 36415; 80053

== ENCOUNTER → 2024-07-29 11:19 | Outpatient (REF) | payer OTHER, SELFPAY ==
[2024-07-29 12:04] LABS: Blood Urea Nitrogen 61 mg/dl (9-20); Calcium 8.9 mg/dl (8.4-10.2); Carbon Dioxide 22 mmol/L (22-30); Chloride 101 mmol/L (98-107); Glucose 376 mg/dl (70-99); Potassium 4.8 mmol/L (3.5-5.1); Sodium 136 mmol/L (135-145); eGFR 50.18
== END ==
LOC: REG 11:19
PROVIDERS: ATTENDING PHYSICIAN Internal Medicine Cardiovascular Disease; FAMILY PHYSICIAN Internal Medicine
DX: I10 Essential (primary) hypertension (principal); I25.10 Atherosclerotic heart disease of native coronary artery without angina pectoris
CPT/HCPCS: 36415; 80048

== ENCOUNTER → 2024-07-31 11:02 | Outpatient (REF) | payer OTHER, SELFPAY ==
[2024-07-31 12:59] LABS: Blood Urea Nitrogen 47 mg/dl (9-20); Calcium 8.7 mg/dl (8.4-10.2); Carbon Dioxide 23 mmol/L (22-30); Chloride 98 mmol/L (98-107); Glucose 271 mg/dl (70-99); Potassium 4.5 mmol/L (3.5-5.1); Sodium 132 mmol/L (135-145); eGFR > 60.00
== END ==
LOC: REG 11:02
PROVIDERS: ATTENDING PHYSICIAN Nuclear Medicine Nuclear Cardiology; FAMILY PHYSICIAN Internal Medicine
DX: I50.20 Unspecified systolic (congestive) heart failure (principal)
CPT/HCPCS: 36415; 80048

== ENCOUNTER 2024-08-09 05:28 | Inpatient (IN) | payer OTHER, SELFPAY ==
[2024-08-07 17:28] LABS: Hematocrit 30.1 % (39.0-52.0); Hemoglobin 9.9 g/dL (13.0-18.0); INR 1.04; Mean Corp Hgb Conc. 32.9 g/dL (33.0-37.0); Mean Corpuscular Volume 97.4 fL (80.0-94.0); Mean Platelet Volume 11.8 fL (7.4-10.4); PT 13.9 Sec (11.4-14.6); Platelet Count 156 10^3/uL (130-400); Red Blood Cell Count 3.09 10^6/uL (4.70-6.10); White Blood Cell Count 22.1 10^3/uL (4.8-10.8)
[2024-08-07 17:29] LABS: APTT 25.9 Sec (23.4-35.0)
[2024-08-07 17:36] LABS: ALT (SGPT) 18 U/L (0-50); AST (SGOT) 25 U/L (17-59); Albumin 3.4 g/dl (3.5-5.0); Alkaline Phosphatase 72 U/L (38-126); Blood Urea Nitrogen 21 mg/dl (9-20); Calcium 8.4 mg/dl (8.4-10.2); Carbon Dioxide 21 mmol/L (22-30); Chloride 96 mmol/L (98-107); Glucose 209 mg/dl (70-99); Potassium 4.5 mmol/L (3.5-5.1); Sodium 127 mmol/L (135-145); Total Bilirubin 0.8 mg/dl (0.2-1.3); Total Protein 5.7 g/dl (6.3-8.2); eGFR > 60.00
[2024-08-07 17:46] LABS: % Basophils 0.1 % (0-2); % Immature Granulocytes 3.9 % (0-0.5); % Lymphocytes 62.8 % (20.5-51.1); % Neutrophils 32.2 % (42.2-75.2); Absolute Immature Granulocytes 0.9 10^3/uL (0-0.05); Absolute Lymphocytes 13.9 10^3/uL (1.2-3.4); Absolute Monocytes 0.2 10^3/uL (0.1-0.6); Absolute Neutrophils 7.1 10^3/uL (1.4-6.5); Nucleated Red Blood Cells % 0 % (-)
[2024-08-09] VITALS (16 sets, daily range): BP systolic 86–109; BP diastolic 48–90; BMI 16.7
[2024-08-09 06:28] LABS: Glucose - Point of Care 148 mg/dl (70-99)
--- NOTE | 2024-08-09 06:30 | PTCARENOTE ---
Addendum entered by Bryan Pimentel RN 08/09/24 08:33:
Lab called and RN inquired about ABO needing to be done. Lab stated that he has a current ABO and a second ABO does not need to be drawn for now.
Original Note:
Pt admitted to CVICU at 0532. VS done. Pt weighed. Clipped and prepped per CVICU protocol. CHG bath given. Pt reports taking asa this am. He 'thinks' he also took his Plavix. Relayed to PA and to asset availability leader RNs. Report to asset availability leader RNs at 0620. Blood
glucose checked. To asset availability leader at approximately 0630.
[2024-08-09 07:50] LABS: ACT-LR - POC 273 Seconds (116-155)
[2024-08-09 08:36] LABS: ACT-LR - POC 273 Seconds (116-155)
[2024-08-09 08:43] LABS: Glucose - Point of Care 193 mg/dl (70-99)
[2024-08-09 09:15] LABS: ACT-LR - POC 300 Seconds (116-155)
[2024-08-09 09:39] LABS: ACT-LR - POC 313 Seconds (116-155)
[2024-08-09 09:47] LABS: Glucose - Point of Care 220 mg/dl (70-99)
[2024-08-09 10:22] LABS: ACT-LR - POC 292 Seconds (116-155)
--- NOTE | 2024-08-09 11:04 | CM ---
CM following for DC planning needs.
Pt. adm for procedure.
Pt. was most recently @ last month. CM had complete pre-op teaching during this admission.
Soap, shower instructions and MitraClip paperwork provided and reviewed.
Discussed post op restrictions, MD appointment, Cardiac Rehab and visit from CT Transitional Care RN.
Pt. resides alone in a private, 1 story home w/ 4 JEANNINE.
At baseline, patient is indep. w/ ADLs, mobility without the use of any assisted device.
Pt. had DC'ed to [facility] on 07/20. He was recently DC'ed from rehab to home w/ Martha HARRIS.
Anticipated DC plan for this hospitalization is for home w/ CT Transitional Care RN.
Will follow.
[2024-08-09 11:37] LABS: Glucose - Point of Care 204 mg/dl (70-99)
--- NOTE | 2024-08-09 11:45 | PTCARENOTE ---
Patient received in CVICU at 1115. Drowsy, oriented, extubated with no reports of pain. NSR on the monitor rate 80's, heart tones audible but distant, pulses intact, no edema. On 5LPM simple mask, turned down to 3 LPM, satting 95%+, lungs CTA,
moist, occasional nonproductive cough. Abdomen SNT, normoactive bowel sounds. Michel catheter in place draining clear, yellow urine. Skin generally intact, R groin femoral venous access site redressed and sutured by OR team at bedside; site
ecchymotic and CDI once hemostasis achieved. L forearm arterial line present, PIV x2 INT. See nursing work list for intervention details.
--- NOTE | 2024-08-09 11:56 | ITS.CL.PN ---
Emergency Department - Procedure Note
Procedure
Procedure Note:
TRANSCATHETER EDGE - TO - EDGE MITRAL VALVE REPAIR (EFRAÍN)/MITRACLIP REPORT
Date: August 09, 2024
Referring: Lucas Saunders
Preoperative diagnosis: Severe degenerative mitral valve regurgitation with restricted posterior leaflet in the setting of underlying cardiomyopathy
Postoperative diagnosis: Severe degenerative mitral valve regurgitation with restricted posterior leaflet in the setting of underlying cardiomyopathy
Procedure(s): Transcatheter mitral valve edge to edge repair/MitraClip using 2 clips (XTW and NTW)
Preprocedure MR severity: Severe/torrential
Postprocedure MR severity: Mild to moderate
Interventional Cardiology Operators: Drs. Kendy Baldwin (Clip delivery), and Kumar Demarco (trans-septal puncture)
CELIA Wire Twister(s): Semaj Kong
Anesthesia: GETA provided by the anesthesia staff.
Estimated Blood Loss: Minimal
Complications: No acute complication
Condition: Stable
PROCEDURAL DETAILS:
The patient was brought to the cardiac catheterization lab and anesthetized by the anesthesiology staff. A transesophageal probe was placed and preliminary echocardiography was performed. The patient was prepped and draped in standard sterile
fashion. The right common femoral vein was accessed using a modified Seldinger technique with a micropuncture kit under ultrasound guidance. The vein was dilated with an 8 [place] dilator then preclosed with a Perclose percutaneous suture. And 8
[place] sheath was placed in the femoral vein. Heparin 5000 units was given.
The [place] VersaCross system was prepped on the back table. The J-wire for the versa cross was advanced into the superior vena cava and the 8 [place] sheath was removed. The transseptal sheath was advanced over the wire and into the superior vena
cava. The J-wire was removed and the versa cross wire was advanced to the distal tip of the sheath, but remained within the dilator. This sheath was positioned in the interatrial septum with confirmed position on CELIA. Transseptal puncture was
performed by Dr. Kumar Demarco and the sheath was advanced into the left atrium. Additional heparin was given to achieve a therapeutic ACT. ACT was confirmed above 250 seconds. Oxygen saturation confirmed presence in the left atrium.
The MitraClip steerable sheath was prepped on the back table. The [place] sheath was withdrawn keeping the versa cross wire in the left atrium. The femoral vein was serially dilated and the steerable sheath was advanced through the vein, easily
crossing into the left atrium. Once we had satisfactory purchase of the sheath inside the left atrium the dilator and versa cross wire were removed and the steerable sheath was completely de-aired and flushed.
A(n) XTW MitraClip Delivery System was prepped on the back table. The clip was advanced through the steerable sheath and into the left atrium. The clip was oriented and advanced subvalvular to the mitral valve. Once we were satisfied with with
position, the grippers were lowered and the clip arms were tightened to 60 degrees. This demonstrated good position and clip stability. The clip was fully closed demonstrating good tissue bridge with moderate residual mitral regurgitation isolated
laterally. Transvalvular gradient 4 mmHg at heart rate of 79 bpm. Estimated mitral valve area by 3D planimetry was close to 3cm2. we were satisfied with these preliminary results and the clip was deployed. The delivery system was removed from the
steerable sheath.
The mitral valve was reevaluated. Mitral valve regurgitation was still graded at moderate isolated laterally. Mitral valve regurgitation continue to remain stable at moderate with good systemic blood pressure, good tissue bridge on 3D imaging and
stable mitral valve gradient at 4 mmHg. No pericardial effusion was noted. Invasive hemodynamics revealed mild reduction in V waves down to 39 mmHg from 44 mmHg pre-MitraClip. CELIA had shown systolic flow reversal in the pulmonary vein flow
pre-MitraClip placement. Post MitraClip placement, there is systolic blunting in the pulmonary vein flow.
At this point we had a detailed discussion in regards to pros and cons of attempting a second clip. Given significant mitral regurgitation was still residual, we decided to proceed with a second clip, a NTW given the transmitral gradient was
already at 4 mmHg. The NT W MitraClip delivery system was prepped on the back table and the clip was advanced to the steerable sheath into the left atrium. The clip was oriented and advanced subvalvular to the mitral valve. Once we were satisfied
with with position, the grippers were lowered and the clip arms were tightened to 60 degrees. This demonstrated good position and clip stability. The clip was fully closed demonstrating good tissue bridge with mild residual mitral regurgitation.
Transvalvular gradient still at 4 mmHg at heart rate of 79 bpm. Estimated mitral valve area by 3D planimetry was close to 2.5cm2. We were satisfied with these preliminary results and the clip was deployed. The delivery system was removed from the
steerable sheath.
The mitral valve was reevaluated. Mitral valve regurgitation was now graded at mild to moderate. Mitral valve regurgitation continue to remain stable with good systemic blood pressure, good tissue bridge on 3D imaging and stable mitral valve
gradient at 4 mmHg. No pericardial effusion was noted. Invasive hemodynamics revealed mild reduction in V waves down to 27 mmHg from 44 mmHg pre-MitraClip. CELIA had shown systolic flow reversal in the pulmonary vein flow pre-MitraClip placement.
Post MitraClip placement, there is systolic blunting in the pulmonary vein flow.
At this point, we were satisfied with our results. The steerable sheath was withdrawn into the right atrium, then negative tension was applied to straighten the catheter. The steerable sheath was withdrawn and the Perclose percutaneous suture was
tightened. Given significant residual bleeding, we decided to place a second Perclose with 20 minutes of manual pressure held at the end.
The patient tolerated the procedure well, was brought out of anesthesia and transferred to the CVICU in stable condition.
IMPLANT(S)/POSITION:
1. XTW MitraClip on medial aspect of A2 P2
2. NTW MitraClip L lateral aspect of A2 P2/overlapping with A1 P1
RADIATION: Dose (mGy): 1448; DAP (cm2.Gy): 145.04; Fluoroscopy time (minutes): 40.8
VALVE HEMODYNAMICS:
Preoperative
MR severity (0-4): 4+
Transmitral gradient (mmHg): 2
Postoperative
MR severity (0-4): 1+
Transmitral gradient (mmHg): 4
CONCLUSIONS:
1. Severe degenerative mitral valve regurgitation s/p successful EFRAÍN using two mitraclips (XTW and NTW) with reduction in mitral regurgitation from severe/torrential to mild to moderate and a final mean transmitral gradient of 4.
RECOMMENDATIONS:
1. Routine post procedure care.
2. Transthoracic echocardiogram ordered for tomorrow morning.
3. Antithrombotic therapy with daily baby aspirin and Plavix 75 mg.
4. IV diuresis given elevated left atrial pressure.
5. Close monitoring of blood counts given significant baseline anemia.
Kendy Baldwin MD, FACC, [facility]
Copy to: Lucas Saunders
[2024-08-09] MEDS: ANCEF 10 IV ×2 (11:58→11:59)
[2024-08-09 12:19] LABS: B.E. -0.4 mmol/L; O2 Saturation % 99.3 % (94-98); PCO2 37 mmHg (35-48); PO2 141 mmHg (83-108); pH 7.42 (7.35-7.45)
--- NOTE | 2024-08-09 14:35 | CON.INTV ---
Consultation
Consultation Request
Date/Time Consultation Requested: 08/09/2024
Date/Time Consultation Performed: 08/09/2024
Performing Provider: Dr. Fabio Rojas
Reason for Consultation: Severe MR-status post MitraClip
Medical History
-
History of Present Illness:
84-year-old woman with past medical history significant for known three-vessel coronary artery disease, CLL, heart failure with reduced ejection fraction, hypertension, fhv-jerftqd-jzwbaxfyx diabetes, bronchiectasis, severe mitral regurgitation, who
was evaluated by the heart team and she was deemed candidate for MitraClip.
She was admitted on 08/09/2024 to undergo the procedure.
Patient states that his respiratory status is at baseline. Chronic cough without increased phlegm production
Currently in bed, appears comfortable. Denies any discomfort
Past Medical History
Past Medical History: Other (See assessment and plan)
Social History
Tobacco: Non-smoker
Alcohol: None
Personal:
Living: Assisted Living
Employment: Retired
Family History
Family History: Reviewed & Not Pertinent
Allergies / Home Medications
Allergies
Allergy/AdvReac Type Severity Reaction Status Date / Time
No Known Allergies Allergy Verified 07/10/24 04:21
Home Medications
�Medication �Instructions �Recorded �Confirmed �Last Taken �Type
ascorbic acid (vitamin C) 1,000 mg 1,000 mg PO DAILY Supplement 07/27/23 07/10/24 06/01/24 History
tablet (Vitamin C)
cholecalciferol (vitamin D3) 25 25 mcg PO DAILY Supplement 07/27/23 07/10/24 06/01/24 History
mcg (1,000 unit) tablet (Vitamin
D3)
dapagliflozin propanediol 10 mg 10 mg PO DAILY Heart Failure #30 08/05/23 07/10/24 06/01/24 Rx
tablet (Farxiga) tabs
aspirin 81 mg tablet,delayed 81 mg PO DAILY Blood Clot 05/07/10/24 06/01/24 History
release Prevention/Tx
atorvastatin 40 mg tablet 40 mg PO QPM High Cholesterol 11/24/23 07/10/24 05/31/24 History
clopidogrel 75 mg tablet (Plavix) 75 mg PO DAILY Blood Clot 11/24/23 07/10/24 06/01/24 History
Prevention/Tx
losartan 25 mg tablet 25 mg PO DAILY Heart Failure 11/24/23 07/10/24 06/01/24 History
metoprolol succinate 25 mg 25 mg PO BID Heart Failure 11/24/23 07/10/24 06/01/24 History
tablet,extended release 24 hr
cod liver oil 1 cap PO DAILY Supplement 06/01/24 07/10/24 06/01/24 History
docusate sodium 100 mg capsule 50 mg PO BIDPRN PRN constipation 06/01/24 07/10/24 05/31/24 History
(Colace)
prednisone 10 mg tablet 10 mg PO DAILY Lung/Breathing 06/01/24 07/10/24 06/01/24 History
Issues
Ivig Infusion 1 dose IV .Q 3-4 MONTHS CLL 07/10/24 07/10/24 3 Months Ago History
~04/09/24
budesonide 0.5 mg/2 mL suspension 0.5 mg inhalation BID 07/10/24 07/10/24 Unknown History
for nebulization Lung/Breathing Issues
cyanocobalamin (vitamin B-12) 1,000 mcg PO DAILY Supplement 07/10/24 07/10/24 Unknown History
1,000 mcg tablet (Vitamin B-12)
ipratropium 0.5 mg-albuterol 3 mg 3 ml inhalation R Q6HPRN PRN sob 07/10/24 07/10/24 Unknown History
(2.5 mg base)/3 mL nebulization
soln
dextromethorphan-guaifenesin 10 5 ml PO Q4HPRN PRN cough #237 mL 07/20/24 Unknown Rx
mg-100 mg/5 mL oral syrup
furosemide 20 mg tablet 40 mg (2 x 20 mg) PO DAILY Fluid 07/20/24 07/10/24 Unknown Rx
Retention/Swelling #0 tabs
furosemide 40 mg tablet (Lasix) 40 mg PO BID Heart Failure #60 tabs 07/20/24 Unknown Rx
metformin 500 mg tablet,extended 500 mg PO BID Diabetes #0 tabs 07/20/24 07/10/24 Unknown Rx
release 24 hr
sitagliptin phosphate 100 mg 100 mg PO DAILY #1 tab 07/20/24 Unknown Rx
tablet (Januvia)
spironolactone 25 mg tablet 12.5 mg (1/2 x 25 mg) PO DAILY #1 07/20/24 Unknown Rx
tab
temazepam 30 mg capsule 30 mg PO HS Sleep #4 caps 07/20/24 Unknown Rx
Review of Systems
-
Unable to Obtain full review of systems at this time due to: Acuity
Vitals / Labs / Diagnostic Testing
Vital Signs
Temp Pulse Resp BP Pulse Ox
98.6 F 83 20 91/52 99
08/09/24 14:00 08/09/24 14:00 08/09/24 14:00 08/09/24 12:18 08/09/24 14:00
Lab Data
08/07/24 16:24
08/07/24 16:24
Laboratory Results
08/09/24
11:51
pH 7.42
pCO2 37
pO2 141 H
HCO3 24.0
O2 Delivery Level
Diagnostic Testing:
Assessment
-
Status post MitraClip 08/09/2024
Conditions present prior admission:
Coronary artery disease multivessel
CLL
Heart failure with reduced ejection fraction
Hypertension
Ipw-cpoqxrb-ilzgviojb diabetes
Severe MR
History of bronchiectasis-follows up with Dr. Sun
On low-dose prednisone/nebulizers/secretion clearance interventions.
Kidney stone history of obstructive uropathy and prior lithotripsy
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
Non-ST elevation myocardial infarction in the past
-
Assessment and plan:
Postoperative day 0
In the critical care unit, denies any complaints
Hemodynamically stable.
Continue with hemodynamic monitoring
Restart outpatient cardiac medications.
Monitor fluid balance and hemodynamic
On low rate supplemental oxygen, wean off as able.
Not bronchospastic on exam
Chest x-ray 08/09/2024: Reviewed small bilateral pleural effusion without significant change. Bilateral interstitial changes suspect chronic.
History of bronchiectasis: Stable
Continue nebulizers while in the hospital Pulmicort and DuoNebs.
Mucolytic
Restart prednisone, if there is decompensation will need stress doses with hydrocortisone.
Acapella device
Chronically elevated White blood [id number], currently afebrile
-
Advance diet as able
DVT prophylaxis SCDs-pharmacological when able
-
Will follow
[2024-08-09] MEDS: ANESTHETIC LOZENGE 1 LOZENGE PO (15:26)
[2024-08-09] MEDS: DUONEB 3 ML INH ×2 (15:33→19:35)
[2024-08-09 16:13] LABS: Glucose - Point of Care 159 mg/dl (70-99)
[2024-08-09] MEDS: NOVOLOG FLEXPEN-MODERATE RESISTANCE 1 UNITS SC (16:13)
[2024-08-09] MEDS: ANCEF 5 IV (16:13)
[2024-08-09] MEDS: GLUCOPHAGE XR EXTENDED RELEASE 500 MG PO (16:14)
[2024-08-09] MEDS: FARXIGA 10 MG PO (16:14)
[2024-08-09] MEDS: LASIX 20 MG IV (17:19)
[2024-08-09] MEDS: LIPITOR 40 MG PO (17:19)
--- NOTE | 2024-08-09 17:51 | PTCARENOTE ---
Patient with intermittent now productive cough, sputum blood tinged, FILTRATION [employer]ANT MECH[employer]IC made aware. Heart tones distant - repeat ECHO in AM. Pt c/o sore throat, lozenge given per PRN order. FIL[employer] MECH[employer]IC Hare at bedside to reassess later, ordered to leave Michel until
tomorrow, leave in arterial line until 1999 to monitor after Lasix administration. Figure 8 suture removed, no oozing, new 4x4 gauze and tegaderm applied. Patient up in chair eating dinner.
[2024-08-09] MEDS: PULMICORT 0.5 MG INH (19:35)
--- NOTE | 2024-08-09 21:00 | PTCARENOTE ---
Assumed care of patient from [facility] RN. Pt AAOx3. Hard of hearing. Pt SR on the tele monitor. HR 90s. BP 90s-100s/40-50s. Palpable pulses throughout. No edema. Pt 96-100% on 2L NC. Lung sounds audible. Deep breathing encouraged. Pt w/ occasional
cough. C/O throat soreness. Abdomen soft/nontender. +BS. Michel catheter C/D/I and draining clear/yellow urine. Right groin puncture site soft. No hematoma. Dressing intact. Pt assisted out of the chair and into bed. See worklist for full nursing
assessment and interventions. Call byrnes within reach.
[2024-08-09] MEDS: ATIVAN 0.5 MG PO (21:33)
--- NOTE | 2024-08-09 23:00 | PTCARENOTE ---
report received from previous RN, walking rounds done. pt sleeping. VSS. SR on monitor, HR 90s. B/L radial and DP pulses palpable. B/L breath sounds present. POX 99% on 2LNC. bowel sounds present. doss catheter intact, draining CYU. UO adequate.
all surgical sites stable. left radial art line intact. PIV x2 intact and patent. see worklist for full nursing assessment, VS, and interventions.
[2024-08-10] VITALS (9 sets, daily range): BP systolic 97–108; BP diastolic 53–60; BMI 17.2
--- NOTE | 2024-08-10 04:30 | PTCARENOTE ---
no acute changes in assessment, VSS. SR BBB, HR 80s. POX 96% on room air. AM labs drawn and sent. EKG done. left radial art line d/c'd per orders. right groin CDI.
[2024-08-10 04:53] LABS: Hematocrit 21.2 % (39.0-52.0); Mean Corpuscular Hgb 32.1 pg (27.0-31.0); Mean Corpuscular Volume 97.2 fL (80.0-94.0); Red Blood Cell Count 2.18 10^6/uL (4.70-6.10); Red Cell Dist. Width 16.7 % (11.5-14.5); White Blood Cell Count 12.4 10^3/uL (4.8-10.8)
[2024-08-10 05:05] LABS: Blood Urea Nitrogen 21 mg/dl (9-20); Calcium 7.6 mg/dl (8.4-10.2); Carbon Dioxide 28 mmol/L (22-30); Chloride 96 mmol/L (98-107); Estimated Creatinine Clearance 49 ml/min; Glucose 135 mg/dl (70-99); Magnesium 1.6 mg/dl (1.6-2.3); Potassium 3.4 mmol/L (3.5-5.1); Sodium 129 mmol/L (135-145); eGFR > 60.00
[2024-08-10] MEDS: KCL 40 MEQ PO ×2 (06:34→16:19)
[2024-08-10 06:58] LABS: Platelet Count 82 10^3/uL (130-400)
[2024-08-10] MEDS: PULMICORT 0.5 MG INH ×2 (07:21→19:11)
[2024-08-10] MEDS: DUONEB 3 ML INH ×2 (07:21→19:10)
[2024-08-10] MEDS: NOVOLOG FLEXPEN-MODERATE RESISTANCE SC ×2 (08:03→13:00)
[2024-08-10] MEDS: FARXIGA 10 MG PO (08:10)
[2024-08-10] MEDS: JANUVIA 100 MG PO (08:10)
[2024-08-10] MEDS: DELTASONE 10 MG PO (08:10)
[2024-08-10] MEDS: ALDACTONE 12.5 MG PO (08:10)
[2024-08-10] MEDS: ASPIR LOW (ENTERIC COATED) 81 MG PO (08:10)
[2024-08-10] MEDS: PLAVIX 75 MG PO (08:10)
[2024-08-10] MEDS: GLUCOPHAGE XR EXTENDED RELEASE 500 MG PO ×2 (08:10→16:19)
[2024-08-10 08:24] LABS: Glycohemoglobin (HgbA1c) 6.4 % (4.0-5.6)
[2024-08-10] MEDS: LASIX 20 MG IV ×2 (08:37→16:20)
[2024-08-10 08:48] LABS: Hematocrit 21.5 % (39.0-52.0); Hemoglobin 7.2 g/dL (13.0-18.0)
--- NOTE | 2024-08-10 08:51 | PTCARENOTE ---
Assumed care of patient from night guard RN. PRAVEENO x 3 sitting up in the chair. denies complaint. ST BBB 110-120's on montior. Room air 95%. harsh non productive cough noted, pt states is chronic. Appetite good. Rt groin puncture site ecchymotic
but otherwise c,d,i. Labs obtained. Will continue to monitor.
--- NOTE | 2024-08-10 09:48 | W.PN.CARDCBS ---
Addendum entered and electronically signed by Kendy Baldwin MD 08/10/24 18:07:
I saw and examined the patient.
The Laboratory Engineer's note was reviewed and I agree with the note.
Comment: Patient reports doing well this morning. He did have some bleeding at the right groin site soon after the procedure yesterday requiring a [id number]-yp-[id number] stitch which was removed yesterday evening with no further issues. No groin
discomfort noted this morning. No chest discomfort. His breathing is slightly better.
Vital signs and lab work reviewed. Sinus tachycardia noted this morning. On exam patient is an elderly gentleman who is frail, cachectic in appearance but otherwise in no acute distress, tachycardic, normal S1 and S2, 2 out of 6 systolic ejection
murmur at the right upper sternal border, elevated JVD, bibasilar Rales, abdomen is soft, nontender, nondistended with active bowel sounds, right groin dressing in place without evidence of hematoma or bruit, warm extremities without significant
edema
Hemoglobin drop noted at 7.0 from a baseline of 9.9
Recommendations:
1. We rechecked hemoglobin immediately with repeat hemoglobin of 7.2. On exam no acute groin issues noted with no abdominal discomfort and an otherwise soft and benign abdomen therefore decided to hold off on any urgent imaging. We did discuss
with the patient and he was given 1 unit of PRBC transfusion with repeat hemoglobin this evening back up to 9.2.
2. Repeat echocardiogram reviewed by myself showing mild to moderate mitral regurgitation, severe LV dysfunction with LVEF expectedly down to 15-20 percent from baseline of 35 to 40% in the setting of severe/torrential MR. Pleural effusion is
noted without evidence of a pericardial effusion.
3. Continue with IV diuresis.
4. Close monitoring of renal function and blood counts.
5. PT/OT, out of bed to chair and ambulation.
Kendy Baldwin MD, [facility], [facility]
Addendum entered and electronically signed by YOEL Goodson 08/10/24 14:36:
Pt has chronic hyponatremia Na 129, will continue to trend and monitor levels
He is also underweight with BMI 17.2 with concomitant hypoalbuminemia and hypoproteinemia most likely due to chronic heart failure and recent admission for pneumonia.
Original Note:
Today's Communication / Plan
-
post EFRAÍN, f/u ECHO this am
acute on chronic blood loss anemia, transfuse 1u PRBC
continue IV diuresis, replete lytes
ok to transfer to IVU today
Impression / Plan
-
PCP: Stan Gomez MD
CDY: Lucas Galindo MD
Impression:
Severe Mitral regurgitation post EFARÍN (Mitraclip 08/09/24)
Acute on chronic blood loss anemia
Acute on chronic HFrEF 35-40%
Hypokalemia
CAD/NSTEMI JACK WINDER LAD, unsuccessful PCI OM
HTN
HLD
CLL
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
DM2
Kidney stone history of obstructive uropathy and prior lithotripsy
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
Plan:
post Mitraclip 08/09/24
groin with some bleeding d/t Perclose failure post procedure, F08 placed with no further bleeding, stable this am, soft
Hbg dropped 9.9 >7.2, will transfuse 1 u PRBC's, recheck H&H 4 hrs after transfusion
tele with ST this am
f/u ECHO today to reassess MR
LA pressure 25, continue IV diuresis this am, neg 1150
replete electrolytes - K 3.4 this am, keep K >4, Mg >2
HF continue Farxiga, metoprolol xl 25 bid, spironolactone, holding losartan today with hypotension (required levo post procedure)
CLL continue prednisone
DM continue metformin, Januvia, SSI
OOB C&DB, I.S.
ok to trasfer to IVU
continue to monitor on tele another 24-48 hours
Progress Note - Guard Rail Installer
Subjective
Date of Service: August 10, 2024
Denies cp, mild SOB with productive cough
Objective
Labs:
08/10/24 04:26
Labs
Hgb 7.2 g/dL (13.0-18.0) L 08/10/24 08:26
Hct 21.5 % (39.0-52.0) L 08/10/24 08:26
Plt Count 82 10^3/uL (130-400) L D 08/10/24 04:26
PT 13.9 Sec (11.4-14.6) 08/07/24 16:24
INR 1.04 08/07/24 16:24
APTT 25.9 Sec (23.4-35.0) 08/07/24 16:24
Sodium 129 mmol/L (135-145) L 08/10/24 04:26
Potassium 3.4 mmol/L (3.5-5.1) L 08/10/24 04:26
BUN 21 mg/dl (9-20) H 08/10/24 04:26
Creatinine 0.8 mg/dL (0.7-1.3) 08/10/24 04:26
Glucose 135 mg/dl (70-99) H 08/10/24 04:26
Vital Signs and I&O:
Vital Signs
Temp Pulse Resp BP Pulse Ox
97.4 F 112 22 100/59 95
08/10/24 08:00 08/10/24 08:30 08/10/24 08:00 08/10/24 08:19 08/10/24 08:30
Vital Signs
Temp Pulse Resp BP Pulse Ox
97.4 F 112 22 100/59 95
08/10/24 08:00 08/10/24 08:30 08/10/24 08:00 08/10/24 08:19 08/10/24 08:30
Intake & Output
08/08/24 08/09/24 08/10/24 08/11/24
06:59 06:59 06:59 06:59
Intake Total 720 / 720 480 / 480
Output Total 1870 / 1870
Balance -1150 / -1150 480 / 480
Physical Exam
Physical Exam
NAD, AOX3
S1, S2, RRR, II/ FANY at apex
diminished t/o with exp wheeze, bibasilar crackles
SNTND bsx4
R fem site c/d/i no HT, soft
--- NOTE | 2024-08-10 10:39 | W.PN.ANS.POP ---
Anesthesia Post Operative
- Anesthesia Post Op Note
Vital Signs Stable-See Nursing Note: Yes
Airway Patent: Yes
Adequate Pain Control: Yes
Change in Mental Status: No
Current Postoperative Nausea & Vomiting: No
Anesthesia Complications: No
General Anesthetic Recall: No
Unplanned Admission: No
Post Op Hydration Adequate: Yes
[2024-08-10] MEDS: TOPROL XL 25 MG PO ×2 (11:23→20:24)
--- NOTE | 2024-08-10 12:07 | CM ---
CM following for DC planning needs.
Met w/ patient at bedside. Pt. reports that he is feeling well.
He reports that he had a good rehabilitation stay at [facility] following last hospitalization. He reports that he went home w/ home-care but cannot recall the agency or if they are still involved.
Will return when son, comes to visit.
Per call from [facility], they were seeing pt. at home.
Pt. does reside alone and would benefit from PT-OT evaluation when able to participate.
Will follow.
--- NOTE | 2024-08-10 12:22 | PTCARENOTE ---
1 Unit PRBC's transfusing at present. Pt tolerating w/o issue. HR remains ST BBB 100's. VSS Denies complaint, Voiding w/o issue. Assessment otherwise unchanged from prior.
--- NOTE | 2024-08-10 12:52 | W.PN.PUL3 ---
Today's Communication / Plan
-
Continue postoperative management
Transfusion today
Stable from the pulmonary perspective at baseline. Continue nebulizer therapy and low-dose prednisone
Continue Acapella device
Outpatient pulmonary follow-up as previously scheduled
Sign off
Assessment
-
84-year-old woman with past medical history significant for known three-vessel coronary artery disease, CLL, heart failure with reduced ejection fraction, hypertension, ozz-iqtlnbk-irehzwjmt diabetes, bronchiectasis, severe mitral regurgitation, who
was evaluated by the heart team and she was deemed candidate for MitraClip.
Procedure underwent on 08/09/2024 without complication.
Status post MitraClip 08/09/2024
Conditions present prior admission:
Coronary artery disease multivessel
CLL
Heart failure with reduced ejection fraction
Hypertension
Czz-kkhvsyo-aaxmzvksr diabetes
Severe MR
History of bronchiectasis-follows up with Dr. Sun
On low-dose prednisone/nebulizers/secretion clearance interventions.
Kidney stone history of obstructive uropathy and prior lithotripsy
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
Non-ST elevation myocardial infarction in the past
-
Assessment and plan:
Postoperative day 1
Acute blood loss anemia-for transfusion. Follow H&H.
No evidence for active bleeding. Anemia likely due to blood loss postoperatively.
-Next
Hemodynamically stable.
Continue with hemodynamic monitoring
Continue with cardiac management.
=
Supplemental oxygen has been weaned off.
Denies increased secretions. He appears comfortable.
Feels better after transfusion.
Not bronchospastic on exam
Chest x-ray 08/09/2024: small bilateral pleural effusion without significant change. Bilateral interstitial changes suspect chronic.
History of bronchiectasis: Stable
Continue nebulizers while in the hospital Pulmicort and DuoNebs.
Mucolytic
Continue outpatient prednisone dose per
Continue Acapella device
-
Chronically elevated White blood mxion-sanfpl-li, currently afebrile
-
Advance diet as able
DVT prophylaxis SCDs-pharmacological when able
-
Continue with cardiac management.
From the pulmonary perspective he seems to be baseline.
Continue nebulizers as previous admission, continue prednisone
Outpatient follow-up with our office as previously scheduled.
Subjective Data
-
Date of Service:
Date of Service: August 10, 2024
Chief Complaint: Pulmonary Follow Up (Status post MitraClip, history of bronchiectasis.)
Subjective:
Patient reports chronic cough without change
Denies shortness of breath at rest
Denies hemoptysis
Review of Systems
Cardiopulmonary: Dyspnea (none at rest)
GI: Abdominal Pain (n) and Nausea (n)
Neuro: Headache (n)
Objective Data
Data Reviewed
Vital Signs / I&O / Oxygen:
Vital Signs
Temp Pulse Resp BP Pulse Ox
98.6 F 97 20 99/54 95
08/10/24 11:43 08/10/24 11:43 08/10/24 11:43 08/10/24 11:23 08/10/24 11:49
Intake and Output
08/09/24 08/10/24 08/11/24
06:59 06:59 06:59
Intake Total 720 / 720 480 / 480
Output Total 1870 / 1870 450 / 450
Balance -1150 / -1150 30 / 30
SaO2 95
Nasal Cannula flow liters per 2
minute
Physical Exam
General: Comfortable
HEENT: Normocephalic
Cardiovascular: S1-S2 and Peripheral Edema (n)
Respiratory: Clear
GI: Non Distended
Neurology: Awake, AO x 3 and No Motor Deficits
Labs/Micro/Reports
Lab Data
08/10/24 04:26
--- NOTE | 2024-08-10 13:56 | PN.CDI ---
CDI
- -
CDI:
Physician Documentation Request
Admit Date: 08/09/24 05:28
Dear Doctor/PLANT UTILITIES ENGINEER
Please review the following and provide your response in the progress notes.
Clinical Indicators:
Height: 5 ft 7 in
Weight:109 lb 12 oz
BMI:16.7
Other Clinical Notes:
If possible, please provide an associated diagnosis related to the abnormal BMI, such as:
BMI < or = to 19
Underweight
Cachectic
- Other
Use of terms such as suspected, likely, concern for, or probable (associated with a specific diagnosis that is being evaluated, monitored, or treated as if it exists) are acceptable and can be coded in the inpatient setting, when documented at the
time of discharge.
Thank you,
Savannah Pierre RN
CDI Specialist
[place] [facility]
Please use your independent medical judgment in providing your response.
--- NOTE | 2024-08-10 13:59 | PN.CDI ---
CDI
- -
CDI:
Physician Documentation Request
Admit Date: 08/09/24 05:28
Dear Doctor/ DIRECTOR SPEECH LANGUAGE,
Please review the following and provide your response in the progress notes.
Clinical Indicators:
Pt admitted with Severe MR for surgery s/p Mitraclip on 08/09
Sodium levels as below /IVFs in OR /Currently on IV lasix
08/07/24 08/10/24
16:24 04:26
Sodium 127 L 129 L
Based on the above, could you clarify in the progress notes, the appropriate diagnosis, if significant, that supports the above abnormalities and additional evaluation, monitoring and/or treatment rendered:
Hyponatremia
Abnormal lab value
Other ( please specify)
Use of terms such as suspected, likely, concern for, or probable (associated with a specific diagnosis that is being evaluated, monitored, or treated as if it exists) are acceptable and can be coded in the inpatient setting, when documented at the
time of discharge.
Thank you,
Savannah Pierre RN
CDI Specialist
[place] [facility]
Please use your independent medical judgment in providing your response.
--- NOTE | 2024-08-10 14:33 | PTCARENOTE ---
Ambulated in hallway with RN, gait steady. Some mild VARGAS noted but resolved with rest. Resting in bed after
--- NOTE | 2024-08-10 15:56 | PTCARENOTE ---
Resting in bed during Routine Vitals. VSS. Denies pain, HR 80-90's on monitor. Will recheck HH as ordered. Assessment unchanged from prior.
[2024-08-10] MEDS: MAGNESIUM SULFATE 50 IV (16:20)
[2024-08-10 17:24] LABS: Glucose - Point of Care 215 mg/dl (70-99)
[2024-08-10] MEDS: LIPITOR 40 MG PO (17:34)
[2024-08-10] MEDS: NOVOLOG FLEXPEN-MODERATE RESISTANCE 3 UNITS SC (17:38)
[2024-08-10 17:56] LABS: Hematocrit 27.3 % (39.0-52.0); Hemoglobin 9.2 g/dL (13.0-18.0)
--- NOTE | 2024-08-10 20:38 | PTCARENOTE ---
received pt from previous rn. pt AAOx4, VSS, NSR per tele monitor HR 80s, +pulses, pox 96% on RA, lung sounds diminished, non productive cough, hypoactive bs, voids spontaneously in urinal, all surgical sites intact, pivx2 intact, plan of care
discussed questions encouraged
[2024-08-10] MEDS: ATIVAN 0.5 MG PO (21:57)
[2024-08-10 22:11] LABS: Glucose - Point of Care 213 mg/dl (70-99)
[2024-08-11] VITALS (13 sets, daily range): BP systolic 77–106; BP diastolic 47–68; PULSE 73; O2SAT 93–94; BMI 17.2
--- NOTE | 2024-08-11 00:01 | PTCARENOTE ---
pt resting comfortably in bed, VSS, NSR per tele monitor HR 70s, assessment remains unchanged otherwise.
--- NOTE | 2024-08-11 04:02 | PTCARENOTE ---
routine labs obtained, VSS, NSR per tele monitor, assessment remains unchanged
[2024-08-11 04:16] LABS: Hemoglobin 8.4 g/dL (13.0-18.0); Mean Corp Hgb Conc. 33.6 g/dL (33.0-37.0); Mean Corpuscular Hgb 32.4 pg (27.0-31.0); Mean Corpuscular Volume 96.5 fL (80.0-94.0); Mean Platelet Volume 11.3 fL (7.4-10.4); Platelet Count 85 10^3/uL (130-400); Red Blood Cell Count 2.59 10^6/uL (4.70-6.10); Red Cell Dist. Width 16.3 % (11.5-14.5); White Blood Cell Count 12.7 10^3/uL (4.8-10.8)
[2024-08-11 04:46] LABS: Blood Urea Nitrogen 20 mg/dl (9-20); Calcium 8.2 mg/dl (8.4-10.2); Carbon Dioxide 27 mmol/L (22-30); Chloride 96 mmol/L (98-107); Estimated Creatinine Clearance 50 ml/min; Glucose 122 mg/dl (70-99); Magnesium 2.1 mg/dl (1.6-2.3); Potassium 4.6 mmol/L (3.5-5.1); Sodium 129 mmol/L (135-145); eGFR > 60.00
[2024-08-11] MEDS: PULMICORT 0.5 MG INH (07:04)
[2024-08-11] MEDS: DUONEB 3 ML INH (07:04)
[2024-08-11] MEDS: NOVOLOG FLEXPEN-MODERATE RESISTANCE SC ×2 (08:19→12:16)
[2024-08-11] MEDS: PLAVIX 75 MG PO (08:19)
[2024-08-11] MEDS: ALDACTONE 12.5 MG PO (08:20)
[2024-08-11] MEDS: FARXIGA 10 MG PO (08:20)
[2024-08-11] MEDS: GLUCOPHAGE XR EXTENDED RELEASE 500 MG PO ×2 (08:20→16:44)
[2024-08-11] MEDS: ASPIR LOW (ENTERIC COATED) 81 MG PO (08:20)
[2024-08-11] MEDS: DELTASONE 10 MG PO (08:20)
[2024-08-11] MEDS: JANUVIA 100 MG PO (08:20)
--- NOTE | 2024-08-11 08:49 | PTCARENOTE ---
Assumed care of patient from service writer RN. AAO x 3 sitting up in the chair. SR on monitor, 60-70's . Room air 96%.
Harsch productive cough remains. Abdomen soft and non tender. voiding w/o issue. Pulses palpable. Rt groin cdi
--- NOTE | 2024-08-11 09:21 | W.PN.CARDCBS ---
Addendum entered and electronically signed by Kendy Baldwin MD 08/11/24 17:11:
I saw and examined the patient.
The Color Separation Photographer's note was reviewed and I agree with the note.
Comment: Patient is doing well this morning and does not report any significant complaints. He has been out of bed ambulating without any difficulty. No issues at the groin sites.
Vital signs and lab work reviewed. Hemoglobin improved to 9.2 and has decreased back down to 8.4 without clear obvious source of bleeding. Heart rates have now normalized, blood pressures are stable. On exam patient is an elderly gentleman, frail
but in no acute distress, awake, alert and oriented x 3, regular rate, normal S1 and S2, 2 out of 6 holosystolic murmur, bibasilar Rales, warm extremities without significant edema
Recommendations:
1. Given recurrent hemoglobin drop without clear cause in an elderly gentleman post procedure, decision was made to proceed with CT angiogram of abdomen pelvis in the setting of normal renal function to rule out any concerns of ongoing hemorrhage.
CT abdomen and pelvis report was reviewed showing no active ongoing hemorrhage or groin issues/hematoma. It did note moderate size pleural effusions which were new compared to his recent admission in July. I personally reached out to
interventional radiology and it appeared that there was enough fluid to consider thoracentesis. Patient was sent down to IR and he underwent right thoracentesis with 900 cc of fluid removal.
2. Plan to follow-up fluid analysis as an outpatient. Chest x-ray postprocedure not showing any pneumothorax. We will help set up for outpatient thoracentesis on the left side next week.
3. Continue with diuresis, plan to continue IV doses while inpatient and switch to 40 mg p.o. Lasix twice daily at home starting tomorrow with plan to recheck renal function and electrolytes next week.
4. We will also plan on rechecking blood counts next week.
5. Continue to encourage incentive spirometry.
6. In order to optimize goal-directed medical therapy given difficulty of taking half dose spironolactone, we will switch it to 25 mg daily. Losartan continues to be on hold with plan to hopefully resume as an outpatient if blood pressure allows
for it.
Overall patient is stable and safe for discharge home from a cardiac standpoint later today.
Discussed plan above with nursing as well as patient.
Kendy Baldwin MD, [facility], [facility]
Addendum entered and electronically signed by YOEL Goodson 08/11/24 10:19:
Nutrition consult 08/10, ' CBW 109 lbs 12.643 oz BMI 17.2 underweight (08/10). As per nutrition screening at admission pt reported decreased intakes due to poor appetite but denied recent unintentional wt loss. External medical summary lists wt as 108
lbs on 07/04/24. Per previous visit pt's wt was 108 lbs 4 oz on 06/07/24 and 117 lbs on 06/03/24-wt loss not significant. As per ASPEN/AND pt meet criteria for moderate protein calorie malnutrition in the context of chronic illness with NFPE findings
of moderate fat loss at orbitals, mild fat loss at ribs, moderate muscle wasting at clavicles, and mild muscle wasting at shoulders.'
Moderate protein calorie malnutrition
Original Note:
Today's Communication / Plan
-
CTA abd/pelvis now to r/o bleed with continued low hbg despite transfusion
continue diuresis
poss home later today pending CTA result vs tomorrow
Impression / Plan
-
PCP: Stan Gomez MD
CDY: Lucas Galindo MD
Impression:
Severe Mitral regurgitation post EFRAÍN (Mitraclip 08/09/24)
Acute on chronic blood loss anemia
Acute on chronic HFrEF 35-40%
Hypokalemia
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
HTN
HLD
CLL
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
DM2
Kidney stone history of obstructive uropathy and prior lithotripsy
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
Plan:
post Mitraclip 08/09/24
groin with some bleeding d/t Perclose failure post procedure, F08 placed with no further bleeding, stable
Hbg dropped 9.9 >7.2, received 1 u PRBC's, hbg 9.2 then back to 8.4 this am
Will check CTA to r/o bleed of R groin
f/u ECHO EF 30-35%, mild-mod MR
continue diuresis, if bp stable after CTA will give lasix 20mg iv, then plan for d/c on lasix 40mg PO bid
keep K >4, Mg >2
HF continue Farxiga, metoprolol xl 25 bid, spironolactone, continue to hold losartan with hypotension
CLL continue prednisone
DM continue metformin, Januvia, SSI
OOB C&DB, I.S.
ok to trasfer to IVU
f/u Dr. Baldwin in 2 weeks
if CTA stable, poss d/c home later today vs tomorrow
Progress Note - Formation Testing Operator
Subjective
Date of Service: August 11, 2024
denies cp, sob at baseline
Objective
Labs:
08/11/24 03:56
08/11/24 03:56
Labs
Hgb 8.4 g/dL (13.0-18.0) L 08/11/24 03:56
Hct 25.0 % (39.0-52.0) L 08/11/24 03:56
Plt Count 85 10^3/uL (130-400) L 08/11/24 03:56
PT 13.9 Sec (11.4-14.6) 08/07/24 16:24
INR 1.04 08/07/24 16:24
APTT 25.9 Sec (23.4-35.0) 08/07/24 16:24
Sodium 129 mmol/L (135-145) L 08/11/24 03:56
Potassium 4.6 mmol/L (3.5-5.1) D 08/11/24 03:56
BUN 20 mg/dl (9-20) 08/11/24 03:56
Creatinine 0.8 mg/dL (0.7-1.3) 08/11/24 03:56
Glucose 122 mg/dl (70-99) H 08/11/24 03:56
Vital Signs and I&O:
Vital Signs
Temp Pulse Resp BP Pulse Ox
97.8 F 81 20 89/49 95
08/11/24 08:00 08/11/24 09:00 08/11/24 08:00 08/11/24 08:14 08/11/24 08:00
Vital Signs
Temp Pulse Resp BP Pulse Ox
97.8 F 81 20 89/49 95
08/11/24 08:00 08/11/24 09:00 08/11/24 08:00 08/11/24 08:14 08/11/24 08:00
Intake & Output
08/09/24 08/10/24 08/11/24 08/12/24
06:59 06:59 06:59 06:59
Intake Total 720 / 720 1260 / 1260 360 / 360
Output Total 1870 / 1870 2675 / 2675
Balance -1150 / -1150 -1415 / -1415 360 / 360
Physical Exam
Physical Exam
NAD, AOX3
S1, S2, RRR, II/ FANY
coarse with crackles t/o with exp wheeze
SNTND Bsx4
R groin c/d/i, mild ecchymosis
--- NOTE | 2024-08-11 10:02 | PN.CDI ---
CDI
- -
CDI:
Physician Documentation Request
Admit Date: 08/09/24 05:28
Dear Doctor / PRESCRIPTION CLERK,
Please review the following and provide your response in the progress notes.
Clinical Indicators:
Pt admitted with Severe MR for surgery s/p Mitraclip on 08/09
Documented in the record Underweight/ BMI 17.2
Nutrition consult 08/10, ' CBW 109 lbs 12.643 oz BMI 17.2 underweight (08/10). As per nutrition screening at admission pt reported decreased intakes due to poor appetite but denied recent unintentional wt loss. External medical summary lists wt as 108
lbs on 07/04/24. Per previous visit pt's wt was 108 lbs 4 oz on 06/07/24 and 117 lbs on 06/03/24-wt loss not significant. As per ASPEN/AND pt meet criteria for moderate protein calorie malnutrition in the context of chronic illness with NFPE findings
of moderate fat loss at orbitals, mild fat loss at ribs, moderate muscle wasting at clavicles, and mild muscle wasting at shoulders.'
Based on the above information and your assessment, which of the following most accurately represents the patient's nutritional status?
Moderate Protein Calorie Malnutrition
Mild Protein Calorie Malnutrition
Other ( please specify)
[place] Criteria (ACP Hospitalist 2017)
2 or more criteria must be present for either
non severe or severe malnutrition
Note that the criteria differs related to the
presence of an acute or chronic illness
Acute Illness Chronic Illness
Energy Intake Non Severe: <75% for >7 days Non Severe: <75% for >1 month
Severe: <50% for >5 days Severe: <75% for >1 month
Weight Loss Non Severe: 1-2% over 1 week Non Severe: 5% over 1 month
5% over 1 month 7.5% over 3 months
7.5% over 3 months 10% over 6 months
1 year N/A 20% over 1 year
Severe: >2% over 1 week Severe: >5% over 1 month
>5% over 1 month >7.5% over 3 months
>7.5% over 3 months >10% over 6 months
1 year N/A >20% over 1 year
Body Fat Non Severe: Mild Decrease Non Severe: Mild Loss
Severe: Moderate Decrease Severe: Severe Loss
Muscle Mass Non Severe: Mild Decrease Non Severe: Mild Loss
Severe: Moderate Decrease Severe: Severe Loss
Fluid Accumulation Non Severe: Mild Accumulation Non Severe: Mild Accumulation
Severe: Moderate to severe Severe: Moderate to severe
accumulation accumulation
Reduced Obstetrics Scrub Nurse Strength Non Severe: N/A Non Severe: N/A
Severe: Measurably reduced Severe: Measurably reduced
Use of terms such as suspected, likely, concern for, or probable (associated with a specific diagnosis that is being evaluated, monitored, or treated as if it exists) are acceptable and can be coded in the inpatient setting, when documented at the
time of discharge.
Thank you,
Savannah Pierre RN
CDI Specialist
[place] [facility]
Please use your independent medical judgment in providing your response.
[2024-08-11] MEDS: TOPROL XL 25 MG PO (10:24)
--- NOTE | 2024-08-11 11:10 | CM ---
Addendum entered by JOCELYN Woodard 08/11/24 12:45:
[facility] able to accept.
I cancelled [facility] services as per patient's request.
Plan is home w/ [facility]
Original Note:
CM following for DC planning needs.
Met w/ patient at bedside to review DC plans.
Pt. reports that he is feeling well. He is hopeful for DC to home soon. Pt. will begin Cardiac Rehab in several weeks. We discussed VN in the interim. He would like VN and prefers [facility], NOT [facility].
Referral made to [facility], awaiting response.
Plan will also be discussed w/ son, upon his arrival.
Plan is for home w/ [facility], if accepted.
--- NOTE | 2024-08-11 12:00 | PTCARENOTE ---
Ambulating in room and hallway with steady gait. Denies pain . VSS/. Assessment unchanged from prior. Awaiting IR for consult. Able to have a 'very large BM ' per patient in bathroom.
[2024-08-11] MEDS: LASIX 20 MG IV ×2 (12:16→16:44)
--- NOTE | 2024-08-11 12:50 | CM ---
Addendum entered by JOCELYN Woodard 08/11/24 16:40:
Call to JR, son to review DC plans.
Plan is for home w/ [facility] Transitional Care RN, initial visit on Wednesday.
JR has arranged [facility] to be available over night for patient.
Met w/ patient and reviewed the above as well.
Original Note:
CM following for DC planning needs.
Met w/ patient at bedside. We reviewed DC plans. Plan is for home w/ [facility] Transitional [facility] RN.
Will cont. to follow.
--- NOTE | 2024-08-11 15:39 | PTCARENOTE ---
Received back from IR on stretcher. RT posterior back c,d,i. Lungs decreased but clear. Pulse ox 95%% room air. VSS. Assessment otherwise unchanged from prior.
--- NOTE | 2024-08-11 16:50 | W.DS.TRANS ---
DC Summary - Corporate Law Assistant
-
Discharge Instructions:
Sleep Apnea Risk Intermediate
Discharge Diagnosis/Procedures Severe Mitral regurgitation post mitraclip
Diet Low Cholesterol,Diabetic, Carb Controlled,2 Gram
Sodium
Driving Restrictions No driving for 24 hours
Bathing Restrictions OK to Shower
Blood Work Check BMP, CBC in 1 week
Others Tests Your 30-day follow up echocardiogram is
scheduled for 09/08 at 1pm at [facility]
Other Services Cardiac Rehab
Specialty Instructions Weigh Daily
Instructions:
Stand-Alone Forms: DC Instructions- Cath/EP Lab
Changes to Home Medications: Yes
Discharge Medications:
DC Medications w/original date entered in [facility]
ascorbic acid (vitamin C) 1,000 mg tablet (Vitamin C) 1,000 mg PO DAILY Supplement 07/27/23
cholecalciferol (vitamin D3) 25 mcg (1,000 unit) tablet (Vitamin D3) 25 mcg PO DAILY Supplement 07/27/23
dapagliflozin propanediol 10 mg tablet (Farxiga) 10 mg PO DAILY Heart Failure #30 tabs 08/05/23
aspirin 81 mg tablet,delayed release 81 mg PO DAILY Blood Clot Prevention/Tx 11/24/23
atorvastatin 40 mg tablet 40 mg PO QPM High Cholesterol 11/24/23
clopidogrel 75 mg tablet (Plavix) 75 mg PO DAILY Blood Clot Prevention/Tx 11/24/23
losartan 25 mg tablet 25 mg PO DAILY Heart Failure 11/24/23
metoprolol succinate 25 mg tablet,extended release 24 hr 25 mg PO BID Heart Failure 11/24/23
cod liver oil 1 cap PO DAILY Supplement 06/01/24
docusate sodium 100 mg capsule (Colace) 50 mg PO BIDPRN PRN constipation 06/01/24
prednisone 10 mg tablet 10 mg PO DAILY Lung/Breathing Issues 06/01/24
Ivig Infusion 1 dose IV .Q 3-4 MONTHS CLL 07/10/24
budesonide 0.5 mg/2 mL suspension for nebulization 0.5 mg inhalation BID Lung/Breathing Issues 07/10/24
cyanocobalamin (vitamin B-12) 1,000 mcg tablet (Vitamin B-12) 1,000 mcg PO DAILY Supplement 07/10/24
ipratropium 0.5 mg-albuterol 3 mg (2.5 mg base)/3 mL nebulization soln 3 ml inhalation R Q6HPRN PRN sob 07/10/24
dextromethorphan-guaifenesin 10 mg-100 mg/5 mL oral syrup 5 ml PO Q4HPRN PRN cough #237 mL 07/20/24
furosemide 40 mg tablet (Lasix) 40 mg PO BID Heart Failure #60 tabs 07/20/24
metformin 500 mg tablet,extended release 24 hr 500 mg PO BID Diabetes #0 tabs 07/20/24
sitagliptin phosphate 100 mg tablet (Januvia) 100 mg PO DAILY #1 tab 07/20/24
temazepam 30 mg capsule 30 mg PO HS Sleep #4 caps 07/20/24
lorazepam 0.5 mg tablet 0.25 mg PO HSPRN PRN SLEEP 08/09/24
spironolactone 25 mg tablet 25 mg PO DAILY #90 tabs 08/11/24
Home Medication Changes
hold losartan, increase spironolactone 25 daily
Pending Results: No
--- NOTE | 2024-08-11 18:00 | PTCARENOTE ---
Discharge instructions reviewed with patient and son. Questions answered. Wheeled to car by RN.
== END 2024-08-11 18:00 | disposition home or self-care (01) | DRG 266 ==
LOC: CVICU 05:28
PROVIDERS: Internal Medicine Cardiovascular Disease; Nurse Practitioner; Nurse Practitioner Acute Care; Nurse Practitioner Adult Health; Radiology Vascular & Interventional Radiology; ADMITTING PHYSICIAN Internal Medicine Interventional Cardiology; CONSULT PHYSICIAN Internal Medicine Critical Care Medicine
PROC: 02UG3JZ Supplement Mitral Valve with Synthetic Substitute, Percutaneous Approach (ICD-10-PCS; 2024-08-09)
PROC: B24BZZ4 Ultrasonography of Heart with Aorta, Transesophageal (ICD-10-PCS; 2024-08-09)
PROC: 30233N1 Transfusion of Nonautologous Red Blood Cells into Peripheral Vein, Percutaneous Approach (ICD-10-PCS; 2024-08-10)
PROC: 0W993ZZ Drainage of Right Pleural Cavity, Percutaneous Approach (ICD-10-PCS; 2024-08-11)
DX: I34.0 Nonrheumatic mitral (valve) insufficiency (principal); I50.23 Acute on chronic systolic (congestive) heart failure; C91.10 Chronic lymphocytic leukemia of B-cell type not having achieved remission; D62 Acute posthemorrhagic anemia; E44.0 Moderate protein-calorie malnutrition; E87.1 Hypo-osmolality and hyponatremia; Z68.1 Body mass index [BMI] 19.9 or less, adult; J84.9 Interstitial pulmonary disease, unspecified; I42.9 Cardiomyopathy, unspecified; I50.22 Chronic systolic (congestive) heart failure; J47.9 Bronchiectasis, uncomplicated; E11.9 Type 2 diabetes mellitus without complications; E87.6 Hypokalemia; I25.82 Chronic total occlusion of coronary artery; E78.5 Hyperlipidemia, unspecified; I11.0 Hypertensive heart disease with heart failure; N20.0 Calculus of kidney; I25.10 Atherosclerotic heart disease of native coronary artery without angina pectoris; I95.9 Hypotension, unspecified; E88.09 Other disorders of plasma-protein metabolism, not elsewhere classified; E77.8 Other disorders of glycoprotein metabolism; I25.2 Old myocardial infarction; Z79.84 Long term (current) use of oral hypoglycemic drugs; Z79.899 Other long term (current) drug therapy; Z87.01 Personal history of pneumonia (recurrent); Z87.442 Personal history of urinary calculi
CPT/HCPCS: 93308; 32555; 33418; 33419; 36415; 71045; 74174; 80048; 80053; 82805; 82962; 83036; 83735; 85014; 85018; 85025; 85027; 85347; 85610; 85730; 86850; 86900; 86901; 86920; 93005; 93321; 93325; 93355; 94640; C1760; C1894; P9016; Q9967

== ENCOUNTER → 2024-08-17 08:40 | Outpatient (REF) | payer OTHER, SELFPAY ==
[2024-08-17 09:02] VITALS: BP 90/58; BP_SYST 70
[2024-08-17 10:13] VITALS: BP 93/52
[2024-08-17 11:30] LABS: Microalbumin, Random Urine 4.6 mg/dl (0.6-1.7); Microalbumin/creatinine Ratio 84.4 mg/g
[2024-08-17 11:35] LABS: ALT (SGPT) 13 U/L (0-50); AST (SGOT) 28 U/L (17-59); Alkaline Phosphatase 61 U/L (38-126); Blood Urea Nitrogen 19 mg/dl (9-20); Calcium 8.6 mg/dl (8.4-10.2); Carbon Dioxide 26 mmol/L (22-30); Chloride 94 mmol/L (98-107); Glucose 161 mg/dl (70-99); HDL Cholesterol 43 mg/dl; LDL Cholesterol, Calculated 46 mg/dl; Potassium 3.3 mmol/L (3.5-5.1); Sodium 128 mmol/L (135-145); Total Bilirubin 1.3 mg/dl (0.2-1.3); Total Cholesterol 100 mg/dl (50-199); Total Protein 5.1 g/dl (6.3-8.2); Triglyceride 56 mg/dl (10-149); Very Low Density Lipoprotein 11 mg/dl (0-30); eGFR > 60.00
== END ==
LOC: RADI 08:40
PROVIDERS: ATTENDING PHYSICIAN Nurse Practitioner Acute Care; FAMILY PHYSICIAN Internal Medicine
DX: J90 Pleural effusion, not elsewhere classified (principal)
CPT/HCPCS: 32555; 36415; 71045; 80053; 80061; 82043; 82570

== ENCOUNTER → 2024-08-21 12:05 | Outpatient (REF) | payer OTHER, SELFPAY ==
[2024-08-21 13:46] LABS: Blood Urea Nitrogen 30 mg/dl (9-20); Calcium 9.2 mg/dl (8.4-10.2); Carbon Dioxide 27 mmol/L (22-30); Chloride 91 mmol/L (98-107); Glucose 273 mg/dl (70-99); Potassium 3.6 mmol/L (3.5-5.1); Sodium 130 mmol/L (135-145); eGFR > 60.00
[2024-08-21 13:59] LABS: Hematocrit 32.9 % (39.0-52.0); Hemoglobin 10.9 g/dL (13.0-18.0); Mean Corp Hgb Conc. 33.1 g/dL (33.0-37.0); Mean Corpuscular Hgb 31.8 pg (27.0-31.0); Mean Corpuscular Volume 95.9 fL (80.0-94.0); Mean Platelet Volume 11.9 fL (7.4-10.4); Platelet Count 143 10^3/uL (130-400); Red Blood Cell Count 3.43 10^6/uL (4.70-6.10); Red Cell Dist. Width 15.6 % (11.5-14.5); White Blood Cell Count 12.5 10^3/uL (4.8-10.8)
[2024-08-21 14:41] LABS: % Basophils 0.2 % (0-2); % Eosinophils 0.1 % (0-6); % Lymphocytes 56.1 % (20.5-51.1); % Monocytes 2.3 % (1.7-9.3); % Neutrophils 38.3 % (42.2-75.2); Absolute Immature Granulocytes 0.4 10^3/uL (0-0.05); Absolute Monocytes 0.3 10^3/uL (0.1-0.6); Absolute Neutrophils 4.8 10^3/uL (1.4-6.5); Nucleated Red Blood Cells % 0 % (-)
== END ==
LOC: REG 12:05
PROVIDERS: ATTENDING PHYSICIAN Internal Medicine Interventional Cardiology; FAMILY PHYSICIAN Internal Medicine
DX: R35.89 Other polyuria (principal); D64.9 Anemia, unspecified
CPT/HCPCS: 36415; 80048; 85025

== ENCOUNTER → 2024-08-22 13:28 | Outpatient (REF) | payer OTHER, SELFPAY | LOC: RAD 13:28 | PROVIDERS: ATTENDING PHYSICIAN Internal Medicine | DX: R05.1 Acute cough (principal); R09.89 Other specified symptoms and signs involving the circulatory and respiratory systems | CPT/HCPCS: 71046 ==

== ENCOUNTER → 2024-09-08 12:20 | Outpatient (REF) | payer OTHER, SELFPAY ==
[2024-09-08 13:33] LABS: Hematocrit 29.7 % (39.0-52.0); Hemoglobin 10.4 g/dL (13.0-18.0); Mean Corpuscular Hgb 31.7 pg (27.0-31.0); Mean Corpuscular Volume 90.5 fL (80.0-94.0); Mean Platelet Volume 11.9 fL (7.4-10.4); Platelet Count 159 10^3/uL (130-400); Red Blood Cell Count 3.28 10^6/uL (4.70-6.10); Red Cell Dist. Width 15.2 % (11.5-14.5); White Blood Cell Count 15.1 10^3/uL (4.8-10.8)
[2024-09-08 13:49] LABS: % Basophils 0.2 % (0-2); % Immature Granulocytes 3.3 % (0-0.5); % Lymphocytes 52.2 % (20.5-51.1); % Monocytes 2.6 % (1.7-9.3); % Neutrophils 41.7 % (42.2-75.2); Absolute Immature Granulocytes 0.5 10^3/uL (0-0.05); Absolute Lymphocytes 7.9 10^3/uL (1.2-3.4); Absolute Monocytes 0.4 10^3/uL (0.1-0.6); Absolute Neutrophils 6.3 10^3/uL (1.4-6.5); Nucleated Red Blood Cells % 0 % (-)
[2024-09-08 13:59] LABS: Iron 29 ug/dl (49-181); LDH 251 U/L (120-246)
[2024-09-08 14:08] LABS: IgG 619 mg/dl (700-1600)
[2024-09-08 14:09] LABS: Percent Saturation 12 % (20-50); Total Iron Binding Capacity 235 ug/dl (261-462)
== END ==
LOC: RCS 12:20
PROVIDERS: ATTENDING PHYSICIAN Internal Medicine Cardiovascular Disease; FAMILY PHYSICIAN Internal Medicine; REFERRING PHYSICIAN Internal Medicine Hematology & Oncology
DX: I34.0 Nonrheumatic mitral (valve) insufficiency (principal); I25.5 Ischemic cardiomyopathy; I10 Essential (primary) hypertension; I25.10 Atherosclerotic heart disease of native coronary artery without angina pectoris; D72.820 Lymphocytosis (symptomatic); C91.10 Chronic lymphocytic leukemia of B-cell type not having achieved remission; D80.1 Nonfamilial hypogammaglobulinemia
CPT/HCPCS: 36415; 82728; 82784; 83540; 83550; 83615; 85025; 93306